=== PATIENT | male | born 1965 | race Caucasian/White ===

== ENCOUNTER 2021-01-25 09:21 | Outpatient (REF) | payer BC, SELFPAY ==
[2021-01-25 10:12] LABS: MANUAL DIFF FLAG NO
[2021-01-25 10:17] LABS: Basophils Absolute Auto 0.1 X10*3/uL (0.0-0.2); Basophils Percent Auto 1.1 % (0-2); Eosinophils Absolute Auto 0.1 X10*3/uL (0.0-0.4); Eosinophils Percent Auto 1.8 % (0-4); Hemoglobin 16.6 g/dl (14.0-18.0); Imm Gran Abs Auto 0.02 X10*3/uL (0.00-0.03); Imm Gran Pct Auto 0.3 % (0.0-0.4); Lymphocytes Absolute Auto 1.7 X10*3/uL (1.2-4.9); Mean Corpuscular HGB Conc 33.2 g/dl (31.0-36.0); Mean Corpuscular Volume 93.3 fL (80-98); Mean Platelet Volume 10.7 fL (9.4-12.4); Monocytes Absolute Auto 0.6 X10*3/uL (0.1-1.2); Neutrophils Absolute Auto 4.8 X10*3/uL (2.0-8.3); Neutrophils Percent Auto 65.8 % (45-73); Platelet Count 195 X10*3/uL (160-400); Red Blood Count 5.36 X10*6/uL (4.60-5.80); Red Cell Distribution Width 12.4 % (11.0-16.0); White Blood Count 7.3 X10*3/uL (4.8-10.8)
[2021-01-25 11:01] LABS: Alanine Aminotransferase 23 U/L (0-40); Albumin Level 4.5 g/dL (3.5-5.0); Alkaline Phosphatase 63 U/L (39-117); Anion Gap 13 (12-20); Aspartate Amino Transferase 19 U/L (5-37); Bilirubin Total 0.3 mg/dL (0.0-1.0); Blood Urea Nitrogen 15 mg/dL (9-16); Calcium 9.4 mg/dL (8.4-10.2); Carbon Dioxide 28 mmol/L (22-29); Chloride 103 mmol/L (96-108); Cholesterol 216 mg/dL; Estimated Glomerular Filt Rate > 60; Glucose Fasting 92 mg/dL (60-99); HDL Cholesterol 70 mg/dL; LDL Cholesterol Calculated 139 mg/dl; Potassium 4.9 mmol/L (3.3-5.1); Sodium 139 mmol/L (135-145); Total Protein 7.3 g/dL (6.5-8.0); Triglycerides 39 mg/dL
[2021-01-25 11:21] LABS: Prostate Specific Antigen 2.74 ng/mL (<0.05-4.0)
== END 2021-01-25 09:22 | disposition home or self-care (01) ==
LOC: HO.LAB 09:21
PROVIDERS: PCP Internal Medicine Medical Oncology; Visit Provider Internal Medicine Medical Oncology
DX: E66.9 Obesity, unspecified (principal); E78.5 Hyperlipidemia, unspecified; Z12.5 Encounter for screening for malignant neoplasm of prostate
CPT/HCPCS: 36415; 80053; 80061; 84153; 85025

== ENCOUNTER 2021-08-16 12:43 | Outpatient (REF) | payer BC, SELFPAY ==
--- NOTE | ~2021-08-16 | US_ITS ---
EXAMINATION: US SCROTUM CLINICAL INFORMATION: Mass left testicle, question hydrocele. COMPARISON: None TECHNIQUE: A sonogram of the scrotum was performed assessing oscar-scale appearance and color Doppler flow. Spectral Doppler analysis of the arterial and venous flow were performed in the testes bilaterally. FINDINGS: RIGHT: Right testicle measures 4.2 x 2.0 x 3.0 cm, volume 13.2 mL. No focal testicular parenchymal lesions are visualized. Spectral Doppler analysis of the arterial and venous flow is normal in the right testis. Right epididymal head is normal in size. There are simple appearing epididymal head cysts measuring 1.5 and 0.4 cm. No hydrocele. No right hydrocele is seen. Small varicocele. Right epididymal Doppler flow is normal. LEFT: Left testicle measures 4.0 x 2.2 x 3.4 cm, volume 15.7 mL. No focal testicular parenchymal lesions are visualized. Spectral Doppler analysis of the arterial and venous flow is normal in the left testis. There is a left epididymal head cyst measuring 4.1 cm with simple sonographic appearance. There are additional 1.1 and 0.6 cm simple appearing epididymal head cysts. Small varicocele. Left epididymal Doppler flow is normal. US/US scrotum IMPRESSION: Left epididymal head cyst measuring 4.1 cm. Small bilateral varicoceles. No testicular mass.
== END 2021-08-16 12:44 | disposition home or self-care (01) ==
LOC: HO.HMGCX 12:43
PROVIDERS: PCP Internal Medicine Medical Oncology; Visit Provider Internal Medicine Medical Oncology
DX: D29.22 Benign neoplasm of left testis (principal); N43.3 Hydrocele, unspecified
CPT/HCPCS: 76870

== ENCOUNTER 2022-03-12 07:56 | Outpatient (REF) | payer BC, SELFPAY ==
[2022-03-12 08:04] LABS: MANUAL DIFF FLAG NO
[2022-03-12 09:21] LABS: Basophils Absolute Auto 0.1 X10*3/uL (0.0-0.2); Basophils Percent Auto 1.4 % (0-2); Eosinophils Absolute Auto 0.1 X10*3/uL (0.0-0.4); Eosinophils Percent Auto 2.2 % (0-4); Hematocrit 49.2 % (42.0-52.0); Hemoglobin 16.3 g/dl (14.0-18.0); Imm Gran Abs Auto 0.02 X10*3/uL (0.00-0.03); Imm Gran Pct Auto 0.3 % (0.0-0.4); Lymphocytes Absolute Auto 1.5 X10*3/uL (1.2-4.9); Lymphocytes Percent Auto 23.6 % (20-40); Mean Corpuscular HGB Conc 33.1 g/dl (31.0-36.0); Mean Corpuscular Hemoglobin 31.1 pg (27.0-33.0); Mean Corpuscular Volume 93.9 fL (80.0-98.0); Mean Platelet Volume 10.5 fL (9.4-12.4); Monocytes Absolute Auto 0.6 X10*3/uL (0.1-1.2); Neutrophils Absolute Auto 3.9 x10*3/uL (2.0-8.3); Neutrophils Percent Auto 62.5 % (45-73); Platelet Count 199 X10*3/uL (160-400); Red Blood Count 5.24 X10*6/uL (4.60-5.80); Red Cell Distribution Width 12.8 % (11.0-16.0); White Blood Count 6.2 X10*3/uL (4.8-10.8)
[2022-03-12 09:57] LABS: Alanine Aminotransferase 27 U/L (0-40); Albumin Level 4.3 g/dL (3.5-5.0); Alkaline Phosphatase 55 U/L (39-117); Anion Gap 14 (12-20); Aspartate Amino Transferase 22 U/L (5-37); Bilirubin Total 0.3 mg/dL (0.0-1.0); Blood Urea Nitrogen 13 mg/dL (9-16); Calcium 9.1 mg/dL (8.4-10.2); Carbon Dioxide 28 mmol/L (22-29); Chloride 103 mmol/L (96-108); Cholesterol 225 mg/dL; Estimated Glomerular Filt Rate > 60; Glucose Fasting 104 mg/dL (60-99); HDL Cholesterol 68 mg/dL; LDL Cholesterol Calculated 147 mg/dl; Sodium 140 mmol/L (135-145); Total Protein 6.8 g/dL (6.5-8.0); Triglycerides 50 mg/dL
[2022-03-12 10:22] LABS: Prostate Specific Antigen 2.94 ng/mL (<0.05-4.0)
[2022-03-12 10:48] LABS: Vitamin D 25-OH Total 25.8 ng/mL (>30)
== END 2022-03-12 07:57 | disposition home or self-care (01) ==
LOC: HO.LAB 07:56
PROVIDERS: PCP Internal Medicine Medical Oncology; Visit Provider Internal Medicine Medical Oncology
DX: E78.5 Hyperlipidemia, unspecified (principal); E66.9 Obesity, unspecified; N40.0 Benign prostatic hyperplasia without lower urinary tract symptoms; E56.9 Vitamin deficiency, unspecified; Z12.5 Encounter for screening for malignant neoplasm of prostate
CPT/HCPCS: 36415; 80053; 80061; 82306; 84153; 85025

== ENCOUNTER 2022-03-28 10:43 | Outpatient (REF) | payer BC, SELFPAY ==
--- NOTE | 2022-03-28 | PFT_ITS ---
FLOWS: FEV1 45% of predicted at 1.87 L. FVC 100% of predicted at 5.43 L. FEV1 to FVC ratio of 0.34. Positive bronchodilator response. LUNG VOLUMES: Total lung capacity 127% of predicted at 9.66 L. Residual volume 220% of predicted at 5.16 L. Slow vital capacity 85% of predicted at 4.50 L. Expiratory reserve volume 74% of predicted at 1.21 L. Diffusion capacity is mildly decreased. IMPRESSION: Severe to very severe obstructive ventilatory defect with positive bronchodilator response. Increased total lung capacity suggests hyperinflation. Increased residual volume suggests air trapping. Decreased diffusion capacity suggests emphysema. MD TROY Ruiz/MODL / [id number]
== END 2022-03-28 10:44 | disposition home or self-care (01) ==
LOC: HO.RESP 10:43
PROVIDERS: PCP Internal Medicine Medical Oncology; Visit Provider Internal Medicine Medical Oncology
DX: J44.9 Chronic obstructive pulmonary disease, unspecified (principal); R06.02 Shortness of breath; F17.200 Nicotine dependence, unspecified, uncomplicated
CPT/HCPCS: 94060; 94727; 94729

== ENCOUNTER → 2022-06-14 14:11 | Outpatient (BNVA) | payer BC, SELFPAY | PROVIDERS: PCP Internal Medicine Medical Oncology; Visit Provider Internal Medicine | DX: Z13.89 Encounter for screening for other disorder (principal) ==

== ENCOUNTER → 2022-07-19 14:21 | Outpatient (BNVA) | payer BC, SELFPAY | PROVIDERS: PCP Internal Medicine Medical Oncology; Visit Provider Internal Medicine | DX: Z13.89 Encounter for screening for other disorder (principal) ==

== ENCOUNTER 2022-07-22 13:59 | Outpatient (REF) | payer BC, SELFPAY ==
--- NOTE | ~2022-07-22 | CT_ITS ---
EXAMINATION: CT CHEST SCREENING CLINICAL INFORMATION: Current smoker. 45 pack year history. COMPARISON: Previous chest x-ray from 2014 TECHNIQUE: Multidetector volumetric CT imaging of the chest is performed without contrast using low dose technique. Additional 2D coronal and sagittal reformatted images and axial 3D maximum intensity projection (MIP) images are generated on the CT workstation. This CT examination was performed using dose optimization techniques as appropriate, variously including the following: *Automated exposure control *Adjustment of mA and/or kV according to patient size (this includes techniques or standardized protocols for targeted exams where dose is matched to indication/reason for exam; i.e. extremities or head) *Use of iterative reconstruction technique DLP: 71 mGy-cm FINDINGS: LUNGS: There is evidence of emphysema. 4 mm peripheral or subpleural left upper lobe nodule axial image 68 series 5. 3 mm left upper lobe nodule axial image 75 series 5. 2 mm left upper lobe nodule axial image 77 series 5. Streaky linear density in the anterior segment of the right upper lobe near the interhemispheric fissure. Probably represents an area of scarring or subsegmental atelectasis. The lungs are otherwise clear. No endobronchial or endotracheal lesion. MEDIASTINUM: Trace pericardial fluid or thickening. The mediastinum is otherwise normal. CORONARY ARTERY CALCIFICATION: Mild PLEURA: There is no pleural effusion. No pleural mass or thickening. AXILLA: No lymphadenopathy./Latissimus dorsi fatty lesion in the left lateral chest wall muscles suggestive of a lipoma. UPPER ABDOMEN: 1.5 x 2 cm low-attenuation left adrenal nodule. This is negative Hounsfield units suggestive of a benign lipid rich adenoma. There is question of a low-attenuation lesion in the posterior upper pole the left kidney measuring approximately 1 x 2 cm. This is only partially visualized. OSSEOUS STRUCTURES: Unremarkable. CT/CT lung screening IMPRESSION: Emphysema. Small pulmonary nodules. ASSESSMENT: Lung-RADS category 2: Benign RECOMMENDATION: Annual low-dose chest CT follow-up recommended.
== END 2022-07-22 14:00 | disposition home or self-care (01) ==
LOC: HO.CT 13:59
PROVIDERS: PCP Internal Medicine Medical Oncology; Visit Provider Physician Assistant Medical
DX: Z12.2 Encounter for screening for malignant neoplasm of respiratory organs (principal); Z87.891 Personal history of nicotine dependence
CPT/HCPCS: 71271; G0296

== ENCOUNTER 2022-08-04 13:10 | Outpatient (REF) | payer BC, SELFPAY ==
--- NOTE | ~2022-08-04 | US_ITS ---
EXAMINATION: US RETROPERITONEAL LIMITED (RENAL ONLY) CLINICAL INFORMATION: Disorder of kidney and ureter, kidney lesion. COMPARISON: None TECHNIQUE: Real-time imaging of the kidneys. Technically limited study secondary to bowel gas and body habitus. FINDINGS: RIGHT KIDNEY: 11.9 x 4.4 x 4.4 cm (SAG x AP x TRV). The kidney is normal in size, contour, and echogenicity. Renal cortical thickness is normal. No calculi or focal parenchymal lesions. No hydronephrosis. LEFT KIDNEY: 13.0 x 6.3 x 4.3 cm (SAG x AP x TRV). The kidney is normal in size, contour, and echogenicity. Renal cortical thickness is normal. No renal calculi or hydronephrosis. A benign simple 2.3 cm cyst is noted in the upper pole laterally which needs no additional imaging or followup. No solid renal masses. US/US renal BI IMPRESSION: No significant abnormality is seen.
== END 2022-08-04 13:11 | disposition home or self-care (01) ==
LOC: HO.US 13:10
PROVIDERS: Visit Provider Internal Medicine Medical Oncology
DX: N28.9 Disorder of kidney and ureter, unspecified (principal)
CPT/HCPCS: 76775

== ENCOUNTER → 2022-11-15 14:03 | Outpatient (BNVA) | payer BC, SELFPAY | PROVIDERS: PCP Internal Medicine Medical Oncology; Visit Provider Internal Medicine ==

== ENCOUNTER 2023-01-30 14:25 | Outpatient (AMB) | payer BC, SELFPAY ==
[2023-01-30 14:59] VITALS: BP 110/62; PULSE 79; O2SAT 93; BMI 31.2
--- NOTE | 2023-01-30 14:59 | MHC.OFFVIS ---
Intake Vital Signs 01/30/23 14:59 Height 6 ft 1.5 in Weight 240 lb BMI 31.2 BP 110/62 Blood Pressure Location Lt brachial Position Standing Pulse 79 Pulse Source Pulse Oximeter Pulse Oximetry (%) 93 Oxygen Delivery Method Room Air Intake Visit Reasons: COPD/KEVIN Intake Note: pt is here for follow up and states he just received the incruse and is now on generic advair. and finishing up with the sprivia. 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 Allergies bee pollen [BEE STINGS] Allergy (Unknown, Verified 01/30/23 15:36) SWELLING Medication List - Last Reconciled 01/30/23 by Shelley Serrano MD Advair Diskus 500-50 mcg/dose (fluticasone propion-salmeterol) 1 ea PO BID NS albuterol sulfate 90 mcg/actuation 2 puffs inhalation Q4H PRN tamsulosin 0.4 mg PO DAILY tiotropium bromide 2.5 mcg/actuation (Spiriva Respimat) 2 puffs inhalation QAM umeclidinium 62.5 mcg/actuation (Incruse Ellipta) 1 inh inhalation DAILY 30 days Do you need a note to return to daycare/school/sports/work: No HPI COPD/KEVIN HPI Details 57 years old gentleman with longstanding history of smoking, and 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 He has quit smoking cigarettes since the start of this year, but still smokes the if you cigars per day. He is being treated for her COPD with Advair 500-50 1 inhalation b.i.d. has been on Spiriva Respimat 2 inhalations daily, which will now be changed to Incruse Ellipta 1 inhalation daily. Claims that he is feeling fine as long as he is using the inhalers, he has very little cough. Gets short of breath only if he has to climb stairs or walk up [place], not on level ground. [facility] Medical History BPH (benign prostatic hyperplasia) COPD (chronic obstructive pulmonary disease) Hyperlipidemia Nicotine dependence, cigarettes, uncomplicated Tubular adenoma of colon (~2016) Surgical History History of colonoscopy History of hand surgery Family History Brother Myocardial infarction, Onset Age: 55 Father Stroke Alzheimer disease Mother Lung cancer Stomach cancer Maternal Aunt Breast cancer Social History Patient Tobacco Use Status: Current everyday Tobacco user Tobacco use type: Cigar Years Smoked: (onset 15yo, 1ppd x 42yrs, 40pyh - now 1-5 black&milds a day) Review of Systems Const All systems reviewed & are unremarkable except as noted in HPI and below Eyes Reports no additional complaints ENT Reports no additional complaints Card Denies chest pain, Denies irregular heart rhythm and Denies leg edema Resp Reports as per HPI GI Reports no additional complaints Reports nocturia and Reports other (BEING TREATED FOR BPH) Musc Reports no additional complaints Skin/Breast Reports system reviewed and no additional complaints, except as documented Neuro Reports no additional complaints Psych Reports no additional complaints Endo Reports no additional complaints Yon/Lymph Reports no additional complaints Physical Exam Vital Signs: Last Vital Signs Pulse 79 01/30/23 14:59 BP 110/62 01/30/23 14:59 Pulse Ox 93 01/30/23 14:59 Oxygen Delivery Method Room Air 01/30/23 14:59 BMI result Body Mass Index 31.2 Const General: comfortable, no acute distress, alert and awake Orientation/consciousness: patient oriented x3 HEENT Head: Yes normal to inspection General nose exam: No nasal polyps present and No nasal discharge present Face and sinus: Yes sinuses nontender Mouth: oropharynx normal Throat: Yes posterior oropharynx normal Eyes General: appearance normal, both eyes and all related structures Neck Neck: Yes normal visual inspection, Yes no lymphadenopathy, Yes trachea midline and Yes no JVD Thyroid: Thyroid normal Chest Chest palpation & inspection: normal inspection of the chest, normal palpation of entire chest wall and no tenderness Resp Other: PERCUSSION NOTE HYPER-RESONANT, BREATH SOUNDS ARE VERY DISTANT WITH PROLONGED EXPIRATORY PHASE. I DID NOT HEAR ANY WHEEZES OR RHONCHI OR CREPITATIONS. Cardio Palpation: normal PMI Rate: regular rate Rhythm: regular rhythm Heart sounds: no gallops and no murmurs GI Palpation (GI): Soft to palpation, nontender, No hepatosplenomegaly present and no masses Auscultation: normal bowel sounds Back/Spine/Pelvis Thoracic/Lumbar Spine: thoracic and lumbar spine normal to inspection Skin General skin exam: no rashes or lesions noted Neuro General: patient oriented x3 and no focal motor deficits Cranial nerves: Yes CN's II-XII intact bilaterally Extrem General: Yes normal to inspection, Yes no clubbing, cyanosis or edema and Yes no calf tenderness Psych Appearance: grossly normal Speech and movement: Normal speech and movement present Assessment & Plan Assessment & Plan (1) Nicotine dependence, cigarettes, uncomplicated: Comment: (onset 15yo, 1ppd x 42yrs, 40pyh) STILL SMOKES CIGARS 2-3 PER DAY. I HAVE SHOWN HIM THE RESULTS OF SPIROMETRY AND HIS PREVIOUS PULMONARY FUNCTION TEST. I HAVE STRESSED THAT FOR THE SAKE OF HIS HEALTH HE MUST QUIT COMPLETELY, HE PROMISES HE WILL DO HIS BEST. Code(s): F17.210 - Nicotine dependence, cigarettes, uncomplicated (2) COPD (chronic obstructive pulmonary disease): Comment: (VERY SEVERE COPD, WITH AIR TRAPPING. ONLY SLIGHTLY IMPROVED WITH THE USE OF ADVAIR. I THINK HE WILL BENEFIT FROM ADDITIONAL TREATMENT. TX : ADVAIR 500-50 1 INHALATION B.I.D. IS ORDERED. INCRUSE ELLIPTA 1 INHALATION DAILY ALBUTEROL HFA 2 PUFFS Q 4-6 HRS PRN HAD A LONG DISCUSSION, ABOUT MANAGEMENT OF COPD, AND HOW TO TAKE CARE THE ACUTE EXACERBATIONS. Code(s): J44.9 - Chronic obstructive pulmonary disease, unspecified Coding Level of Care Code Est Pt Level 3 (40332) Diagnoses Nicotine dependence, cigarettes, uncomplicated F17.210 COPD (chronic obstructive pulmonary disease) J44.9
== END 2023-01-30 15:34 | disposition home or self-care (01) ==
PROVIDERS: PCP Internal Medicine Medical Oncology; Visit Provider Internal Medicine
DX: F17.210 Nicotine dependence, cigarettes, uncomplicated (principal); J44.9 Chronic obstructive pulmonary disease, unspecified
CPT/HCPCS: 99213

== ENCOUNTER → 2023-01-30 14:25 | Outpatient (BNVA) | payer BC, SELFPAY | PROVIDERS: PCP Internal Medicine Medical Oncology; Visit Provider Internal Medicine ==

== ENCOUNTER 2023-06-17 10:17 | Outpatient (REF) | payer BC, SELFPAY | END 2023-06-17 10:18 | disposition home or self-care (01) | LOC: HO.LAB 10:17 | PROVIDERS: PCP Internal Medicine Medical Oncology; Visit Provider Internal Medicine Medical Oncology | DX: Z12.5 Encounter for screening for malignant neoplasm of prostate (principal); E78.5 Hyperlipidemia, unspecified; E66.9 Obesity, unspecified; N40.0 Benign prostatic hyperplasia without lower urinary tract symptoms | CPT/HCPCS: 36415; 80053; 80061; 84153; 85025 ==

== ENCOUNTER 2023-06-26 15:39 | Outpatient (REF) | payer BC, SELFPAY ==
--- NOTE | ~2023-06-26 | XR_ITS ---
EXAMINATION: XR FOOT, LEFT CLINICAL INFORMATION: Pain. COMPARISON: None available. TECHNIQUE: AP, lateral, and oblique views of the left foot. FINDINGS: Bony alignment and mineralization are normal. No fracture, dislocation or left ankle joint effusion is seen. Boehler's angle is normal. There is a very small posterior calcaneal spur. There are degenerative changes of the dorsal midfoot. There is mild bunion formation of the first metatarsal head. There is minimal osteoarthritic change of the first tarsometatarsal joint. No focal soft tissue swelling, gas or foreign body is seen. There are slight degenerative soft tissue calcifications in the plantar forefoot. XR/XR foot LT min 3V IMPRESSION: 1. No fracture, dislocation or left ankle joint effusion is seen. 2. There is a very small posterior calcaneal spur. 3. There are degenerative changes of the dorsal midfoot. 4. There is mild bunion formation of the first metatarsal head, and minimal osteoarthritic change is seen of the first tarsometatarsal joint.
== END 2023-06-26 15:40 | disposition home or self-care (01) ==
LOC: HO.XRAY 15:39
PROVIDERS: PCP Internal Medicine Medical Oncology; Visit Provider Internal Medicine Medical Oncology
DX: M79.672 Pain in left foot (principal)
CPT/HCPCS: 73630

== ENCOUNTER 2023-08-07 13:50 | Outpatient (AMB) | payer BC, SELFPAY ==
[2023-08-07 14:20] VITALS: BP 110/64; PULSE 90; O2SAT 93; BMI 31.0
--- NOTE | 2023-08-07 14:20 | MHC.OFFVIS ---
Intake Vital Signs 08/07/23 14:20 Height 6 ft 1.5 in Weight 238 lb 1.588 oz BMI 31.0 BP 110/64 Blood Pressure Location Lt brachial Position Sitting Pulse 90 Pulse Source Pulse Oximeter Pulse Oximetry (%) 93 Oxygen Delivery Method Room Air Intake Visit Reasons: COPD/KEVIN Intake Note: pt is here for follow up and states he is doing well, he did have chest infection and pcp took care of this. 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 He is still smoking a few cigars and few cigarettes every day. He has intermittent cough and also gets short of breath on walking up hill or climbing stairs. He is trying his best but very hard to quit smoking. [facility] Medical History BPH (benign prostatic hyperplasia) Hyperlipidemia Nicotine dependence, cigarettes, uncomplicated Tubular adenoma of colon (~2016) COPD (chronic obstructive pulmonary disease) Surgical History History of hand surgery History of colonoscopy Family History Brother Myocardial infarction, Onset Age: 55 Father Stroke Alzheimer disease Mother Lung cancer Stomach cancer Maternal Aunt Breast cancer Social History Patient Tobacco Use Status: Current everyday Tobacco user Tobacco use type: Cigar Years Smoked: (onset 15yo, 1ppd x 42yrs, 40pyh - now 1-5 black&milds a day) Review of Systems Const All systems reviewed & are unremarkable except as noted in HPI and below Eyes Reports no additional complaints ENT Reports no additional complaints Card Denies chest pain, Denies irregular heart rhythm and Denies leg edema Resp Reports as per HPI GI Reports no additional complaints Reports nocturia and Reports other (BEING TREATED FOR BPH) Musc Reports no additional complaints Skin/Breast Reports system reviewed and no additional complaints, except as documented Neuro Reports no additional complaints Psych Reports no additional complaints Endo Reports no additional complaints Yon/Lymph Reports no additional complaints Physical Exam Vital Signs: Last Vital Signs Pulse 90 08/07/23 14:20 BP 110/64 08/07/23 14:20 Pulse Ox 93 08/07/23 14:20 Oxygen Delivery Method Room Air 08/07/23 14:20 BMI result Body Mass Index 31.0 Const General: comfortable, no acute distress, alert and awake Orientation/consciousness: patient oriented x3 HEENT Head: Yes normal to inspection General nose exam: No nasal polyps present and No nasal discharge present Face and sinus: Yes sinuses nontender Mouth: oropharynx normal Throat: Yes posterior oropharynx normal Eyes General: appearance normal, both eyes and all related structures Neck Neck: Yes normal visual inspection, Yes no lymphadenopathy, Yes trachea midline and Yes no JVD Thyroid: Thyroid normal Chest Chest palpation & inspection: normal inspection of the chest, normal palpation of entire chest wall and no tenderness Resp Other: PERCUSSION NOTE HYPER-RESONANT, BREATH SOUNDS ARE VERY DISTANT WITH PROLONGED EXPIRATORY PHASE. I DID NOT HEAR ANY WHEEZES OR RHONCHI OR CREPITATIONS. Cardio Palpation: normal PMI Rate: regular rate Rhythm: regular rhythm Heart sounds: no gallops and no murmurs GI Palpation (GI): Soft to palpation, nontender, No hepatosplenomegaly present and no masses Auscultation: normal bowel sounds Back/Spine/Pelvis Thoracic/Lumbar Spine: thoracic and lumbar spine normal to inspection Skin General skin exam: no rashes or lesions noted Neuro General: patient oriented x3 and no focal motor deficits Cranial nerves: Yes CN's II-XII intact bilaterally Extrem General: Yes normal to inspection, Yes no clubbing, cyanosis or edema and Yes no calf tenderness Psych Appearance: grossly normal Speech and movement: Normal speech and movement present Assessment & Plan Assessment & Plan (1) Nicotine dependence, cigarettes, uncomplicated: Comment: (onset 15yo, 1ppd x 42yrs, 40pyh) STILL SMOKES CIGARS 2-3 PER DAY. I HAVE SHOWN HIM THE RESULTS OF SPIROMETRY AND HIS PREVIOUS PULMONARY FUNCTION TEST. I HAVE STRESSED THAT FOR THE SAKE OF HIS HEALTH HE MUST QUIT COMPLETELY, HE PROMISES HE WILL DO HIS BEST. Code(s): F17.210 - Nicotine dependence, cigarettes, uncomplicated Plan: As above, counseled to quit smoking completely. (2) COPD (chronic obstructive pulmonary disease): Comment: (VERY SEVERE COPD, WITH AIR TRAPPING. ONLY SLIGHTLY IMPROVED WITH THE USE OF ADVAIR. HE CLAIMS THAT HE IS RELATIVELY STABLE WITH THE CURRENT MEDICAL REGIMEN. HAD A LONG DISCUSSION, ABOUT MANAGEMENT OF COPD, AND HOW TO TAKE CARE THE ACUTE EXACERBATIONS. Code(s): J44.9 - Chronic obstructive pulmonary disease, unspecified Plan: ADVAIR 500-50 1 INHALATION B.I.D. IS ORDERED. INCRUSE ELLIPTA 1 INHALATION DAILY ALBUTEROL HFA 2 PUFFS Q 4-6 HRS PRN Coding Level of Care Code Est Pt Level 3 (00471) Diagnoses Nicotine dependence, cigarettes, uncomplicated F17.210 COPD (chronic obstructive pulmonary disease) J44.9
== END 2023-08-07 14:44 | disposition home or self-care (01) ==
PROVIDERS: PCP Internal Medicine Medical Oncology; Referring Provider Internal Medicine Medical Oncology; Visit Provider Internal Medicine
DX: F17.210 Nicotine dependence, cigarettes, uncomplicated (principal); J44.9 Chronic obstructive pulmonary disease, unspecified
CPT/HCPCS: 99213

== ENCOUNTER → 2023-08-07 13:50 | Outpatient (BNVA) | payer BC, SELFPAY | PROVIDERS: PCP Internal Medicine Medical Oncology; Visit Provider Internal Medicine ==

== ENCOUNTER 2023-09-06 15:11 | Outpatient (REF) | payer BC, SELFPAY ==
--- NOTE | ~2023-09-06 | CT_ITS ---
EXAMINATION: CT LUNG SCREENING CLINICAL INFORMATION: Current smoker. One pack per day. 45 pack-year history. COMPARISON: CT lung screening 07/22/[address] abdomen and pelvis 04/29/2009. TECHNIQUE: Multidetector volumetric CT imaging of the chest is performed without contrast using low dose technique. Additional 2D coronal and sagittal reformatted images and axial 3D maximum intensity projection (MIP) images are generated on the CT workstation. This CT examination was performed using dose optimization techniques as appropriate, variously including the following: *Automated exposure control *Adjustment of mA and/or kV according to patient size (this includes techniques or standardized protocols for targeted exams where dose is matched to indication/reason for exam; i.e. extremities or head) *Use of iterative reconstruction technique DLP: 76 mGy-cm. FINDINGS: LUNGS: Moderate emphysematous changes are seen once again. Mild bronchial wall thickening is present. There are new ground-glass areas of infiltrate seen in the right upper lobe (5:85), as well as in the left upper lobe (5:121). Stable appearing atelectatic change in the left upper lobe anteromedially and in the right upper lobe medially. Unchanged 3 mm nodule at the left apex (5:99 compare prior 5:75). Unchanged 4 mm pleural-based nodule left apex (5:94 compare prior 5:69). No new or concerning pulmonary nodules seen. MEDIASTINUM: The mediastinum is normal. CORONARY ARTERY CALCIFICATION: None visualized on this study. PLEURA: There is no pleural effusion. No pleural mass or thickening. AXILLA: No lymphadenopathy. UPPER ABDOMEN: 1.7 cm left adrenal nodule is again noted, which is indeterminate by my Hounsfield unit measurements on the current, as well as the prior, study measuring about 30 Hounsfield units. However, this is stable or even slightly decreased compared to 2009 and is undoubtedly benign, needing no additional follow-up. In 2009 this measured water density. OSSEOUS STRUCTURES: Unremarkable. CT/CT lung screening IMPRESSION: No worrisome pulmonary nodules are seen. New areas of ground-glass infiltrate are noted in both upper lobes, suggesting inflammatory disease. ASSESSMENT: Lung-RADS category 2: Benign. RECOMMENDATION: Routine annual low-dose CT screening in 12 months.
== END 2023-09-06 15:12 | disposition home or self-care (01) ==
LOC: HO.CT 15:11
PROVIDERS: PCP Internal Medicine Medical Oncology; Visit Provider Nurse Practitioner Family
DX: Z12.2 Encounter for screening for malignant neoplasm of respiratory organs (principal); F17.210 Nicotine dependence, cigarettes, uncomplicated
CPT/HCPCS: 71271

== ENCOUNTER 2024-02-13 13:49 | Outpatient (AMB) | payer BC, SELFPAY ==
[2024-02-13 14:26] VITALS: BP 102/60; PULSE 83; O2SAT 93
--- NOTE | 2024-02-13 14:26 | A.OFFVIS_ITS ---
Vital Signs 02/13/24 14:26 Height 6 ft 1.5 in Weight 230 lb 6.129 oz BMI 30.0 BP 102/60 Blood Pressure Location Lt brachial Position Sitting Pulse 83 Pulse Source Pulse Oximeter Pulse Oximetry (%) 93 Oxygen Delivery Method Room Air Intake Visit Reasons: COPD/KEVIN Intake Note: pt is here for follow up and has some days with chest tightness on and off, last week he had an issue, but better today. Breaker Hand Required: No Allergies bee pollen [BEE STINGS] Allergy (Unknown, Verified 02/13/24 14:35) SWELLING [facility] Medical History BPH (benign prostatic hyperplasia) Hyperlipidemia Nicotine dependence, cigarettes, uncomplicated Tubular adenoma of colon (~2015) COPD (chronic obstructive pulmonary disease) Surgical History History of hand surgery History of colonoscopy Family History Brother Myocardial infarction, Onset Age: 55 Father Stroke Alzheimer disease Mother Lung cancer Stomach cancer Maternal Aunt Breast cancer Social History Patient Tobacco Use Status: Current everyday Tobacco user Tobacco use type: Cigar Years Smoked: (onset 15yo, 1ppd x 42yrs, 40pyh - now 1-5 black&milds a day) Physical Exam Vital Signs: Last Vital Signs Pulse 83 02/13/24 14:26 BP 102/60 02/13/24 14:26 Pulse Ox 93 02/13/24 14:26 Oxygen Delivery Method Room Air 02/13/24 14:26 BMI result Body Mass Index 30.0 Assessment & Plan Assessment & Plan (1) COPD (chronic obstructive pulmonary disease): Comment: (VERY SEVERE COPD, WITH AIR TRAPPING. ONLY SLIGHTLY IMPROVED WITH THE USE OF ADVAIR. HE CLAIMS THAT HE IS RELATIVELY STABLE WITH THE CURRENT MEDICAL REGIMEN. HE CLAIMS THAT HE IS PRONE TO HAVE ACUTE EXACERBATION ABOUT ONCE OR TWICE A YEAR, WHEN HE NEEDS A SHORT COURSE OF PREDNISONE. HAD A LONG DISCUSSION, ABOUT MANAGEMENT OF COPD, AND HOW TO TAKE CARE THE ACUTE EXACERBATIONS. Code(s): J44.9 - Chronic obstructive pulmonary disease, unspecified Category: Medical Plan: WIXELA 500-51 INHALATION B.I.D. INCRUSE ELLIPTA 1 INHALATION DAILY ALBUTEROL HFA 2 PUFFS Q 4-6 HOURS P.R.N. PRESCRIBED PREDNISONE 10 MG TABLET 20 TABS TO KEEP ON HAND FOR USE IN CASE OF HAVING ACUTE EXACERBATION. (2) Nicotine dependence, cigarettes, uncomplicated: Comment: (onset 15yo, 1ppd x 42yrs, 40pyh) STILL SMOKES CIGARS 2-3 PER DAY. TODAY HE TELLS ME THAT HE SMOKES NO MORE THAN 1 OR 2 CIGARS 2 OR 3 TIMES A WEEK. Code(s): F17.210 - Nicotine dependence, cigarettes, uncomplicated Category: Medical Plan: COUNSELED THAT HE SHOULD QUIT SMOKING COMPLETELY. CONTINUE TO HAVE ANNUAL LUNG SCREENING WITH LOW-DOSE CT SCAN. Coding Level of Care Code Est Pt Level 3 (38944) Diagnoses COPD (chronic obstructive pulmonary disease) J44.9 Nicotine dependence, cigarettes, uncomplicated F17.210
== END 2024-02-13 15:01 | disposition home or self-care (01) ==
PROVIDERS: PCP Internal Medicine Medical Oncology; Visit Provider Internal Medicine
DX: J44.9 Chronic obstructive pulmonary disease, unspecified (principal); F17.210 Nicotine dependence, cigarettes, uncomplicated
CPT/HCPCS: 99213

== ENCOUNTER → 2024-02-13 13:49 | Outpatient (BNVA) | payer BC, SELFPAY | PROVIDERS: PCP Internal Medicine Medical Oncology; Visit Provider Internal Medicine ==

== ENCOUNTER 2024-08-13 13:44 | Outpatient (AMB) | payer BC, SELFPAY ==
--- NOTE | 2024-08-13 14:05 | MHC.OFFVIS ---
Vital Signs 08/13/24 14:06 Height 6 ft 1.5 in Weight 227 lb 1.218 oz BMI 29.5 BP 122/64 Blood Pressure Location Lt brachial Position Sitting Pulse 70 Pulse Source Pulse Oximeter Pulse Oximetry (%) 94 Oxygen Delivery Method Room Air Intake Visit Reasons: COPD/KEVIN Intake Note: pt is here for follow up and states his breathing is sometimes tight but his environment at work does set this up. Medical Management Trainer Required: No Allergies bee pollen [BEE STINGS] Allergy (Unknown, Verified 08/13/24 14:12) SWELLING [facility] Medical History BPH (benign prostatic hyperplasia) Hyperlipidemia Nicotine dependence, cigarettes, uncomplicated Tubular adenoma of colon (~2015) COPD (chronic obstructive pulmonary disease) Surgical History History of hand surgery History of colonoscopy Family History Brother Myocardial infarction, Onset Age: 55 Father Stroke Alzheimer disease Mother Lung cancer Stomach cancer Maternal Aunt Breast cancer Social History Patient Tobacco Use Status: Current everyday Tobacco user Tobacco use type: Cigar Years Smoked: (onset 15yo, 1ppd x 42yrs, 40pyh - now 1-5 black&milds a day) 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
[2024-08-13 14:06] VITALS: BP 122/64; PULSE 70; O2SAT 94; BMI 29.5
--- NOTE | 2024-08-13 14:37 | A.OFFVIS_ITS ---
Vital Signs 08/13/24 14:06 Height 6 ft 1.5 in Weight 227 lb 1.218 oz BMI 29.5 BP 122/64 Blood Pressure Location Lt brachial Position Sitting Pulse 70 Pulse Source Pulse Oximeter Pulse Oximetry (%) 94 Oxygen Delivery Method Room Air Intake Visit Reasons: COPD/KEVIN Allergies bee pollen [BEE STINGS] Allergy (Unknown, Verified 08/13/24 14:37) SWELLING Medication List - Last Reconciled 08/13/24 by Shelley Serrano MD albuterol sulfate 90 mcg/actuation 2 puffs inhalation Q4H PRN finasteride 5 mg PO DAILY fluticasone propion-salmeterol 500-50 mcg/dose (Wixela Inhub) 1 ea PO BID tamsulosin 0.4 mg PO DAILY umeclidinium 62.5 mcg/actuation (Incruse Ellipta) 1 inh PO DAILY Do you need a note to return to daycare/school/sports/work: No HPI HPI COPD/KEVIN: Details: RUEL IS 59 YEARS OLD GENTLEMAN, WITH HISTORY OF SMOKING, 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 DOES GET SHORT OF BREATH IF HE HAS TO DO ANY, HEAVY PHYSICAL WORK . BUT HIS JOB IS NOT THAT STRENUOUS. STILL SMOKES A FEW CIGARETTES EVERY DAY. USES HIS INHALERS INCLUDING WIXELA AND INCRUSE DAILY. AND HE USES ALBUTEROL ONLY ONCE IN A WHILE. OVERALL STAYING STABLE BUT HE DOES HAVE INCREASING DEGREE OF SHORTNESS OF BREATH ON HIS DAY-TO-DAY WORK. [facility] Medical History BPH (benign prostatic hyperplasia) Hyperlipidemia Nicotine dependence, cigarettes, uncomplicated Tubular adenoma of colon (~2016) COPD (chronic obstructive pulmonary disease) Surgical History History of hand surgery History of colonoscopy Family History Brother Myocardial infarction, Onset Age: 55 Father Stroke Alzheimer disease Mother Lung cancer Stomach cancer Maternal Aunt Breast cancer Social History Patient Tobacco Use Status: Current everyday Tobacco user Tobacco use type: Cigar Years Smoked: (onset 15yo, 1ppd x 42yrs, 40pyh - now 1-5 black&milds a day) Review of Systems Const All systems reviewed & are unremarkable except as noted in HPI and below Eyes Reports no additional complaints ENT Reports no additional complaints Card Denies chest pain, Denies irregular heart rhythm and Denies leg edema Resp Reports as per HPI GI Reports no additional complaints Reports nocturia and Reports other (BEING TREATED FOR BPH) Musc Reports no additional complaints Skin/Breast Reports system reviewed and no additional complaints, except as documented Neuro Reports no additional complaints Psych Reports no additional complaints Endo Reports no additional complaints Yon/Lymph Reports no additional complaints Physical Exam Vital Signs: Last Vital Signs Pulse 70 08/13/24 14:06 BP 122/64 08/13/24 14:06 Pulse Ox 94 08/13/24 14:06 Oxygen Delivery Method Room Air 08/13/24 14:06 BMI result Body Mass Index 29.5 Const General: comfortable, no acute distress, alert and awake Orientation/consciousness: patient oriented x3 HEENT Head: Yes normal to inspection General nose exam: No nasal polyps present and No nasal discharge present Face and sinus: Yes sinuses nontender Mouth: oropharynx normal Throat: Yes posterior oropharynx normal Eyes General: appearance normal, both eyes and all related structures Neck Neck: Yes normal visual inspection, Yes no lymphadenopathy, Yes trachea midline and Yes no JVD Thyroid: Thyroid normal Chest Chest palpation & inspection: normal inspection of the chest, normal palpation of entire chest wall and no tenderness Resp Other: PERCUSSION NOTE HYPER-RESONANT, BREATH SOUNDS ARE VERY DISTANT WITH PROLONGED EXPIRATORY PHASE. I DID NOT HEAR ANY WHEEZES OR RHONCHI OR CREPITATIONS. Cardio Palpation: normal PMI Rate: regular rate Rhythm: regular rhythm Heart sounds: no gallops and no murmurs GI Palpation (GI): Soft to palpation, nontender, No hepatosplenomegaly present and no masses Auscultation: normal bowel sounds Back/Spine/Pelvis Thoracic/Lumbar Spine: thoracic and lumbar spine normal to inspection Skin General skin exam: no rashes or lesions noted Neuro General: patient oriented x3 and no focal motor deficits Cranial nerves: Yes CN's II-XII intact bilaterally Extrem General: Yes normal to inspection, Yes no clubbing, cyanosis or edema and Yes no calf tenderness Psych Appearance: grossly normal Speech and movement: Normal speech and movement present Quality Reporting (2019) Adult ([facility] 138/08/03/68) Body Mass Index: 29.5 Assessment & Plan Assessment & Plan (1) COPD (chronic obstructive pulmonary disease): Comment: (VERY SEVERE COPD, WITH AIR TRAPPING. ONLY SLIGHTLY IMPROVED WITH THE USE OF ADVAIR. HE CLAIMS THAT HE IS RELATIVELY STABLE WITH THE CURRENT MEDICAL REGIMEN. HE CLAIMS THAT HE IS PRONE TO HAVE ACUTE EXACERBATION ABOUT ONCE OR TWICE A YEAR, WHEN HE NEEDS A SHORT COURSE OF PREDNISONE. Code(s): J44.9 - Chronic obstructive pulmonary disease, unspecified Category: Medical Plan: HAD A LONG DISCUSSION, ABOUT MANAGEMENT OF COPD, AND HOW TO TAKE CARE THE ACUTE EXACERBATIONS. ADVISED TO CONTINUE USING FLUTICASONE-SALMETEROL 500-51 INHALATION B.I.D. AND INCRUSE ELLIPTA ONCE A DAY, ALBUTEROL HFA 2 PUFFS Q 6 HOURS P.R.N.. AVOID ANY EXPOSURE TO SMOKE DUST AND FUMES. (2) Nicotine dependence, cigarettes, uncomplicated: Comment: (onset 15yo, 1ppd x 42yrs, 40pyh) STILL SMOKES CIGARS 2-3 PER DAY. TODAY HE TELLS ME THAT HE SMOKES NO MORE THAN 1 OR 2 CIGARS 2 OR 3 TIMES A WEEK. Code(s): F17.210 - Nicotine dependence, cigarettes, uncomplicated Category: Medical Plan: ADVISED TO STOP SMOKING CIGARS ALSO. HE HAS BEEN IN ENLISTED IN ANNUAL LUNG SCANNING PROGRAM Coding Level of Care Code Est Pt Level 3 (52212) Diagnoses COPD (chronic obstructive pulmonary disease) J44.9 Nicotine dependence, cigarettes, uncomplicated F17.210
[2024-08-13 14:44] VITALS: BMI 29.5
--- OUTSIDE RECORDS SUMMARY | 2024-08-13 17:21 | XMS_ITS | Patient Health Record ---
Author Organization Anoop Austin III, MD Address [address] [address] Care Team Providers Care Electric Meter Tester Shop Name Role Phone Anoop Austin Primary Care Provider Allergies Allergen (clinical drug ingredient) Drug/Non Drug Allergy documented on EMR Reaction Allergy Type Onset Date Status Bee Sting Unknown Allergy Active Results Component Value Reference Range Notes CT lung screening Reviewed date:03/11/2024 08:41:21 AM Interpretation: Performing Lab: Notes/Report: [address] [address] [address] Scan Report Signed Patient: Fabio Griffin MR#: [id number] : 1965 Acct:[id number] Age/Sex: 58 / M ADM Date: 09/06/23 Loc: HO.CT Attending Dr: Maritza Guerra OLIVE PICKER Ordering Physician: Maritza Guerra NP Date of Service: 09/06/23 Procedure(s): CT lung screening Accession Number(s): [id number] cc: Anoop Austin MD; Maritza Guerra NP [...] by Edinson Bass MD in OV> 09/10/23 4236 DD/ 6779 TD/TT: Rn Navigator: [address] [address] [address] Scan Report Signed Patient: Maya Griffin MR#: [id number] : 1965 Acct:[id number] Age/Sex: 58 / M ADM Date: 09/06/23 Loc: .CT Attending Dr: Sofia Guerra NP Ordering Physician: Maritza Guerra NP Date of Service: 09/06/23 Procedure(s): CT lung screening Accession Number(s): [id number] cc: Anoop Austin MD; Maritza Guerra NP [...] in OV> 09/10/23 1656 DD/ 1559 TD/TT: Rn Navigator: JORGE Reason For Referral No Information Medications [...] Problem Status W/U Status Risk Notes Problem 6807267 Former smoker (Z87.891) Active confirmed He continues to be abstinent. We discussed a plan to prevent relapse in times of stress and illness. Problem 895731425 Obesity (E66.9) Active confirmed His body mass index is 33.09. He weighs 244 pounds and has gained 2 pounds since his last visit. We discussed a weight loss strategy that would lose weight at a rate of one half of a pound per week to a diet restricted in fat calories and sodium. 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 He has been referred to urology. Problem Benign prostatic hyperplasia (258360590) BPH (benign prostatic hyperplasia) (N40.0) Active confirmed He was begun on tamsulosin today and will have a follow-up visit in 1 week. I will consider finasteride and urology referral if this is not successful. We discussed lifestyle modification as a way of reducing nocturia. Problem 99517763 COPD (chronic obstructive pulmonary disease) (J44.9) Active confirmed He continue s to be abstinent from cigarettes. He recently had acute on chronic bronchitis with green phlegm, but this is clearing now. He is becoming stronger. No change in his therapy was indicated. Problem 42701687 Other and unspecified hyperlipidemia (E78.5) Active confirmed His total cholesterol is 216. I recommended weight loss and a diet restricted in fact calories and sodium. The fasting lipid profile will be repeated periodically. Problem 94082794 Tobacco use disorder (Z72.0) Active confirmed He is duue for his annual screening CT scan next month. We described all of the health consequences of continued tobacco use. He is determined to cut down on his use andd stop smoking. Problem 50279321 Sleep apnea (G47.30) Active confirmed He is not using a CPAP machine and declines offer of providing it. He deferred a decision about whether or not to have this new sleep study Problem 694214401 Other osteoarthritis involving multiple joints (M15.8) Active confirmed The arthritis in his hands has become mild and he is working full-time without difficulty. His main complaint today is right shoulder pain. He is be treated with ibuprofen. Problem 975384051 Renal cyst (N28.1) Active confirmed On August 04, 2022. An ultrasound was done of his kidneys in followup of the detection of a mass in the right kidney on screening CT scan. The ultrasound done August 04 shows 32.3 cm simple benign cyst. It will be followed. 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) Active confirmed Since [...] Date Provider Diagnosis Anoop Austin III, MD [address] [place] [address] [place] [address] 12/12/2023 Anoop Austin III, MD [address] [place] [address] [place] [address] 12/12/2023 Anoop Austin III, MD [address] [place] [address] [place] [address] 05/24/2024 Anoop Austin III, MD [address] [place] [address] [place] [address] 07/12/2024 Anoop Austin III, MD [address] [place] [address] [place] [address] 07/12/2024 Anoop Austin III, MD [address] [place] [address] [place] [address] 07/15/2024 Anoop Austin Obesity E66.9 ; BPH [...] STICK 02/05/2021 PROFILE, FASTING (COMPREHENSIVE METABOLI C) 02/03/2020 PROFILE, FASTING (COMPREHENSIVE METABOLI C) 06/21/2019 PROFILE, FASTING (COMPREHENSIVE METABOLI C) 07/15/2024 PROFILE, FASTING (COMPREHENSIVE METABOLI C) 10/06/2017 PROFILE, FASTING (COMPREHENSIVE METABOLI C) 02/24/2022 PROFILE, FASTING (COMPREHENSIVE METABOLI C) 09/09/2016 LIPID PANEL 09/09/2016 LIPID PANEL 02/03/2020 LIPID PANEL 06/21/2019 LIPID PANEL 10/06/2017 PSA, TOTAL 09/09/2016 PSA, TOTAL 02/03/2020 PSA, TOTAL 06/21/2019 PSA, TOTAL 07/15/2024 PSA, TOTAL 02/24/2022 PSA, TOTAL 10/06/2017 CBC w DIFF 10/06/2017 CBC w DIFF 09/09/2016 CBC w DIFF 02/03/2020 CBC w DIFF 06/21/2019 CBC w DIFF 07/15/2024 CBC w DIFF 02/24/2022 LYME DISEASE IgG/IgM WB 08/30/2017 XR CHEST 2 VIEW PA & LAT 02/03/2020 PFT with DLCO 03/23/2022 Lipid Panel 07/15/2024 Lipid Panel 02/24/2022 Vitamin D 25-OH Total 02/24/2022 Next Appt Details Provider Name:Anoop Austin, 10/21/2024 03:00:00 PM, [address] [place] [address] [address], [place], [address], Insurance Providers Payer Name Payer Address Payer Phone Subscriber Number Group Number Insured Name Patient Relationship to Insured Coverage Start Date Coverage End Date [facility] [address] [place], [place] [id number] Fabio Aragon Self - patient is the insured Medical (General) History Medical History History ICD Code fracture of arm,leg,clavicle osteoarthritis hyperlipidemia sleep apnea COPD plantar wart right foot tobacco dependence obesity colonic polyps, Dr. Grove, tubular ad enoma COPD Surgical History Surgery Date(Month/Year) right hand surgery 10/2019 colonoscopy 2016
--- OUTSIDE RECORDS SUMMARY | 2024-08-13 17:21 | XMS_ITS ---
Author Organization [facility] Address [address] [place] [address] Care Team Providers Care Yield Analyst Name Role Phone Geovanna DEAN, Anoop Primary [...] Code Notes Problem Diverticulitis (K57.92) Active confirmed 834928364 VITAL SIGNS Blood pressure systolic 111 mm Hg 08/01/19 25 Blood pressure diastolic 11 mm Hg 025 Height 73.5 in 08/01/2024 Weight 234 lbs 08/01/2024 BMI 30.45 kg/m2 08/01/2024 Encounters Encounter Location Date Provider Diagnosis [facility] [address] [place] [address] 08/01/2024 Flako Grove Jr Colon cancer screening [...] Provider Name:Flako don Jr, 09/13/2024 07:30:00 AM, [address] [place] [address] , [place], [place], [phone], Progress Notes * Examination Category Sub-Category Detail [...]
--- OUTSIDE RECORDS SUMMARY | 2024-08-13 17:21 | XMS_ITS ---
Author Organization Anoop Austin III, MD Address [address] [address] Care Team Providers Care Embossing Unit Operator Name Role Phone Anoop Austin Primary Care Provider REASON FOR VISIT Message Social History Sex Assigned At : Social History Observation Description Sex Assigned At Male Encounters Encounter Location Date Provider Diagnosis Anoop Austin III, MD [address] [place] [address] [place] [address] 07/15/2024 Anoop Austin Obesity E66.9 ; BPH [...] Details Provider Name:Anoop Austin, 10/21/2024 03:00:00 PM, [address] [place] [address] [place], [address], Progress Notes * Fabio HOGANDOB: [birth year] (59 yo M)Acc No.[id number]:07/15/2024 Patient:?Fabio HOGAN :1965???Age:59 Y???Sex:Male Address:[address] [place] [address] Subjective: * Chief Complaints: * ???Message * [...] true * Date:? Generated for Anh walker/Angelica/eTransmitting on:?08/13/2024 05:21 PM EST
--- OUTSIDE RECORDS SUMMARY | 2024-08-13 17:22 | XMS_ITS ---
Author Organization Anoop Austin III, MD Address [address] [facility] [place] [address] Care Team Providers Care Manufacturing Leader Name Role Phone Anoop Austin Primary Care Provider [phone] Medications Medication SIG (Take, Route, Frequency, Duration) Notes Start Date End Date Status Ciprofloxacin HCl 500 MG 1 tablet Orally every 12 hrs for 7 days 07/12/2024 07/19/2024 Active Social History Sex Assigned At : Social History Observation Description Sex Assigned At Male Encounters Encounter Location Date Provider Diagnosis Anoop Austin III, MD [address] [place] [address] [place] [address] 07/12/2024 Anoop Austin Plan Of Treatment Medication Medication Name Sig Start Date Stop Date Notes Ciprofloxacin HCl 500 MG 1 tablet Orally every 12 hrs for 7 days 07/12/2024 07/19/2024 Next Appt Details Provider Name:Anoop Austin, 10/21/2024 03:00:00 PM, [address] [place] [address] [place], [address], Progress Notes * Fabio HOGANDOB: [birth year] (59 yo M)Acc No.[id number]:07/12/2024 Patient:?Fabio HOGAN :1965???Age:59 Y???Sex:Male Address:[address], [place] [address] * Refills? Start Ciprofloxacin HCl Tablet, 500 MG, Orally, 14 Tablet, 1 tablet, every 12 hrs, 7 days, Refills=0 * true * Date:? Generated for Anh walker/Angelica/Sulma on:?08/13/2024 05:21 PM EST
--- OUTSIDE RECORDS SUMMARY | 2024-08-13 17:22 | XMS_ITS | Patient Health Record ---
Author Organization [facility] Address [address] [place] [address] Care Team Providers Care Flat Finisher Name Role Phone Geovanna DEAN, Anoop Primary Care Provider Unavailab Flako Ruiz Jr Unavailable [phone] ALLERGIES Allergen (clinical drug ingredient) Drug/Non Drug Allergy documented on EMR Reaction Allergy Type Onset Date Status bees (uncoded) Unknown Allergy Activ e REASON FOR REFERRAL Referring Provider First Name Anoop Referring Provider Last Name Geovanna Referring Provider Speciality Oncology Referred Organization [facility] Referred Provider Flako Grove Jr Referred Address [address] [facility],[place], [place],[address], Referred Provider Specialty Gastroentero logy Referral Priority [...] Problem Colon cancer screening (Z12.11) Active confirmed 322648846 Problem Personal history of colonic polyps (Z86.010) Active confirmed 541135491 Problem Encounter for other preprocedural examination (Z01.818) Active confirmed 098127048 Problem Diverticulitis (K57.92) Active confirmed 367495202 VITAL SIGNS Blood pressure diastolic 11 mm Hg 08/01/2024 Height 73.5 in 08/01/2024 Blood pressure systolic 111 mm Hg 08/01/2024 Weight 234 lbs 08/01/2024 BMI 30.45 kg/m2 08/01/2024 Encounters Encounter Location Date Provider Diagnosis [facility] [address] [facility] [address] [place] [address] 08/01/2024 Flako Grove Jr Colon cancer screening [...] Name:Flako don Jr, 09/13/2024 07:30:00 AM, [address] [facility] , [place], [place], [phone], Insurance Providers Payer Name Payer Address Payer Phone Subscriber Number Group Number Insured Name Patient Relationship to Insured Coverage Start Date Coverage End Date [facility] PROF[employer] CLAIMS [address] [place] [address] [id number] RUEL OLIVARES Self - patient is the insured MEDICAL (GENERAL) HISTORY Medical History History ICD Code Colonoscopy 05/30, normal, five-year fol lowup for prior history of adenomas. COPD BPH Surgical History Surgery Date(Month/Year)
--- OUTSIDE RECORDS SUMMARY | 2024-08-13 17:22 | XMS_ITS ---
Author Organization Anoop Austin III, MD Address [address] [place] [address] Care Team Providers Care Dental Service Chief Name Role Phone Anoop Austin Primary Care Provider REASON FOR VISIT Annual Exam Social History Sex Assigned At : Social History Observation Description Sex Assigned At Male Encounters Encounter Location Date Provider Diagnosis Anoop Austin III, MD [address] [place] [address] [place] [address] 07/19/2024 Anoop Austin Plan Of Treatment Next Appt Details Provider Name:Anoop Austin, 10/21/2024 03:00:00 PM, [address] [place] [address] [place], [address], Progress Notes * Fabio HOGANDOB: [birth year] (59 yo M)Acc No.[id number]:07/19/2024 Progress Notes Patient:?Fabio HOGAN Provider:?Anoop Austin MD :1965???Age:59 Y???Sex:Male Manan e:07/19/2024 [address] [place] Subjective: * Chief Complaints: * ???1. Annual Exam. * Medical History:? Objective: * Vitals:? Assessment: Plan: * Treatment: * Images: * The named appointment provid er may or may not be the originator of this progress note, and it is not deemed complete until electronically signed by the appointment provider. Sign off status: Pending * Provider:?Anoop Austin MD Date:?12/2024 Generated for Anh walker/Angelica/Sulma on:?08/13/2024 05:22 PM EST
== END 2024-08-13 14:37 | disposition home or self-care (01) ==
PROVIDERS: PCP Internal Medicine Medical Oncology; Visit Provider Internal Medicine
DX: J44.9 Chronic obstructive pulmonary disease, unspecified (principal); F17.210 Nicotine dependence, cigarettes, uncomplicated
CPT/HCPCS: 99213

== ENCOUNTER → 2024-08-13 13:44 | Outpatient (BNVA) | payer BC, SELFPAY | PROVIDERS: PCP Internal Medicine Medical Oncology; Visit Provider Internal Medicine ==

== ENCOUNTER 2024-09-06 14:38 | Outpatient (REF) | payer BC, SELFPAY ==
--- NOTE | ~2024-09-06 | CT_ITS ---
EXAMINATION: CT LUNG SCREENING HISTORY: Smoking history TECHNIQUE: Low dose axial images were obtained from the sternal notch to upper abdomen without IV contrast per standard departmental protocol. Sagittal and coronal reformatted images were also obtained and reviewed. One or more of the following techniques was used for dose reduction: Automated exposure control, adjustment of the mA and/or kV according to patient size, use of iterative reconstruction technique. DLP: 68 mGy-cm COMPARISON: Comparison is made with the prior examination dated 09/06/2023. FINDINGS: Lung nodules: There is a new ovoid 15 x 7 mm (average diameter 11 mm) nodule at the right lung apex (series 4, image 22). There is a new 6 x 7 mm nodule at the left lung apex (series 4, image 22). A 4-5 mm nodule is seen in the left upper lobe adjacent to the major fissure (series 4, image 48). Emphysema: moderate Coronary Calcification: mild Aortic Arch Calcification: moderate Potentially Significant Incidentals : none Additional Chest Findings: There is no pleural or pericardial effusion. No mediastinal or axillary lymphadenopathy is identified. Visualized upper abdomen: The visualized portions of the liver, spleen, and right adrenal gland have an unremarkable unenhanced appearance. Again noted is a 1.9 cm left adrenal nodule. CT/CT lung screening IMPRESSION: Multiple new bilateral upper lobe pulmonary nodules as described above, the largest of which measures up to 11 mm in average diameter. LUNG-RADS ASSESSMENT: Lung-RADS 4A: Suspicious MANAGEMENT: 3 month LDCT Category S: N/A Electronically signed by: Anoop Mccormick MD 09/09/2024 07:41 AM EDT
== END 2024-09-06 14:39 | disposition home or self-care (01) ==
LOC: HO.CT 14:38
PROVIDERS: PCP Internal Medicine Medical Oncology; Visit Provider Nurse Practitioner Family
DX: Z12.2 Encounter for screening for malignant neoplasm of respiratory organs (principal); F17.210 Nicotine dependence, cigarettes, uncomplicated
CPT/HCPCS: 71271

== ENCOUNTER → 2024-09-06 14:45 | Outpatient (BNV) | payer BC, SELFPAY | PROVIDERS: PCP Internal Medicine Medical Oncology; Visit Provider Radiology Diagnostic Radiology | DX: F17.210 Nicotine dependence, cigarettes, uncomplicated (principal) | CPT/HCPCS: 71271 ==

== ENCOUNTER → 2024-09-13 06:14 | Day surgery (SDC) | payer BC, SELFPAY ==
--- OUTSIDE RECORDS SUMMARY | 2024-08-07 08:36 | XMS_ITS | Patient Health Record ---
Author Organization Anoop Austin III, MD Address [address] [place] [address] Care Team Providers Care Gas Combustion Engineer Name Role Phone Anoop Austin Primary Care Provider Allergies Allergen (clinical drug ingredient) Drug/Non Drug Allergy documented on EMR Reaction Allergy Type Onset Date Status Bee Sting Unknown Allergy Active Results Component Value Reference Range Notes CT lung screening Reviewed date:03/11/2024 08:41:21 AM Interpretation: Performing Lab: Notes/Report: [address] [address] [address] Scan Report Signed Patient: Fabio Griffin MR#: [id number] : 1965 Acct:[id number] Age/Sex: 58 / M ADM Date: 09/06/23 Loc: HO.CT Attending Dr: Maritza Guerra [employer] Ordering Physician: Maritza Guerra NP Date of Service: 09/06/23 Procedure(s): CT lung screening Accession Number(s): [id number] cc: Anoop Austin MD; Maritza Guerra NP EXAMINATION: CT LUNG SCREENING CLINICAL INFORMATION: Current smoker. One pack per day. 45 pack-year history. COMPARISON: CT lung screening 07/22/[address] abdomen and pelvis 04/29/2009. TECHNIQUE: Multidetector volumetric CT imaging of the chest is performed without contrast using low dose technique. Additional 2D coronal and sagittal reformatted images and axial 3D maximum intensity projection (MIP) images are generated on the CT workstation. This CT examination was performed using dose optimization techniques as appropriate, variously including the following: *Automated exposure control *Adjustment of mA and/or kV according to patient size (this includes techniques or standardized protocols for targeted exams where dose is matched to indication/reason for exam; i.e. extremities or head) *Use of iterative reconstruction technique DLP: 76 mGy-cm. FINDINGS: LUNGS: Moderate emphysematous changes are seen once again. Mild bronchial wall thickening is present. There are new ground-glass areas of infiltrate seen in the right upper lobe (5:85), as well as in the left upper lobe (5:121). Stable appearing atelectatic change in the left upper lobe anteromedially and in the right upper lobe medially. Unchanged 3 mm nodule at the left apex (5:99 compare prior 5:75). Unchanged 4 mm pleural-based nodule left apex (5:94 compare prior 5:69). No new or concerning pulmonary nodules seen. MEDIASTINUM: The mediastinum is normal. CORONARY ARTERY CALCIFICATION: None visualized on this study. PLEURA: There is no pleural effusion. No pleural mass or thickening. AXILLA: No lymphadenopathy. UPPER ABDOMEN: 1.7 cm left adrenal nodule is again noted, which is indeterminate by my Hounsfield unit measurements on the current, as well as the prior, study measuring about 30 Hounsfield units. However, this is stable or even slightly decreased compared to 2009 and is undoubtedly benign, needing no additional follow-up. In 2009 this measured water density. OSSEOUS STRUCTURES: Unremarkable. CT/CT lung screening IMPRESSION: No worrisome pulmonary nodules are seen. New areas of ground-glass infiltrate are noted in both upper lobes, suggesting inflammatory disease. ASSESSMENT: Lung-RADS category 2: Benign. RECOMMENDATION: Routine annual low-dose CT screening in 12 months. Dictated By: Edinson Bass MD Signed By: <Electronically signed by Edinson Bass MD in OV> 09/10/23 0396 DD/ 0259 TD/TT: Outside Cutter: [address] [address] [address] Scan Report Signed Patient: Maya Griffin MR#: [id number] : 1965 Acct:[id number] Age/Sex: 58 / M ADM Date: 09/06/23 Loc: .CT Attending Dr: Sofia Guerra NP Ordering Physician: Maritza Guerra NP Date of Service: 09/06/23 Procedure(s): CT lung screening Accession Number(s): [id number] cc: Anoop Austin MD; Maritza Guerra NP EXAMINATION: CT LUNG SCREENING CLINICAL INFORMATION: Current smoker. One pack per day. 45 pack-year history. COMPARISON: CT lung screening and CT abdomen and pelvis 04/29/2009. TECHNIQUE: Multidetector volume tric CT imaging of the chest is performed without contrast using low d ose technique. Additional 2D coronal and sagittal reformatted images a nd axial 3D maximum intensity projection (MIP) images are generated on the CT workstation. This CT examination was performed using dose optimization techniques as appropriate, various ly including the following: *Automated exposure control *Adjustment of mA an d/or kV according to patient size (this includes techniques or standa rdized protocols for targeted exams where dose is matched to indicatio n/reason for exam; i.e. extremities or head) *Use of iterative reconstruction technique DLP: 76 mGy-cm. FINDINGS: LUNGS: Moderate emph ysematous changes are seen once again. Mild bronchial wall thick ening is present. There are new ground -glass areas of infiltrate seen in the right upper lobe (5:85), as well as in the left upper lobe (5:121). Stable appearing atelectati c change in the left upper lobe anteromedially and in the right upper l obe medially. Unchanged 3 mm nodul e at the left apex (5:99 compare prior 5:75). Unchanged 4 mm pleural-based n odule left apex (5:94 compare prior 5:69). No new or concerning pulmonary nodules seen. MEDIASTINUM: The med iastinum is normal. CORONARY ARTERY CALC IFICATION: None visualized on this study. PLEURA: There is no pleural effusion. No pleural mass or thickening. AXILLA: No lymphadenopathy. UPPER ABDOMEN: 1.7 c m left adrenal nodule is again noted, which is indeterminate by my Hounsfield unit measurements on the current, as well as the prior, s tiny measuring about 30 Hounsfield units. However, this is stable or ev en slightly decreased compared to 2009 and is undoubtedly benign, needing no additional follow-up. In 2009 this measured water density. OSSEOUS STRUCTURES: Unremarkable. C T/CT lung screening IMPRESSION: No worrisome pulmona ry nodules are seen. New areas of ground-glass infiltrate are noted in both upper lobes, suggesting inflammatory disease. ASSESSMENT: Lung-RADS category 2: Benign. RECOMMENDATION: Routine annual low-d ose CT screening in 12 months. Dictated By: Edinson Bass MD Signed By: <Electron ically signed by Edinson Bass MD in OV> 09/10/23 1656 DD/ 1559 TD/TT: Outside Cutter: JORGE Reason For Referral No Information Medications Medication SIG (Take, Route, Frequency, Duration) Notes Start Date End Date Status EpiPen 2-Ruy 0.3 MG/0.3ML USE EPI PEN NEEDED FOR BEE STINGS Injection DIRECTED Active Advair Diskus 500-50 MCG/ACT Inhalation Active Tamsulosin HCl 0.4 MG TAKE 2 CAPSULES BY MOUTH EVERY DAY for 30 Active Albuterol Sulfate HFA 108 (90 Base) MCG/ACT INHALE 2 PUFFS INTO THE LUNGS EVERY 4 HOURS FOR WHEEZING Inhalation every 4 hrs for 28 days Active Immunizations Vaccine Route Administration Date Status Comme nts COVID PFIZER Unknown 09/11/2020 Administered COVID PFIZER Unknown 08/19/2020 Administered COVID PFIZER Unknown 05/03/2021 Administered Tdap Unknown 10/01/2019 Administered Decline: Influenza Unknown 06/26/2023 Administered Decline: Influenza Unknown 03/10/2014 Refused Decline: Influenza Unknown 06/26/2023 Others Social History Tobacco Use: Social History Observation Description Date Details (start date - stop date) Light tobacco s moker NA - NA Sex Assigned At : Social History Observation Description Sex Assigned At Male Tobacco Use/Smoking Question Answer Notes Patient is a light tobacco smoker Additional Findings: Tobacco User Pipe smoker Alcohol Screen Question Answer Notes Did you have a drink contain ing alcohol in the past year? Yes How often did you have a dri nk containing alcohol in the past year? 4 or more times a week (4 points) How many drinks did you have on a typical day when you were drinking in the past year? 5 or 6 drinks (2 points) How often did you have 6 or more drinks on one occasion in the past year? Weekly (3 points) Points 9 Interpretation Positive Problems Problem Type SNOMED Code ICD Code Onset Dates Problem Status W/U Status Risk Notes Problem 2223861 Former smoker (Z87.891) Active confirmed He continues to be abstinent. We discussed a plan to prevent relapse in times of stress and illness. Problem 993767544 Obesity (E66.9) Active confirmed His body mass index is 33.09. He weighs 244 pounds and has gained 2 pounds since his last visit. We discussed a weight loss strategy that would lose weight at a rate of one half of a pound per week to a diet restricted in fat calories and sodium. 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 He has been referred to urology. Problem Benign prostatic hyperplasia (463258458) BPH (benign prostatic hyperplasia) (N40.0) Active confirmed He was begun on tamsulosin today and will have a follow-up visit in 1 week. I will consider finasteride and urology referral if this is not successful. We discussed lifestyle modification as a way of reducing nocturia. Problem 22359498 COPD (chronic obstructive pulmonary disease) (J44.9) Active confirmed He continue s to be abstinent from cigarettes. He recently had acute on chronic bronchitis with green phlegm, but this is clearing now. He is becoming stronger. No change in his therapy was indicated. Problem 65582254 Other and unspecified hyperlipidemia (E78.5) Active confirmed His total cholesterol is 216. I recommended weight loss and a diet restricted in fact calories and sodium. The fasting lipid profile will be repeated periodically. Problem 81079934 Tobacco use disorder (Z72.0) Active confirmed He is duue for his annual screening CT scan next month. We described all of the health consequences of continued tobacco use. He is determined to cut down on his use andd stop smoking. Problem 13872463 Sleep apnea (G47.30) Active confirmed He is not using a CPAP machine and declines offer of providing it. He deferred a decision about whether or not to have this new sleep study Problem 390151959 Other osteoarthritis involving multiple joints (M15.8) Active confirmed The arthritis in his hands has become mild and he is working full-time without difficulty. His main complaint today is right shoulder pain. He is be treated with ibuprofen. Problem 472075967 Renal cyst (N28.1) Active confirmed On August 04, 2022. An ultrasound was done of his kidneys in followup of the detection of a mass in the right kidney on screening CT scan. The ultrasound done August 04 shows 32.3 cm simple benign cyst. It will be followed. 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 He has had an increased difficulty in obtaining and keeping an erection and is experienccing anorgasmia. He has not experienced retrograde ejaculattion. He will stop the tamsulosin as a trial to see if the symptoms improve. He was referred to urology foor definitive treatment and evaluation.His examination today was not consistent with prostatitis. Encounters Encounter Location Date Provider Diagnosis Anoop Austin III, MD [address] [place] [address] [place] [address] 12/12/2023 Anoop Austin III, MD [address] [place] [address] [place] [address] 12/12/2023 Anoop Austin III, MD [address] [place] [address] [place] [address] 05/24/2024 Anoop Austin III, MD [address] [place] [address] [place] [address] 07/12/2024 Anoop Austin III, MD [address] [place] [address] [place] [address] 07/12/2024 Anoop Austin III, MD [address] [place] [address] [place] [address] 07/15/2024 Anoop Austin Obesity E66.9 ; BPH (benign prostatic hyperplasia) N40.0 and COPD (chronic obstructive pulmonary disease) J44.9 Assessments Encounter Date Diagnosis (ICD Code) Assessment Notes Treat ment Notes Treatment Clinical Notes 07/15/2024 Obesity (ICD-10 - E66.9) 07/15/2024 BPH (benign prostatic hyperplasia) (ICD-10 - N40.0) 07/15/2024 COPD (chronic obstructive pulmonary disease) (ICD-10 - J44.9) Plan Of Treatment Pending Test Test Name Order Date LDL Cholesterol (Direct) 01/25/2021 URINE DIP STICK 02/05/2021 PROFILE, FASTING (COMPREHENSIVE METABOLI C) 07/15/2024 PROFILE, FASTING (COMPREHENSIVE METABOLI C) 02/24/2022 PROFILE, FASTING (COMPREHENSIVE METABOLI C) 10/06/2017 PROFILE, FASTING (COMPREHENSIVE METABOLI C) 09/09/2016 PROFILE, FASTING (COMPREHENSIVE METABOLI C) 02/03/2020 PROFILE, FASTING (COMPREHENSIVE METABOLI C) 06/21/2019 LIPID PANEL 06/21/2019 LIPID PANEL 10/06/2017 LIPID PANEL 09/09/2016 LIPID PANEL 02/03/2020 PSA, TOTAL 02/03/2020 PSA, TOTAL 07/15/2024 PSA, TOTAL 06/21/2019 PSA, TOTAL 02/24/2022 PSA, TOTAL 10/06/2017 PSA, TOTAL 09/09/2016 CBC w DIFF 02/03/2020 CBC w DIFF 07/15/2024 CBC w DIFF 06/21/2019 CBC w DIFF 02/24/2022 CBC w DIFF 10/06/2017 CBC w DIFF 09/09/2016 LYME DISEASE IgG/IgM WB 08/30/2017 XR CHEST 2 VIEW PA & LAT 02/03/2020 PFT with DLCO 03/23/2022 Lipid Panel 07/15/2024 Lipid Panel 02/24/2022 Vitamin D 25-OH Total 02/24/2022 Next Appt Details Provider Name:Anoop Austin, 10/21/2024 03:00:00 PM, [address] [place] [address] [address], [place], [address], Insurance Providers Payer Name Payer Address Payer Phone Subscriber Number Group Number Insured Name Patient Relationship to Insured Coverage Start Date Coverage End Date [facility] [address] [place], [place] [id number] Fabio Aragon Self - patient is the insured Medical (General) History Medical History History ICD Code fracture of arm,leg,clavicle osteoarthritis hyperlipidemia sleep apnea COPD plantar wart right foot tobacco dependence obesity colonic polyps, Dr. Grove, tubular ad enoma COPD Surgical History Surgery Date(Month/Year) right hand surgery 10/2019 colonoscopy 2016
--- OUTSIDE RECORDS SUMMARY | 2024-08-07 08:36 | XMS_ITS ---
Author Organization [facility] Address [address] [place] [address] Care Team Providers Care Sales Training Representative Name Role Phone Geovanna DEAN, Anoop Primary Care Provider Unavailab Flako Ruiz Jr Unavailable [phone] ALLERGIES Allergen (clinical drug ingredient) Drug/Non Drug Allergy documented on EMR Reaction Allergy Type Onset Date Status bees (uncoded) Unknown Allergy Activ e REASON FOR VISIT Patient presents today for a screening colonoscopy MEDICATIONS Medication SIG (Take, Route, Frequency, Duration) Notes Start Date End Date Status Finasteride 5 MG TAKE 1 TABLET BY MOUTH EVERY MORNING Oral for 90 N401,Unavailabl e Active Fluticasone-Salmeterol 500-50 MCG/ACT Inhalation for 30 Active Incruse Ellipta 62.5 MCG/ACT INHALE 1 PUFF BY MOUTH DAILY Inhalation for 30 J449,Unavailabl e Active Tamsulosin HCl 0.4 MG TAKE 2 CAPSULES BY MOUTH EVERY DAY Oral for 30 Active MiraLax (colon prep) 17 GM/SCOOP mixed with Gatorade or Crystal Light Orally begin at 5:00 p.m. the day before the procedure for 1 day 08/01/2024 Active SOCIAL HISTORY Tobacco Use: Social History Observation Description Date Details (start date - stop date) Former Smoker NA - NA Sex Assigned At : Social History Observation Description Sex Assigned At Unknown Tobacco Use/Smoking Question Answer Notes Patient is a former smoker How long has it been since you last smoked? 1-5 years Alcohol Screen Question Answer Notes Did you [...] on one occasion in the past year? Less than monthly (1 point) Points 7 Interpretation Positive PROBLEMS Problem Type ICD Code Onset Dates Problem Status W/U Status Risk SNOMED Code Notes Problem Diverticulitis (K57.92) Active confirmed 122167391 VITAL SIGNS Blood pressure systolic 111 mm Hg 08/01/19 25 Blood pressure diastolic 11 mm Hg 025 Height 73.5 in 08/01/2024 Weight 234 lbs 08/01/2024 BMI 30.45 kg/m2 08/01/2024 Encounters Encounter Location Date [facility] [address] [place] [address] 08/01/2024 Flako Grove Jr Colon cancer screening Z12.11 and Diverticulitis K57.92 ASSESSMENTS Encounter Date Diagnosis Assessment Notes Treatment Notes Treatment Clinical Notes 08/01/2024 Colon cancer screening (ICD-10 - Z12.11) Colonoscopy material was printed 08/01/2024 Diverticulitis (ICD-10 - K57.92) PLAN OF TREATMENT Medication Medication Name Sig Start Date Stop Date Notes MiraLax (colon prep) 17 GM/SCOOP mixed with Gatorade or Crystal Light Orally begin at 5:00 p.m. the day before the procedure for 1 day 08/01/2024 Treatment Notes Assessment Notes Colon cancer screening Colonoscopy mater ial was printed Future Test Test Name Order Date COLONOSCOPY 08/01/2024 Next Appt Details Follow Up: prn, 1 Year, Reas on: Provider Name:Flako don Jr, 09/13/2024 07:30:00 AM, [address] [place] [address] , [place], [place], [phone], Progress Notes * Examination Category Sub-Category Detail Notes General Examination GENERAL APPEARANCE: in no ac tiffanie distress HEAD: normocephalic EYES: sclera non-icteric NECK/THYROID: no lymphadenopathy HEART: S1, S2 normal, no mu rmurs CHEST: normal shape and exp ansion LUNGS: clear to auscultatio n bilaterally ABDOMEN: soft, nontender, non distended, bowel sounds present, no organomegaly SKIN: anicteric EXTREMITIES: no clubbing, cyanosi s, or edema PSYCH: cognitive function i ntact ORAL CAVITY: mucosa moist
--- OUTSIDE RECORDS SUMMARY | 2024-08-07 08:36 | XMS_ITS ---
Author Organization Anoop Austin III, MD Address [address] [place] [address] Care Team Providers Care Starch And Prosize Mixer Name Role Phone Anoop Austin Primary Care Provider REASON FOR VISIT Message Social History Sex Assigned At : Social History Observation Description Sex Assigned At Male Encounters Encounter Location Date Provider Diagnosis Anoop Austin III, MD [address] [place] [address] [place] [address] 07/15/2024 Anoop Austin Obesity E66.9 ; BPH (benign prostatic hyperplasia) N40.0 and COPD (chronic obstructive pulmonary disease) J44.9 Assessments Encounter Date Diagnosis (ICD Code) Assessment Notes Treat ment Notes Treatment Clinical Notes 07/15/2024 Obesity (ICD-10 - E66.9) 07/15/2024 BPH (benign prostatic hyperplasia) (ICD-10 - N40.0) 07/15/2024 COPD (chronic obstructive pulmonary disease) (ICD-10 - J44.9) Plan Of Treatment Pending Test Test Name Order Date PROFILE, FASTING (COMPREHENSIVE METABOLI C) 07/15/2024 PSA, TOTAL 07/15/2024 CBC w DIFF 07/15/2024 Lipid Panel 07/15/2024 Next Appt Details Provider Name:Anoop Austin, 10/21/2024 03:00:00 PM, [address] [place] [address] [place], [address], Progress Notes * Fabio HOGANDOB: [birth year] (59 yo M)Acc No.[id number]:07/15/2024 Patient:?Fabio HOGAN :1965???Age:59 Y???Sex:Male Address:[address] [place] [address] Subjective: * Chief Complaints: * ???Message * Medical History:? * Surgical History:? * Hospitalization/Major Diagno stic Procedure:? * Medications:? Objective: * Vitals:? * Physical Examination:? Assessment: * Assessment: 1.?Obesity - E66.9???2.?BPH (benign prostatic hyperplasia) - N40.0???3.?COPD (chronic obstructive pulmonary disease) - J44.9??? Plan: * Treatment: 2.?BPH (benign prostatic hyp erplasia)?LAB: PROFILE, FASTING (COMPREHENSIVE METABOLIC) ?LAB: PSA, TOTAL ?LAB: CBC w DIFF ?LAB: Lipid Panel 3.?COPD (chronic obstructive pulmonary disease)?LAB: PROFILE, FASTING (COMPREHENSIVE METABOLIC) ?LAB: PSA, TOTAL ?LAB: CBC w DIFF ?LAB: Lipid Panel * Procedure Codes:? * true * Date:? Generated for Anh walker/Angelica/eTransmitting on:?08/07/2024 08:36 AM EST
--- OUTSIDE RECORDS SUMMARY | 2024-08-07 08:37 | XMS_ITS ---
Author Organization Anoop Austin III, MD Address [address] [place] [address] Care Team Providers Care Business Systems Advisor Name Role Phone Anoop Austin Primary Care Provider [phone] REASON FOR VISIT Annual Exam Social History Sex Assigned At : Social History Observation Description Sex Assigned At Male Encounters Encounter Location Date Provider Diagnosis Anoop Austin III, MD [address] [place] [address] [place] [address] 07/19/2024 Anoop Austin Plan Of Treatment Next Appt Details Provider Name:Anoop Austin, 10/21/2024 03:00:00 PM, [address] [place] [address] [place], [address], Progress Notes * Fabio HOGANDOB: [birth year] (59 yo M)Acc No.[id number]:07/19/2024 Progress Notes Patient:?Fabio HOGAN Provider:?Anoop Austin MD :1965???Age:59 Y???Sex:Male Manan e:07/19/2024 [phone] Subjective: * Chief Complaints: * ???1. Annual Exam. * Medical History:? Objective: * Vitals:? Assessment: Plan: * Treatment: * Images: * The named appointment provid er may or may not be the originator of this progress note, and it is not deemed complete until electronically signed by the appointment provider. Sign off status: Pending * Provider:?Anoop Austin MD Date:?12/2024 Generated for Anh walker/Angelica/Rolandoitting on:?08/07/2024 08:37 AM EST
--- OUTSIDE RECORDS SUMMARY | 2024-08-07 08:37 | XMS_ITS ---
Author Organization Anoop Austin III, MD Address [address] [facility] [place] [address] Care Team Providers Care Director Human Services Name Role Phone Anoop Austin Primary Care Provider Medications Medication SIG (Take, Route, Frequency, Duration) Notes Start Date End Date Status Ciprofloxacin HCl 500 MG 1 tablet Orally every 12 hrs for 7 days 07/12/2024 07/19/2024 Active Social History Sex Assigned At : Social History Observation Description Sex Assigned At Male Encounters Encounter Location Date Provider Diagnosis Anoop Austin III, MD [address] [place] [address] [place] [address] 07/12/2024 Anoop Austin Plan Of Treatment Medication Medication Name Sig Start Date Stop Date Notes Ciprofloxacin HCl 500 MG 1 tablet Orally every 12 hrs for 7 days 07/12/2024 07/19/2024 Next Appt Details Provider Name:Anoop Austin, 10/21/2024 03:00:00 PM, [address] [place] [address] [place], [address], Progress Notes * Fabio HOGANDOB: [birth year] (59 yo M)Acc No.[id number]:07/12/2024 Patient:?Fabio HOGAN :1965???Age:59 Y???Sex:Male Address:[address], [place] [address] * Refills? Start Ciprofloxacin HCl Tablet, 500 MG, Orally, 14 Tablet, 1 tablet, every 12 hrs, 7 days, Refills=0 * true * Date:? Generated for Anh walker/Angelica/Rolandoitting on:?08/07/2024 08:36 AM EST
--- OUTSIDE RECORDS SUMMARY | 2024-08-07 08:37 | XMS_ITS | Patient Health Record ---
Author Organization [facility] Address [address] [place] [address] Care Team Providers Care Trolley Car Overhauler Name Role Phone Geovanna DEAN, Anoop Primary Care Provider Unavailab Flako Ruiz Jr Unavailable ALLERGIES Allergen (clinical drug ingredient) Drug/Non Drug Allergy documented on EMR Reaction Allergy Type Onset Date Status bees (uncoded) Unknown Allergy Activ e REASON FOR REFERRAL Referring Provider First Name Anoop Referring Provider Last Name Geovanna Referring Provider Speciality Oncology Referred Organization [facility] Referred Provider Flako Grove Jr Referred Address [address] [facility],[address],[place], [place],[address], Referred Provider Specialty Gastroentero logy Referral Priority Routine MEDICATIONS Medication SIG (Take, Route, Frequency, Duration) Notes Start Date End Date Status MiraLax (colon prep) 17 GM/SCOOP mixed with Gatorade or Crystal Light Orally begin at 5:00 p.m. the day before the procedure for 1 day 08/01/2024 Active Finasteride 5 MG TAKE 1 TABLET BY MOUTH EVERY MORNING Oral for 90 N401,Unavailabl e Active Fluticasone-Salmeterol 500-50 MCG/ACT Inhalation for 30 Active Incruse Ellipta 62.5 MCG/ACT INHALE 1 PUFF BY MOUTH DAILY Inhalation for 30 J449,Unavailabl e Active Tamsulosin HCl 0.4 MG TAKE 2 CAPSULES BY MOUTH EVERY DAY Oral for 30 Active IMMUNIZATIONS Vaccine Route Administration Date Status Comme nts Influenza Unknown 02/14/2019 Refused SOCIAL HISTORY Tobacco Use: Social History Observation [...] W/U Status Risk SNOMED Code Notes Problem Colon cancer screening (Z12.11) Active confirmed 998438583 Problem Personal history of colonic polyps (Z86.010) Active confirmed 853023365 Problem Encounter for other preprocedural examination (Z01.818) Active confirmed 159622748 Problem Diverticulitis (K57.92) Active confirmed 675994758 VITAL SIGNS Blood pressure diastolic 11 mm Hg 08/01/2024 Height 73.5 in 08/01/2024 Blood pressure systolic 111 mm Hg 08/01/2024 Weight 234 lbs 08/01/2024 BMI 30.45 kg/m2 08/01/2024 Encounters Encounter Location Date Provider Diagnosis [facility] [address] [facility] [address] [place] [address] 08/01/2024 Flako Grove Jr Colon cancer screening Z12.11 and Diverticulitis K57.92 ASSESSMENTS Encounter Date Diagnosis Assessment Notes Treatment Notes Treatment Clinical Notes 08/01/2024 Colon cancer screening (ICD-10 - Z12.11) Colonoscopy material was printed 08/01/2024 Diverticulitis (ICD-10 - K57.92) PLAN OF TREATMENT Future Test Test Name Order Date COLONOSCOPY 09/01/2015 COLONOSCOPY 02/14/2019 COLONOSCOPY 08/01/2024 Next Appt Details Provider Name:Flako don Jr, 09/13/2024 07:30:00 AM, [address] [facility] , [place], [place], [phone], Insurance Providers Payer Name Payer Address Payer Phone Subscriber Number Group Number Insured Name Patient Relationship to Insured Coverage Start Date Coverage End Date [facility] PROF[employer]AL CLAIMS [address] [place] [address] [phone] [id number] RUEL OLIVARES Self - patient is the insured MEDICAL (GENERAL) HISTORY Medical History History ICD Code Colonoscopy 05/30, normal, five-year fol lowup for prior history of adenomas. COPD BPH Surgical History Surgery Date(Month/Year)
[2024-09-11 11:53] VITALS: BMI 30.6
--- NOTE | 2024-09-12 09:34 | HO.ANESPROP2 ---
HPI - Anesthesia Eval Consult details Narrative: 59yo M for Colonoscopy PMFSH Active Problems Active Problems: All Active Problems Snoring (Acute) Nicotine dependence, cigarettes, uncomplicated (Acute) COPD (chronic obstructive pulmonary disease) (Acute) Past Medical History Medical History (Updated 09/11/24 @ 11:56 by Izabela Schroeder, RN) Pulmonary nodule Sleep apnea Diverticulitis BPH (benign prostatic hyperplasia) Hyperlipidemia Nicotine dependence, cigarettes, uncomplicated Tubular adenoma of colon (~2016) COPD (chronic obstructive pulmonary disease) Family History Family History Brother Myocardial infarction, Onset Age: 55 Father Stroke Alzheimer disease Mother Lung cancer Stomach cancer Maternal Aunt Breast cancer Surgical History Surgical History History of hand surgery History of colonoscopy Social History Social History (Updated 09/11/24 @ 11:51 by Izabela Schroeder RN) Household Members: Spouse Patient Tobacco Use Status: Former Tobacco user Tobacco use type: Cigarette and Cigar Years Smoked: (onset 15yo, 1ppd x 42yrs, 40pyh - now 1-5 black&milds a day) Meds Allergies Allergy/AdvReac Type Severity Reaction Status Date / Time bee pollen [BEE STINGS] Allergy Unknown SWELLING Verified 08/13/24 14:37 Home Medications ?Medication ?Instructions ?Recorded ?Confirmed ?Last Taken ?Type albuterol sulfate 90 mcg/actuation 2 puff inhalation Q4H PRN 06/14/22 09/11/24 Unknown History aerosol inhaler Shortness Of Breath tamsulosin 0.4 mg capsule 0.4 mg PO DAILY 06/14/22 09/11/24 Unknown History finasteride 5 mg tablet 5 mg PO DAILY 08/13/24 09/11/24 Unknown History Exam Height,Weight and Vital Signs: Height 6 ft 1.5 in Weight 106.594 kg Assessment and Plan Assessment Anesthesia Assessment: Chart Reviewed
[2024-09-13 06:19] VITALS: BP 129/76; PULSE 90; RESP 22; TEMP 36.4; O2SAT 93
[2024-09-13] MEDS: Lactated Ringers 1,000 ML 100 ML IVCONT (06:46)
--- NOTE | 2024-09-13 06:55 | PC.NURSE ---
after respt x ls less diminished and coarse resp easy and regular spo2 [id number]
--- NOTE | 2024-09-13 07:22 | PC.NURSE ---
pt cancelled by anesthesia sp02 [id number] ra ls coarse diminshed congested sick since monday not feeling better denies fever dr felder at beds side speaking to aptient f/u with pcp will be reschedule
== END ==
PROVIDERS: PCP Internal Medicine Medical Oncology; Visit Provider Internal Medicine Gastroenterology
PROC: 0DJD8ZZ Inspection of Lower Intestinal Tract, Via Natural or Artificial Opening Endoscopic (ICD-10-PCS; CPT 45378; principal; 2024-10-18 08:20)
DX: Z12.11 Encounter for screening for malignant neoplasm of colon (principal); Z53.8 Procedure and treatment not carried out for other reasons; R09.89 Other specified symptoms and signs involving the circulatory and respiratory systems; J44.9 Chronic obstructive pulmonary disease, unspecified

== ENCOUNTER 2024-10-12 07:17 | Outpatient (REF) | payer BC, SELFPAY ==
--- OUTSIDE RECORDS SUMMARY | 2024-10-12 07:20 | XMS_ITS ---
Author Organization Anoop Austin III, MD Address [address] [address] Care Team Providers Care Landfill Attendant Name Role Phone Anoop Austin Primary Care Provider [phone] Allergies Allergen (clinical drug ingredient) Drug/Non Drug Allergy documented on EMR Reaction Allergy Type Onset Date Status Bee Sting Unknown Allergy Active REASON FOR VISIT Acute bronchitis, COPD, Sleep apnea, Obesity, Emphysema, Tobacco dependence Medications Medication SIG (Take, Route, Frequency, Duration) Notes Start Date End Date Status Advair Diskus 500-50 MCG/ACT Inhalation Active Albuterol Sulfate HFA 108 (90 Base) MCG/ACT INHALE 2 PUFFS INTO THE LUNGS EVERY 4 HOURS FOR WHEEZING Inhalation every 4 hrs Active Sulfamethoxazole-Trimethop rim 800-160 MG 1 tablet Orally twice a day 09/13/2024 Active Tamsulosin HCl 0.4 MG 2 capsule Orally O nce a day Active predniSONE 20 MG 1 tablet with food o r milk Orally Once a day 09/13/2024 Active EpiPen 2-Ruy 0.3 MG/0.3ML USE EPI PEN NEEDED FOR BEE STINGS Injection DIRECTED Active Social History Tobacco Use: Social History Observation Description Date Details (start date - stop date) Light tobacco s moker NA - NA Sex Assigned At : Social History Observation Description Sex Assigned At Male Tobacco Use/Smoking Question Answer Notes Patient is a light tobacco smoker Additional Findings: Tobacco User Pipe smoker Vital Signs Height 72 in 09/16/2024 Weight 244 lbs 09/16/2024 BMI 33.09 kg/m2 09/16/2024 Encounters Encounter Location Date Provider Diagnosis Anoop Austin III, MD [address] [place] [address] [address] [place], [place] [address] 09/16/2024 Anoop Austin Acute bronchitis, unspecified organism J20.9 ; Other and unspecified hyperlipidemia E78.5 ; Other osteoarthritis involving multiple joints M15.8 ; Obesity E66.9 ; Sleep apnea G47.30 and Tobacco dependence F17.200 Assessments Encounter Date Diagnosis (ICD Code) Assessment Notes Treat ment Notes Treatment Clinical Notes 09/16/2024 Acute bronchitis, unspecified organism (ICD-10 - J20.9) By using the inhaler and prednisone and a azithromycin he has improved substantially. He has not smoked in 3 days. We discussed smoking cessation at length. 09/16/2024 Other and unspecifie d hyperlipidemia (ICD-10 - E78.5) His lipids are being checked periodically. No change in his regimen was necessary today. 09/16/2024 Other osteoarthritis involving multiple joints (ICD-10 - M15.8) The arthritis in his hands has become mild and he is working full-time without difficulty. His main complaint today is right shoulder pain. He is be treated with ibuprofen. 09/16/2024 Obesity (ICD-10 - E66.9) His body mass index is stable at 33. We discussed his diet and nutrition today. We made a plan to lose weight at a rate of one half of a pound per week. 09/16/2024 Sleep apnea (ICD-10 - G47.30) He is not using a CPAP machine and declines offer of providing it. He deferred a decision about whether or not to have this new sleep study 09/16/2024 Tobacco dependence (ICD-10 - F17.200) He says he continues to smoke about 2 cigarettes per day. We have discussed his previous and current tobacco cessation efforts.He is currently slightly hypoxic with oxygen saturation 91 which caused today's colonoscopy to be postponed. I have given him a prescription for an antibiotic and prednisone. Plan Of Treatment Medication Medication Name Sig Start Date Stop Date Notes Advair Diskus 500-50 MCG/ACT Inhalation Albuterol Sulfate HFA 108 (9 0 Base) MCG/ACT INHALE 2 PUFFS INTO THE LUNGS EVERY 4 HOURS FOR WHEEZING Inhalation every 4 hrs Sulfamethoxazole-Trimethopri m 800-160 MG 1 tablet Orally twice a day 09/13/2024 Tamsulosin HCl 0.4 MG 2 capsule Orally Once a day predniSONE 20 MG 1 tablet with food o r milk Orally Once a day 09/13/2024 EpiPen 2-Ruy 0.3 MG/0.3ML USE EPI PEN NEEDED FOR BEE STINGS Injection DIRECTED Next Appt Details Follow Up: As Scheduled, Steph son: OV Provider Name:Anoop Austin, 10/21/2024 03:00:00 PM, [address] [place] [address] DR, [address], [place], [address], Progress Notes * EDISONFabioDOB: [birth year] (59 yo M)Acc No.[id number]:09/16/2024 Patient:?JERMANBonnieEAGLE Fabio Provider:?Anoop Austin MD :1965???Age:59 Y???Sex:Male Manan e:09/16/2024 Address:[address] [place], [place] [phone] Subjective: * Chief Complaints: * ???Acute bronchitisCOPDSleep apneaObesityEmphysemaTobacco dependence * HPI: ???:? Three days ago we had a telehealth visit for an acute exacerbation of chronic bronchitis and COPD.? He was treated with prednisone and an antibiotic.? He reports today that he is much improved and has stopped using his inhaler.? He was encouraged to stop smoking.? He said he would try.? We are awaiting the PET CT scan to evaluate the 1.5 cm pulmonary nodule. ?Telehealth?Location of provider rendering services:?{...} [address] [place] [address] Drive [address] [facility] [address] ?Location of patient:?address listed in demographics for today's visit ?Patient identification confirmed using:?Name, ?Telehealth method:?Telephone only. Patient not visible to care provider. ?Consent:?Patient verbally consented to treatment, Patient verbally consented to billing insurance company, Patient informed of any privacy concerns related to method of visit ?Total time spent with patient (mins)?15 * ROS:?General/Constitutional:?pain?only normal aches and pains.?Chills?denies.?Fatigue?admits.?Fever?denies.?ENT:?Decreased hearing?denies.?Respiratory:?Cough?denies.?Cardiovascular:?Chest pain with exertion?denies.?Dyspnea on exertion?with prolonged activity.?Shortness of breath?with exertion.?Gastrointestinal:?Constipation?occasional.?Decreased appetite?denies.?Diarrhea?denies.?Heartburn?denies.?Nausea?denies.?Rectal bleeding?denies.?Vomiting?denies.?Hematology:?bruising?denies.?petechiae?denies.?Swollen glands?none have been noted.?Genitourinary:?Frequent urination?once a night.?Musculoskeletal:?Muscle aches?denies.?Painful joints?denies.?Sciatica?denies.?Weakness?denies.?Skin:?Itching?denies.?Rash?denies.?Skin lesion(s)?denies.?Neurologic:?Difficulty speaking?denies.?Dizziness?denies.?Headache?denies.?Low back pain?denies.?Psychiatric:?Depressed mood?denies.? * Medical History:? * Surgical History:?colonoscop y 2016right hand surgery 10/2019 * Hospitalization/Major Diagno stic Procedure:?Denies Past Hospitalization * Family History:?Father: dece ased 67 yrs, stroke, alzheimer.?Mother: 55 yrs, lung cancer, stomach cancer, diagnosed with Cancer.?Paternal Grand Mother: , diabetes.?Maternal aunt: , breast cancer, dementia.?Spouse: alive.?2 brother(s) . 2 son(s) , 1 daughter(s) - healthy. .? A brother at the age of 55 of a myocardial infarction. He is not aware of any family history of mental illness or substance use disorder or addiction. * Social History:?Tobacco Use:?Tobacco Use/Smoking?Patient is a?light tobacco smoker ?Additional Findings: Tobacco User?Pipe smoker ???He was born in [place], [place]. Smokes cigar occasionally. He has been to [facility] for many years. * Medications:?TakingEpiPen 2- Ruy 0.3 MG/0.3ML Device USE EPI PEN NEEDED FOR BEE STINGS Injection DIRECTED Advair Diskus 500-50 MCG/ACT Aerosol Powder Breath Activated Inhalation Albuterol Sulfate HFA 108 (90 Base) MCG/ACT Aerosol Solution INHALE 2 PUFFS INTO THE LUNGS EVERY 4 HOURS FOR WHEEZING Inhalation every 4 hrs Tamsulosin HCl 0.4 MG Capsule 2 capsule Orally Once a day predniSONE 20 MG Tablet 1 tablet with food or milk Orally Once a day , stop date 09/23/2024Sulfamethoxazole-Trimethoprim 800-160 MG Tablet 1 tablet Orally twice a day , stop date 09/23/2024Medication List reviewed and reconciled with the patientTaking EpiPen 2-Ruy 0.3 MG/0.3ML Device USE EPI PEN NEEDED FOR BEE STINGS Injection DIRECTED Taking Advair Diskus 500-50 MCG/ACT Aerosol Powder Breath Activated Inhalation Taking Albuterol Sulfate HFA 108 (90 Base) MCG/ACT Aerosol Solution INHALE 2 PUFFS INTO THE LUNGS EVERY 4 HOURS FOR WHEEZING Inhalation every 4 hrs Taking Tamsulosin HCl 0.4 MG Capsule 2 capsule Orally Once a day Taking predniSONE 20 MG Tablet 1 tablet with food or milk Orally Once a day , stop date 09/23/2024Taking Sulfamethoxazole-Trimethoprim 800-160 MG Tablet 1 tablet Orally twice a day , stop date 09/23/2024Medication List reviewed and reconciled with the patient * Allergies:?Bee Stingno[Aller gies Verified] Objective: * Vitals:?Ht: 72, Wt: 244, BMI :33.09, Wt-k.68. Assessment: * Assessment: 1.?Acute bronchitis, unspeci fied organism - J20.9 (Primary)???Notes :By using the inhaler and prednisone and a azithromycin he has improved substantially.? He has not smoked in 3 days.? We discussed smoking cessation at length.???2.?Other and unspecified hyperlipidemia - E78.5???Notes :His lipids are being checked periodically. No change in his regimen was necessary today.???3.?Other osteoarthritis involving multiple joints - M15.8???Notes :The arthritis in his hands has become mild and he is working full-time without difficulty. His main complaint today is right shoulder pain. He is be treated with ibuprofen.???4.?Obesity - E66.9???Notes :His body mass index is stable at 33. We discussed his diet and nutrition today. We made a plan to lose weight at a rate of one half of a pound per week.???5.?Sleep apnea - G47.30???Notes :He is not using a CPAP machine and declines offer of providing it. He deferred a decision about whether or not to have this new sleep study???6.?Tobacco dependence - F17.200???Notes :He says he continues to smoke about 2 cigarettes per day. We have discussed his previous and current tobacco cessation efforts.He is currently slightly hypoxic with oxygen saturation 91 which caused today's colonoscopy to be postponed. I have given him a prescription for an antibiotic and prednisone.??? Plan: * Treatment: * Procedure Codes:? * Preventive Medicine:? ??Counseling:?Care goal follow-up plan:?Counseling for abnormal BMI given?Yes ?Above Normal BMI Follow-up?Dietary management education, guidance, and counseling, Dietary needs education ?Smoking/Tobacco Use?Patient counseled on the dangers of tobacco use and urged to quit.?09/16/2024 ?Patient Lifestyle Goals?Patient wants to quit ?Treatment Goals?Cut down by 1 cigarette a week, Set a quit date ?Barriers?Stress, Social smoker ?Self-Management Plan?Make a plan to cut down number of cigarettes over time and set a date to work towards quitting ??COPD Care Plan:?Patient Lifestyle Goals?Be able to be more active with friends and family, Reduce number of ED and hospitalizations, Relieve symptoms and improve quality of life.?Treatment Goals?Quit Smoking.?Barriers?no barriers.?Self-Managment Goals?Get an air purifier for the rooms you are in the most, Eat a healthy diet, Make a plan for quitting smoking.? * Follow Up:?As Scheduled ([place]ana son: OV) * Images: * Sign off status: Completed true * Provider:?Anoop Austin MD Date:?12/2024 Generated for Anh walker/Angelica/Rolandoitting on:?10/12/2024 07:20 AM EDT History and Physical Notes * HPI (History of Present Illness) Category Sub-Category Detail Notes Telehealth Location of [facility] rendering services:: {...} [address] [place] [phone] Location of patient:: address listed in demographics for today's visit Patient identification confirmed using:: Name, Telehealth method:: Telephone only. Rufina ent not visible to care provider. Consent:: Patient verbally c onsented to treatment, Patient verbally consented to billing insurance company, Patient informed of any privacy concerns related to method of visit Total time spent with patient (mins): 15
--- OUTSIDE RECORDS SUMMARY | 2024-10-12 07:20 | XMS_ITS | Patient Health Record ---
Author Organization Anoop Austin III, MD Address [address] [address] Care Team Providers Care Maintenance Supervisor Electrical Name Role Phone Anoop Austin Primary Care Provider Allergies Allergen (clinical drug ingredient) Drug/Non Drug Allergy documented on EMR Reaction Allergy Type Onset Date Status Bee Sting Unknown Allergy Active Results Component Value Reference Range Notes CT lung screening Reviewed date:09/13/2024 03:32:04 PM Interpretation: Performing Lab: Notes/Report: [address] [address] [address] Scan Report Signed Patient: Fabio Griffin MR#: [id number] : 1965 Acct:[id number] Age/Sex: 59 / M ADM Date: 09/06/24 Loc: HO.CT Attending Dr: Maritza Guerra [employer] Ordering Physician: Estela Zhu PA-C Date of Service: 09/06/24 Procedure(s): CT lung screening Accession Number(s): [id number] cc: Anoop Austin MD; Estela Zhu PA-C Report Number: [id number]: Total DLP = 68.00 mGy-cm EXAMINATION: CT LUNG SCREENING HISTORY: Smoking history TECHNIQUE: Low dose axial images were obtained from the sternal notch to upper abdomen without IV contrast per standard departmental protocol. Sagittal and coronal reformatted images were also obtained and reviewed. One or more of the following techniques was used for dose reduction: Automated exposure control, adjustment of the mA and/or kV according to patient size, use of iterative reconstruction technique. DLP: 68 mGy-cm COMPARISON: Comparison is made with the prior examination dated 09/06/2023. FINDINGS: Lung nodules: There is a new ovoid 15 x 7 mm (average diameter 11 mm) nodule at the right lung apex (series 4, image 22). There is a new 6 x 7 mm nodule at the left lung apex (series 4, image 22). A 4-5 mm nodule is seen in the left upper lobe adjacent to the major fissure (series 4, image 48). Emphysema: moderate Coronary Calcification: mild Aortic Arch Calcification: moderate Potentially Significant Incidentals : none Additional Chest Findings: There is no pleural or pericardial effusion. No mediastinal or axillary lymphadenopathy is identified. Visualized upper abdomen: The visualized portions of the liver, spleen, and right adrenal gland have an unremarkable unenhanced appearance. Again noted is a 1.9 cm left adrenal nodule. CT/CT lung screening IMPRESSION: Multiple new bilateral upper lobe pulmonary nodules as described above, the largest of which measures up to 11 mm in average diameter. LUNG-RADS ASSESSMENT: Lung-RADS 4A: Suspicious MANAGEMENT: 3 month LDCT Category S: N/A Electronically signed by: Anoop Mccormick MD 09/09/2024 07:41 AM EDT Dictated By: Anoop Mccormick MD Signed By: <Electronically signed by Anoop Mccormick MD in OV> 09/09/24 0741 DD/ 1446 TD/TT: 09/06/24 1452 Neuropsychology Director: [address] [address] [address] Scan Report Signed Patient: Maya Griffin MR#: [id number] : 1965 Acct:[id number] Age/Sex: 59 / M ADM Date: 09/06/24 Loc: HO.CT Attending Dr: Sofia Guerra [employer] Ordering Physician: Estela Zhu PA-C Date of Service: 09/06/24 Procedure(s): CT lung screening Accession Number(s): [id number] cc: Anoop Austin MD; Estela Zhu PA-C Report Number: [id number]: Total DLP = 68.00 mGy-cm EXAMINATION: CT LUNG SCREENING HISTORY: Smoking history TECHNIQUE: Low dose axial images were obtained from the sternal notch to upper abdomen wit hout IV contrast per standard departmental protocol. Sagittal a nd coronal reformatted images were also obtained and reviewed. One or more of the following techniques was used for dose reduction: Auto mated exposure control, adjustment of the mA and/or kV according to kojo ent size, use of iterative reconstruction technique. DLP: 68 mGy-cm COMPARISON: Comparis on is made with the prior examination dated 09/06/2023. FINDINGS: Lung nodules: There is a new ovoid 15 x 7 mm (average diameter 11 mm) nodule at the right lung apex (series 4, image 22). There is a new 6 x 7 mm nodule at the l eft lung apex (series 4, image 22). A 4-5 mm nodule is seen in the left upper lobe adjacent to the major fissure (series 4, image 48). Emphysema: moderate Coronary Calcification: mild Aortic Arch Calcific ation: moderate Potentially Signific ant Incidentals : none Additional Chest Fin dings: There is no pleural or pericardial effusion. No mediastinal or ax illary lymphadenopathy is identified. Visualized upper abd omen: The visualized portions of the liver, spleen, and right adrenal gl and have an unremarkable unenhanced appearance. Again noted is a 1.9 cm left adrenal nodule. C T/CT lung screening IMPRESSION: Multiple new bilater al upper lobe pulmonary nodules as described above, the largest of which measures up to 11 mm in average diameter. LUNG-RADS ASSESSMENT: Lung-RADS 4A: Suspicious MANAGEMENT: 3 month LDCT Category S: N/A Electronically mariusz d by: Anoop Mccormick MD 09/09/2024 07:41 AM EDT RP Dictated By: Anoop Mccormick MD Signed By: <Electron ically signed by Anoop Mccormick MD in OV> 09/09/24 0741 DD/ 1446 TD/TT: 09/06/24 1452 Neuropsychology Director: PET CT fusion skull to thigh (Not yet reviewed by provider) Interpretation: Performing Lab: Notes/Report: [address] [address] PET Report Signed Patient: Fabio Griffin MR#: [id number] : 1965 Acct:[id number] Age/Sex: 59 / M ADM Date: 09/30/24 Loc: HO.PET Attending Dr: Shelley Serrano MD Ordering Physician: Shelley Serrano MD Date of Service: 10/01/24 Procedure(s): PET CT fusion skull to thigh Accession Number(s): [id number] cc: Shelley Serrano MD; Anoop Austin MD EXAMINATION: FLUORINE-18 FDG PET/CT SCAN CLINICAL INFORMATION: Right pulmonary nodule TECHNIQUE: 69 minutes following the intravenous administration of 22.1 mCi of fluorine 18 FDG, images from the skull base to proximal thigh were obtained using a combined PET/CT scanner with CT scan based attenuation correction. No oral or intravenous contrast was administered. Transverse, coronal, sagittal, and volume reconstruction projections were obtained. The patient's blood glucose as determined by a finger stick, was 96 mg/dL immediately prior to injection. The radiotracer was injected intravenously through left antecubital vein., without any complications. Total CT exam dose-length product 1130 mGy-cm. * These CT images were obtained using dose optimization techniques as appropriate, variously including the following: Automated exposure control * Adjustment of mA and/or kV according to patient size (this includes techniques or standardized protocols for targeted exams where dose is matched to indication/reason for exam; i.e. extremities or head) * Use of iterative reconstruction technique . COMPARISON: None available. FINDINGS: HEAD AND NECK: There is a solitary partially calcified 1 cm nodule in the right isthmus with moderate FDG activity no additional areas of abnormal FDG activity seen in neck skull base. Visualized intracranial brain parenchyma is unremarkable. The paranasal sinuses are well-aerated. CHEST: Ports and Devices: None Lungs: No abnormal FDG activity seen in both lung apices where nodules were noted on the previous CT chest exam. This could be secondary to hypometabolic nodules or small size. Pleura: No significant pleural effusion. Lymph Nodes: No tracer-avid mediastinal, hilar or internal mammary or axillary lymphadenopathy. Mediastinum: There is no significant pericardial effusion/thickening. Breasts/Chest Wall: No abnormal radiotracer uptake. ABDOMEN/PELVIS: Liver/Biliary System: No abnormal FDG activity seen in the liver or the gallbladder. No focal lesion or intrahepatic ductal dilatation on CT. Pancreas: Normal.No pancreatic ductal dilatation. Spleen: No abnormal radiotracer uptake. No evidence of splenomegaly. Adrenal Glands: There is a 1.3 cm left adrenal nodule not metabolically active. The right gland is unremarkable. Kidneys: No hydronephrosis, hydroureter or renal calculi bilaterally. There is a 2 cm nonenhancing cyst mid pole left kidney. Bowel: There is stool, diverticuli and gas is seen throughout the colon without distention. Small bowel loops are normal caliber. Appendix is normal caliber. No free air or free fluid seen. Lymph Nodes: No tracer avid retroperitoneal, mesenteric or pelvic and/or groin lymphadenopathy. Pelvic Organs: The urinary bladder is underdistended. Prostate gland is mildly enlarged. Small shotty lymph nodes are seen in bilateral inguinal region. There is small left hydrocele noted. MUSCULOSKELETAL: Mild degenerative changes lower cervical, dorsal and upper lumbar spine VASCULAR: Mild atherosclerosis. PET/PET CT fusion skull to thigh IMPRESSION: Moderate focal FDG activity seen in nodule of isthmus. Recommend further evaluation with ultrasound and if needed biopsy There is no FDG activity seen in bilateral apical lung nodule seen on previous study or the nodule in the left upper lobe. May be to small size or metabolically inactive at this time. Electronically signed by: Lester Saldana MD 10/01/2024 03:49 PM EDT Dictated By: Lester Saldana MD Signed By: <Electronically signed by Lester Saldana MD in OV> 10/01/24 1549 DD/ 1030 TD/TT: 10/01/24 1130 Neuropsychology Director: [address] [address] PET Report Signed Patient: Maya Griffin MR#: [id number] : 1965 Acct:[id number] Age/Sex: 59 / M ADM Date: 09/30/24 Loc: HO.PET Attending Dr: Eamon Serrano MD Ordering Physician: Shelley Serrano MD Date of Service: 10/01/24 Procedure(s): PET CT fusion skull to thigh Accession Number(s): [id number] cc: Shelley Serrano MD; Anoop Austin MD EXAMINATION: FLUORINE-18 FDG PET/CT SCAN CLINICAL INFORMATION: Right pulmonary nodule TECHNIQUE: 69 minutes following the intravenous administration of 22.1 mCi of fluorine 18 FDG, angela ges from the skull base to proximal thigh were obtained using a [employer] bined PET/CT scanner with CT scan based attenuation correction. No oral or intravenous contrast was administered. Transverse, coronal, sagittal, and volume reconstruction projections were obtained. The p atient's blood glucose as determined by a finger stick, was 96 mg/dL immediately prior to injection. The radiotracer was injected intravenously through left antecubital vein., without any complications. Total CT exam dose-l ength product 1130 mGy-cm. * These CT images we re obtained using dose optimization techniques as appropriate, various ly including the following: Automated exposure control * Adjustment of mA a nd/or kV according to patient size (this includes techniques or standa rdized protocols for targeted exams where dose is matched to indicatio n/reason for exam; i.e. extremities or head) * Use of iterative reconstruction technique . COMPARISON: None available. FINDINGS: HEAD AND NECK: There is a solitary partially calcified 1 cm nodule in the right isthmus wi th moderate FDG activity no additional areas of abnormal FDG activit y seen in neck skull base. Visualized intracranial brain parenchyma is unremarkable. The paranasal sinuses are well-aerated. CHEST: Ports and Devices: None Lungs: No abnormal F DG activity seen in both lung apices where nodules were noted on the pr evious CT chest exam. This could be secondary to hypometabolic nodule s or small size. Pleura: No significa nt pleural effusion. Lymph Nodes: No trac er-avid mediastinal, hilar or internal mammary or axillary lymphadenopathy. Mediastinum: There i s no significant pericardial effusion/thickening. Breasts/Chest Wall: No abnormal radiotracer uptake. ABDOMEN/PELVIS: Liver/Biliary System : No abnormal FDG activity seen in the liver or the gallbladder. No foca l lesion or intrahepatic ductal dilatation on CT. Pancreas: Normal.No pancreatic ductal dilatation. Spleen: No abnormal radiotracer uptake. No evidence of splenomegaly. Adrenal Glands: Ther e is a 1.3 cm left adrenal nodule not metabolically active. The right gl and is unremarkable. Kidneys: No hydronep hrosis, hydroureter or renal calculi bilaterally. There is a 2 cm none nhancing cyst mid pole left kidney. Bowel: There is stoo l, diverticuli and gas is seen throughout the colon without distention. Small bowel loops are normal caliber. Appendix is normal caliber. No f ree air or free fluid seen. Lymph Nodes: No trac er avid retroperitoneal, mesenteric or pelvic and/or groin lymphadenopathy. Pelvic Organs: The u rinary bladder is underdistended. Prostate gland is mildly enlarged. Sma ll shotty lymph nodes are seen in bilateral inguinal region. The re is small left hydrocele noted. MUSCULOSKELETAL: Mil d degenerative changes lower cervical, dorsal and upper lumbar spine VASCULAR: Mild atherosclerosis. P ET/PET CT fusion skull to thigh IMPRESSION: Moderate focal FDG a ctivity seen in nodule of isthmus. Recommend further evaluation w ith ultrasound and if needed biopsy There is no FDG acti vity seen in bilateral apical lung nodule seen on previous study or th e nodule in the left upper lobe. May be to small size or metabolicall y inactive at this time. Electronically mariusz d by: Lester Saldana MD 10/01/2024 03:49 PM EDT Dictated By: Lester Saldana MD Signed By: <Electron ically signed by Lester Saldana MD in OV> 10/01/24 1549 DD/ 1030 TD/TT: 10/01/24 1130 Neuropsychology Director: [facility] [place] Reason For Referral No Information Medications Medication SIG (Take, Route, Frequency, Duration) Notes Start Date End Date Status Advair Diskus 500-50 MCG/ACT Inhalation Active Albuterol Sulfate HFA 108 (90 Base) MCG/ACT INHALE 2 PUFFS INTO THE LUNGS EVERY 4 HOURS FOR WHEEZING Inhalation every 4 hrs Active EpiPen 2-Ruy 0.3 MG/0.3ML USE EPI PEN NEEDED FOR BEE STINGS Injection DIRECTED Active Sulfamethoxazole-Trimethop rim 800-160 MG 1 tablet Orally twice a day 09/13/2024 Active Tamsulosin HCl 0.4 MG 2 capsule Orally O nce a day Active predniSONE 20 MG 1 tablet with food o r milk Orally Once a day 09/13/2024 Active Immunizations Vaccine Route Administration Date Status [...] Problem Status W/U Status Risk Notes Problem 791215733 Obesity (E66.9) Active confirmed His body mass index is stable at 33. We discussed his diet and nutrition today. We made a plan to lose weight at a rate of one half of a pound per week. 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 He has been referred to urology. Problem Benign prostatic hyperplasia (360111785) BPH (benign prostatic hyperplasia) (N40.0) Active confirmed His prostatism is sttable and once a night. We have reviewed lifestyle modifications to reduce nocturia. Problem 35143550 Tobacco dependence (F17.200) Active confirmed He says he continues to smoke about 2 cigarettes per day. We have discussed his previous and current tobacco cessation efforts.He is currently slightly hypoxic with oxygen saturation 91 which caused today's colonoscopy to be postponed. I have given him a prescription for an antibiotic and prednisone. Problem 53302740 COPD (chronic obstructive pulmonary disease) (J44.9) Active confirmed He continue s to be abstinent from cigarettes. He recently had acute on chronic bronchitis with green phlegm, but this is clearing now. He is becoming stronger. No change in his therapy was indicated. Problem 47807667 Other and unspecified hyperlipidemia (E78.5) Active confirmed His lipids are being checked periodically. No change in his regimen was necessary today. Problem 96928666 Sleep apnea (G47.30) Active confirmed He is not using a CPAP machine and declines offer of providing it. He deferred a decision about whether or not to have this new sleep study Problem 796919833 Other osteoarthritis involving multiple joints (M15.8) Active confirmed The arthritis in his hands has become mild and he is working full-time without difficulty. His main complaint today is right shoulder pain. He is be treated with ibuprofen. Problem 07115698 Pulmonary emphysema, unspecified emphysema type (J43.9) Active confirmed Problem 979045652 Renal cyst (N28.1) Active confirmed On August 04, 2022. An ultrasound was done of his kidneys in followup of the detection of a mass in the right kidney on screening CT scan. The ultrasound done August 04 shows 32.3 cm simple benign cyst. It will be followed. 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 Vital Signs Height 72 in 09/16/2024 Weight 244 lbs 09/16/2024 BMI 33.09 kg/m2 09/16/2024 Encounters Encounter Location Date Provider Diagnosis Anoop Austin III, MD [address] [place] [address] [address] [place], [place] [address] 09/13/2024 Anoop Austin Other and unspecifie d hyperlipidemia E78.5 ; COPD (chronic obstructive pulmonary disease) J44.9 ; Obesity E66.9 ; Anorgasmia of male F52.32 ; BPH (benign prostatic hyperplasia) N40.0 ; Sleep apnea G47.30 ; Tobacco dependence F17.200 and Pulmonary emphysema, unspecified emphysema type J43.9 Anoop Austin III, MD [address] [place] [address] [place] [address] 09/16/2024 Anoop Austin Acute bronchitis, unspecified organism J20.9 ; Other and unspecified hyperlipidemia E78.5 ; Other osteoarthritis involving multiple joints M15.8 ; Obesity E66.9 ; Sleep apnea G47.30 and Tobacco dependence F17.200 Anoop Austin III, MD [address] [place] [address] [place] [address] 10/02/2024 Anoop Austin III, MD [address] [place] [address] [place] [address] 12/12/2023 Anoop Austin III, MD [address] [place] [address] [place] [address] 12/12/2023 Anoop Austin III, MD [address] [place] [address] [place] [address] 05/24/2024 Anoop Austin III, MD [address] [place] [address] [place] [address] 07/12/2024 Anoop Austin III, MD [address] [place] [address] [place] [address] 07/12/2024 Anoop Austin III, MD [address] [place] [address] [place] [address] 07/15/2024 Anoop Austin Obesity E66.9 ; BPH (benign prostatic hyperplasia) N40.0 and COPD (chronic obstructive pulmonary disease) J44.9 Assessments Encounter Date Diagnosis (ICD Code) Assessment Notes Treat ment Notes Treatment Clinical Notes 09/13/2024 COPD (chronic obstructive pulmonary disease) (ICD-10 - J44.9) He continues to be abstinent from cigarettes. He recently had acute on chronic bronchitis with green phlegm, but this is clearing now. He is becoming stronger. No change in his therapy was indicated. 09/13/2024 Other and unspecifie d hyperlipidemia (ICD-10 - E78.5) His lipids are being checked periodically. No change in his regimen was necessary today. 09/16/2024 Other and unspecifie d hyperlipidemia (ICD-10 - E78.5) His lipids are being checked periodically. No change in his regimen was necessary today. 09/16/2024 Acute bronchitis, unspecified organism (ICD-10 - J20.9) By using the inhaler and prednisone and a azithromycin he has improved substantially. He has not smoked in 3 days. We discussed smoking cessation at length. 07/15/2024 Obesity (ICD-10 - E66.9) 09/13/2024 Obesity (ICD-10 - E66.9) His body mass index is stable at 33. We discussed his diet and nutrition today. We made a plan to lose weight at a rate of one half of a pound per week. 09/16/2024 Other osteoarthritis involving multiple joints (ICD-10 - M15.8) The arthritis in his hands has become mild and he is working full-time without difficulty. His main complaint today is right shoulder pain. He is be treated with ibuprofen. 07/15/2024 BPH (benign prostati c hyperplasia) (ICD-10 - N40.0) 09/13/2024 Anorgasmia of male (ICD-10 - F52.32) Since he began the tamsulosin. He has had an increased difficulty in obtaining and keeping an erection and is experienccing anorgasmia. He has not experienced retrograde ejaculattion. He will stop the tamsulosin as a trial to see if the symptoms improve. He was referred to urology foor definitive treatment and evaluation.His examination today was not consistent with prostatitis. 09/16/2024 Obesity (ICD-10 - E66.9) His body mass index is stable at 33. We discussed his diet and nutrition today. We made a plan to lose weight at a rate of one half of a pound per week. 07/15/2024 COPD (chronic obstructive pulmonary disease) (ICD-10 - J44.9) 09/13/2024 BPH (benign prostati c hyperplasia) (ICD-10 - N40.0) His prostatism is sttable and once a night. We have reviewed lifestyle modifications to reduce nocturia. 09/16/2024 Sleep apnea (ICD-10 - G47.30) He is not using a CPAP machine and declines offer of providing it. He deferred a decision about whether or not to have this new sleep study 09/13/2024 Sleep apnea (ICD-10 - G47.30) He is [...] a prescription for an antibiotic and prednisone. 09/13/2024 Tobacco dependence (ICD-10 - F17.200) He says he continues to smoke about 2 cigarettes per day. We have discussed his previous and current tobacco cessation efforts.He is currently slightly hypoxic with oxygen saturation 91 which caused today's colonoscopy to be postponed. I have given him a prescription for an antibiotic and prednisone. 09/13/2024 Pulmonary emphysema, unspecified emphysema type (ICD-10 - J43.9) Plan Of Treatment Pending Test Test Name Order Date LDL Cholesterol (Direct) 01/25/2021 URINE DIP STICK 02/05/2021 PROFILE, FASTING (COMPREHENSIVE METABOLI C) 09/09/2016 PROFILE, FASTING (COMPREHENSIVE METABOLI C) 02/03/2020 PROFILE, FASTING (COMPREHENSIVE METABOLI C) 07/15/2024 PROFILE, FASTING (COMPREHENSIVE METABOLI C) 06/21/2019 PROFILE, FASTING (COMPREHENSIVE METABOLI C) 02/24/2022 PROFILE, FASTING (COMPREHENSIVE METABOLI C) 09/13/2024 PROFILE, FASTING (COMPREHENSIVE METABOLI C) 10/06/2017 LIPID PANEL 10/06/2017 LIPID PANEL 09/09/2016 LIPID PANEL 02/03/2020 LIPID PANEL 06/21/2019 PSA, TOTAL 06/21/2019 PSA, TOTAL 10/06/2017 PSA, TOTAL 09/09/2016 PSA, TOTAL 02/03/2020 PSA, TOTAL 07/15/2024 PSA, TOTAL 02/24/2022 PSA, TOTAL 09/13/2024 CBC w DIFF 07/15/2024 CBC w DIFF 02/03/2020 CBC w DIFF 02/24/2022 CBC w DIFF 09/13/2024 CBC w DIFF 06/21/2019 CBC w DIFF 10/06/2017 CBC w DIFF 09/09/2016 LYME DISEASE IgG/IgM WB 08/30/2017 XR CHEST 2 VIEW PA & LAT 02/03/2020 PFT with DLCO 03/23/2022 Lipid Panel 07/15/2024 Lipid Panel 02/24/2022 Lipid Panel 09/13/2024 Vitamin D 25-OH Total 02/24/[address] fusion skull to thigh 10/01/2024 Next Appt Details Provider Name:Anoop Austin, 10/21/2024 03:00:00 PM, [address] [place] [address] [address], [address], [place], [address], Insurance Providers Payer Name Payer Address Payer Phone Subscriber Number Group Number Insured Name Patient Relationship to Insured Coverage Start Date Coverage End Date [facility] [address] [place], [place] [id number] [phone] [id number] Fabio Aragon Self - patient is the insured Medical (General) History Medical History History ICD Code fracture of arm,leg,clavicle osteoarthritis hyperlipidemia sleep apnea COPD plantar wart right foot tobacco dependence obesity colonic polyps, Dr. Grove, tubular ad enoma COPD Emphysema Surgical History Surgery Date(Month/Year) right hand surgery 10/2019 colonoscopy 2016
--- OUTSIDE RECORDS SUMMARY | 2024-10-12 07:20 | XMS_ITS ---
Author Organization [facility] Address [address] [place] [address] Care Team Providers Care Water Gas Operator Name Role Phone Geovanna DEAN, Anoop Primary Care Provider Unavailab Flako Ruiz Jr [phone] REASON FOR VISIT screening Encounters Encounter Location Date Provider Diagnosis [facility] [address] [place] [phone] 09/13/2024 Flako Grove Jr Plan Of Treatment Next Appt Details Provider Name:Flako don Jr, 10/18/2024 09:20:00 AM, [address] [place] [address], [phone], Progress Notes * RUEL HOGANDOB:[birth year] (59 yo M)Acc No.[id number]:09/13/2024 COLON WITH MAC Patient:?RUEL HOGAN Provider:?Flako Grove MD :1965???Age:59 Y???Sex:Male Manan e:09/13/2024 Address:[address] [place], [place] [phone] Pcp:Anoop Austin MD Subjective: * Chief Complaints: * ???1. Screening. * Medical History:? Objective: * Vitals:? Assessment: Plan: * Treatment: * * The named appointment provid er may or may not be the originator of this progress note, and it is not deemed complete until electronically signed by the appointment provider. Sign off status: Pending * Provider:?Flako Grove MD Date:?0 09/13/2024 Generated for Anh walker/Angelica/Sulma on:?10/12/2024 07:20 AM EDT
--- OUTSIDE RECORDS SUMMARY | 2024-10-12 07:20 | XMS_ITS ---
Author Organization [facility] Address [address] [place] [address] Care Team Providers Care Business Continuity Strategy Director Name Role Phone Geovanna DEAN, Anoop Primary Care Provider Unavailab Flako Ruiz Jr Unavailable Allergies Allergen (clinical drug ingredient) Drug/Non Drug Allergy documented on EMR Reaction Allergy Type Onset Date Status bees (uncoded) Unknown Allergy Activ e REASON FOR VISIT Patient presents today for a screening colonoscopy Medications Medication SIG (Take, Route, Frequency, Duration) [...] the procedure for 1 day 08/01/2024 Active Social History Tobacco Use: Social History Observation Description Date Details (start date - stop date) Former Smoker NA - NA Tobacco Use/Smoking Question Answer Notes Patient is [...] monthly (1 point) Points 7 Interpretation Positive Section Notes: cigars Problems Problem Type SNOMED Code ICD Code Onset Dates Problem Status W/U Status Risk Notes Problem 092156865 Diverticulitis (K57.92) Active confirmed Vital Signs Blood pressure systolic 111 mm Hg 08/01/19 25 Blood pressure diastolic 11 mm Hg 025 Height 73.5 in 08/01/2024 Weight 234 lbs 08/01/2024 BMI 30.45 kg/m2 08/01/2024 Encounters Encounter Location Date Provider Diagnosis [facility] [address] [place] [address] 08/01/2024 Flako Grove Jr Colon cancer screening Z12.11 and Diverticulitis K57.92 Assessments Encounter Date Diagnosis (ICD Code) Assessment Notes Treatment Notes Treatment Clinical Notes Section Notes 08/01/2024 Colon cancer screening (ICD-10 - Z12.11) Colonoscopy material was printed We discussed diverticulitis today. We discussed the high-fiber diet. We discussed colonoscopy today. We discussed risks and benefits of the procedure today. He understands these and agrees to proceed. This will be scheduled at his convenience. 08/01/2024 Diverticulitis (ICD-10 - K57.92) We discussed diverticulitis today. We discussed the high-fiber diet. We discussed colonoscopy today. We discussed risks and benefits of the procedure today. He understands these and agrees to proceed. This will be scheduled at his convenience. Plan Of Treatment Medication Medication Name Sig [...] Year, Reas on: Provider Name:Flako don Jr, 10/18/2024 09:20:00 AM, [address] [facility] , [place], [place], [phone], Progress Notes * RUEL HOGAN JDOB:[birth year] (59 yo M)Acc No.[id number]:08/01/2024 Progress Notes Patient:?RUEL HOGAN Provider:?Flako Grove MD :1965???Age:59 Y???Sex:Male Manan e:08/01/2024 Address:[address] [place], [place] [id number] Pcp:Anoop Austin MD Subjective: * Chief Complaints: * ???1. Patient presents today for a screening colonoscopy. * HPI: ???New symptom(s):? The patient is a pleasant 59-year-old man seen today for his preoperative colonoscopy visit. He has no complaints of rectal bleeding or change in his bowel habits. He did have an episode of diverticulitis one month ago which was treated with antibiotics. He has not changed his diet or been prescribed medications which would be associated with this. ?Has a personal history of colon polyps and last underwent colonoscopy in 2019 which was negative for polyps. Five-year followup is due. * ROS:?General/Constitutional:?Change in appetite?denies.?Fatigue?denies.?ENT:?Patient denies?difficulty swallowing.?Respiratory:?Patient denies?shortness of breath.?Cardiovascular:?Patient denies?chest pain.?Gastrointestinal:?Comments?See HPI for details.?Genitourinary:?Difficulty urinating?denies.?Incontinence?denies.?Musculoskeletal:?Patient denies?muscle aches.?Skin:?Patient denies?pruritis.?Neurologic:?Patient denies?low back pain.?Psychiatric:?Patient denies?mental or physical abuse.? * Medical History:?Colonoscopy 05/30, normal, five-year followup for prior history of adenomas., COPD, BPH. * Family History:?Father: dece ased, diagnosed with Heart disease.?Mother: , Cancer.? no known hx of colon cancer or polyps. * Social History:?Tobacco Use:?Tobacco Use/Smoking?Patient is a?former smoker,?How long has it been since you last smoked??1-5 years.?Drugs/Alcohol:?Alcohol Screen?Did you have a drink containing alcohol in the past year??Yes,?How often did you have a drink containing alcohol in the past year??4 or more times a week (4 points),?How many drinks did you have on a typical day when you were drinking in the past year??5 or 6 drinks (2 points),?How often did you have 6 or more drinks on one occasion in the past year??Less than monthly (1 point),?Points?7,?Interpretation?Positive.?Miscellaneous:?Marital status: . 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 ???cigars. * Medications:?Taking Incruse Ellipta 62.5 MCG/ACT Aerosol Powder Breath Activated INHALE 1 PUFF BY MOUTH DAILY Inhalation , Notes: J449,Unavailable, Taking Tamsulosin HCl 0.4 MG Capsule TAKE 2 CAPSULES BY MOUTH EVERY DAY Oral , Taking Finasteride 5 MG Tablet TAKE 1 TABLET BY MOUTH EVERY MORNING Oral , Notes: N401,Unavailable, Taking Fluticasone-Salmeterol 500-50 MCG/ACT Aerosol Powder Breath Activated Inhalation , Discontinued Colyte with Flavor Packs 240 GM Solution Reconstituted As directed Orally Over the specified time., Medication List reviewed and reconciled with the patient * Allergies:?Bees. Objective: * Vitals:?Wt:234 lbs, Ht: 73.5 in, BMI:30.45 Index, BP:111/11 mm Hg, Wt-k.14. * Examination: ???General Examination: ?GENERAL APPEARANCE:?in no acute distress.?HEAD:?normocephalic.?EYES:?sclera non-icteric.?ORAL CAVITY:?mucosa moist.?NECK/THYROID:?no lymphadenopathy.?SKIN:?anicteric.?HEART:?S1, S2 normal, no murmurs.?LUNGS:?clear to auscultation bilaterally.?CHEST:?normal shape and expansion.?ABDOMEN:?soft, nontender, nondistended, bowel sounds present, no organomegaly .?EXTREMITIES:?no clubbing, cyanosis, or edema.?PSYCH:?cognitive function intact.? Assessment: * Assessment: 1.?Diverticulitis - K57.92 ( Primary)?2.?Colon cancer screening - Z12.11? We discussed diverticulitis today. We discussed the high-fiber diet. We discussed colonoscopy today. We discussed risks and benefits of the procedure today. He understands these and agrees to proceed. This will be scheduled at his convenience. Plan: * Treatment: * Procedure Codes:?3017F COLOR ECTAL CA SCREEN DOC REV, G9903 Pt scrn tbco id as non user, G9745 DOC RSN FOR NOT SCREEN/REC F/U HBP * Preventive Medicine:? ??Counseling:?Care goal follow-up plan:?Above Normal BMI Follow-up?Giving encouragement to exercise,?BMI management provided?Yes.? * Follow Up:?prn, 1 Year * * Sign off status: Completed true * Provider:?Flako Grove MD Date:?0 08/01/2024 Generated for Sydneyi aaron/Angelica/eTransmitting on:?10/12/2024 07:20 AM EDT History and Physical Notes * HPI (History of Present Illness) Category Sub-Category Detail Notes Category Not es New symptom(s) The patient is a pleasant 59-year-old man seen today for his preoperative colonoscopy visit. He has no complaints of rectal bleeding or change in his bowel habits. He did have an episode of diverticulitis one month ago which was treated with antibiotics. He has not changed his diet or been prescribed medications which would be associated with this. Has a personal history of colon polyps and last underwent colonoscopy in 2019 which was negative for polyps. Five-year followup is due. Examination Category Sub-Category Detail Notes Category Not es General Examination GENERAL APPEARANCE: in no acute di stress HEAD: normocephalic EYES: sclera non-icteric NECK/THYROID: no lymphadenopathy HEART: S1, S2 normal, no mu rmurs CHEST: normal shape and exp ansion LUNGS: clear to auscultatio n bilaterally ABDOMEN: soft, nontender, non distended, bowel sounds present, no organomegaly SKIN: anicteric EXTREMITIES: no clubbing, cyanosi s, or edema PSYCH: cognitive function i ntact ORAL CAVITY: mucosa moist
--- OUTSIDE RECORDS SUMMARY | 2024-10-12 07:21 | XMS_ITS | Patient Health Record ---
Author Organization [facility] Address [address] [place] [address] Care Team Providers Care Mental Health Program Manager Name Role Phone Geovanna DEAN, Anoop Primary Care Provider Unavailab Flako Ruiz Jr Unavailable Allergies Allergen (clinical drug ingredient) Drug/Non Drug Allergy documented on EMR Reaction Allergy Type Onset Date Status bees (uncoded) Unknown Allergy Activ e Reason For Referral Referring Provider First Name Anoop Referring Provider Last Name Geovanna Referring Provider Speciality Oncology Referred Organization [facility] Referred Provider Flako Grove Jr Referred Address [address] [facility],[place], [place],[address], Referred Provider Specialty Gastroentero logy Referral Priority Routine Medications Medication SIG (Take, Route, Frequency, Duration) [...] MOUTH EVERY DAY Oral for 30 Active Immunizations Vaccine Route Administration Date Status Comme nts Influenza Unknown 02/14/2019 Refused Social History Tobacco Use: Social History Observation [...] Points 7 Interpretation Positive Section Notes: cigars cigars cigars Problems Problem Type SNOMED Code ICD Code Onset Dates Problem Status W/U Status Risk Notes Problem 803191949 Colon cancer screening (Z12.11) Active confirmed Problem 727308558 Personal history of colonic polyps (Z86.010) Active confirmed Problem 523323858 Encounter for ot her preprocedural examination (Z01.818) Active confirmed Problem 645313615 Diverticulitis (K57.92) Active confirmed Vital Signs Blood pressure diastolic 11 mm Hg 08/01/2024 Height 73.5 in 08/01/2024 Blood pressure systolic 111 mm Hg 08/01/2024 Weight 234 lbs 08/01/2024 BMI 30.45 kg/m2 08/01/2024 Encounters Encounter Location Date Provider Diagnosis [facility] [address] [place] [phone] 08/01/2024 Flako Grove Jr Colon cancer screening Z12.11 and Diverticulitis K57.92 [facility] [address] [place] [phone] 09/19/2024 Flako Grove Jr Assessments Encounter Date Diagnosis (ICD Code) Assessment [...] scheduled at his convenience. Plan Of Treatment Future Test Test Name Order Date COLONOSCOPY 09/01/2015 COLONOSCOPY 02/14/2019 COLONOSCOPY 08/01/2024 Next Appt Details Provider Name:Flako Bonnie don Jr, 10/18/2024 09:20:00 AM, [address] [place] [address] , [place], [place], [phone], Insurance Providers Payer Name Payer Address Payer Phone Subscriber Number Group Number Insured Name Patient Relationship to Insured Coverage Start Date Coverage End Date [facility] [employer] [address] [place] [address] [id number] RUEL OLIVARES Self - patient is the insured Medical (General) History Medical History History ICD Code Colonoscopy 05/30, normal, five-year fol lowup for prior history of adenomas. COPD BPH Surgical History Surgery Date(Month/Year)
--- OUTSIDE RECORDS SUMMARY | 2024-10-12 07:21 | XMS_ITS ---
Author Organization Anoop Austin III, MD Address [address] [place] [address] Care Team Providers Care Environmental Science Program Director Name Role Phone Anoop Austin Primary Care Provider [phone] Allergies Allergen (clinical drug ingredient) Drug/Non Drug Allergy documented on EMR Reaction Allergy Type Onset Date Status Bee Sting Unknown Allergy Active REASON FOR VISIT COPD exacerbation, Acute bronchitis, 1.15cm pulmonary nodule right apex, Tobacco dependence, Obesity, Sleep apnea, Benign prostatic hypertrophy Medications Medication SIG (Take, Route, Frequency, Duration) Notes Start Date End Date Status Advair Diskus 500-50 MCG/ACT Inhalation Active EpiPen 2-Ruy 0.3 MG/0.3ML USE EPI PEN NEEDED FOR BEE STINGS Injection DIRECTED Active Sulfamethoxazole-Trimetho prim 800-160 MG 1 tablet Orally twice a day for 10 days 09/13/2024 09/23/2024 Active Tamsulosin HCl 0.4 MG 2 capsule Orally O nce a day Active predniSONE 20 MG 1 tablet with food o r milk Orally Once a day for 10 days 09/13/2024 09/23/2024 Active Albuterol Sulfate HFA 108 (90 Base) MCG/ACT INHALE 2 PUFFS INTO THE LUNGS EVERY 4 HOURS FOR WHEEZING Inhalation every 4 hrs Active Social History Tobacco Use: Social History Observation Description Date Details (start date - stop date) Light tobacco s moker NA - NA Sex Assigned At : Social History Observation Description Sex Assigned At Male Tobacco Use/Smoking Question Answer Notes Patient is a light tobacco smoker Additional Findings: Tobacco User Pipe smoker Problems Problem Type SNOMED Code ICD Code Onset Dates Problem Status W/U Status Risk Notes Problem 31698565 Tobacco dependence (F17.200) Active confirmed He says he continues to smoke about 2 cigarettes per day. We have discussed his previous and current tobacco cessation efforts.He is currently slightly hypoxic with oxygen saturation 91 which caused today's colonoscopy to be postponed. I have given him a prescription for an antibiotic and prednisone. 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 No change in his regimen was necessary today. 09/13/2024 COPD (chronic obstructive pulmonary disease) (ICD-10 - J44.9) He continues to be abstinent from cigarettes. He recently had acute on chronic bronchitis with green phlegm, but this is clearing now. He is becoming stronger. No change in his therapy was indicated. 09/13/2024 Obesity (ICD-10 - E66.9) His body mass index is stable at 33. We discussed his diet and nutrition today. We made a plan to lose weight at a rate of one half of a pound per week. 09/13/2024 Anorgasmia of male (ICD-10 - F52.32) [...] examination today was not consistent with prostatitis. 09/13/2024 BPH (benign prostati c hyperplasia) (ICD-10 - N40.0) His prostatism is sttable and once a night. We have reviewed lifestyle modifications to reduce nocturia. 09/13/2024 Sleep apnea (ICD-10 - G47.30) He is not using a CPAP machine and declines offer of providing it. He deferred a decision about whether or not to have this new sleep study 09/13/2024 Tobacco dependence (ICD-10 - F17.200) He [...] type (ICD-10 - J43.9) Plan Of Treatment Medication Medication Name Sig Start Date Stop Date Notes Advair Diskus 500-50 MCG/ACT Inhalation EpiPen 2-Ruy 0.3 MG/0.3ML USE EPI PEN NEEDED FOR BEE STINGS Injection DIRECTED Sulfamethoxazole-Trimethopri m 800-160 MG 1 tablet Orally twice a day for 10 days 09/13/2024 09/23/2024 Tamsulosin HCl 0.4 MG 2 capsule Orally Once a day predniSONE 20 MG 1 tablet with food o r milk Orally Once a day for 10 days 09/13/2024 09/23/2024 Albuterol Sulfate HFA 108 (9 0 Base) MCG/ACT INHALE 2 PUFFS INTO THE LUNGS EVERY 4 HOURS FOR WHEEZING Inhalation every 4 hrs Pending Test Test Name Order Date PROFILE, FASTING (COMPREHENSIVE METABOLI C) 09/13/2024 PSA, TOTAL 09/13/2024 CBC w DIFF 09/13/2024 Lipid Panel 09/13/2024 Next Appt Details Follow Up: 2 - 3 Days, Reaso n: Telehealth Provider Name:Anoop Austin, 10/21/2024 03:00:00 PM, [address] [place] [address] , [address], [place], [address], Progress Notes * Fabio HOGANDOB: [birth year] (59 yo M)Acc No.[id number]:09/13/2024 Patient:?Fabio HOGAN Provider:?Anoop Austin MD :1965???Age:59 Y???Sex:Male Manan e:09/13/2024 Address:[address] [place], [place] [id number] Subjective: * Chief Complaints: * ???COPD exacerbationAcute br onchitis1.15cm pulmonary nodule right apexTobacco dependenceObesitySleep apneaBenign prostatic hypertrophy * HPI: ???:?He is currently smoking a few cigarettes a day.? He recently had a screening chest CT scan September 06, 2024 at [facility].? Aside from some small nodules he had a 15 x 7 mm right apical nodule that was new.? A PET CT scan is being arranged.? He went for colonoscopy today with Dr. Grove at [facility].? His oxygen saturation was 91% and the procedure was canceled and he was referred back to my office.? In today's visit he seemed comfortable breathing room air.? He has been coughing up green phlegm lately.? He denies having fever or chills.? He was given a prescription for prednisone 20 mg daily and an antibiotic and will use his inhaler 4 times a day.? He will report to me every few days and come to the emergency room if he feels increasingly dyspneic. ?Telehealth?Location of provider rendering services:?{...} [address] [facility] [address] ?Location of patient:?address listed in demographics for [...] exertion.?Gastrointestinal:?Constipation?occasional.?Decreased appetite?denies.?Diarrhea?denies.?Heartburn?denies.?Nausea?denies.?Rectal bleeding?denies.?Vomiting?denies.?Hematology:?bruising?denies.?petechiae?denies.?Swollen glands?none have been noted.?Genitourinary:?Frequent urination?denies.?Musculoskeletal:?Muscle aches?denies.?Painful joints?denies.?Sciatica?denies.?Weakness?denies.?Skin:?Itching?denies.?Rash?denies.?Skin lesion(s)?denies.?Neurologic:?Difficulty speaking?denies.?Dizziness?denies.?Headache?denies.?Low back pain?denies.?Psychiatric:?Depressed mood?which is mild.? * Medical History:? * Surgical History:?colonoscop y [...] Tobacco User?Pipe smoker ???He was born in [place], [place]. Smokes cigar occasionally. He has been to [facility] for many years. * Medications:?TakingEpiPen 2- Ruy 0.3 MG/0.3ML Device USE EPI PEN NEEDED FOR BEE STINGS Injection DIRECTED Advair Diskus 500-50 MCG/ACT Aerosol Powder Breath Activated Inhalation Albuterol Sulfate HFA 108 (90 Base) MCG/ACT Aerosol Solution INHALE 2 PUFFS INTO THE LUNGS EVERY 4 HOURS FOR WHEEZING Inhalation every 4 hrs Tamsulosin HCl 0.4 MG Capsule 2 capsule Orally Once a day Medication List reviewed and reconciled with the patientTaking [...] Capsule 2 capsule Orally Once a day Medication List reviewed and reconciled with the patient * Allergies:?Bee Stingno[Aller gies Verified] Objective: * Vitals:?Ht: 72, Wt: 244, BMI :33.09, Wt-k.68. * ???Past Orders: Imaging:CT lung screening * Performed Date 09/06/2024 09/06/2023 02:46 PM 03:59 PM Order Date 09/06/2024 09/06/2023 Assessment: * Assessment: 1.?COPD (chronic obstructive pulmonary disease) - J44.9 (Primary)???Notes :He continues to be abstinent from cigarettes. He recently had acute on chronic bronchitis with green phlegm, but this is clearing now. He is becoming stronger. No change in his therapy was indicated.???2.?Other and unspecified hyperlipidemia - E78.5???Notes :His lipids are being checked periodically.? No change in his regimen was necessary today.???3.?Obesity - E66.9???Notes :His body mass index is stable at 33.? We discussed his diet and nutrition today.? 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 He has had an increased difficulty in obtaining and keeping an erection and is experienccing anorgasmia. He has not experienced retrograde ejaculattion. He will stop the tamsulosin as a trial to see if the symptoms improve. He was referred to urology foor definitive treatment and evaluation.His examination today was not consistent with prostatitis.???5.?BPH (benign prostatic hyperplasia) - N40.0???Notes :His prostatism is sttable and once a night.? We have reviewed lifestyle modifications to reduce nocturia.???6.?Sleep apnea - G47.30???Notes :He is not using a CPAP machine and declines offer of providing it. He deferred a decision about whether or not to have this new sleep study???7.?Tobacco dependence - F17.200???Notes :He says he continues to smoke about 2 cigarettes per day.? We have discussed his previous and current tobacco cessation efforts.He is currently slightly hypoxic with oxygen saturation 91 which caused today's colonoscopy to be postponed.? I have given him a prescription for an antibiotic and prednisone.???8.?Pulmonary emphysema, unspecified emphysema type - J43.9??? Plan: * Treatment: 2.?Obesity?LAB: PROFILE, FASTING (COMPREHENSIVE METABOLIC) ?LAB: PSA, TOTAL ?LAB: CBC w DIFF ?LAB: Lipid Panel 3.?Anorgasmia of male? Continue EpiPen 2-Ruy Device, 0.3 MG/0.3ML, USE EPI PEN NEEDED FOR BEE STINGS, Injection, DIRECTED;?Continue Advair Diskus Aerosol Powder Breath Activated, 500-50 MCG/ACT, Inhalation;?Start predniSONE Tablet, 20 MG, 1 tablet with food or milk, Orally, Once a day, 10 days, 10 Tablet, Refills 0;?Start Sulfamethoxazole-Trimethoprim Tablet, 800-160 MG, 1 tablet, Orally, twice a day, 10 days, 20 Tablet, Refills 0.?LAB: PROFILE, FASTING (COMPREHENSIVE METABOLIC) ?LAB: PSA, TOTAL ?LAB: CBC w DIFF ?LAB: Lipid Panel 4.?BPH (benign prostatic hyp erplasia)?LAB: PROFILE, FASTING (COMPREHENSIVE METABOLIC) ?LAB: PSA, TOTAL ?LAB: CBC w DIFF ?LAB: Lipid Panel 5.?Others? Continue Albuterol Sulfate HFA Aerosol Solution, 108 (90 Base) MCG/ACT, INHALE 2 PUFFS INTO THE LUNGS EVERY 4 HOURS FOR WHEEZING, Inhalation, every 4 hrs;?Continue Tamsulosin HCl Capsule, 0.4 MG, 2 capsule, Orally, Once a day.?? * Procedure Codes:?04776 SYNCH AUDIO-ONLY EST SF 10 * Preventive Medicine:? ??Counseling:?Care goal follow-up plan:?Counseling for abnormal BMI given?Yes ?Above Normal BMI Follow-up?Dietary management education, guidance, and counseling, Dietary needs education ?Smoking/Tobacco Use?Patient counseled on the dangers of tobacco use and urged to quit.?09/13/2024 ?Patient Lifestyle Goals?Patient wants to quit ?Treatment Goals?Set a quit date, Cut down by 1 cigarette a week ?Barriers?Social smoker, Stress ?Self-Management Plan?Make a plan to cut down number of cigarettes over time and set a date to work towards quitting ??COPD Care Plan:?Patient Lifestyle Goals?Relieve symptoms and improve quality of life, Reduce number of ED and hospitalizations, Be able to be more active with friends and family.?Treatment Goals?Quit Smoking.?Barriers?no barriers.?Self-Managment Goals?Make a plan for quitting smoking.? * Follow Up:?2 - 3 Days (Reaso n: Telehealth) * Images: * Sign off status: Completed true * Provider:?Anoop Ausitn MD Date:?09/2024 Generated for Anh walker/Angelica/eTtobinsmadam on:?10/12/2024 07:20 AM EDT History and Physical Notes * HPI (History of Present Illness) Category Sub-Category Detail Notes Telehealth Location of [facility] rendering services:: {...} [address] [place] [address] Location of patient:: address listed in demographics [...]
--- OUTSIDE RECORDS SUMMARY | 2024-10-12 07:21 | XMS_ITS ---
Author Organization Anoop Austin III, MD Address [address] [place] [address] Care Team Providers Care Technician Chemical Cleaning Name Role Phone Anoop Austin Primary Care Provider [phone] REASON FOR VISIT Thyroid Nodule Social History Sex Assigned At : Social History Observation Description Sex Assigned At Male Encounters Encounter Location Date Provider Diagnosis Anoop Austin III, MD [address] [place] [address] [address] [facility] [place] [address] 10/02/2024 Anoop Austin Plan Of Treatment Next Appt Details Provider Name:Anoop Austin, 10/21/2024 03:00:00 PM, [address] [place] [address] [place], [address], Progress Notes * Fabio HOGANDOB: [birth year] (59 yo M)Acc No.[id number]:10/02/2024 Patient:?Fabio HOGAN :1965???Age:59 Y???Sex:Male Address: [place] [address] * * Date:?
[2024-10-12 07:46] LABS: MANUAL DIFF FLAG NO
[2024-10-12 08:04] LABS: Basophils Absolute Auto 0.1 X10*3/uL (0.0-0.2); Basophils Percent Auto 0.7 % (0-2); Eosinophils Absolute Auto 0.3 X10*3/uL (0.0-0.4); Eosinophils Percent Auto 3.1 % (0-4); Hematocrit 50.4 % (42.0-52.0); Hemoglobin 16.6 g/dl (14.0-18.0); Imm Gran Abs Auto 0.11 X10*3/uL (0.00-0.03); Imm Gran Pct Auto 1.2 % (0.0-0.4); Lymphocytes Absolute Auto 1.4 X10*3/uL (1.2-4.9); Lymphocytes Percent Auto 15.4 % (20-40); Mean Corpuscular HGB Conc 32.9 g/dl (31.0-36.0); Mean Corpuscular Hemoglobin 30.7 pg (27.0-33.0); Mean Corpuscular Volume 93.3 fL (80.0-98.0); Mean Platelet Volume 10.1 fL (9.4-12.4); Monocytes Absolute Auto 0.9 X10*3/uL (0.1-1.2); Monocytes Percent Auto 9.9 % (2-11); Neutrophils Absolute Auto 6.3 x10*3/uL (2.0-8.3); Neutrophils Percent Auto 69.7 % (45-73); Platelet Count 198 X10*3/uL (160-400); Red Cell Distribution Width 12.8 % (11.0-16.0)
[2024-10-12 08:34] LABS: Alanine Aminotransferase 22 U/L (0-40); Albumin Level 3.9 g/dL (3.5-5.0); Alkaline Phosphatase 62 U/L (39-117); Anion Gap 11 (12-20); Aspartate Amino Transferase 19 U/L (5-37); Bilirubin Total 0.3 mg/dL (0.0-1.0); Blood Urea Nitrogen 11 mg/dL (9-16); Carbon Dioxide 29 mmol/L (22-29); Chloride 106 mmol/L (96-108); Cholesterol 202 mg/dL (<200); Estimated Glomerular Filt Rate > 60; Glucose Random 117 mg/dL (60-115); HDL Cholesterol 73 mg/dL (>40); LDL Cholesterol Calculated 120 mg/dL (<100); Potassium 4.4 mmol/L (3.3-5.1); Sodium 142 mmol/L (135-145); Total Protein 6.9 g/dL (6.5-8.0); Triglycerides 46 mg/dL (<150)
[2024-10-12 08:49] LABS: PSA,Total (Free>4and<10) 0.85 ng/mL (0.00-4.00)
== END 2024-10-12 07:18 | disposition home or self-care (01) ==
LOC: HO.LAB 07:17
PROVIDERS: PCP Internal Medicine Medical Oncology; Visit Provider Internal Medicine Medical Oncology
DX: E66.9 Obesity, unspecified (principal); N40.0 Benign prostatic hyperplasia without lower urinary tract symptoms; J44.9 Chronic obstructive pulmonary disease, unspecified; Z12.5 Encounter for screening for malignant neoplasm of prostate
CPT/HCPCS: 36415; 80053; 80061; 84153; 85025

== ENCOUNTER 2024-10-18 07:24 | Day surgery (SDC) | payer BC, SELFPAY ==
--- OUTSIDE RECORDS SUMMARY | 2024-10-17 07:28 | XMS_ITS ---
Author Organization [facility] Address [address] [place] [address] Care Team Providers Care Sequins Stringer Name Role Phone Geovanna DEAN, Anoop Primary Care Provider Unavailab Flako Ruiz Jr [phone] Encounters Encounter Location Date Provider Diagnosis [facility] [address] [place] [address] 09/19/2024 Flako Grove Jr Plan Of Treatment Next Appt Details Provider Name:Flako don Jr, 10/18/2024 09:20:00 AM, [address] [place] [address] , [place], [place], [phone], Progress Notes * RUEL HOGANDOB:[birth year] (59 yo M)Acc No.[id number]:09/19/2024 Patient:?RUEL HOGAN :1965???Age:59 Y???Sex:Male Address: [place], [address] * true * Date:? Generated for Printi ng/Faveronicag/eTransmitting on:?10/17/2024 07:27 AM EDT
--- OUTSIDE RECORDS SUMMARY | 2024-10-17 07:28 | XMS_ITS ---
Author Organization [facility] Address [address] [place] [address] Care Team Providers Care Green End Department Supervisor Name Role Phone Geovanna DEAN, Anoop Primary Care Provider Unavailab Flako Ruiz Jr [phone] REASON FOR VISIT screening Encounters Encounter Location Date Provider Diagnosis [facility] Out[facility] [address] [place] [phone] 09/13/2024 Flako Grove Jr Plan Of Treatment Next Appt Details Provider Name:Flako don Jr, 10/18/2024 09:20:00 AM, [address] [place] [address], [phone], Progress Notes * RUEL HOGANDOB:[birth year] (59 yo M)Acc No.[id number]:09/13/2024 COLON WITH MAC Patient:?RUEL HOGAN Provider:?Flako Grove MD :1965???Age:59 Y???Sex:Male Manan e:09/13/2024 Address:[address] [place], [place] [phone] Pcp:Anoop Austin MD Subjective: * Chief Complaints: [...] MD Date:?0 09/13/2024 Generated for Anh walker/Angelica/Sulma on:?10/17/2024 07:28 AM EDT
--- OUTSIDE RECORDS SUMMARY | 2024-10-17 07:28 | XMS_ITS ---
Author Organization Anoop Austin III, MD Address [address] [place] [address] Care Team Providers Care Refrigeration Supervisor Name Role Phone Anoop Austin Primary Care Provider [phone] Allergies Allergen (clinical drug ingredient) Drug/Non Drug [...] Date Provider Diagnosis Anoop Austin III, MD [address] [place] [address] [address], [place] [address] 09/16/2024 Anoop Austin Acute bronchitis, unspecified organism [...] OV Provider Name:Anoop Austin, 10/21/2024 03:00:00 PM, [address] [place] [address] [address], [address], [place], [address], Progress Notes * EDISONFabioDOB: [birth year] (59 yo M)Acc No.[id number]:09/16/2024 Patient:?JERMANBonnieEAGLE Fabio Provider:?Anoop Ausitn MD :1965???Age:59 Y???Sex:Male Manan e:09/16/2024 Address:[address] [place], [place] [phone] Subjective: * Chief Complaints: * ???Acute bronchitisCOPDSleep [...] pulmonary nodule. ?Telehealth?Location of provider rendering services:?{...} [address] [place] [address] [address] [facility] [address] ?Location of patient:?address listed in demographics for [...] Tobacco User?Pipe smoker ???He was born in [place], [place]. Smokes cigar occasionally. He has been [...] for quitting smoking.? * Follow Up:?As Scheduled ([place] son: OV) * Images: * Sign off status: Completed true * Provider:?Anoop Austin MD Date:?12/2024 Generated for Anh walker/Angelica/Rolandoitting on:?10/17/2024 07:28 AM EDT History and Physical Notes * HPI (History of Present Illness) Category Sub-Category Detail Notes Telehealth Location of [facility] rendering services:: {...} [address] [place] [address] Location of patient:: address listed in demographics [...]
--- OUTSIDE RECORDS SUMMARY | 2024-10-17 07:28 | XMS_ITS ---
Author Organization [facility] Address [address] [place] [address] Care Team Providers Care Library Serials Assistant Name Role Phone Geovanna DEAN, Anoop Primary [...] Problem Status W/U Status Risk Notes Problem [id number] Diverticulitis (K57.92) Active confirmed Vital Signs Blood pressure systolic 111 mm Hg 08/01/19 25 Blood pressure diastolic 11 mm Hg 025 Height 73.5 in 08/01/2024 Weight 234 lbs 08/01/2024 BMI 30.45 kg/m2 08/01/2024 Encounters Encounter Location Date Provider Diagnosis [facility] [address] [place] [address] 08/01/2024 Flako Grove Jr Colon cancer screening [...] don Jr, 10/18/2024 09:20:00 AM, [address] [facility] , [place], [place], [phone], Progress Notes * RUEL HOGAN JDOB:[birth year] (59 yo M)Acc No.[id number]:08/01/2024 Progress Notes Patient:?RUEL HOGAN Provider:?Flako Grove MD :1965???Age:59 Y???Sex:Male Manan e:08/01/2024 Address:[address] [place], [place] [phone] Pcp:Anoop Austin MD Subjective: * Chief Complaints: [...] (1 point),?Points?7,?Interpretation?Positive.?Miscellaneous:?Marital status: . 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 ???cigars. * Medications:?Taking Incruse Ellipta 62.5 MCG/ACT [...] MD Date:?0 08/01/2024 Generated for Sydneyi aaron/Angelica/eTransmitting on:?10/17/2024 07:28 AM EDT History and Physical [...]
--- OUTSIDE RECORDS SUMMARY | 2024-10-17 07:28 | XMS_ITS | Patient Health Record ---
Author Organization Anoop Austin III, MD Address [address] [place] [address] Care Team Providers Care Back Tender Fourdrinier Name Role Phone Anoop Austin Primary Care Provider [phone] Allergies Allergen (clinical drug ingredient) Drug/Non Drug Allergy documented on EMR Reaction Allergy Type Onset Date Status Bee Sting Unknown Allergy Active Results Component Value Reference Range Notes CT lung screening Reviewed date:09/13/2024 03:32:04 PM Interpretation: Performing Lab: Notes/Report: [address] [address] [address] Scan Report Signed Patient: Fabio Griffin MR#: [id number] : 1965 Acct:[id number] Age/Sex: 59 / M ADM Date: 09/06/24 Loc: HO.CT Attending Dr: Maritza Guerra MATERNAL FETAL PHYSICIAN Ordering Physician: Estela Zhu PA-C Date of Service: 09/06/24 Procedure(s): CT lung screening Accession Number(s): [id number] cc: Anoop Austin MD; Estela Zhu PA-C Report Number: [id number]: Total DLP = 68.00 mGy-cm EXAMINATION: CT [...] 09/09/24 0741 DD/ 1446 TD/TT: 09/06/24 1452 Electrical Automation Engineer: [address] [address] [address] Scan Report Signed Patient: Fabio Griffin MR#: [id number] : 1965 Acct:[id number] Age/Sex: 59 / M ADM Date: 09/06/24 Loc: HO.CT Attending Dr: Sofia Guerra MATERNAL FETAL PHYSICIAN Ordering Physician: Estela Zhu PA-C Date of Service: 09/06/24 Procedure(s): CT bautista g screening Accession Number(s): [id number] cc: Anoop Austin MD; Estela Zhu PA-C Report Number: [id number]: Total DLP = 68.00 mGy-cm EXAMINATION: CT [...] (series 4, image 48). Emphysema: moderate Coronary Calcificati on: mild Aortic Arch Calcification: moderate Potentially Signific ant Incidentals : none Additional Chest Findings: There is no pleural or pericardial effusion. No mediastinal or axillary lymphadenopathy is identified. Visualized upper abdomen: The visualized portions of the liver, spleen, and right adrenal gl and have an unremarkable unenhanced appearance. Again noted is a 1.9 cm left adrenal nodule. ___ _ CT/CT lung screening IMPRESSION: Multiple new bilater al [...] 09/09/24 0741 DD/ 1446 TD/TT: 09/06/24 1452 Electrical Automation Engineer: PET CT fusion skull to thigh Reviewed date:10/12/2024 08:44:26 PM Interpretation: Performing Lab: Notes/Report: [address] [address] PET Report Signed Patient: Fabio Griffin MR#: [id number] : 1965 Acct:[id number] Age/Sex: 59 / M ADM Date: 09/30/24 Loc: HO.PET Attending Dr: Shelley Serrano MD Ordering Physician: Shelley Serrano MD Date of Service: 10/01/24 Procedure(s): PET CT fusion skull to thigh Accession Number(s): [id number] cc: Shelley Serrano MD; Anoop Austin MD [...] 10/01/24 1549 DD/ 1030 TD/TT: 10/01/24 1130 Electrical Automation Engineer: [address] [address] PET Report Signed Patient: Fabio Griffin MR#: [id number] : 1965 Acct:[id number] Age/Sex: 59 / M ADM Date: 09/30/24 Loc: HO.PET Attending Dr: Eamon Serrano MD Ordering Physician: Shelley Serrano MD Date of Service: 10/01/24 Procedure(s): PET CT fusion skull to thigh Accession Number(s): [id number] cc: Shelley Serrano MD; Anoop Austin MD EXAMINATION: FLUORINE-18 FDG PET/ CT SCAN CLINICAL INFORMATION: Right pulmonary nodule TECHNIQUE: [...] significa nt pleural effusion. Lymph Nodes: No tracer-avid mediastinal, [...] right gl and is unremarkable. Kidneys: No hydronephrosis, hydroureter or [...] Saldana MD Signed By: <Electronically signed by Lestre Saldana MD in OV> 10/01/24 1549 DD/ 1030 TD/TT: 10/01/24 1130 Electrical Automation Engineer: BLANCHE Complete Blood Count Auto Di ff Reviewed date:10/12/2024 08:44:26 PM Interpretation: Performing Lab:[facility], [address] [place] [address] Notes/Report: White Blood Count 9.0 4.8-10.8 X10*3/uL Red Blood Count 5.40 4.60-5.80 X10*6/uL Hemoglobin 16.6 14.0-18.0 g/dl Hematocrit 50.4 42.0-52.0 % Mean Corpuscular Volume 93.3 80.0-98.0 fL Mean Corpuscular Hemoglobin 30.7 27.0-33.0 pg Mean Corpuscular HGB Conc 32.9 31.0-36.0 g/dl Red Cell Distribution Width 12.8 11.0-16.0 % Platelet Count 198 160-400 X10*3/uL Mean Platelet Volume 10.1 9.4-12.4 fL Neutrophils Percent Auto 69.7 45-73 % Imm Gran Pct Auto 1.2 0.0-0.4 % Lymphocytes Percent Auto 15.4 20-40 % Monocytes Percent Auto 9.9 2-11 % Eosinophils Percent Auto 3.1 0-4 % Basophils Percent Auto 0.7 0-2 % NRBC Pct Auto 0.0 0.0-0.2 /100WBC Neutrophils Absolute Auto 6.3 2.0-8.3 x10*3/u L Imm Gran Abs Auto 0.11 0.00-0.03 X10*3/uL Lymphocytes Absolute Auto 1.4 1.2-4.9 X10*3/u L Monocytes Absolute Auto 0.9 0.1-1.2 X10*3/uL Eosinophils Absolute Auto 0.3 0.0-0.4 X10*3/u L Basophils Absolute Auto 0.1 0.0-0.2 X10*3/uL NRBC Abs Auto 0.000 0.0-0.012 X10*3/uL Comprehensive Met. Panel Reviewed date:10/12/2024 08:44:26 PM Interpretation: Performing Lab:[facility], [address] [place] [address] Notes/Report: Sodium 142 135-145 mmol/L Potassium 4.4 3.3-5.1 mmol/L Chloride 106 96-108 mmol/L Carbon Dioxide 29 22-29 mmol/L Anion Gap 11 12-20 Blood Urea Nitrogen 11 9-16 mg/dL Creatinine 0.71 0.5-1.4 mg/dL Estimated Glomerular Filt Rate > 60 Chronic Kidney Disease: Estimated GFR < 60 mL/min/1.73m2 Severe Kidney Disease: Estimated GFR < 15 mL/min/1.73m2 Glucose Random 117 60-115 mg/dL Calcium 9.0 8.4-10.2 mg/dL Bilirubin Total 0.3 0.0-1.0 mg/dL Aspartate Amino Transferase 19 5-37 U/L Alanine Aminotransferase 22 0-40 U/L Total Protein 6.9 6.5-8.0 g/dL Albumin Level 3.9 3.5-5.0 g/dL Alkaline Phosphatase 62 39-117 U/L Lipid Panel Reviewed date:10/12/2024 08:44:26 PM Interpretation: Performing Lab:[facility], [address] [place] [address] Notes/Report: Triglycerides 46 <150 mg/dL Desirable Triglyceride: less than 150 mg/dL Borderline High Triglyceride 150-199 mg/dL High Triglyceride: 200-499 mg/dL Very High Triglyceride: greater than or equal to 5OO mg/dL Cholesterol 202 <200 mg/dL Desirable Cholesterol: less than 200 mg/dL Borderline High Cholesterol: 200-239 mg/dL High Cholesterol: greater than 239 mg/dL LDL Cholesterol Calculated 120 <100 mg/dL Desirable LDL: less than 100 mg/dL Near Optimal/Above Optimal LDL: 110-129 mg/dL Borderline High LDL: 130-159 mg/dL High LDL: 160-189 mg/dL Very High LDL: greater than or equal to 190 mg/dL HDL Cholesterol 73 >40 mg/dL Desirable HDL: greater than 40 mg/dL Note: This HDL assay may give artificially low results in patients with liver disease. PSA,Total (Free>4and<10) Reviewed date:10/12/2024 08:44:26 PM Interpretation: Performing Lab:[facility], [address] [place] [phone] Notes/Report: PSA,Total (Free>4and<10) 0.85 0.00-4.00 ng/mL A Free PSA was not performed: The percentage of Free PSA can be used to enhance the differentiation of prostate cancer from benign prostatic disease in subjects whose PSA levels are between 4.0 and 10.0 ng/mL. For subjects whose PSA levels are below 4.0 or above 10.0 ng/mL, the risk of prostate cancer is determined on the basis of the PSA alone. Therefore the % Free PSA is recommended only for those subjects whose PSA levels are between 4.0 and 10.0 ng/mL. PSA methodology: InflowControlnity i Chemiluminescent Microparticle Immunoassay (CMIA) Reason For Referral No Information Medications Medication [...] Problem Status W/U Status Risk Notes Problem 493844672 Obesity (E66.9) Active confirmed His body mass index is stable at 33. We discussed his diet and nutrition today. We made a plan to lose weight at a rate of one half of a pound per week. 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 He has been referred to urology. Problem Benign prostatic hyperplasia (095909220) BPH (benign prostatic hyperplasia) (N40.0) Active confirmed His prostatism is sttable and once a night. We have reviewed lifestyle modifications to reduce nocturia. Problem 04999846 Tobacco dependence (F17.200) Active confirmed He says he continues to smoke about 2 cigarettes per day. We have discussed his previous and current tobacco cessation efforts.He is currently slightly hypoxic with oxygen saturation 91 which caused today's colonoscopy to be postponed. I have given him a prescription for an antibiotic and prednisone. Problem 30327461 COPD (chronic obstructive pulmonary disease) (J44.9) Active confirmed He continue s to be abstinent from cigarettes. He recently had acute on chronic bronchitis with green phlegm, but this is clearing now. He is becoming stronger. No change in his therapy was indicated. Problem 65744822 Other and unspecified hyperlipidemia (E78.5) Active confirmed His lipids are being checked periodically. No change in his regimen was necessary today. Problem 23357837 Sleep apnea (G47.30) Active confirmed He is not using a CPAP machine and declines offer of providing it. He deferred a decision about whether or not to have this new sleep study Problem 103940659 Other osteoarthritis involving multiple joints (M15.8) Active confirmed The arthritis in his hands has become mild and he is working full-time without difficulty. His main complaint today is right shoulder pain. He is be treated with ibuprofen. Problem 77490783 Pulmonary emphysema, unspecified emphysema type (J43.9) Active confirmed Problem 228567519 Renal cyst (N28.1) Active confirmed On August 04, 2022. An ultrasound was done of his kidneys in followup of the detection of a mass in the right kidney on screening CT scan. The ultrasound done August 04 shows 32.3 cm simple benign cyst. It will be followed. 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 Since [...] Date Provider Diagnosis Anoop Austin III, MD [address] [place] [address] [place] [address] 09/13/2024 Anoop Austin Other and unspecifie d hyperlipidemia E78.5 ; COPD (chronic obstructive pulmonary disease) J44.9 ; Obesity E66.9 ; Anorgasmia of male F52.32 ; BPH (benign prostatic hyperplasia) N40.0 ; Sleep apnea G47.30 ; Tobacco dependence F17.200 and Pulmonary emphysema, unspecified emphysema type J43.9 Anoop Austin III, MD [address] [place] [address] [place] [address] 09/16/2024 Anoop Austin Acute bronchitis, unspecified organism J20.9 ; Other and unspecified hyperlipidemia E78.5 ; Other osteoarthritis involving multiple joints M15.8 ; Obesity E66.9 ; Sleep apnea G47.30 and Tobacco dependence F17.200 Anoop Austin III, MD [address] [place] [address] [place] [address] 10/02/2024 Anoop Austin III, MD [address] [place] [address] [place] [address] 12/12/2023 Anoop Austin III, MD [address] [place] [address] [place] [address] 12/12/2023 Anoop Austin III, MD [address] [place] [address] [place] [address] 05/24/2024 Anoop Austin III, MD [address] [place] [address] [place] [address] 07/12/2024 Anoop Austin III, MD [address] [place] [address] [place] [address] 07/12/2024 Anoop Austin III, MD [address] [place] [address] [place] [address] 07/15/2024 Anoop Austin Obesity E66.9 ; BPH [...] Panel 09/13/2024 Vitamin D 25-OH Total 02/24/2022 Next Appt Details Provider Name:Anoop Henryne, 10/21/2024 03:00:00 PM, [address] [place] [address] DR, [address], [place], [address], Insurance Providers Payer Name Payer Address Payer Phone Subscriber Number Group Number Insured Name Patient Relationship to Insured Coverage Start Date Coverage End Date [facility] [address] [place], [place] [id number] Fabio Aragon Self - patient is the insured Medical (General) History Medical History History ICD Code fracture of arm,leg,clavicle osteoarthritis hyperlipidemia sleep apnea COPD plantar wart right foot tobacco dependence obesity colonic polyps, Dr. Grove, tubular ad enoma COPD Emphysema Surgical History Surgery Date(Month/Year) right hand surgery 10/2019 colonoscopy 2016
--- OUTSIDE RECORDS SUMMARY | 2024-10-17 07:29 | XMS_ITS ---
Author Organization Anoop Austin III, MD Address [address] [place] [address] Care Team Providers Care Stage Hand Name Role Phone Anoop Austin Primary Care Provider REASON FOR VISIT Thyroid Nodule Social History Sex Assigned At : Social History Observation Description Sex Assigned At Male Encounters Encounter Location Date Provider Diagnosis Anoop Austin III, MD [address] [place] [address] [address] [facility] [place] [address] 10/02/2024 Anoop Austin Plan Of Treatment Next Appt Details Provider Name:Anoop Austin, 10/21/2024 03:00:00 PM, [address] [place] [address] [address] [place], [address], Progress Notes * Fabio HOGANDOB: [birth year] (59 yo M)Acc No.[id number]:10/02/2024 Patient:?Fabio HOGAN :1965???Age:59 Y???Sex:Male Address: [place] [address] * * Date:?
--- OUTSIDE RECORDS SUMMARY | 2024-10-17 07:29 | XMS_ITS | Patient Health Record ---
Author Organization [facility] Address [address] [place] [address] Care Team Providers Care Emr Implementation Specialist Name Role Phone Geovanna DEAN, Anoop Primary Care Provider Unavailab lFako Ruiz Jr Unavailable Allergies Allergen (clinical drug ingredient) Drug/Non Drug Allergy documented on EMR Reaction Allergy Type Onset Date Status bees (uncoded) Unknown Allergy Activ e Reason For Referral Referring Provider First Name Anoop Referring Provider Last Name Geovanna Referring Provider Speciality Oncology Referred Organization [facility] Referred Provider Flako Grove Jr Referred Address [address],[place], [place],[address], Referred Provider Specialty Gastroentero logy Referral Priority [...] Problem Status W/U Status Risk Notes Problem 368018871 Colon cancer screening (Z12.11) Active confirmed Problem 311059298 Personal history of colonic polyps (Z86.010) Active confirmed Problem 778960811 Encounter for ot her preprocedural examination (Z01.818) Active confirmed Problem 404586376 Diverticulitis (K57.92) Active confirmed Vital Signs Blood pressure diastolic 11 mm Hg 08/01/2024 Height 73.5 in 08/01/2024 Blood pressure systolic 111 mm Hg 08/01/2024 Weight 234 lbs 08/01/2024 BMI 30.45 kg/m2 08/01/2024 Encounters Encounter Location Date Provider Diagnosis [facility] [address] [place] [address] 08/01/2024 Flako Grove Jr Colon cancer screening Z12.11 and Diverticulitis K57.92 [facility] [address] [place] [address] 09/19/2024 Flako Grove Jr Assessments Encounter Date [...] Name:Flako Bonnie don Jr, 10/18/2024 09:20:00 AM, [address] [place] [address] , [place], [place], [phone], Insurance Providers Payer Name Payer Address Payer Phone Subscriber Number Group Number Insured Name Patient Relationship to Insured Coverage Start Date Coverage End Date [facility] [employer] [address] [place] [address] [id number] Self - patient is the insured Medical (General) History Medical History History ICD Code Colonoscopy 05/30, normal, five-year fol lowup for prior history of adenomas. COPD BPH Surgical History Surgery Date(Month/Year)
--- OUTSIDE RECORDS SUMMARY | 2024-10-17 07:29 | XMS_ITS ---
Author Organization Anoop Austin III, MD Address [address] [place] [address] Care Team Providers Care Digital Color Press Operator Name Role Phone Anoop Austin Primary Care Provider [phone] Allergies Allergen (clinical drug ingredient) Drug/Non Drug [...] Problem Status W/U Status Risk Notes Problem 66546719 Tobacco dependence (F17.200) Active confirmed He says he continues to smoke about 2 cigarettes per day. We have discussed his previous and current tobacco cessation efforts.He is currently slightly hypoxic with oxygen saturation 91 which caused today's colonoscopy to be postponed. I have given him a prescription for an antibiotic and prednisone. Problem 37087594 Pulmonary emphysema, unspecified emphysema type (J43.9) Active confirmed Vital Signs Height 72 in 09/13/2024 Weight 244 lbs 09/13/2024 BMI 33.09 kg/m2 09/13/2024 Encounters Encounter Location Date Provider Diagnosis Anoop Austin III, MD [address] [place] [address] [place] [address] 09/13/2024 Anoop Austin Other and unspecifie d [...] Telehealth Provider Name:Anoop Austin, 10/21/2024 03:00:00 PM, [address] [place] [address] , [address], [place], [address], Progress Notes * Fabio HOGANDOB: [birth year] (59 yo M)Acc No.[id number]:09/13/2024 Patient:?Fabio HOGAN Provider:?Anoop Austin MD :1965???Age:59 Y???Sex:Male Manan e:09/13/2024 Address:[address] [place], [place] [address] Subjective: * Chief Complaints: * ???COPD exacerbationAcute br onchitis1.15cm pulmonary nodule right apexTobacco dependenceObesitySleep apneaBenign prostatic hypertrophy * HPI: ???:?He is currently smoking a few cigarettes a day.? He recently had a screening chest CT scan September 06, 2024 at [facility].? Aside from some small nodules he had a 15 x 7 mm right apical nodule that was new.? A PET CT scan is being arranged.? He went for colonoscopy today with Dr. Grove at [facility].? His oxygen saturation was 91% and the [...] rendering services:?{...} [address] [facility] [address] ?Location of patient:?address listed in demographics for [...] Tobacco User?Pipe smoker ???He was born in [place], [place]. Smokes cigar occasionally. He has been [...] capsule, Orally, Once a day.?? * Procedure Codes:?06097 SYNCH AUDIO-ONLY EST SF 10 * Preventive [...] status: Completed true * Provider:?Anoop Austin MD Date:?09/2024 Generated for Anh walker/Angelica/eTaida on:?10/17/2024 07:28 AM EDT History and Physical Notes * HPI (History of Present Illness) Category Sub-Category Detail Notes Telehealth Location of [facility] rendering services:: {...} [address] [place] [address] Location of patient:: address listed in demographics [...]
--- NOTE | 2024-10-18 08:17 | P.CONAN_ITS ---
HPI - Anesthesia Eval Consult details Narrative: 59 yo male patient for Colonoscopy. Rescheduled from 09/13/24 secondary to respiratory issues. Was supposed to see PCP but appointment is not until next week. Had a respiratory tract infection about 1-2 weeks ago with greenish sputum. Usually needs steroids when he gets bad respiratory infections like that but did not get this time. Sats 92-94% in RA Breath sounds very diminished. Will reassess after respiratory treatment. Addendum Post respiratory treatment, better air entry bilaterally.Sats still about 91% PMFSH Active Problems Active Problems: All Active Problems Thyroid nodule (Acute) Pulmonary nodules (Acute) Snoring (Acute) Nicotine dependence, cigarettes, uncomplicated (Acute) COPD (chronic obstructive pulmonary disease) (Acute) Past Medical History Medical History Sleep apnea Diverticulitis BPH (benign prostatic hyperplasia) Hyperlipidemia Nicotine dependence, cigarettes, uncomplicated Tubular adenoma of colon (~2015) COPD (chronic obstructive pulmonary disease) Family History Family History Brother Myocardial infarction, Onset Age: 55 Father Stroke Alzheimer disease Mother Lung cancer Stomach cancer Maternal Aunt Breast cancer Family history of problems with anesthesia: No Surgical History Surgical History History of hand surgery History of colonoscopy History of Problems with Anesthesia: No Social History Social History Household Members: Spouse Are you a primary respiratory care faculty to a significant other at home: No Do you presently have visiting nurse or other home services: No Patient Tobacco Use Status: Former Tobacco user Tobacco use type: Cigar Cigarette Packs Per Day: 1 Cigarettes Per Day: 20.0 Years Smoked: 40 Meds Allergies Allergy/AdvReac Type Severity Reaction Status Date / Time bee pollen [BEE STINGS] Allergy Severe Anaphylaxis Verified 10/18/24 08:04 Active Medications: Current Medications Albuterol Sulfate (Albuterol Sulfate (0.083%) 2.5 Mg/3 Ml Vial.Neb) 2.5 mg INHALE ONCE PRN PRN Reason: Shortness of Breath/Wheezing Lactated Ringer's (Lr) 1,000 mls @ 100 mls/hr IVCONT .Q10H MINH Home Medications ?Medication ?Instructions ?Recorded ?Confirmed ?Last Taken ?Type albuterol sulfate 90 mcg/actuation 2 puff inhalation Q4H PRN 06/14/22 10/18/24 09/13/24 History aerosol inhaler Shortness Of Breath tamsulosin 0.4 mg capsule 0.4 mg PO DAILY 06/14/22 10/18/24 09/12/24 History finasteride 5 mg tablet 5 mg PO DAILY 08/13/24 10/18/24 09/13/24 History Exam Height,Weight and Vital Signs: Height 6 ft 1 in Weight 102.2 kg Vital Signs Temp Pulse Resp BP Pulse Ox O2 Del Method 98.4 F 90 16 141/79 H 92 Room Air 10/18/24 08:23 10/18/24 08:23 10/18/24 08:23 10/18/24 08:23 10/18/24 08:23 10/18/24 08:23 Airway Mallampati Class: III TM Dist: >3cm Neck ROM: Full Loose/Missing/Broken Teeth: Yes (Poor dentition. Broken, loose and missing teeth) Heart: RRR Lungs: CTAB. Greatly diminished. Barely any breath sounds heard. Post respiratory treatment- still diminished but better air entry. Assessment and Plan Assessment Anesthesia Assessment: Anesthesia Plan Discussed and Chart Reviewed Final Anesthetic Review Family History of Problems with Anesthesia: No History of Problems with Anesthesia: No NPO: Yes ASA Class: III Final Preanesthetic Review: No Changes in Pt Med Stat, Meds/Allgs Chart Re viewed, Consent Obtained/Reviewed and Anes Risks/Benef Reviewed Patient Risk: Intermediate Procedure Risk: Low Assessment/Block/Sedation in SS: Assess/Block/Sedation-SS Anesthetic Plan Anesthetic Plan: TIVA Disposition: Standard PACU
--- NOTE | 2024-10-18 08:20 | PC.NURSE ---
Addendum entered by Sara Aguilar RN 10/18/24 09:27: Neb treatment tolerated well. Lungs remain clear, improved air movement throughout purcell. Dr. Maria at bedside to assess. Original Note: Patient arrived to preop. Previously cancelled for this procedure a month ago due to poor respiratory status. Today, lung sounds clear however very diminished with little air movement, SaO2 90-94 RA. Patient took both inhalers this morning. States he quit smoking cigars 2 weeks ago, still smokes marijuana a few times weekly (last time 4 days ago). Also states I was coughing up green sputum last week but that has gone away . Today, congested cough however no sputum production. Dr. Maria at bedside and made aware. Order for preop albuterol neb.
[2024-10-18 08:23] VITALS: BP 141/79; PULSE 90; RESP 16; TEMP 36.9; O2SAT 92; BMI 29.7
[2024-10-18] MEDS: Albuterol Sulfate (0.083%) 2.5 MG/3 ML VIAL.NEB INHALE (08:28)
[2024-10-18 08:29] VITALS: PULSE 93; RESP 18; O2SAT 97
[2024-10-18] MEDS: Lactated Ringers 1,000 ML 100 ML IVCONT (08:43)
--- NOTE | 2024-10-18 09:14 | MHC.SHP ---
Pre-Procedural Eval Section A - 24 Hr Update-Section A only Date of Service: 10/18/24 Section B - Complete if H&P > 30 days Chief Complaint: screening Details of Present Illness: see H&P no changes Relevant Family History (Specify if Yes): No Relevant Social History: Tobacco Use Present Medications: None Medical History: No relevant PMH History of Previous Operations: No relevant previous surgery Allergies: Allergies Allergy/AdvReac Type Severity Reaction Status Date / Time bee pollen [BEE STINGS] Allergy Severe Anaphylaxis Verified 10/18/24 08:04 Review of Systems Sugical H&P ROS: Negative: Constitution, Cardiovascular, Respiratory, Neurological, Psychiatric, Hem-Onc, Allergic/Immunologic, Gastrointestinal, Genitourinary, Musculoskeletal, Integumentary, Endocrine and Eyes/Ears/Nose/Throat Exam Surgical H&P Exam: Normal: HEENT, Normal: Heart, Normal: Lungs, Normal: Extremities, Normal: Abdomen, Normal: Skin and Normal: Neurological Plan Diagnosis/Plan: Unchanged I have reviewed the history and physical and performed a pertinent physical examination on my patient. No changes have occurred unless specified. Time Spent With Patient Time: Total time managing care of this patient today ____ minutes.
[2024-10-18 10:00] VITALS: BP 99/58; PULSE 88; RESP 18; TEMP 37.4; O2SAT 100
[2024-10-18 10:11] VITALS: BP 106/69; PULSE 89; RESP 16; TEMP 37.2; O2SAT 93
--- NOTE | 2024-10-18 10:28 | OP_ITS ---
DATE OF SERVICE: 10/18/2024 SURGEON: Flako Grove MD INDICATIONS: Colon cancer screening and prior history of adenomatous colon polyps. PREOPERATIVE DIAGNOSIS: POSTOPERATIVE DIAGNOSIS: PROCEDURE PERFORMED: Colonoscopy to the terminal cecum with snare polypectomy. ESTIMATED BLOOD LOSS: COMPLICATIONS: ANESTHESIA: Monitored anesthesia care. ASSISTANTS: SPECIMENS: DESCRIPTION OF PROCEDURE: History and physical performed. The risks and benefits of the procedure were explained to the patient. Informed consent was obtained. The patient was placed in the left lateral decubitus position. A digital rectal exam was performed and was found to be normal. The Olympus pediatric videocolonoscope was introduced into the rectum and advanced to the cecum. The cecum was identified by transillumination, palpation, and identification of ileocecal valve. Examination was performed. The scope was removed. He tolerated the procedure well and was taken to recovery area in stable condition. FINDINGS: The terminal ileum was examined and appeared normal. The visualized colonic mucosa was normal. The quality of the prep was good. At 30 cm from the anal verge, there was a 5 mm polyp, which was removed with a cold snare and recovered via suction. No other polyps were identified. Retroflexed examination showed small internal hemorrhoids. The quality of the prep was fair with some liquid stool coating the mucosa mainly in the right colon and transverse colon. This was washed and suctioned as best possible. IMPRESSION: Colon polyp. RECOMMENDATION: Follow up the biopsy results. MD PARISA Leiva/MODL / [id number]
== END 2024-10-18 10:31 | disposition home or self-care (01) ==
PROVIDERS: PCP Internal Medicine Medical Oncology; Visit Provider Internal Medicine Gastroenterology
PROC: 0DJD8ZZ Inspection of Lower Intestinal Tract, Via Natural or Artificial Opening Endoscopic (ICD-10-PCS; CPT 45378; principal; 2024-10-18 09:20)
DX: Z12.11 Encounter for screening for malignant neoplasm of colon (principal); Z86.0101 Personal history of adenomatous and serrated colon polyps; K63.5 Polyp of colon; K64.8 Other hemorrhoids; Z87.19 Personal history of other diseases of the digestive system; N40.0 Benign prostatic hyperplasia without lower urinary tract symptoms; J44.9 Chronic obstructive pulmonary disease, unspecified; G47.33 Obstructive sleep apnea (adult) (pediatric); Z79.51 Long term (current) use of inhaled steroids; Z79.899 Other long term (current) drug therapy; Z87.891 Personal history of nicotine dependence
CPT/HCPCS: 45385; 88305; J1100; J1596; J2003; J2704; J3010

== ENCOUNTER 2025-01-06 12:38 | Outpatient (REF) | payer BC, SELFPAY ==
--- OUTSIDE RECORDS SUMMARY | 2024-10-21 11:00 | XMS_ITS ---
Author Organization Anoop Austin III, MD Address [address] [place] [address] Care Team Providers Care Computing Consultant Name Role Phone Anoop Austin Primary Care [...] Problem Status W/U Status Risk Notes Problem 2880037 Former smoker (Z87.891) Active confirmed We made a plan on how to prevent relapse and times of stress and illness. He seems highly motivated not to smoke. Problem 822017986 Pulmonary nodule (R91.1) Active confirmed This was [...] Date Provider Diagnosis Anoop Austin III, MD [address] [place] [address] [place] [address] 10/21/2024 Anoop Austin Other and unspecifie d [...] OV Provider Name:Anoop Austin, 02/03/2025 03:30:00 PM, [address] [place] [address] [address], [place], [address], Provider Name:Anoop Austin, 10/24/2025 03:00:00 PM, [address] [place] [address] [address], [place], [address], Progress Notes * Fabio HOGANDOB: [birth year] (59 yo M)Acc No.[id number]:10/21/2024 Progress Notes Patient: Fbaio ANDERSON Provider: Germán Austin MD :1965 A ge:59 Y S ex:Male Date:10/21/2024 Address:[address] [place], [place] [phone] Subjective: * Chief Complaints: * A nnual [...] N egative H e was born in [place], [place]. Smokes cigar occasionally. He has been [...] true * Provider: Germán Austin MD Date: 10/21/2024 Generated for Anh walker/Angelica/Rolandoitting on: 0 01/06/2025 01:26 PM EDT History and Physical Notes * [...]
--- NOTE | ~2025-01-06 | CT_ITS ---
EXAMINATION: CT LUNG SCREENING FOLLOW UP WITHOUT IV CONTRAST HISTORY: F17.210 - Nicotine dependence, cigarettes, uncomplicated TECHNIQUE: Low dose axial images were obtained from the sternal notch to upper abdomen without IV contrast per standard departmental protocol. Sagittal and coronal reformatted images were also obtained and reviewed. One or more of the following techniques was used for dose reduction: Automated exposure control, adjustment of the mA and/or kV according to patient size, use of iterative reconstruction technique. DLP: 85 mGy-cm COMPARISON: Comparison is made with the prior examination dated 09/06/2024. Correlation is also made with a PET/CT scan dated 10/01/2024. FINDINGS: Lung nodules: There is a new 3 mm nodule at the left lung apex (series 3, image 25). A 5 mm nodule at the right lung apex (series 3, image 31) is smaller. A 4 mm nodule at the left lung apex (series 3, image 30) is also smaller. There is a new 3 mm nodule in the left upper lobe (series 3, image 37) as well as a new 11 x 8 mm (average diameter 9 mm) nodule in the left upper lobe (series 3, image 38). Emphysema: mild Coronary Calcification: mild Aortic Arch Calcification: mild Potentially Significant Incidentals : none Additional Chest Findings: There is no pleural or pericardial effusion. No mediastinal or axillary lymphadenopathy is identified. Visualized upper abdomen: The visualized portions of the liver, spleen, and right adrenal gland have an unremarkable unenhanced appearance. Again seen is a 1.8 cm low-density (negative 6 HU) nodule of the left adrenal gland compatible with an adenoma. CT/CT lung screen follow up IMPRESSION: Several of the previously seen left apical lung nodules are smaller. However, there are multiple new nodules in the left upper lobe including a 9 mm average diameter nodule near the major fissure. Given previous waxing and waning nodules and the fact that this nodule was not present on the PET/CT scan dated 10/01/2024, this could be inflammatory in nature. LUNG-RADS ASSESSMENT: Lung-RADS 4B: Very Suspicious MANAGEMENT: PET/CT or Tissue Sampling or 1 month LDCT. Given the above findings, would favor short-term follow-up. Category S: N/A Electronically signed by: Anoop Mccormick MD 01/06/2025 01:27 PM EDT RP
--- OUTSIDE RECORDS SUMMARY | 2025-01-06 13:26 | XMS_ITS | Patient Health Record ---
Author Organization [facility] Address [address] [facility] [address] [place] [address] Care Team Providers Care Child Protection Specialist Name Role Phone Geovanna DEAN, Anoop Primary Care Provider Unavailab Flako Ruiz Jr Unavailable Allergies Allergen (clinical drug ingredient) Drug/Non Drug Allergy documented on EMR Reaction Allergy Type Onset Date Status bees (uncoded) Unknown Allergy Activ e Results Component Value Reference Range Notes Pathology Reviewed date:10/24/2024 10:46:41 AM Interpretation: Performing Lab:[facility], [address] [place] [phone] Notes/Report: Reason For Referral Referring Provider First Name Anoop Referring Provider Last Name Geovanna Referring Provider Speciality Oncology Referred Organization [facility] Referred Provider Flako Grove Jr Referred Address [address] [place] [address], ite [address] [place] [address], Referred Provider Specialty Gastroentero logy Referral Priority [...] Problem Status W/U Status Risk Notes Problem 140399128 Colon cancer screening (Z12.11) Active confirmed Problem 218815730 Personal history of colonic polyps (Z86.010) Active confirmed Problem 743630763 Encounter for ot her preprocedural examination (Z01.818) Active confirmed Problem 751264824 Diverticulitis (K57.92) Active confirmed Vital Signs Blood pressure diastolic 11 mm Hg 08/01/2024 Height 73.5 in 08/01/2024 Blood pressure systolic 111 mm Hg 08/01/2024 Weight 234 lbs 08/01/2024 BMI 30.45 kg/m2 08/01/2024 Encounters Encounter Location Date Provider Diagnosis [facility] Outpatient [address] [place], [place] [id number] 10/18/2024 Flako Grove Jr Colon cancer screening Z12.11 ; Personal history of adenomatous and serrated colon polyps Z86.0101 and Colon polyps K63.5 [facility] [address] [place] [address] 08/01/2024 Flako Grove Jr Colon cancer screening Z12.11 and Diverticulitis K57.92 [facility] [address] [place] [address] 09/19/2024 Flako Grove Jr [facility] [address] [place] [address] 10/24/2024 Flako Grove Jr Assessments Encounter Date Diagnosis (ICD Code) Assessment Notes Treatment Notes Treatment Clinical Notes Section Notes 10/18/2024 Colon cancer screening (ICD-10 - Z12.11) 10/18/2024 Personal history of adenomatous and serrated colon polyps (ICD-10 - Z86.0101) 08/01/2024 Colon cancer screening (ICD-10 - Z12.11) [...] This will be scheduled at his convenience. 10/18/2024 Colon polyps (ICD-10 - K63.5) Plan Of Treatment Future Test Test Name Order Date COLONOSCOPY 09/01/2015 COLONOSCOPY 02/14/2019 COLONOSCOPY 08/01/2024 Insurance Providers Payer Name Payer Address Payer Phone Subscriber Number Group Number Insured Name Patient Relationship to Insured Coverage Start Date Coverage End Date [facility] [address] [place] [address] [id number] 300 RUEL OLIVARES Self - patient is the insured Medical (General) History Medical History History ICD Code Colonoscopy 05/30, normal, five-year fol lowup for prior history of adenomas. COPD BPH Surgical History Surgery Date(Month/Year)
--- OUTSIDE RECORDS SUMMARY | 2025-01-06 13:26 | XMS_ITS | Patient Health Record ---
Author Organization [facility] Address [address] [place] [address] Care Team Providers Care Real Estate Acquisition Analyst Name Role Phone Anoop Austin MD Primary Care Provider UnavailZahra Blackburn Unavailable [phone] Allergies Allergen (clinical drug ingredient) Drug/Non Drug Allergy documented on EMR Reaction Allergy Type Onset Date Status bee sting Unknown Drug Allergy Active Reason For Referral No Information Problems No Known Problems Plan Of Treatment Pending Test Test Name Order Date [id number] Destruction, 1-14 06/23/2015 18084- Debride <25 sq cm 06/23/2015 Insurance Providers Payer Name Payer Address Payer Phone Subscriber Number Group Number Insured Name Patient Relationship to Insured Coverage Start Date Coverage End Date [facility] [address] [place] [address] [id number] Fabio Aragon Self - patient is the insured
--- OUTSIDE RECORDS SUMMARY | 2025-01-06 13:26 | XMS_ITS | Clinical Summary ---
Author Organization [facility] Address [address] [address] Phone Care Team Providers Care Logging Truck Driver Name Role Phone Anoop Austin MD Primary Care Provider [phone] Allergies Active Allergy Reactions Criticality Noted Date Comments Bee Pollen 10/12/2019 Medications albuterol 90 mcg/actuation inhaler USE 2 INHALATIONS BY MOUTH EVERY 4 HOURS IF NEEDED 0 Active Active Problems No known active problems Immunizations Immunization Administration Dates Next Due Tdap 10/01/2019 Social History Tobacco Use Types Packs/Day Years Used Date Smoking Tobacco: Every Day Cigars Smokeless Tobacco: Never Education Answer Date Recorded Are you interested in more education? Not on kenny e 10/07/2022 Are you concerned about learning? Not on file 10/07/2022 No 10/07/2022 No 10/07/2022 Digital Access Answer Date Recorded No 11/05/2022 No 11/05/2022 No 11/05/2022 Reliable internet access at home? Not on file 11/05/2022 Device with a working camera? Not on file Sex and Gender Information Value Date Recorded Sex Assigned at Not on file Legal Sex Male 3:27 PM EDT Gender Identity Not on file Sexual Orientation Not on file Last Filed Vital Signs Vital Sign Reading Time Taken Comments Blood Pressure 147/84 01/17/2020 8:10 AM EDT Pulse 74 01/17/2020 8:10 AM EDT Temperature 37 C (98.6 F) 01/17/2020 8:10 AM EDT Respiratory Rate 18 01/17/2020 8:10 AM EDT Oxygen Saturation 98% 01/17/2020 8:10 AM EDT Inhaled Oxygen Concentration - - Weight 104.8 kg (231 lb) 10/12/2019 10:18 AM EDT Height 186.7 cm (6' 1.5 ) 01/17/2020 8:10 AM EDT Body Mass Index 30.06 10/12/2019 10:18 AM EDT Plan of Treatment Health Maintenance Due Date Last Done Comments LIPID PANEL 1965 DEPRESSION SCREENING 1977 SMOKING Hx and SMOKELESS TOBACCO SCREENING 1978 HEPATITIS C SCREENING 1983 HIV ONE-TIME SCREENING (18-6 5 YEARS) 1983 PNEUMOCOCCAL VACCINES (50+ years) (1 of 2 - PCV) 1984 COLOGUARD 2010 COLONOSCOPY 2010 COLORECTAL CANCER SCREENING 2010 FIT TEST 2010 FOBT 2010 SIGMOIDOSCOPY 2010 VIRTUAL COLONOSCOPY 2010 ZOSTER VACCINES (1 of 2) 2015 COVID-19 VACCINE (3 2023-2 5 season) 2024 09/11/2020, 08/19/2020 Adult Td,Tdap Booster 09/30/2029 10/01/2019 HEPATITIS A VACCINES Aged Out No long er eligible based on patient's age to complete this topic HIB VACCINES Aged Out No longer eligi ble based on patient's age to complete this topic MENINGOCOCCAL VACCINES (ACWY) Aged Out No longer eligible based on patient's age to complete this topic MENINGOCOCCAL VACCINES (B) Aged Out N o longer eligible based on patient's age to complete this topic Medical Devices Not on file Insurance [facility] HMO POS [facility] HMO POS [facility] HMO POS [facility] POS [facility] POS [facility] HMO POS [facility] Care Teams Logging Truck Driver Relationship Specialty Start Date End Date Anoop Austin MD [address] [place] [address] PCP - General Medical Oncology 10/12/19 Additional Source Comments The information contained in this document represents components of the legal health record. It is not the complete legal health record.[facility]ly [facility]
== END 2025-01-06 12:39 | disposition home or self-care (01) ==
LOC: HO.CT 12:38
PROVIDERS: PCP Internal Medicine Medical Oncology; Visit Provider Nurse Practitioner Family
DX: R91.8 Other nonspecific abnormal finding of lung field (principal); F17.210 Nicotine dependence, cigarettes, uncomplicated
CPT/HCPCS: 71250

== ENCOUNTER → 2025-01-06 12:40 | Outpatient (BNV) | payer BC, SELFPAY | PROVIDERS: PCP Internal Medicine Medical Oncology; Visit Provider Radiology Diagnostic Radiology | DX: F17.210 Nicotine dependence, cigarettes, uncomplicated (principal) | CPT/HCPCS: 71250 ==

== ENCOUNTER 2025-01-15 13:20 | Outpatient (REF) | payer BC, SELFPAY ==
--- OUTSIDE RECORDS SUMMARY | 2024-10-21 11:00 | XMS_ITS ---
Author Organization Anoop Austin III, MD Address [address] [place] [address] Care Team Providers Care Charter Coordinator Name Role Phone Anoop Austin Primary Care Provider [phone] Allergies Allergen (clinical drug ingredient) Drug/Non Drug Allergy documented on EMR Reaction Allergy Type Onset Date Status No Known Drug Allergy Unknown Drug Allergy Active No Known Food Allergy Unknown Drug Allergy Active Bee Sting Unknown Allergy Active REASON FOR VISIT Annual Exam Medications Medication SIG (Take, Route, Frequency, Duration) Notes Start Date End Date Status Albuterol Sulfate HFA 108 (90 Base) MCG/ACT INHALE 2 PUFFS INTO THE LUNGS EVERY 4 HOURS FOR WHEEZING Inhalation every 4 hrs Active Tamsulosin HCl 0.4 MG 2 capsule Orally O nce a day Active Finasteride 5 MG TAKE 1 TABLET BY TENISHA TH EVERY MORNING Oral Active Incruse Ellipta 62.5 MCG/ACT 1 puff Inhalation Once a day 10/21/2024 Active Fluticasone-Salmeterol 500-50 MCG/ACT INHALE 1 PUFF BY MOUTH TWICE DAILY Inhalation Active EpiPen 2-Ruy 0.3 MG/0.3ML USE EPI PEN NEEDED FOR BEE STINGS Injection DIRECTED Active Social History Tobacco Use: Social History Observation Description Date Details (start date - stop date) Former Smoker NA - NA Sex Assigned At : Social History Observation Description Sex Assigned At Male Tobacco Control (Standard) Question Answer Notes Tobacco use: Former smoker How long has it been since you last smoked? 1-3 months Additional Findings: Tobacco non-user Ex-cigar s radha AUDIT-C (Standard) Question Answer Notes Did you have a drink containing alcohol in the p ast year? No Points 0 Interpretation Negative Problems Problem Type SNOMED Code ICD Code Onset Dates Problem Status W/U Status Risk Notes Problem 7982075 Former smoker (Z87.891) Active confirmed We made a plan on how to prevent relapse and times of stress and illness. He seems highly motivated not to smoke. Problem 175587631 Pulmonary nodule (R91.1) Active confirmed This was PET negative and will be observed carefully. Vital Signs Temperature 99.5 degrees Fahrenheit 10/22/19 25 Blood pressure systolic 129 mm Hg 10/22/19 25 Blood pressure diastolic 80 mm Hg 025 Heart Rate 79 /min 10/21/2024 Height 72 in 10/21/2024 Weight 234 lbs 10/21/2024 BMI 31.73 kg/m2 10/21/2024 Encounters Encounter Location Date Provider Diagnosis Anoop Austin III, MD [address] [place] [address] [place] [address] 10/21/2024 Anoop Austin Other and unspecifie d hyperlipidemia E78.5 ; COPD (chronic obstructive pulmonary disease) J44.9 ; Other osteoarthritis involving multiple joints M15.8 ; Obesity E66.9 ; Sleep apnea G47.30 ; BPH (benign prostatic hyperplasia) N40.0 ; Pulmonary emphysema, unspecified emphysema type J43.9 ; Right thyroid nodule E04.1 ; Former smoker Z87.891 and Pulmonary nodule R91.1 Assessments Encounter Date Diagnosis (ICD Code) Assessment Notes Treat ment Notes Treatment Clinical Notes 10/21/2024 Other and unspecifie d hyperlipidemia (ICD-10 - E78.5) His lipids are being checked periodically. No change in his regimen was necessary today. 10/21/2024 COPD (chronic obstructive pulmonary disease) (ICD-10 - J44.9) He continues to be abstinent from cigarettes. He recently had acute on chronic bronchitis with green phlegm, but this is clearing now. He is becoming stronger. No change in his therapy was indicated. 10/21/2024 Other osteoarthritis involving multiple joints (ICD-10 - M15.8) The arthritis in his hands has become mild and he is working full-time without difficulty. His main complaint today is right shoulder pain. He is be treated with ibuprofen. 10/21/2024 Obesity (ICD-10 - E66.9) His body mass index is stable at 33. We discussed his diet and nutrition today. We made a plan to lose weight at a rate of one half of a pound per week. 10/21/2024 Sleep apnea (ICD-10 - G47.30) He is not using a CPAP machine and declines offer of providing it. He deferred a decision about whether or not to have this new sleep study 10/21/2024 BPH (benign prostati c hyperplasia) (ICD-10 - N40.0) His prostatism is sttable and once a night. We have reviewed lifestyle modifications to reduce nocturia. 10/21/2024 Pulmonary emphysema, unspecified emphysema type (ICD-10 - J43.9) He is comfortable breathing at rest but has some dyspnea with exertion. This is improving. He is no longer smoking cigarettes. 10/21/2024 Right thyroid nodule (ICD-10 - E04.1) This was noted on a CT scan and PET scan. He is being referred to endocrinology for evaluation and therapy. 10/21/2024 Former smoker (ICD-1 0 - Z87.891) We made a plan on how to prevent relapse and times of stress and illness. He seems highly motivated not to smoke. 10/21/2024 Pulmonary nodule (ICD-10 - R91.1) This was PET negative and will be observed carefully. Plan Of Treatment Medication Medication Name Sig Start Date Stop Date Notes Albuterol Sulfate HFA 108 (9 0 Base) MCG/ACT INHALE 2 PUFFS INTO THE LUNGS EVERY 4 HOURS FOR WHEEZING Inhalation every 4 hrs Tamsulosin HCl 0.4 MG 2 capsule Orally Once a day Finasteride 5 MG TAKE 1 TABLET BY TENISHA TH EVERY MORNING Oral Incruse Ellipta 62.5 MCG/ACT 1 puff Inhalation Once a day 10/21/2024 Fluticasone-Salmeterol 500-5 0 MCG/ACT INHALE 1 PUFF BY MOUTH TWICE DAILY Inhalation EpiPen 2-Ruy 0.3 MG/0.3ML USE EPI PEN NEEDED FOR BEE STINGS Injection DIRECTED Pending Test Test Name Order Date TSH (THYROID STIMULATING HORMONE) 2024 PSA Free and Total 10/21/2024 Free T4 (Free Thyroxine) 10/21/2024 US thyroid 10/21/2024 Next Appt Details Follow Up: 3 Months, Reason: OV Provider Name:Anoop Austin, 02/03/2025 03:30:00 PM, [address] [place] [address] [address], [place], [address], Provider Name:Anoop Austin, 10/24/2025 03:00:00 PM, [address] [place] [address] [address], [place], [phone], Progress Notes * Fabio HOGANDOB: [birth year] (59 yo M)Acc No.[id number]:10/21/2024 Progress Notes Patient: Fabio ANDERSON Provider: Germán Austin MD :[id number] A ge:59 Y S ex:Male Date:10/21/2024 Address:[address] [place], [place] [id number] Subjective: * Chief Complaints: * A nnual Exam * HPI: D epression Screening: Shelia tom comes to the office today for his annual physical examination. He has not been bothered by the colon this season but does notice his breathing becomes tight sometimes at work when he is exposed to dust. He has no respiratory complaints at all when he is at home on the weekend.? He has been taking 0.8 mg of tamsulosin every day and has episodes at night when he finds it very difficult to start his urinary stream. This is a progression of symptoms. His urologist has discussed TURP, but the patient so far is not interested in a surgical procedure. He is going to try 3 tablets for a few days and seee if this helps. He is also taking finasteride, but we discussed that this is a long-term solution. He still has to work on his right foot, but that has been treated and is not bothering him. He is going to see podiatry January 07, 2025.Due to his long smoking history he had a screening CT scan that showed a 1 cm right upper lobe nodule. His PET CT scan was negative in the lungs. It did show a thyroid nodule. He is being referred to endocrinology. PHQ-9 L ittle interest or pleasure in doing things?Several days F eeling down, depressed, or hopeless N ot at all T rouble falling or staying asleep, or sleeping too much N ot at all F eeling tired or having little energy N early every day P oor appetite or overeating N ot at all F eeling bad about yourself or that you are a failure, or have let yourself or your family down N ot at all T rouble concentrating on things, such as reading the newspaper or watching television N ot at all M oving or speaking so slowly that other people could have noticed; or the opposite, being so fidgety or restless that you have been moving around a lot more than usual N ot at all T houghts that you would be better off or of hurting yourself in some way N ot at all T otal Score 4 I nterpretation M inimal Depression C OVID-19 Screening: Questions H ave you had any new onset fever, chills, cough, congestion, sore throat, shortness of breath, muscle aches? N o S MIKALA Questions: SDOH Questions I n the past year have you been worried about losing your housing? N o I n the past year have you or any family members you live with been unable to get any of the following when it was really needed? Check all that apply: N one * ROS: G eneral/Constitutional: pain o nly normal aches and pains. C hills d enies.?Fatigue a dmits. F ever d enies. E NT: Decreased hearing d enies. R espiratory: Cough n on-productive. C ardiovascular: Chest pain with exertion d enies. D yspnea on exertion?with prolonged activity. S hortness of breath w ith exertion. G astrointestinal: Constipation o ccasional. D ecreased appetite d enies. D iarrhea d enies. H eartburn d enies. N ausea d enies. R ectal bleeding d enies. V omiting d enies. H ematology: bruising d enies. p etechiae d enies. S wollen glands n one have been noted. G enitourinary: Frequent urination t wice a night. M usculoskeletal: Muscle aches d enies. P ainful joints d enies. S ciatica d enies. W eakness d enies. S kin: Itching d enies. R pipe d enies. S kin lesion(s)?denies. N eurologic: Difficulty speaking d enies. D izziness d enies.?Headache d enies. L ow back pain d enies. P sychiatric: Depressed mood d enies. * Medical History: * Surgical History: c olonoscopy 2015right hand surgery 10/2019Colonoscopy 10/18/2024 * Hospitalization/Major Diagno stic Procedure: D enies Past Hospitalization * Family History: F ather: 67 yrs, stroke, alzheimer. M other: 55 yrs, lung cancer, stomach cancer, diagnosed with Cancer. P aternal Grand Mother: , diabetes. M aternal aunt: , breast cancer, dementia. S pouse: alive. 2 brother(s) . 2 son(s) , 1 daughter(s) - healthy. . A brother at the age of 55 of a myocardial infarction. He is not aware of any family history of mental illness or substance use disorder or addiction. * Social History: T obacco Use: T obacco Control (Standard) T obacco use: F ormer smoker H ow long has it been since you last smoked??1-3 months A dditional Findings: Tobacco non-user E x-cigar smoker D rugs/Alcohol: D rugs H ave you used drugs other than those for medical reasons in the past 12 months? N o D rug/Alcohol: A JENNY-C (Standard) D id you have a drink containing alcohol in the past year? N o P oints 0 I nterpretation N egative H e was born in [place], [place]. Smokes cigar occasionally. He has been to [facility] for many years. * Medications: T akingEpiPen 2-Ruy 0.3 MG/0.3ML Device USE EPI PEN NEEDED FOR BEE STINGS Injection DIRECTED Albuterol Sulfate HFA 108 (90 Base) MCG/ACT Aerosol Solution INHALE 2 PUFFS INTO THE LUNGS EVERY 4 HOURS FOR WHEEZING Inhalation every 4 hrs Tamsulosin HCl 0.4 MG Capsule 2 capsule Orally Once a day Finasteride 5 MG Tablet TAKE 1 TABLET BY MOUTH EVERY MORNING Oral Incruse Ellipta 62.5 MCG/ACT Aerosol Powder Breath Activated 1 puff Inhalation Once a day Fluticasone-Salmeterol 500-50 MCG/ACT Aerosol Powder Breath Activated INHALE 1 PUFF BY MOUTH TWICE DAILY Inhalation Taking EpiPen 2- Ruy 0.3 MG/0.3ML Device USE EPI PEN NEEDED FOR BEE STINGS Injection DIRECTED Taking Albuterol Sulfate HFA 108 (90 Base) MCG/ACT Aerosol Solution INHALE 2 PUFFS INTO THE LUNGS EVERY 4 HOURS FOR WHEEZING Inhalation every 4 hrs Taking Tamsulosin HCl 0.4 MG Capsule 2 capsule Orally Once a day Taking Finasteride 5 MG Tablet TAKE 1 TABLET BY MOUTH EVERY MORNING Oral Taking Incruse Ellipta 62.5 MCG/ACT Aerosol Powder Breath Activated 1 puff Inhalation Once a day Taking Fluticasone-Salmeterol 500-50 MCG/ACT Aerosol Powder Breath Activated INHALE 1 PUFF BY MOUTH TWICE DAILY Inhalation DiscontinuedAdvair Diskus 500-50 MCG/ACT Aerosol Powder Breath Activated Inhalation predniSONE 20 MG Tablet 1 tablet with food or milk Orally Once a day Sulfamethoxazole-Trimethoprim 800-160 MG Tablet 1 tablet Orally twice a day Medication List reviewed and reconciled with the patientDiscontinued Advair Diskus 500-50 MCG/ACT Aerosol Powder Breath Activated Inhalation Discontinued predniSONE 20 MG Tablet 1 tablet with food or milk Orally Once a day Discontinued Sulfamethoxazole-Trimethoprim 800-160 MG Tablet 1 tablet Orally twice a day Medication List reviewed and reconciled with the patient * Allergies: B ee StingNo Known Drug AllergyNo Known Food Allergyno[Allergies Verified] Objective: * Vitals: H t: 72, Wt: 234, BMI:31.73, BP: 129/80, HR: 79, Temp: 99.5, Wt-k.14. * P ast Orders: Imaging:CT lung screening * Performed Date 09/06/2024 09/06/2023 02:46 PM 03:59 PM Order Date 09/06/2024 09/06/2023 ???Imaging:PET CT fusion skull to thigh (Order Date - 10/01/2024) (Performed Date - 10/01/2024) ???Lab:PSA,Total (Free>4and<10) (Order Date - 10/12/2024) (Collection Date & Time - 10/12/2024 07:44 AM)?ValueReference Range?PSA,Total (Free>4and<10)0.850.00-4.00 - ng/mL * Lab:Lipid Panel * Collection Date 10/12/2024 06/17/2023 03/12/2022 Collection Time 07:44 AM 10:33 AM 08:03 AM Order Date 10/12/2024 06/17/2023 03/12/2022 Triglycerides 46 (Ref Range: <150 mg/dL) 56 (Ref Range: <150 mg/dL) 50 (Ref Range: mg/dL) Cholesterol 202 H (Ref Range: <200 mg/dL) 187 (Ref Range: <200 mg/dL) 225 (Ref Range: mg/dL) LDL Cholesterol Calculated 120 H (Ref Range: <100 mg/dL) 112 H (Ref Range: <100 mg/dL) 147 (Ref Range: mg/dl) HDL Cholesterol 73 (Ref Range: >40 mg/dL) 64 (Ref Range: >40 mg/dL) 68 (Ref Range: mg/dL) * Lab:Comprehensive Met. Panel * Collection Date 10/12/2024 06/17/2023 Collection Time 07:44 AM 10:33 AM Order Date 10/12/2024 06/17/2023 Sodium 142 (Ref Range: 135-145 mmol/L) 137 (Ref Range: 135-145 mmol/L) Bilirubin Total 0.3 (Ref Range: 0.0-1.0 mg/dL) 0.4 (Ref Range: 0.0-1.0 mg/dL) Aspartate Amino Transferase 19 (Ref Range: 5-37 U/L) 22 (Ref Range: 5-37 U/L) Alanine Aminotransferase 22 (Ref Range: 0-40 U/L) 27 (Ref Range: 0-40 U/L) Total Protein 6.9 (Ref Range: 6.5-8.0 g/dL) 7.2 (Ref Range: 6.5-8.0 g/dL) Albumin Level 3.9 (Ref Range: 3.5-5.0 g/dL) 4.2 (Ref Range: 3.5-5.0 g/dL) Alkaline Phosphatase 62 (Ref Range: 39-117 U/L) 56 (Ref Range: 39-117 U/L) Potassium 4.4 (Ref Range: 3.3-5.1 mmol/L) 4.4 (Ref Range: 3.3-5.1 mmol/L) Chloride 106 (Ref Range: 96-108 mmol/L) 102 (Ref Range: 96-108 mmol/L) Carbon Dioxide 29 (Ref Range: 22-29 mmol/L) 30 H (Ref Range: 22-29 mmol/L) Anion Gap 11 L (Ref Range: 12-20) 9 L (Ref Range: 12-20) Blood Urea Nitrogen 11 (Ref Range: 9-16 mg/dL) 11 (Ref Range: 9-16 mg/dL) Creatinine 0.71 (Ref Range: 0.5-1.4 mg/dL) 0.76 (Ref Range: 0.5-1.4 mg/dL) Estimated Glomerular Filt Rate > 60 > 60 Glucose Random 117 H (Ref Range: 60-115 mg/dL) 105 (Ref Range: 60-115 mg/dL) Calcium 9.0 (Ref Range: 8.4-10.2 mg/dL) 9.5 (Ref Range: 8.4-10.2 mg/dL) * Lab:Complete Blood Count Aut o Diff * Collection Date 10/12/2024 06/17/2023 03/12/2022 Collection Time 07:44 AM 10:33 AM 08:03 AM Order Date 10/12/2024 06/17/2023 03/12/2022 White Blood Count 9.0 (Ref Range: 4.8-10.8 X10*3/uL) 5.8 (Ref Range: 4.8-10.8 X10*3/uL) 6.2 (Ref Range: 4.8-10.8 X10*3/uL) Red Blood Count 5.40 (Ref Range: 4.60-5.80 X10*6/uL) 5.58 (Ref Range: 4.60-5.80 X10*6/uL) 5.24 (Ref Range: 4.60-5.80 X10*6/uL) Hemoglobin 16.6 (Ref Range: 14.0-18.0 g/dl) 16.9 (Ref Range: 14.0-18.0 g/dl) 16.3 (Ref Range: 14.0-18.0 g/dl) Hematocrit 50.4 (Ref Range: 42.0-52.0 %) 50.8 (Ref Range: 42.0-52.0 %) 49.2 (Ref Range: 42.0-52.0 %) Mean Corpuscular Volume 93.3 (Ref Range: 80.0-98.0 fL) 91.0 (Ref Range: 80.0-98.0 fL) 93.9 (Ref Range: 80.0-98.0 fL) Mean Corpuscular Hemoglobin 30.7 (Ref Range: 27.0-33.0 pg) 30.3 (Ref Range: 27.0-33.0 pg) 31.1 (Ref Range: 27.0-33.0 pg) Mean Corpuscular HGB Conc 32.9 (Ref Range: 31.0-36.0 g/dl) 33.3 (Ref Range: 31.0-36.0 g/dl) 33.1 (Ref Range: 31.0-36.0 g/dl) Red Cell Distribution Width 12.8 (Ref Range: 11.0-16.0 %) 12.0 (Ref Range: 11.0-16.0 %) 12.8 (Ref Range: 11.0-16.0 %) Platelet Count 198 (Ref Range: 160-400 X10*3/uL) 213 (Ref Range: 160-400 X10*3/uL) 199 (Ref Range: 160-400 X10*3/uL) Mean Platelet Volume 10.1 (Ref Range: 9.4-12.4 fL) 10.6 (Ref Range: 9.4-12.4 fL) 10.5 (Ref Range: 9.4-12.4 fL) Neutrophils Percent Auto 69.7 (Ref Range: 45-73 %) 58.4 (Ref Range: 45-73 %) 62.5 (Ref Range: 45-73 %) Imm Gran Pct Auto 1.2 H (Ref Range: 0.0-0.4 %) 0.3 (Ref Range: 0.0-0.4 %) 0.3 (Ref Range: 0.0-0.4 %) Lymphocytes Percent Auto 15.4 L (Ref Range: 20-40 %) 26.6 (Ref Range: 20-40 %) 23.6 (Ref Range: 20-40 %) Monocytes Percent Auto 9.9 (Ref Range: 2-11 %) 11.9 H (Ref Range: 2-11 %) 10.0 (Ref Range: 2-11 %) Eosinophils Percent Auto 3.1 (Ref Range: 0-4 %) 1.9 (Ref Range: 0-4 %) 2.2 (Ref Range: 0-4 %) Basophils Percent Auto 0.7 (Ref Range: 0-2 %) 0.9 (Ref Range: 0-2 %) 1.4 (Ref Range: 0-2 %) NRBC Pct Auto 0.0 (Ref Range: 0.0-0.2 /100WBC) 0.0 (Ref Range: 0.0-0.2 /100WBC) 0.0 (Ref Range: 0.0-0.2 /100WBC) Neutrophils Absolute Auto 6.3 (Ref Range: 2.0-8.3 x10*3/uL) 3.4 (Ref Range: 2.0-8.3 x10*3/uL) 3.9 (Ref Range: 2.0-8.3 x10*3/uL) Imm Gran Abs Auto 0.11 H (Ref Range: 0.00-0.03 X10*3/uL) 0.02 (Ref Range: 0.00-0.03 X10*3/uL) 0.02 (Ref Range: 0.00-0.03 X10*3/uL) Lymphocytes Absolute Auto 1.4 (Ref Range: 1.2-4.9 X10*3/uL) 1.5 (Ref Range: 1.2-4.9 X10*3/uL) 1.5 (Ref Range: 1.2-4.9 X10*3/uL) Monocytes Absolute Auto 0.9 (Ref Range: 0.1-1.2 X10*3/uL) 0.7 (Ref Range: 0.1-1.2 X10*3/uL) 0.6 (Ref Range: 0.1-1.2 X10*3/uL) Eosinophils Absolute Auto 0.3 (Ref Range: 0.0-0.4 X10*3/uL) 0.1 (Ref Range: 0.0-0.4 X10*3/uL) 0.1 (Ref Range: 0.0-0.4 X10*3/uL) Basophils Absolute Auto 0.1 (Ref Range: 0.0-0.2 X10*3/uL) 0.1 (Ref Range: 0.0-0.2 X10*3/uL) 0.1 (Ref Range: 0.0-0.2 X10*3/uL) NRBC Abs Auto 0.000 (Ref Range: 0.0-0.012 X10*3/uL) 0.000 (Ref Range: 0.0-0.012 X10*3/uL) 0.000 (Ref Range: 0.0-0.012 X10*3/uL) * Examination: G eneral Examination: GENERAL APPEARANCE: p leasant, well nourished, well developed, in no acute distress, calm and relaxed, obese, man. HEAD: a traumatic, normocephalic. EYES: e philippe, perrla, anicteric, conjugate. EARS: n ormal. NOSE: s eptum intact. ORAL CAVITY: n ormal, unremarkable. NECK/THYROID: n o jugular venous distention, no carotid bruit, Thyroid nodule is not palpable. LYMPH NODES: n o enlarged lymph nodes,spleen normal. SKIN: n o suspicious lesions, anicteric. HEART: n o clicks, gallops, murmurs, or rubs, regular rhythm, S1, S2 normal, no s3, or vascular bruits. LUNGS: , diminished breath sounds throughout, no wheezes, rales, rhonchi. BREASTS: no masses palpable bilaterally. ABDOMEN: b owel sounds normal, no ascites, no organomegaly, no mass, centripital obesity. RECTAL EXAM: n ot examined. MUSCULOSKELETAL: e xtremities unremarkable, no clubbing, cyanosis or edema. PERIPHERAL PULSES: n ormal. NEUROLOGIC: a lert and oriented, cranial nerves 2-12 grossly intact, deep tendon reflexes 2+ symmetrical, motor strength normal upper and lower extremities, sensory exam intact. PSYCH: a lert, oriented, cognitive function intact, cooperative with exam, speech clear, thought process logical, goal directed. Assessment: * Assessment: 1. C OPD (chronic obstructive pulmonary disease) - J44.9 (Primary) N otes :He continues to be abstinent from cigarettes. He recently had acute on chronic bronchitis with green phlegm, but this is clearing now. He is becoming stronger. No change in his therapy was indicated. 2 . O ther and unspecified hyperlipidemia - E78.5 N otes :His lipids are being checked periodically. No change in his regimen was necessary today. 3 . O ther osteoarthritis involving multiple joints - M15.8 N otes :The arthritis in his hands has become mild and he is working full-time without difficulty. His main complaint today is right shoulder pain. He is be treated with ibuprofen. 4 . O besity - E66.9 N otes :His body mass index is stable at 33. We discussed his diet and nutrition today. We made a plan to lose weight at a rate of one half of a pound per week. 5 . S leep apnea - G47.30 N otes :He is not using a CPAP machine and declines offer of providing it. He deferred a decision about whether or not to have this new sleep study 6 . B PH (benign prostatic hyperplasia) - N40.0 N otes :His prostatism is sttable and once a night. We have reviewed lifestyle modifications to reduce nocturia. 7 . P ulmonary emphysema, unspecified emphysema type - J43.9 N otes :He is comfortable breathing at rest but has some dyspnea with exertion. This is improving.? He is no longer smoking cigarettes. 8 . R ight thyroid nodule - E04.1 N otes :This was noted on a CT scan and PET scan. He is being referred to endocrinology for evaluation and therapy. 9 . F ormer smoker - Z87.891 N otes :We made a plan on how to prevent relapse and times of stress and illness. He seems highly motivated not to smoke. 1 0. P ulmonary nodule - R91.1 N otes :This was PET negative and will be observed carefully. Plan: * Treatment: 2. B PH (benign prostatic hyperplasia) L AB: TSH (THYROID STIMULATING HORMONE) L AB: PSA Free and Total L AB: Free T4 (Free Thyroxine) 3. R ight thyroid nodule I maging: US thyroid 4. O thers Continue EpiPen 2-Ruy Device, 0.3 MG/0.3ML, USE EPI PEN NEEDED FOR BEE STINGS, Injection, DIRECTED; C ontinue Albuterol Sulfate HFA Aerosol Solution, 108 (90 Base) MCG/ACT, INHALE 2 PUFFS INTO THE LUNGS EVERY 4 HOURS FOR WHEEZING, Inhalation, every 4 hrs; C ontinue Tamsulosin HCl Capsule, 0.4 MG, 2 capsule, Orally, Once a day; C ontinue Finasteride Tablet, 5 MG, TAKE 1 TABLET BY MOUTH EVERY MORNING, Oral; C ontinue Incruse Ellipta Aerosol Powder Breath Activated, 62.5 MCG/ACT, 1 puff, Inhalation, Once a day; C ontinue Fluticasone-Salmeterol Aerosol Powder Breath Activated, 500-50 MCG/ACT, INHALE 1 PUFF BY MOUTH TWICE DAILY, Inhalation. * Procedure Codes: * Preventive Medicine: Counseling: C are goal follow-up plan: Counseling for abnormal BMI given Y es Above Normal BMI Follow-up D ietary management education, guidance, and counseling, Dietary needs education, Exercise promotion: strength training, Exercise promotion: stretching, Feeding regime, Giving encouragement to exercise, Lifestyle education regarding diet, Nutrition / feeding management, Nutrition therapy, Prescribed activity/exercise education, Prescribed diet education, Prescribed dietary intake, Special diet education, Weight monitoring , Intervention, Order not done: Medical or Other reason not done S moking/Tobacco Use Patient counseled on the dangers of tobacco use and urged to quit. 0 10/21/2024 * Follow Up: 3 Months (Reason: OV) * Images: * Sign off status: Completed true * Provider: Germán Austin MD Date: 0 10/21/2024 Generated for Anh walker/Angelica/Rolandoitting on: 0 01/15/2025 01:51 PM EDT History and Physical Notes * HPI (History of Present Illness) Category Sub-Category Detail Notes Depression Screening PHQ-9 Little inte rest or pleasure in doing things: Several days Feeling down, depressed, or hopeless: No t at all Trouble falling or staying asleep, or sl eeping too much: Not at all Feeling tired or having little energy: N early every day Poor appetite or overeating: Not at all Feeling bad about yourself o r that you are a failure, or have let yourself or your family down: Not at all Trouble concentrating on thi ngs, such as reading the newspaper or watching television: Not at all Moving or speaking so slowly that other people could have noticed; or the opposite, being so fidgety or restless that you have been moving around a lot more than usual: Not at all Thoughts that you would be b pio off or of hurting yourself in some way: Not at all Total Score: 4 Interpretation: Minimal Depression COVID-19 Screening Questions Have you had any new onset fever, chills, cough, congestion, sore throat, shortness of breath, muscle aches?: No SDOH Questions SDOH Questions In the past year have you been worried about losing your housing?: No In the past year have you or any family members you live with been unable to get any of the following when it was really needed? Check all that apply:: None Examination Category Sub-Category Detail Notes General Examination GENERAL APPEARANCE: pleasant , well nourished, well developed, in no acute distress, calm and relaxed, obese, man HEAD: atraumatic, normocep halic EYES: eomi, perrla, anicte galo, conjugate EARS: normal NOSE: septum intact NECK/THYROID: no jugular venous di stention, no carotid bruit, Thyroid nodule is not palpable HEART: no clicks, gallops, murmurs, or rubs, regular rhythm, S1, S2 normal, no s3, or vascular bruits LUNGS: , diminished breath sounds throughout, no wheezes, rales, rhonchi ABDOMEN: bowel sounds normal, no ascites, no organomegaly, no mass, centripital obesity NEUROLOGIC: alert and oriented, cranial nerves 2-12 grossly intact, deep tendon reflexes 2+ symmetrical, motor strength normal upper and lower extremities, sensory exam intact SKIN: no suspicious lesion s, anicteric PERIPHERAL PULSES: normal BREASTS: no masses palpable b ilaterally MUSCULOSKELETAL: extremities unremark able, no clubbing, cyanosis or edema LYMPH NODES: no enlarged lymph no cecilia,spleen normal RECTAL EXAM: not examined PSYCH: alert, oriented, cog nitive function intact, cooperative with exam, speech clear, thought process logical, goal directed ORAL CAVITY: normal, unremarkable
--- NOTE | ~2025-01-15 | US_ITS ---
EXAMINATION: US THYROID HISTORY: RIGHT THYROID NODULE TECHNIQUE: Real-time grayscale ultrasound imaging was performed and images were reviewed. COMPARISON: Correlation is made with a chest CT dated 01/06/2025. FINDINGS: SIZE: The right thyroid lobe measures 6.3 x 2.5 x 1.6 cm. The left thyroid lobe measures 5.2 x 2.4 x 2.0 cm. The isthmus measures 14 mm. FLOW: Flow to the gland is normal. ECHOGENICITY: The echotexture of the gland is homogeneous. NODULES: There is a nodule of the isthmus on the right with imaging characteristics as follows: Nodule #: 1 Location: Right isthmus measuring 1.7 x 1.1 x 1.9 cm. Shape: Wider than tall (0 points) Margins: Smooth (0 points) Echotexture: Hypoechoic (2 points) Composition: Solid (2 points) Calcifications: Macrocalcifications (1 point) Total points: 5 TIRADS: TR4: Moderately suspicious. US/US thyroid IMPRESSION: Moderately suspicious nodule of the right isthmus as described above. According to ACR TI-RADS guidelines, ultrasound-guided fine-needle aspiration is recommended. ACR TI-RADS Guidelines TR1 (0 points): Benign. No follow-up or biopsy required TR2 (2 points): Not Suspicious. No biopsy or follow up indicated TR3 (3 points): Mildly Suspicious. FNA if >= 2.5 cm, Follow if >= 1.5 cm TR4 (4-6 points): Moderately Suspicious. FNA if >= 1.5 cm, Follow if >= 1.0 cm TR5 (>=7 points): Highly Suspicious. FNA if >= 1.0 cm, Follow if >= 0.5 cm Electronically signed by: Anoop Mccormick MD 01/15/2025 02:31 PM EDT
--- OUTSIDE RECORDS SUMMARY | 2025-01-15 13:51 | XMS_ITS | Patient Health Record ---
Author Organization [facility] Address [address] [facility] [address] [place] [address] Care Team Providers Care Hotel Guest Service Agent Name Role Phone Geovanna DEAN, Anoop Primary Care Provider Unavailab Flako Ruzi Jr Unavailable Allergies Allergen (clinical drug ingredient) Drug/Non Drug Allergy documented on EMR Reaction Allergy Type Onset Date Status bees (uncoded) Unknown Allergy Activ e Results Component Value Reference Range Notes Pathology Reviewed date:10/24/2024 10:46:41 AM Interpretation: Performing Lab:[facility], [address] [place] [phone] Notes/Report: Reason For Referral Referring Provider First Name Anoop Referring Provider Last Name Geovanna Referring Provider Speciality Oncology Referred Organization [facility] Referred Provider Flako Grove Jr Referred Address [address] [place] [address], ite [address] [place] [address], Referred Provider Specialty Gastroentero logy Referral Priority [...] Problem Status W/U Status Risk Notes Problem 895504194 Colon cancer screening (Z12.11) Active confirmed Problem 181178382 Personal history of colonic polyps (Z86.010) Active confirmed Problem 674926176 Encounter for ot her preprocedural examination (Z01.818) Active confirmed Problem 326243037 Diverticulitis (K57.92) Active confirmed Vital Signs Blood pressure diastolic 11 mm Hg 08/01/2024 Height 73.5 in 08/01/2024 Blood pressure systolic 111 mm Hg 08/01/2024 Weight 234 lbs 08/01/2024 BMI 30.45 kg/m2 08/01/2024 Encounters Encounter Location Date Provider Diagnosis [facility] Outpatient [address] [place], [place] [phone] 10/18/2024 Flako Grove Jr Colon cancer screening Z12.11 ; Personal history of adenomatous and serrated colon polyps Z86.0101 and Colon polyps K63.5 [facility] [address] [place] [address] 08/01/2024 Flako Grove Jr Colon cancer screening Z12.11 and Diverticulitis K57.92 [facility] [address] [place] [address] 09/19/2024 Flako Grove Jr [facility] [address] [place] [address] 10/24/2024 Flako Grove Jr Assessments Encounter Date [...] Insured Coverage Start Date Coverage End Date [facility] [employer] [address] [place] [address] [id number] 300 RUEL OLIVARES Self - patient is the insured Medical (General) History Medical History History ICD Code Colonoscopy 05/30, normal, five-year fol lowup for prior history of adenomas. COPD BPH Surgical History Surgery Date(Month/Year)
--- OUTSIDE RECORDS SUMMARY | 2025-01-15 13:51 | XMS_ITS | Patient Health Record ---
Author Organization [facility] Address [address] [place] [address] Care Team Providers Care Account Management Assistant Name Role Phone Anoop Austin MD Primary Care Provider UnavailZahra Blackburn Unavailable [phone] Allergies Allergen (clinical drug ingredient) Drug/Non Drug Allergy documented on EMR Reaction Allergy Type Onset Date Status bee sting Unknown Drug Allergy Active Reason For Referral No Information Problems No Known Problems Plan Of Treatment Pending Test Test Name Order Date [id number] Destruction, 1-14 06/23/2015 72937- Debride <25 sq cm 06/23/2015 Insurance Providers Payer Name Payer Address Payer Phone Subscriber Number Group Number Insured Name Patient Relationship to Insured Coverage Start Date Coverage End Date [facility] [address] [place] [address] [id number] Fabio Aragon Self - patient is the insured
--- OUTSIDE RECORDS SUMMARY | 2025-01-15 13:51 | XMS_ITS | Clinical Summary ---
Author Organization [facility] Address [address] [address] Phone Care Team Providers Care Ergonomics Engineer Name Role Phone Anoop Austin MD Primary Care Provider [phone] Allergies Active Allergy Reactions Criticality Noted Date [...] topic Medical Devices Not on file Insurance [facility] HMO POS [facility] HMO POS [facility] HMO POS [facility] HMO POS [facility] HMO POS [facility] Care Teams Ergonomics Engineer Relationship Specialty Start Date End Date Anoop Austin MD [address] [place] [id number] PCP - General Medical Oncology 10/12/19 Additional Source Comments The information contained in this document represents components of the legal health record. It is not the complete legal health record.[facility]
== END 2025-01-15 13:21 | disposition home or self-care (01) ==
LOC: HO.US 13:20
PROVIDERS: PCP Internal Medicine Medical Oncology; Visit Provider Internal Medicine Medical Oncology
DX: E04.1 Nontoxic single thyroid nodule (principal)
CPT/HCPCS: 76536

== ENCOUNTER → 2025-01-15 13:37 | Outpatient (BNV) | payer BC, SELFPAY | PROVIDERS: PCP Internal Medicine Medical Oncology; Visit Provider Radiology Diagnostic Radiology | DX: E04.1 Nontoxic single thyroid nodule (principal) | CPT/HCPCS: 76536 ==

== ENCOUNTER 2025-02-12 13:32 | Outpatient (REF) | payer BC, SELFPAY ==
--- OUTSIDE RECORDS SUMMARY | 2024-09-13 03:30 | XMS_ITS ---
Author Organization [facility] Address [address] [place] [id number] Care Team Providers Care Radiologic Technologist Mammogram Name Role Phone Geovanna DEAN, Anoop Primary Care Provider Flako Johnson Jr [phone] REASON FOR VISIT screening Encounters Encounter Location Date Provider Diagnosis [facility] Outpatient [address] [place] [phone] 09/13/2024 Flako Grove Jr Plan Of Treatment No Information Progress Notes * RUEL HOGANDOB:[birth year] (59 yo M)Acc No.[id number]:09/13/2024 COLON WITH MAC Patient: Andrew OCHOARUEL GARRETT Provider: Kei Grove MD :1965 A ge:59 Y S ex:Male Date:09/13/2024 Address:[address] [place], [place] [phone] Pcp:Anoop Austin MD Subjective: * Chief Complaints: [...] 0 09/13/2024 Generated for Printi ng/Faxing/eTransmitting on: 0 02/12/2025 03:44 PM EDT
--- OUTSIDE RECORDS SUMMARY | 2024-10-18 05:20 | XMS_ITS ---
Author Organization [facility] Address [address] [place] [address] Care Team Providers Care Quality Control Projectionist Name Role Phone Geovanna DEAN, Anoop Primary Care Provider Unavailab Flako Ruiz Jr [phone] REASON FOR VISIT screening colon Encounters Encounter Location Date Provider Diagnosis [facility] [address] [place] [phone] 10/18/2024 Flako Grove Jr Colon cancer screening Z12.11 ; Personal history of adenomatous and serrated colon polyps Z86.0101 and Colon polyps K63.5 Assessments Encounter Date Diagnosis (ICD Code) Assessment Notes Treatment Notes Treatment Clinical Notes Section Notes 10/18/2024 Colon cancer screening (ICD-10 - Z12.11) 10/18/2024 Personal history of adenomatous and serrated colon polyps (ICD-10 - Z86.0101) 10/18/2024 Colon polyps (ICD-10 - K63.5) Plan Of Treatment No Information Progress Notes * RUEL HOGANDOB:[birth year] (59 yo M)Acc No.[id number]:10/18/2024 COLON WITH MAC Patient: Andrew RUEL [place] Provider: Kei Grove MD :1965 A ge:59 Y S ex:Male Date:10/18/2024 Address:[address] [place], [place] [phone] Pcp:Anoop Austin MD Subjective: * Chief Complaints: * 1 . Screening colon. * Medical History: Objective: * Vitals: Assessment: * Assessment: 1. C olon cancer screening - Z12.11 (Primary) 2 . P ersonal history of adenomatous and serrated colon polyps - Z86.0101 3 . C olon polyps - K63.5 ? Plan: * Treatment: * Procedure Codes: 4 5385 LESION REMOVAL COLONOSCOPY, 0529F INTRVL 3+YRS PTS CLNSCP DOCD * * The named appointment provid er may or may not be the originator of this progress note, and it is not deemed complete until electronically signed by the appointment provider. Sign off status: Pending * Provider: Kei Grove MD Date: 0 10/18/2024 Generated for Anh walker/Angelica/Rolandoitting on: 0 02/12/2025 03:44 PM EDT
--- OUTSIDE RECORDS SUMMARY | 2025-01-14 06:26 | XMS_ITS ---
Author Organization Anoop Austin III, MD Address [address] [place] [facility] [place] [address] Care Team Providers Care Supply Chain Tech Name Role Phone Anoop Austin Primary Care Provider [phone] REASON FOR VISIT update on this patient Social History Sex Assigned At : Social History Observation Description Sex Assigned At Male Encounters Encounter Location Date Provider Diagnosis Anoop Austin III, MD [address] [place] [address] [place] [address] 01/14/2025 Anoop Austin Plan Of Treatment Next Appt Details Provider Name:Anoop Austin, 02/28/2025 10:45:00 AM, [address] [place] [address] [place], [address], Provider Name:Anoop Austin, 10/24/2025 03:00:00 PM, [address] [place] [address] [place], [address], Progress Notes * Fabio HOGANDOB: [birth year] (59 yo M)Acc No.[id number]:01/14/2025 Patient: Andrew Fabio PAYTON :1965 A ge:59 Y S ex:Male Address: [place] [address] * true * Date: Generated for Anh walker/Angleica/Sulma on: 0 02/12/2025 03:44 PM EDT
--- OUTSIDE RECORDS SUMMARY | 2025-01-15 13:15 | XMS_ITS ---
Author Organization Anoop Austin III, MD Address [address] [place] [address] Care Team Providers Care Aircraft Manager Name Role Phone Anoop Austin Primary Care Provider [phone] REASON FOR VISIT Follow up Social History Sex Assigned At : Social History Observation Description Sex Assigned At Male Encounters Encounter Location Date Provider Diagnosis Anoop Austin III, MD [address] [place] [address] [address] [facility] [place] [address] 01/15/2025 Anoop Austin Plan Of Treatment Next Appt Details Provider Name:Anoop Austin, 02/28/2025 10:45:00 AM, [address] [place] [address] [place], [address], Provider Name:Anoop Austin, 10/24/2025 03:00:00 PM, [address] [place] [address] [place], [address], Progress Notes * Fabio HOGANDOB: [birth year] (59 yo M)Acc No.[id number]:01/15/2025 Progress Notes Patient: Andrew MARQUEZEAGLELoboFabio Provider: Germán Austin MD :1965 A ge:59 Y S ex:Male Date:01/15/2025 Address: [place], [place] Subjective: * Chief Complaints: * 1 [...] MD Date: 0 01/15/2025 Generated for Anh walker/Angelica/Rolandoitting on: 0 02/12/2025 03:43 PM EDT
--- OUTSIDE RECORDS SUMMARY | 2025-01-17 09:45 | XMS_ITS ---
Author Organization Anoop Austin III, MD Address [address] [place] [address] Care Team Providers Care Steam Table Attendant Name Role Phone Anoop Austin Primary Care Provider [phone] REASON FOR VISIT appt for biopsy not made as of yet Social History Sex Assigned At : Social History Observation Description Sex Assigned At Male Encounters Encounter Location Date Provider Diagnosis Anoop Austin III, MD [address] [place] [address] [place] [address] 01/17/2025 Anoop Austin Plan Of Treatment Next Appt Details Provider Name:Anoop Austin, 02/28/2025 10:45:00 AM, [address] [place] [address] [place], [address], Provider Name:Anoop Austin, 10/24/2025 03:00:00 PM, [address] [place] [address] [place], [address], Progress Notes * Fabio HOGANDOB: [birth year] (59 yo M)Acc No.[id number]:01/17/2025 Patient: Andrew OCHOAFabio GARRETT :1965 A ge:59 Y S ex:Male Address: [place] [address] * true * Date: Generated for Anh walker/Angelica/Sulma on: 0 02/12/2025 03:44 PM EDT
--- OUTSIDE RECORDS SUMMARY | 2025-02-03 11:30 | XMS_ITS ---
Author Organization Anoop Austin III, MD Address [address] [place] [address] Care Team Providers Care Balling Machine Operator Name Role Phone Anoop Austin Primary [...] Thyroid nodule (E04. 1) Referral Organization Anoop Austin III, MD Referring Provider First Name Anoop Referring Provider Last Name Geovanna Referring Provider Speciality Internal M edicine Referred Provider [facility], [facility] Referred Provider Specialty Endocrinolog y General Notes D, 02/05/2025 03:57:06 PM > Referral, progress note, US and CT faxed, D, 02/11/2025 02:56:08 PM >Office received referral. Patient needs to have TSH and Free T4 lab done prior to scheduling patient. Patient was made aware and had the labs faxed to Outpatient booking to have the lab work completed tomorrow. Referral Priority Urgent REASON FOR VISIT Nodule, thyroid isthmus, Pulmonary nodule, Hyperlipidemia, Obesity, COPD and, Sleep apnea, Benign prostatic hypertrophy, Emphysema Medications Medication SIG (Take, Route, Frequency, Duration) Notes Start Date End Date Status Finasteride 5 MG TAKE 1 TABLET BY TENIHSA TH EVERY MORNING Oral Active Incruse Ellipta [...] Problem Status W/U Status Risk Notes Problem [id number] Thyroid nodule (E04.1) Active confirmed He has cereals screening CT scan of the chest because of a smoking history. He is being evaluated now for a pulmonary nodule that is suspicious but PET negative. He had a PET CT scan October 01, 2024 at [facility] that showed the pulmonary nodule to be [...] Date Provider Diagnosis Anoop Austin III, MD [address] [place] [address] [place] [address] 02/03/2025 Anoop Austin Pulmonary nodule R91 .1 [...] PET CT scan October 01, 2024 at [facility] that showed the pulmonary nodule to be [...] Request Evaluate and Treat Thyroid Nodule Recommending Bios, [facility] Next Appt Details Follow Up: 4 Weeks, Reason: OV Provider Name:Anoop Austin, 02/28/2025 10:45:00 AM, [address] [place] [address] [address], [place], [address], Provider Name:Anoop Austin, 10/24/2025 03:00:00 PM, [address] [place] [address] [address], [place], [address], Progress Notes * Fabio HOGANDOB: [birth year] (59 yo M)Acc No.[id number]:02/03/2025 Progress Notes Patient: Fabio ANDERSON Provider: Germán Austin MD :1965 A ge:59 Y S ex:Male Date:02/03/2025 Address:[address] [place] [id number] Subjective: * Chief Complaints: * N odule, thyroid isthmusPulmonary noduleHyperlipidemiaObesityCOPD andSleep apneaBenign prostatic hypertrophyEmphysema * HPI: C OVID-19 Screening: Shelia tom has an enlarging PET negative mass in [...] x-cigar smoker H e was born in [place], [place]. Smokes cigar occasionally. He has been [...] PET CT scan October 01, 2024 at [facility] that showed the pulmonary nodule to be [...] true * Provider: Germán Austin MD Date: 02/03/2025 Generated for Anh walker/Angelica/Rolandoitting on: 02/12/2025 03:43 PM EDT History and Physical Notes * [...] Referred Provider Not es 02/03/2025 Anoop Austin [facility], [facility] Urgent Appointment Request Evaluate and Treat Thyroid Nodule Recommending Biospy
--- OUTSIDE RECORDS SUMMARY | 2025-02-07 07:30 | XMS_ITS ---
Author Organization Anoop Austin III, MD Address [address] [place] [facility] [place] [address] Care Team Providers Care [employer] Superintendent Name Role Phone Anoop Austin Primary Care Provider [phone] REASON FOR VISIT FYI Social History Sex Assigned At : Social History Observation Description Sex Assigned At Male Encounters Encounter Location Date Provider Diagnosis Anoop Austin III, MD [address] [place] [address] [place] [address] 02/07/2025 Anoop Austin Plan Of Treatment Next Appt Details Provider Name:Anoop Austin, 02/28/2025 10:45:00 AM, [address] [place] [address] [place], [address], Provider Name:Anoop Austin, 10/24/2025 03:00:00 PM, [address] [place] [address] [place], [address], Progress Notes * Fabio HOGANDOB: [birth year] (59 yo M)Acc No.[id number]:02/07/2025 Patient: Andrew OCHOAFabio GARRETT :1965 A ge:59 Y S ex:Male Address: [place] [address] * true * Date: Generated for Anh walker/Angelica/Brigidosmitting on: 0 02/12/2025 03:43 PM EDT
[2025-02-12 15:43] LABS: Free T4 (Free Thyroxine) 1.09 ng/dL (0.71-1.85); Thyroid Stimulating Hormone 1.18 uIU/mL (0.32-4.0)
--- OUTSIDE RECORDS SUMMARY | 2025-02-12 15:43 | XMS_ITS | Patient Health Record ---
Author Organization Anoop Austin III, MD Address [address] [place] [address] Care Team Providers Care Logistics Program Manager Name Role Phone Anoop Austin Primary Care Provider Allergies Allergen (clinical drug ingredient) Drug/Non Drug Allergy documented on EMR Reaction Allergy Type Onset Date Status No Known Drug Allergy Unknown Drug Allergy Active No Known Food Allergy Unknown Drug Allergy Active Bee Sting Unknown Allergy Active Results Component Value Reference Range Notes CT lung screening Reviewed date:09/13/2024 03:32:04 PM Interpretation: Performing Lab: Notes/Report: [address] [address] [address] Scan Report Signed Patient: Fabio Griffin MR#: [id number] : 1965 Acct:[id number] Age/Sex: 59 / M ADM Date: 09/06/24 Loc: HO.CT Attending Dr: Maritza Guerra BALLET PROFESSOR Ordering Physician: Estela Zhu PA-C Date of Service: 09/06/24 Procedure(s): CT lung screening Accession Number(s): [id number] cc: Anoop Austin MD; Estela Zhu PA-C Report Number: [id number]: Total DLP = 68.00 mGy-cm EXAMINATION: CT [...] 09/09/24 0741 DD/ 1446 TD/TT: 09/06/24 1452 Tree Marker: [address] [address] [address] Scan Report Signed Patient: Maya Griffin MR#: [id number] : 1965 Acct:[id number] Age/Sex: 59 / M ADM Date: 09/06/24 Loc: HO.CT Attending Dr: Sofia Guerra BALLET PROFESSOR Ordering Physician: Estela Zhu PA-C Date of Service: 09/06/24 Procedure(s): CT bautista g screening Accession Number(s): [id number] cc: Anoop Austin MD; Estela Zhu PA-C [...] moderate Coronary Calcificati on: mild Aortic Arch Calcific ation: moderate Potentially [...] Dictated By: Anoop Mccormick MD Signed By: <Amber callahan signed by Anoop Mccormick MD in OV> 09/09/24 0741 DD/ 1446 TD/TT: 09/06/24 1452 Tree Marker: PET CT fusion skull to thigh Reviewed date:10/12/2024 08:44:26 PM Interpretation: Performing Lab: Notes/Report: [address] [address] PET Report Signed Patient: Fabio Griffin MR#: [id number] : 1965 Acct:[id number] Age/Sex: 59 / M ADM Date: 09/30/24 Loc: HO.PET Attending Dr: Shelley Serrano MD Ordering Physician: Shelley Serrano MD Date of Service: 10/01/24 Procedure(s): PET CT fusion skull to thigh Accession Number(s): [id number] cc: Shelley Serrano MD; Anoop Austin MD [...] 10/01/24 1549 DD/ 1030 TD/TT: 10/01/24 1130 Tree Marker: [address] [address] PET Report Signed Patient: Maya Griffin MR#: [id number] : 1965 Acct:[id number] Age/Sex: 59 / M ADM Date: 09/30/24 Loc: HO.PET Attending Dr: Eamon Serrano MD Ordering Physician: Shelley Serrano MD Date of Service: 10/01/24 Procedure(s): PET CT fusion skull to thigh Accession Number(s): [id number] cc: Shelley Serrano MD; Anoop Austin MD EXAMINATION: FLUORINE-18 FDG PET/ CT SCAN CLINICAL INFORMATION: Right pulmonary nodule TECHNIQUE: 69 minutes following the intravenous administration of 22.1 mCi of fluorine 18 FDG, angela ges from the skull base to proximal thigh were obtained using a com bined PET/CT scanner with CT scan based [...] MD 10/01/2024 03:49 PM EDT Dictated By: Mr shavon Saldana MD Signed By: <Electron ically signed by Lester Saldana MD in OV> 10/01/24 1549 DD/ 1030 TD/TT: 10/01/24 1130 Tree Marker: BLANCHE Complete Blood Count Auto Di ff Reviewed date:10/12/2024 08:44:26 PM Interpretation: Performing Lab:[facility], [address] [place] [phone] Notes/Report: White Blood Count 9.0 4.8-10.8 X10*3/uL [...] 0.0 0.0-0.2 /100WBC Neutrophils Absolute Auto 6.3 2.0-8. 3 x10*3/uL Imm Gran Abs Auto 0.11 0.00-0.03 X10*3/uL Lymphocytes Absolute Auto 1.4 1.2-4. 9 X10*3/uL Monocytes Absolute Auto 0.9 0.1-1.2 X10*3/uL Eosinophils Absolute Auto 0.3 0.0-0. 4 X10*3/uL Basophils Absolute Auto 0.1 0.0-0.2 X10*3/uL NRBC Abs Auto 0.000 0.0-0.012 X10*3/uL Comprehensive Met. Panel Reviewed date:10/12/2024 08:44:26 PM Interpretation: Performing Lab:[facility], [address] [place] [phone] Notes/Report: Sodium 142 135-145 mmol/L Potassium 4.4 [...] Panel Reviewed date:10/12/2024 08:44:26 PM Interpretation: Performing Lab:[facility], [address] [place] [phone] Notes/Report: Triglycerides 46 <150 mg/dL Desirable Triglyceride: [...] (Free>4and<10) Reviewed date:10/12/2024 08:44:26 PM Interpretation: Performing Lab:[facility], [address] [place] [phone] Notes/Report: PSA,Total (Free>4and<10) 0.85 0.00-4.00 ng/mL A [...] between 4.0 and 10.0 ng/mL. PSA methodology: Atkins Alinity i Chemiluminescent Microparticle Immunoassay (CMIA) Pathology Reviewed date:12/13/2024 07:22:51 PM Interpretation: Performing Lab:[facility], [address] [place] [phone] Notes/Report: ------ Name: Emil[address] rd Age/Sex: 59/M : 1965 Unit#: [id number] Attend Dr: Flako Grove MD Re10/18/24 [place] [facility] [place] [facility] Disch: ------ SPEC : [id number] RECD : 10/18/24 STATUS: FELICIA GARVIN NUM: [id number] PHUONG: 10/18/[address] [facility] DR: Flako Grove MD ENTERED: 10/18/24- 58 SP TYPE: Surgical OTHR DR: Anoop Austin MD ORDERED: HE Stain/3, Gross Micro L4 Diagnosis Colon, at 30 cm, steve yp: No tissue present for evaluation; fecal material only. Clinical History Pre-Op Dx: Screening Post-Op Dx: Colon polyp Microscopic Description Multiple microscopic sections reviewed. Material Received Polyp at 30 Gross Description Received in formalin labeled ?polyp at 30? are minute fragments of red-gomez soft material forming an aggregate measuring 0.3 x 0.2 x 0.1 cm which is wrapped in lens paper and entirely submitted f or microscopic examination, multiple pieces in cassette A. ([facility]) Copies To: Anoop Austin MD [address] [facility] [address] Flako Grove MD [facility] [address] [place] [address] ------ Signed (signature on file) Monisha [place] 10/23/24 0928 ------ END OF REPORT CT lung screen follow up Reviewed date:02/11/2025 05:04:48 AM Interpretation: Performing Lab: Notes/Report: [address] [address] [address] Scan Report Signed Patient: Fabio Griffin MR#: [id number] : 1965 Acct:[id number] Age/Sex: 59 / M ADM Date: 01/06/25 Loc: HO.CT Attending Dr: Maritza Guerra BALLET PROFESSOR Ordering Physician: Estela Zhu PA-C Date of Service: 01/06/25 Procedure(s): CT lung screen follow up Accession Number(s): [id number] cc: Anoop Austin MD; Estela Zhu PA-C Report Number: [id number]: Total DLP = 85.00 mGy-cm EXAMINATION: CT LUNG SCREENING FOLLOW UP WITHOUT IV CONTRAST HISTORY: F17.210 - Nicotine dependence, cigarettes, uncomplicated TECHNIQUE: Low dose axial images were obtained from the sternal notch to upper abdomen without IV contrast per standard departmental protocol. Sagittal and coronal reformatted images were also obtained and reviewed. One or more of the following techniques was used for dose reduction: Automated exposure control, adjustment of the mA and/or kV according to patient size, use of iterative reconstruction technique. DLP: 85 mGy-cm COMPARISON: Comparison is made with the prior examination dated 09/06/2024. Correlation is also made with a PET/CT scan dated 10/01/2024. FINDINGS: Lung nodules: There is a new 3 mm nodule at the left lung apex (series 3, image 25). A 5 mm nodule at the right lung apex (series 3, image 31) is smaller. A 4 mm nodule at the left lung apex (series 3, image 30) is also smaller. There is a new 3 mm nodule in the left upper lobe (series 3, image 37) as well as a new 11 x 8 mm (average diameter 9 mm) nodule in the left upper lobe (series 3, image 38). Emphysema: mild Coronary Calcification: mild Aortic Arch Calcification: mild Potentially Significant Incidentals : none Additional Chest Findings: There is no pleural or pericardial effusion. No mediastinal or axillary lymphadenopathy is identified. Visualized upper abdomen: The visualized portions of the liver, spleen, and right adrenal gland have an unremarkable unenhanced appearance. Again seen is a 1.8 cm low-density (negative 6 HU) nodule of the left adrenal gland compatible with an adenoma. CT/CT lung screen follow up IMPRESSION: Several of the previously seen left apical lung nodules are smaller. However, there are multiple new nodules in the left upper lobe including a 9 mm average diameter nodule near the major fissure. Given previous waxing and waning nodules and the fact that this nodule was not present on the PET/CT scan dated 10/01/2024, this could be inflammatory in nature. LUNG-RADS ASSESSMENT: Lung-RADS 4B: Very Suspicious MANAGEMENT: PET/CT or Tissue Sampling or 1 month LDCT. Given the above findings, would favor short-term follow-up. Category S: N/A Electronically signed by: Anoop Mccormick MD 01/06/2025 01:27 PM EDT Dictated By: Anoop Mccormick MD Signed By: <Electronically signed by Anoop Mccormick MD in OV> 01/06/25 1327 DD/ 1250 TD/TT: 01/06/25 1310 Tree Marker: [place] [address] CT Scan Report Signed Patient: Maya Griffin MR#: [id number] : 1965 Acct:[id number] Age/Sex: 59 / M ADM Date: 01/06/25 Loc: .CT Attending Dr: Sofia Guerra BALLET PROFESSOR Ordering Physician: Estela Zhu PA-C Date of Service: 01/06/25 Procedure(s): CT bautista g screen follow up Accession Number(s): [id number] cc: Anoop Austin MD; Estela Zhu PA-C Report Number: [id number]: Total DLP = 85.00 mGy-cm EXAMINATION: CT LUNG SCREENING FOLLOW UP WITHOUT IV CONTRAST HISTORY: F17.210 - Nicotine dependence, cigarettes, uncomplicated TECHNIQUE: Low dose axial images were obtained [...] size, use of iterative reconstruction technique. DLP: 85 mGy-cm COMPARISON: Comparis on is made with the prior examination dated 09/06/2024. Correlati on is also made with a PET/CT scan dated 10/01/2024. FINDINGS: Lung nodules: There is a new 3 mm nodule at the left lung apex (series 3, image 25). A 5 mm nodule at the right lung apex (series 3, image 31) is smaller. A 4 mm n odule at the left lung apex (series 3, image 30) is also smaller. There is a new 3 mm nodule in the left upper lobe (series 3, image 37) as well as a new 11 x 8 mm (average diameter 9 mm) nodule in the left upper lo be (series 3, image 38). Emphysema: mild Coronary Calcificati on: mild Aortic Arch Calcific ation: mild Potentially Signific ant Incidentals : none Additional Chest Fin dings: There is no pleural or pericardial effusion. No mediastinal or ax illary lymphadenopathy is identified. Visualized upper abd omen: The visualized portions of the liver, spleen, and right adrenal gl and have an unremarkable unenhanced appearance. Again seen is a 1.8 cm low-density (negative 6 HU) nodule of the left adrenal gland compat ible with an adenoma. C T/CT lung screen follow up IMPRESSION: Several of the previ ously seen left apical lung nodules are smaller. However, there are multiple new nodules in the left upper lobe including a [address] rage diameter nodule near the major fissure. Given previous waxing and waning nodules and the fact that this nodule was not present on the P ET/CT scan dated 10/01/2024, this could be inflammatory in nature. LUNG-RADS ASSESSMENT: Lung-RADS 4B: Very Suspicious MANAGEMENT: PET/CT or Tissue Julius pling or 1 month LDCT. Given the above findings, would favor short-te rm follow-up. Category S: N/A Electronically mariusz d by: Anoop Mccormick MD 01/06/2025 01:27 PM EDT Dictated By: Anoop Mccormick MD Signed By: <Amber callahan signed by Anoop Mccormick MD in OV> 01/06/25 1327 DD/ 1250 TD/TT: 01/06/25 1310 Tree Marker: thyroid Reviewed date:02/11/2025 05:04:48 AM Interpretation: Performing Lab: Notes/Report: [address] [address] Ultrasound Report Signed Patient: Fabio Griffin MR#: [id number] : 1965 Acct:[id number] Age/Sex: 59 / M ADM Date: 01/15/25 Loc: HO.US Attending Dr: Anoop Austin MD Ordering Physician: Anoop Austin MD Date of Service: 01/15/25 Procedure(s): US thyroid Accession Number(s): [id number] cc: Anoop Austin MD EXAMINATION: US THYROID HISTORY: RIGHT THYROID NODULE TECHNIQUE: Real-time grayscale ultrasound imaging was performed and images were reviewed. COMPARISON: Correlation is made with a chest CT dated 01/06/2025. FINDINGS: SIZE: The right thyroid lobe measures 6.3 x 2.5 x 1.6 cm. The left thyroid lobe measures 5.2 x 2.4 x 2.0 cm. The isthmus measures 14 mm. FLOW: Flow to the gland is normal. ECHOGENICITY: The echotexture of the gland is homogeneous. NODULES: There is a nodule of the isthmus on the right with imaging characteristics as follows: Nodule #: 1 Location: Right isthmus measuring 1.7 x 1.1 x 1.9 cm. Shape: Wider than tall (0 points) Margins: Smooth (0 points) Echotexture: Hypoechoic (2 points) Composition: Solid (2 points) Calcifications: Macrocalcifications (1 point) Total points: 5 TIRADS: TR4: Moderately suspicious. US/US thyroid IMPRESSION: Moderately suspicious nodule of the right isthmus as described above. According to ACR TI-RADS guidelines, ultrasound-guided fine-needle aspiration is recommended. ACR TI-RADS Guidelines TR1 (0 points): Benign. No follow-up or biopsy required TR2 (2 points): Not Suspicious. No biopsy or follow up indicated TR3 (3 points): Mildly Suspicious. FNA if >= 2.5 cm, Follow if >= 1.5 cm TR4 (4-6 points): Moderately Suspicious. FNA if >= 1.5 cm, Follow if >= 1.0 cm TR5 (>=7 points): Highly Suspicious. FNA if >= 1.0 cm, Follow if >= 0.5 cm Electronically signed by: Anoop Mccormick MD 01/15/2025 02:31 PM EDT Dictated By: Anoop Mccormick MD Signed By: <Electronically signed by Anoop Mccormick MD in OV> 01/15/25 1431 DD/ 1338 TD/TT: 01/15/25 1346 Tree Marker: [place] [address] Ultrasound Report Signed Patient: Maya Griffin MR#: [id number] : 1965 Acct:[id number] Age/Sex: 59 / M ADM Date: 01/15/25 Loc: HO.US Attending Dr: Anoop Austin MD Ordering Physician: Anoop Austin MD Date of Service: 01/15/25 Procedure(s): US thyroid Accession Number(s): [id number] cc: Anoop Austin MD EXAMINATION: US THYROID HISTORY: RIGHT THYRO ID NODULE TECHNIQUE: Real-time grayscale ultrasound imaging was performed and images were reviewed. COMPARISON: Correlat ion is made with a chest CT dated 01/06/2025. FINDINGS: SIZE: The right thyr oid lobe measures 6.3 x 2.5 x 1.6 cm. The left thyroid lobe measure s 5.2 x 2.4 x 2.0 cm. The isthmus measures 14 mm. FLOW: Flow to the gl and is normal. ECHOGENICITY: The echotexture of the gland is homogeneous. NODULES: There is a nodule of the isthmus on the right with imaging characteristics as follows: Nodule #: 1 Location: Right isth mus measuring 1.7 x 1.1 x 1.9 cm. Shape: Wider than ta ll (0 points) Margins: Smooth (0 points) Echotexture: Hypoech oic (2 points) Composition: Solid ( 2 points) Calcifications: Macrocalcifications (1 point) Total points: 5 TIRADS: TR4: Moderat fernandez suspicious. U S/US thyroid IMPRESSION: Moderately suspiciou s nodule of the right isthmus as described above. According to ACR TI- RADS guidelines, ultrasound-guided fine-needle aspiration is recommended. ACR TI-RADS Guidelines TR1 (0 points): Irvin gn. No follow-up or biopsy required TR2 (2 points): Not Suspicious. No biopsy or follow up indicated TR3 (3 points): Mild ly Suspicious. FNA if >= 2.5 cm, Follow if >= 1.5 cm TR4 (4-6 points): Moderately Suspicious. FNA if >= 1.5 cm, Follow if >= 1.0 cm TR5 (>=7 points): Hi ghly Suspicious. FNA if >= 1.0 cm, Follow if >= 0.5 cm Electronically mariusz d by: Anoop Mccormick MD 01/15/2025 02:31 PM EDT Dictated By: Anoop Mccormick MD Signed By: <Electron ically signed by Anoop Mccormick MD in OV> 01/15/25 1431 DD/ 1338 TD/TT: 01/15/25 1346 Tree Marker: Reason For Referral Reason Urgent Appointment R equest Evaluate and Treat Thyroid Nodule Recommending Biospy Diagnosis 1 Thyroid nodule (E04. 1) Referral Organization Anoop Austin III, MD Referring Provider First Name Anoop Referring Provider Last Name Geovanna Referring Provider Speciality Internal M edicine Referred Provider [facility] Referred Provider Specialty Endocrinolog y General Notes DAisha 02/05/2025 03:57:06 PM > Referral, progress note, US and CT faxed, Aisha Nicole 02/11/2025 02:56:08 PM >Office received referral. Patient needs to have TSH and Free T4 lab done prior to scheduling patient. Patient was made aware and had the labs faxed to Outpatient booking to have the lab work completed tomorrow. Referral Priority Urgent Medications Medication SIG (Take, Route, Frequency, Duration) Notes Start Date End Date Status Finasteride 5 MG TAKE 1 TABLET BY TENISHA TH EVERY MORNING Oral Active Incruse Ellipta 62.5 MCG/ACT 1 puff Inhalation Once a day 10/21/2024 Active Albuterol Sulfate HFA 108 (90 Base) MCG/ACT INHALE 2 PUFFS INTO THE LUNGS EVERY 4 HOURS FOR WHEEZING Inhalation every 4 hrs Active Tamsulosin HCl 0.4 MG 2 capsule Orally O nce a day Active EpiPen 2-Ruy 0.3 MG/0.3ML USE EPI PEN NEEDED FOR BEE STINGS Injection DIRECTED Active Fluticasone-Salmeterol 500-50 MCG/ACT INHALE 1 PUFF BY MOUTH TWICE DAILY Inhalation Active Immunizations Vaccine Route Administration Date Status [...] Additional Findings: Tobacco non-user Ex-cigar s moker AUDIT-C (Standard) Question Answer Notes Did you have a drink containing alcohol in the p ast year? No Points 0 Interpretation Negative Problems Problem Type SNOMED Code ICD Code Onset Dates Problem Status W/U Status Risk Notes Problem 3559756 Former smoker (Z87.891) Active confirmed We made a plan on how to prevent relapse and times of stress and illness. He seems highly motivated not to smoke. Problem 878410244 Obesity (E66.9) Active confirmed His body mass index is stable at 33. We discussed his diet and nutrition today. We made a plan to lose weight at a rate of one half of a pound per week. 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 He has been referred to urology. Problem Benign prostatic hyperplasia (392294241) BPH (benign prostatic hyperplasia) (N40.0) Active confirmed His prostatism is sttable and once a night. We have reviewed lifestyle modifications to reduce nocturia. Problem 03220605 Tobacco dependence (F17.200) Active confirmed He says he continues to smoke about 2 cigarettes per day. We have discussed his previous and current tobacco cessation efforts.He is currently slightly hypoxic with oxygen saturation 91 which caused today's colonoscopy to be postponed. I have given him a prescription for an antibiotic and prednisone. Problem 28458009 COPD (chronic obstructive pulmonary disease) (J44.9) Active confirmed He continue s to be abstinent from cigarettes. He recently had acute on chronic bronchitis with green phlegm, but this is clearing now. He is becoming stronger. No change in his therapy was indicated. Problem 702037766 Pulmonary nodule (R91.1) Active confirmed He has a PET negative right lung mass that has increased in size. He is seeing a thoracic surgeon in exploring his options. These so far have been excision, FNA or observaation for 3 mmonths with a repeat CT scan. He is in the process of deciding. Problem 482360515 Thyroid nodule (E04.1) Active confirmed He has cereals screening CT scan of the chest because of a smoking history. He is being evaluated now for a pulmonary nodule that is suspicious but PET negative. He had a PET CT scan October 01, 2024 at [facility] that showed the pulmonary nodule to be PET negative but he had a solitary partially calcified 1 cm right isthmus thyroid nodule. He is being referred to endocrinology for evaluation of thiis nodule, which was moderately PET positive. Problem 71691077 Other and unspecified hyperlipidemia (E78.5) Active confirmed His lipids are being checked periodically. No change in his regimen was necessary today. Problem 90670429 Sleep apnea (G47.30) Active confirmed He is not using a CPAP machine and declines offer of providing it. He deferred a decision about whether or not to have this new sleep study Problem 488918845 Other osteoarthritis involving multiple joints (M15.8) Active confirmed The arthritis in his hands has become mild and he is working full-time without difficulty. His main complaint today is right shoulder pain. He is be treated with ibuprofen. Problem 44860734 Pulmonary emphysema, unspecified emphysema type (J43.9) Active confirmed He is comfortable breathing at rest but has some dyspnea with exertion. This is improving. He is no longer smoking cigarettes. Problem 743283521 Renal cyst (N28.1) Active confirmed On August 04, 2022. An ultrasound was done of his kidneys in followup of the detection of a mass in the right kidney on screening CT scan. The ultrasound done August 04 shows 32.3 cm simple benign cyst. It will be followed. 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 Vital Signs Heart Rate 79 /min 02/03/2025 Temperature 98.6 degrees Fahrenheit 02/03/2025 Blood pressure diastolic 97 mm Hg 02/03/2025 Height 72 in 02/03/2025 Blood pressure systolic 134 mm Hg 02/03/2025 Weight 236 lbs 02/03/2025 BMI 32 kg/m2 02/03/2025 Encounters Encounter Location Date Provider Diagnosis Anoop Austin III, MD [address] [place] [address] [place] [phone] 09/13/2024 Anoop Austin Other and unspecifie d hyperlipidemia E78.5 ; COPD (chronic obstructive pulmonary disease) J44.9 ; Obesity E66.9 ; Anorgasmia of male F52.32 ; BPH (benign prostatic hyperplasia) N40.0 ; Sleep apnea G47.30 ; Tobacco dependence F17.200 and Pulmonary emphysema, unspecified emphysema type J43.9 Anoop Austin III, MD [address] [place] [address] [place] [phone] 09/16/2024 Anoop Austin Acute bronchitis, unspecified organism J20.9 ; Other and unspecified hyperlipidemia E78.5 ; Other osteoarthritis involving multiple joints M15.8 ; Obesity E66.9 ; Sleep apnea G47.30 and Tobacco dependence F17.200 Anoop Austin III, MD [address] [place] [address] [place] [address] 10/21/2024 Anoop Austin Other and unspecifie d hyperlipidemia E78.5 ; COPD (chronic obstructive pulmonary disease) J44.9 ; Other osteoarthritis involving multiple joints M15.8 ; Obesity E66.9 ; Sleep apnea G47.30 ; BPH (benign prostatic hyperplasia) N40.0 ; Pulmonary emphysema, unspecified emphysema type J43.9 ; Right thyroid nodule E04.1 ; Former smoker Z87.891 and Pulmonary nodule R91.1 Anoop Austin III, MD [address] [place] [address] [place] [id number] 02/03/2025 Anoop Austin Pulmonary nodule R91 .1 ; Obesity E66.9 ; Former smoker Z87.891 ; Other and unspecified hyperlipidemia E78.5 ; Other osteoarthritis involving multiple joints M15.8 ; COPD (chronic obstructive pulmonary disease) J44.9 ; Pulmonary emphysema, unspecified emphysema type J43.9 and Thyroid nodule E04.1 Anoop Austin III, MD [address] [place] [address] [place] [id number] 05/24/2024 Anoop Austin III, MD [address] [place] [address] [place] [id number] 07/12/2024 Anoop Austin III, MD [address] [place] [address] [place] [id number] 07/12/2024 Anoop Austin III, MD [address] [place] [address] [place] [phone] 07/15/2024 Anoop Austin Obesity E66.9 ; BPH (benign prostatic hyperplasia) N40.0 and COPD (chronic obstructive pulmonary disease) J44.9 Anoop Austin III, MD [address] [place] [address] [place] [phone] 10/02/2024 Anoop Austin III, MD [address] [place] [address] [place] [phone] 01/14/2025 Anoop Austin III, MD [address] [place] [address] [place] [phone] 01/17/2025 Anoop Austin III, MD [address] [place] [address] [place] [phone] 02/07/2025 Anoop Austin Assessments Encounter Date Diagnosis (ICD Code) Assessment [...] days. We discussed smoking cessation at length. 10/21/2024 COPD (chronic obstructive pulmonary disease) (ICD-10 - J44.9) He continues to be abstinent from cigarettes. He recently had acute on chronic bronchitis with green phlegm, but this is clearing now. He is becoming stronger. No change in his therapy was indicated. 10/21/2024 Other and unspecifie d hyperlipidemia (ICD-10 - E78.5) His lipids are being checked periodically. No change in his regimen was necessary today. 02/03/2025 Obesity (ICD-10 - E66.9) His body mass index is stable at 33. We discussed his diet and nutrition today. We made a plan to lose weight at a rate of one half of a pound per week. 02/03/2025 Pulmonary nodule (ICD-10 - R91.1) He has a PET negative right lung mass that has increased in size. He is seeing a thoracic surgeon in exploring his options. These so far have been excision, FNA or observaation for 3 mmonths with a repeat CT scan. He is in the process of deciding. 07/15/2024 Obesity (ICD-10 - E66.9) 09/13/2024 Obesity [...] He is be treated with ibuprofen. 10/21/2024 Other osteoarthritis involving multiple joints (ICD-10 - M15.8) The arthritis in his hands has become mild and he is working full-time without difficulty. His main complaint today is right shoulder pain. He is be treated with ibuprofen. 02/03/2025 Former smoker (ICD-1 0 - Z87.891) We made a plan on how to prevent relapse and times of stress and illness. He seems highly motivated not to smoke. 07/15/2024 BPH (benign prostati c hyperplasia) (ICD-10 [...] half of a pound per week. 10/21/2024 Obesity (ICD-10 - E66.9) His body mass index is stable at 33. We discussed his diet and nutrition today. We made a plan to lose weight at a rate of one half of a pound per week. 02/03/2025 Other and unspecifie d hyperlipidemia (ICD-10 - E78.5) His lipids are being checked periodically. No change in his regimen was necessary today. 07/15/2024 COPD (chronic obstructive pulmonary disease) (ICD-10 [...] to have this new sleep study 10/21/2024 Sleep apnea (ICD-10 - G47.30) He is not using a CPAP machine and declines offer of providing it. He deferred a decision about whether or not to have this new sleep study 02/03/2025 Other osteoarthritis involving multiple joints (ICD-10 - M15.8) The arthritis in his hands has become mild and he is working full-time without difficulty. His main complaint today is right shoulder pain. He is be treated with ibuprofen. 09/13/2024 Sleep apnea (ICD-10 - G47.30) He [...] a prescription for an antibiotic and prednisone. 10/21/2024 BPH (benign prostati c hyperplasia) (ICD-10 - N40.0) His prostatism is sttable and once a night. We have reviewed lifestyle modifications to reduce nocturia. 02/03/2025 COPD (chronic obstructive pulmonary disease) (ICD-10 - J44.9) He continues to be abstinent from cigarettes. He recently had acute on chronic bronchitis with green phlegm, but this is clearing now. He is becoming stronger. No change in his therapy was indicated. 09/13/2024 Tobacco dependence (ICD-10 - F17.200) He says he continues to smoke about 2 cigarettes per day. We have discussed his previous and current tobacco cessation efforts.He is currently slightly hypoxic with oxygen saturation 91 which caused today's colonoscopy to be postponed. I have given him a prescription for an antibiotic and prednisone. 10/21/2024 Pulmonary emphysema, unspecified emphysema type (ICD-10 - J43.9) He is comfortable breathing at rest but has some dyspnea with exertion. This is improving. He is no longer smoking cigarettes. 02/03/2025 Pulmonary emphysema, unspecified emphysema type (ICD-10 - J43.9) He is comfortable breathing at rest but has some dyspnea with exertion. This is improving. He is no longer smoking cigarettes. 09/13/2024 Pulmonary emphysema, unspecified emphysema type (ICD-10 - J43.9) 10/21/2024 Right thyroid nodule (ICD-10 - E04.1) This was noted on a CT scan and PET scan. He is being referred to endocrinology for evaluation and therapy. 02/03/2025 Thyroid nodule (ICD-10 - E04.1) He has cereals screening CT scan of the chest because of a smoking history. He is being evaluated now for a pulmonary nodule that is suspicious but PET negative. He had a PET CT scan October 01, 2024 at [facility] that showed the pulmonary nodule to be PET negative but he had a solitary partially calcified 1 cm right isthmus thyroid nodule. He is being referred to endocrinology for evaluation of thiis nodule, which was moderately PET positive. 10/21/2024 Former smoker (ICD-1 0 - Z87.891) We made a plan on how to prevent relapse and times of stress and illness. He seems highly motivated not to smoke. 10/21/2024 Pulmonary nodule (ICD-10 - R91.1) This was PET negative and will be observed carefully. Plan Of Treatment Pending Test Test Name Order Date LDL Cholesterol (Direct) 01/25/2021 URINE DIP STICK 02/05/2021 PROFILE, FASTING (COMPREHENSIVE METABOLI C) 10/06/2017 PROFILE, FASTING (COMPREHENSIVE METABOLI C) 09/09/2016 PROFILE, FASTING (COMPREHENSIVE METABOLI C) 07/15/2024 PROFILE, FASTING (COMPREHENSIVE METABOLI C) 02/03/2020 PROFILE, FASTING (COMPREHENSIVE METABOLI C) 02/24/2022 PROFILE, FASTING (COMPREHENSIVE METABOLI C) 06/21/2019 PROFILE, FASTING (COMPREHENSIVE METABOLI C) 09/13/2024 LIPID PANEL 06/21/2019 LIPID PANEL 10/06/2017 LIPID PANEL 09/09/2016 LIPID PANEL 02/03/2020 TSH (THYROID STIMULATING HORMONE) 2024 PSA, TOTAL 09/13/2024 PSA, TOTAL 06/21/2019 PSA, TOTAL 10/06/2017 PSA, TOTAL 07/15/2024 PSA, TOTAL 09/09/2016 PSA, TOTAL 02/24/2022 PSA, TOTAL 02/03/2020 CBC w DIFF 02/03/2020 CBC w DIFF 09/13/2024 CBC w DIFF 06/21/2019 CBC w DIFF 10/06/2017 CBC w DIFF 07/15/2024 CBC w DIFF 09/09/2016 CBC w DIFF 02/24/2022 LYME DISEASE IgG/IgM WB 08/30/2017 SCREENING COLONOSCOPY 10/18/2024 XR CHEST 2 VIEW PA & LAT 02/03/2020 PFT with DLCO 03/23/2022 Lipid Panel 07/15/2024 Lipid Panel 02/24/2022 Lipid Panel 09/13/2024 PSA Free and Total 10/21/2024 Vitamin D 25-OH Total 02/24/2022 Free T4 (Free Thyroxine) 10/21/2024 US thyroid 10/21/2024 Next Appt Details Provider Name:Anoop Austin, 02/28/2025 10:45:00 AM, [address] [place] [address] [address], [place], [phone], Provider Name:Anoop Austin, 10/24/2025 03:00:00 PM, [address] [place] [address] [address], [place], [phone], Insurance Providers Payer Name Payer Address Payer Phone Subscriber Number Group Number Insured Name Patient Relationship to Insured Coverage Start Date Coverage End Date [employer] [address] [place], [place] [id number] Fabio Aragon Self - patient is the insured Medical (General) History Medical History History ICD Code fracture of arm,leg,clavicle osteoarthritis hyperlipidemia sleep apnea COPD plantar wart right foot tobacco dependence obesity colonic polyps, Dr. Grove, tubular ad enoma COPD Emphysema Surgical History Surgery Date(Month/Year) Colonoscopy 10/18/2024 right hand surgery 10/2019 colonoscopy 2016
--- OUTSIDE RECORDS SUMMARY | 2025-02-12 15:44 | XMS_ITS | Clinical Summary ---
Author Organization [facility] [address] [facility] [address] Address [address] [place] [address] Phone Care Team Providers Care Assistant Professor Of Psychology Name Role Phone Anoop Austin MD Primary Care Provider [phone] Allergies Active Allergy Reactions Criticality Noted Date Comments Bee Pollen 02/03/2025 Medications albuterol sulfate 90 mcg/actuation aerosol powdr breath activated Inhale 90 mcg by mouth every 4 (four) hours. Active finasteride (PROSCAR) 5 mg tablet Take 1 tablet (5 mg total) by mouth 1 (one) time each day. Do not crush, chew, or split. Active fluticasone propion-salmete roL (ADVAIR HFA) 230-21 mcg/actuation inhaler Inhale 2 puffs by mouth 2 (two) times a day. Rinse mouth with water after use to reduce aftertaste and incidence of candidiasis. Do not swallow. Active tamsulosin (FLOMAX) 0.4 mg 24 hr capsule Take 1 capsule (0.4 mg total) by mouth 1 (one) time each day. Capsules should be taken 30 minutes following the same meal each day. Active umeclidinium-vi lanteroL (ANORO ELLIPTA) 62.5-25 mcg/actuation inhaler Inhale 1 puff by mouth 1 (one) time each day. Active Active Problems Problem Noted Date Diagnosed Date Pulmonary nodules 02/03/2025 Encounters Date Type Department Care Team Description 02/03/2025 1:30 PM EDT Consult Thoracic Surgery - [address] [place] [id number] Sundar Haas MD Pulmonary nodules (Primary Dx) from Last 3 Months Surgical History Surgery Date Site/Laterality Comments OTHER SURGICAL HISTORY hand surgery Medical History Medical History Date Comments Hyperlipidemia COPD (chronic obstructive pulmonary disease) (CM S/HCC V24, CMS/HCC V28) BPH (benign prostatic hyperplasia) Tubular adenoma of colon 2016 Obstructive sleep apnea Family History Medical History Relation Name Comments Heart attack Brother Alzheimer's disease Father Stroke Father Lung cancer Mother Stomach cancer Mother Relation Name Status Comments Brother Father Mother Social History Tobacco Use Types Packs/Day Years Used Date Smoking Tobacco: Every Day Cigarettes Started: 1980 Cigars Smokeless Tobacco: Never Tobacco Cessation:Ready to Q uit: Not Asked; Counseling Given: Not Answered Comments:Pt states smokes 3-4 Black and Mild Cigars daily Sex and Gender Information Value Date Recorded Sex Assigned at Not on file Legal Sex Male 2:57 PM EDT Gender Identity Not on file Sexual Orientation Not on file Obstetrics History Last Filed Vital Signs Vital Sign Reading Time Taken Comments Blood Pressure 110/65 02/03/2025 1:34 PM EDT Pulse 83 02/03/2025 1:34 PM EDT Temperature 36.2 C (97.2 F) 02/03/2025 1:34 PM EDT Respiratory Rate 18 02/03/2025 1:34 PM EDT Oxygen Saturation 95% 02/03/2025 1:34 PM EDT Inhaled Oxygen Concentration - - Weight 107 kg (236 lb) 02/03/2025 1:34 PM EDT Height 185.4 cm (6' 1 ) 02/03/2025 1:34 PM EDT Body Mass Index 31.14 02/03/2025 1:34 PM EDT Plan of Treatment Health Maintenance Due Date Last Done Comments Hepatitis B Vaccines (1 of 3 - 19+ 3-dose series) 1984 Pneumococcal Vaccine: 50+ Years (1 of 2 - PCV) 1984 Zoster Vaccines (1 of 2) 2015 Depression Screening 06/12/2024 Cholesterol Screening (Lipid Panel) 01/24/2025 Colorectal Cancer Screening: Colonoscopy 01/24/2025 HIV Screening 01/24/2025 Hepatitis C Screening 01/24/2025 Social Influencers of Health Screening 01/24/2025 COVID-19 Vaccine ( season) 2025 02/18/2022, 05/03/2021, 09/11/2020, Additional history exists Influenza Vaccine (#1) 2025 06/26/2023 DTaP,Tdap,and Td Vaccines (2 - Td or Tdap) 09/30/2029 10/01/2019 RSV Immunization Adult Patients (1 - 1-dose 75+ series) 2040 HIB Vaccines Aged Out No longer eligi ble based on patient's age to complete this topic HPV Vaccines Aged Out No longer eligi ble based on patient's age to complete this topic Hepatitis A Vaccines Aged Out No long er eligible based on patient's age to complete this topic IPV Vaccines Aged Out No longer eligi ble based on patient's age to complete this topic MMR Vaccines Aged Out No longer eligi ble based on patient's age to complete this topic Meningococcal ACWY Vaccine Aged Out N o longer eligible based on patient's age to complete this topic Meningococcal B Vaccine Aged Out No l onger eligible based on patient's age to complete this topic RSV Immunization Patients Under 20 months Aged Out No longer eligible based on patient's age to complete this topic Varicella Vaccines Aged Out No longer eligible based on patient's age to complete this topic Insurance [facility] Care Teams Assistant Professor Of Psychology Relationship Specialty Start Date End Date Anoop Austin MD [address] [address] PCP - General Primary Care 01/24/25
--- OUTSIDE RECORDS SUMMARY | 2025-02-12 15:44 | XMS_ITS | Clinical Summary ---
Author Organization [facility] Address [address] [address] Phone Care Team Providers Care Cheese Pancake Roller Name Role Phone Anoop Austin MD Primary Care Provider [phone] Allergies Active Allergy Reactions Criticality Noted Date [...] (3 2023-2 5 season) 2024 09/11/2020, 08/19/2020 INFLUENZA VACCINE (#1) 2025 Adult Td,Tdap Booster 09/30/2029 10/01/2019 HEPATITIS A [...] topic Medical Devices Not on file Insurance [facility] HMO POS [facility] HMO POS [facility] [place] [address] [place] [address] HMO POS [facility] HMO POS [facility] HMO POS Care Teams Cheese Pancake Roller Relationship Specialty Start Date End Date Anoop Austin MD [address] [place] [id number] PCP - General Medical Oncology 10/12/19 Additional Source Comments The information contained in this document represents components of the legal health record. It is not the complete legal health record.[facility]
--- OUTSIDE RECORDS SUMMARY | 2025-02-12 15:44 | XMS_ITS | Patient Health Record ---
Author Organization [facility] Address [address] [facility] [address] [place] [address] Care Team Providers Care Director Of Placement Name Role Phone Geovanna DEAN, Anoop Primary Care Provider Unavailab Flako Ruiz Jr Unavailable Allergies Allergen (clinical drug ingredient) Drug/Non Drug Allergy documented on EMR Reaction Allergy Type Onset Date Status bees (uncoded) Unknown Allergy Activ e Results Component Value Reference Range Notes Pathology Reviewed date:10/24/2024 10:46:41 AM Interpretation: Performing Lab:[facility], [address] [place] [phone] Notes/Report: Reason For Referral Referring Provider First Name Anoop Referring Provider Last Name Geovanna Referring Provider Speciality Oncology Referred Organization [facility] Referred Provider Flako Grove Jr Referred Address [address] [place] [address], ite [address] [place] [phone], Referred Provider Specialty Gastroentero logy Referral Priority [...] Problem Status W/U Status Risk Notes Problem 140437552 Colon cancer screening (Z12.11) Active confirmed Problem [id number] Personal history of colonic polyps (Z86.010) Active confirmed Problem [id number] Encounter for ot her preprocedural examination (Z01.818) Active confirmed Problem 961992545 Diverticulitis (K57.92) Active confirmed Vital Signs Blood pressure diastolic 11 mm Hg 08/01/2024 Height 73.5 in 08/01/2024 Blood pressure systolic 111 mm Hg 08/01/2024 Weight 234 lbs 08/01/2024 BMI 30.45 kg/m2 08/01/2024 Encounters Encounter Location Date Provider Diagnosis [facility] Outpatient [address] [place], [place] [id number] 10/18/2024 Flako Grove Jr Colon cancer screening Z12.11 ; Personal history of adenomatous and serrated colon polyps Z86.0101 and Colon polyps K63.5 [facility] [address] [place] [phone] 08/01/2024 Flako Grove Jr Colon cancer screening Z12.11 and Diverticulitis K57.92 [facility] [address] [place] [phone] 09/19/2024 Flako Grove Jr [facility] [address] [place] [phone] 10/24/2024 Flako Grove Jr Assessments Encounter Date [...] Start Date Coverage End Date [facility] [address] [place] [address] [id number] RUEL OLIVARES Self - patient is the insured Medical (General) History Medical History History ICD Code Colonoscopy 05/30, normal, five-year fol lowup for prior history of adenomas. COPD BPH Surgical History Surgery Date(Month/Year)
--- OUTSIDE RECORDS SUMMARY | 2025-02-12 15:44 | XMS_ITS | Patient Health Record ---
[facility] Address [address] [place] [address] Care Team Providers Care Calculation Clerk Name Role Phone Anoop Austin MD Primary Care Provider UnavailZahra Blackburn Unavailable [phone] Allergies Allergen (clinical drug ingredient) Drug/Non Drug Allergy documented on EMR Reaction Allergy Type Onset Date Status bee sting Unknown Drug Allergy Active Reason For Referral No Information Problems No Known Problems Plan Of Treatment Pending Test Test Name Order Date [id number] Destruction, 1-14 06/23/2015 53274- Debride <25 sq cm 06/23/2015 Insurance Providers Payer Name Payer Address Payer Phone Subscriber Number Group Number Insured Name Patient Relationship to Insured Coverage Start Date Coverage End Date [facility] [address] [place] [address] [id number] Fabio Aragon Self - patient is the insured
[2025-02-13 12:39] LABS: Free Prostate Spec Ag 0.3 ng/mL; Percent Free Prostate Spec Ag 43 % (calc) (>25)
== END 2025-02-12 13:33 | disposition home or self-care (01) ==
LOC: HO.LAB 13:32
PROVIDERS: PCP Internal Medicine Medical Oncology; Visit Provider Internal Medicine Medical Oncology
DX: N40.0 Benign prostatic hyperplasia without lower urinary tract symptoms (principal); E78.5 Hyperlipidemia, unspecified
CPT/HCPCS: 36415; 84154; 84439; 84443

== ENCOUNTER 2025-02-21 12:18 | Outpatient (AMB) | payer BC, SELFPAY ==
--- NOTE | 2025-02-21 12:33 | A.OFFVIS_ITS ---
Vital Signs 02/21/25 12:34 Height 6 ft 1 in Weight 235 lb 14.314 oz BMI 31.1 BP 116/60 Blood Pressure Location Rt brachial Position Sitting Pulse 75 Pulse Source Pulse Oximeter Pulse Oximetry (%) 96 Oxygen Delivery Method Room Air Intake Visit Reasons: Thyroid Nodule Intake Note: NEW Patient presents here today to establish treatment for Thyroid Nodule: Teaching Specialists Required: No Accompanied by: Significant Other Allergies bee pollen (BEE STINGS) Allergy (Severe, Verified 02/21/25 12:35) Anaphylaxis HPI Comments Details: 59 years old male with past medical history of COPD, pulmonary nodules and thyroid nodule, referred to our office for evaluation and management of thyroid nodule incidentally found during pulmonary cancer screening. Per referral report, patient was found to have a solitary partially calcified 1 cm right isthmus thyroid nodule that was moderately PET positive on a PET scan on 10/01/2024. Patient reports feeling overall well, he is concerned about the coming lung biopsy procedure. He denies fatigue, recent weight changes (lost 60 lb 4 years ago), no cold or heat intolerance, no changes in nails or hair. He does not have any previous history of thyroid disease, does not have family history of thyroid cancer or thyroid disease that he knows, although her mother had ?cancer all over her body?. No sinusitis who reports taking tamsulosin and finasteride for benign prostatic hyperplasia. Physical exam General: Alert, well-nourished, no acute distress. Neck: Supple, no obvious thyromegaly on inspection Neuro: Alert, oriented. Skin: Warm, intact. No rashes or ulcers. Labs 02/12/2025 TSH 1.18 Free T4 1.09 Imaging FLUORINE-18 FDG PET/CT SCAN 10/01/2024 CLINICAL INFORMATION: Right pulmonary nodule TECHNIQUE: 69 minutes following the intravenous administration of 22.1 mCi of fluorine 18 FDG, images from the skull base to proximal thigh were obtained using a combined PET/CT scanner with CT scan based attenuation correction. No oral or intravenous contrast was administered. Transverse, coronal, sagittal, and volume reconstruction projections were obtained. The patient's blood glucose as determined by a finger stick, was 96 mg/dL immediately prior to injection. The radiotracer was injected intravenously through left antecubital vein., without any complications. Total CT exam dose-length product 1130 mGy-cm. * These CT images were obtained using dose optimization techniques as appropriate, variously including the following: Automated exposure control * Adjustment of mA and/or kV according to patient size (this includes techniques or standardized protocols for targeted exams where dose is matched to indication/reason for exam; i.e. extremities or head) * Use of iterative reconstruction technique . COMPARISON: None available. FINDINGS: HEAD AND NECK: There is a solitary partially calcified 1 cm nodule in the right isthmus with moderate FDG activity no additional areas of abnormal FDG activity seen in neck skull base. Visualized intracranial brain parenchyma is unremarkable. The paranasal sinuses are well-aerated. CHEST: Ports and Devices: None Lungs: No abnormal FDG activity seen in both lung apices where nodules were noted on the previous CT chest exam. This could be secondary to hypometabolic nodules or small size. Pleura: No significant pleural effusion. Lymph Nodes: No tracer-avid mediastinal, hilar or internal mammary or axillary lymphadenopathy. Mediastinum: There is no significant pericardial effusion/thickening. Breasts/Chest Wall: No abnormal radiotracer uptake. ABDOMEN/PELVIS: Liver/Biliary System: No abnormal FDG activity seen in the liver or the gallbladder. No focal lesion or intrahepatic ductal dilatation on CT. Pancreas: Normal.No pancreatic ductal dilatation. Spleen: No abnormal radiotracer uptake. No evidence of splenomegaly. Adrenal Glands: There is a 1.3 cm left adrenal nodule not metabolically active. The right gland is unremarkable. Kidneys: No hydronephrosis, hydroureter or renal calculi bilaterally. There is a 2 cm nonenhancing cyst mid pole left kidney. Bowel: There is stool, diverticuli and gas is seen throughout the colon without distention. Small bowel loops are normal caliber. Appendix is normal caliber. No free air or free fluid seen. Lymph Nodes: No tracer avid retroperitoneal, mesenteric or pelvic and/or groin lymphadenopathy. Pelvic Organs: The urinary bladder is underdistended. Prostate gland is mildly enlarged. Small shotty lymph nodes are seen in bilateral inguinal region. There is small left hydrocele noted. MUSCULOSKELETAL: Mild degenerative changes lower cervical, dorsal and upper lumbar spine VASCULAR: Mild atherosclerosis. PET/PET CT fusion skull to thigh IMPRESSION: Moderate focal FDG activity seen in nodule of isthmus. Recommend further evaluation with ultrasound and if needed biopsy There is no FDG activity seen in bilateral apical lung nodule seen on previous study or the nodule in the left upper lobe. May be to small size or metabolically inactive at this time. US THYROID HISTORY: RIGHT THYROID NODULE TECHNIQUE: Real-time grayscale ultrasound imaging was performed and images were reviewed. COMPARISON: Correlation is made with a chest CT dated 01/06/2025. FINDINGS: SIZE: The right thyroid lobe measures 6.3 x 2.5 x 1.6 cm. The left thyroid lobe measures 5.2 x 2.4 x 2.0 cm. The isthmus measures 14 mm. FLOW: Flow to the gland is normal. ECHOGENICITY: The echotexture of the gland is homogeneous. NODULES: There is a nodule of the isthmus on the right with imaging characteristics as follows: Nodule #: 1 Location: Right isthmus measuring 1.7 x 1.1 x 1.9 cm. Shape: Wider than tall (0 points) Margins: Smooth (0 points) Echotexture: Hypoechoic (2 points) Composition: Solid (2 points) Calcifications: Macrocalcifications (1 point) Total points: 5 TIRADS: TR4: Moderately suspicious. IMPRESSION: Moderately suspicious nodule of the right isthmus as described above. According to ACR TI-RADS guidelines, ultrasound-guided fine-needle aspiration is recommended. [facility] Medical History Sleep apnea Diverticulitis BPH (benign prostatic hyperplasia) Hyperlipidemia Nicotine dependence, cigarettes, uncomplicated Tubular adenoma of colon (~2016) COPD (chronic obstructive pulmonary disease) Surgical History History of hand surgery History of colonoscopy Family History Brother Myocardial infarction, Onset Age: 55 Father Stroke Alzheimer disease Mother Lung cancer Stomach cancer Maternal Aunt Breast cancer Social History Household Members: Spouse Are you a primary progressive care nurse to a significant other at home: No Do you presently have visiting nurse or other home services: No Patient Tobacco Use Status: Former Tobacco user Tobacco use type: Cigar Cigarette Packs Per Day: 1 Cigarettes Per Day: 20.0 Years Smoked: 40 Physical Exam Vital Signs: Last Vital Signs Pulse 75 02/21/25 12:34 BP 116/60 02/21/25 12:34 Pulse Ox 96 02/21/25 12:34 Oxygen Delivery Method Room Air 02/21/25 12:34 BMI result Body Mass Index 31.1 Assessment & Plan Assessment & Plan (1) Thyroid nodule: Comment: (solitary partially calcified 1 cm nodule in right isthmus with moderate FDG activity -09/2023 PET) Code(s): E04.1 - Nontoxic single thyroid nodule Category: Medical Plan Assessment/plan Moderately PET avid thyroid nodules more than 1 cm carries a significant risk for malignancy and she should be biopsied irrespective of sonographic features. We discussed the need for FNA, emphasizing that although is not an emergent procedure to be done would like to schedule it soon-approximately 1 month. We discussed in general the types of thyroid cancer, emphasizing that Papillary thyroid cancer the most common, and briefly reviewing the metastatic potential of papillary thyroid cancer. We discussed with the patient that based on the results of the FNA, if no malignancy, we will monitor the thyroid nodule yearly. We also review patient thyroid function tests which were normal Coding Level of Care Code New Pt Level 3 (01396) Diagnoses Thyroid nodule E04.1
[2025-02-21 12:34] VITALS: BP 116/60; PULSE 75; O2SAT 96; BMI 31.1
== END 2025-02-21 13:06 | disposition home or self-care (01) ==
LOC: HO.ENCR 12:18
PROVIDERS: PCP Internal Medicine Medical Oncology; Visit Provider Student in an Organized Health Care Education/Training Program
DX: E04.1 Nontoxic single thyroid nodule (principal)
CPT/HCPCS: 99203

== ENCOUNTER 2025-03-28 08:54 | Outpatient (REF) | payer BC, SELFPAY ==
--- NOTE | 2025-03-28 15:21 | PM.PROC ---
Brief Operative Note Date of procedure: 03/28/25 Pre-op diagnosis: Isthmus thyroid nodule Post-op diagnosis: same Procedure: INDICATION: 1.7 x 1.1 x 1.9 cm Right isthmus thyroid nodule; FNA performed to assess for malignancy DESCRIPTION OF PROCEDURE: The indications for FNA (to assess for malignancy) were reviewed with the patient in detail. Potential complications (e.g., bleeding, infection, damage to local structures, absence of clear diagnosis after FNA) were reviewed. Alternatives to FNA including conservative observation or surgery were described. The patient understood and agreed to proceed. This was documented by the signing of the written informed consent form. A time-out was performed to confirm the patient's identity and the site of planned FNA. The nodule of interest was identified using ultrasound (14 MHz linear array probe). The site of FNA was then draped in the usual fashion and carefully cleaned and prepared using alcohol swabs. The skin and subcutaneous tissue at the previously-identified site of needle insertion were anesthetized using 0.9 cc of 1% lidocaine solution.] [Local anesthesia was offered but declined by the patient. or The skin at the previously-identified site of needle insertion was iced and sprayed with numbing spray. Under ultrasound guidance, an attempt to obtain samples from the thyroid nodule was made and due to difficult location, the attempt was unsuccessful. A 2nd attempt was made and again unsuccessful. It was discussed with the patient that given unsuccessful 2 attempts, we would prefer not to continue to attempt FNA at this point. We discussed with the patient alternatives including send the patient to IR or surgery, or alternatively we could monitor the thyroid nodule in 6 month and if it was growing then referral to IR or surgery will be made to FNA the nodule. Patient agreed to monitoring. The patient tolerated the procedure well. There were no immediate complications. A small adhesive bandage was applied, and the patient was advised to take acetaminophen (rather than NSAIDs) for any discomfort and to report any signs of inflammation/infection or marked swelling. IMPRESSION: Technically UNsuccessful ultrasound-guided fine needle aspiration of thyroid nodule. PLAN: The patient was advised that performed new ultrasound in 6 months and based on where the thyroid nodules change in size/volume or not, we will decide if a new FNA is needed. Trinity Moreno MD Endocrinology Attending Anesthesia: local (Numbness spray) Surgeon: Trinity Moreno Estimated blood loss (mL): 0 Pathology: other Condition: stable Disposition: same day
== END 2025-03-28 08:55 | disposition home or self-care (01) ==
LOC: HO.US 08:54
PROVIDERS: PCP Internal Medicine Medical Oncology; Visit Provider Student in an Organized Health Care Education/Training Program
DX: E04.1 Nontoxic single thyroid nodule (principal)
CPT/HCPCS: 10005

== ENCOUNTER → 2025-03-28 08:54 | Outpatient (BNV) | payer BC, SELFPAY | PROVIDERS: PCP Internal Medicine Medical Oncology; Visit Provider Student in an Organized Health Care Education/Training Program | DX: E04.1 Nontoxic single thyroid nodule (principal) | CPT/HCPCS: 10005 ==

== ENCOUNTER 2025-04-01 13:59 | Outpatient (AMB) | payer BC, SELFPAY ==
--- OUTSIDE RECORDS SUMMARY | 2024-09-13 03:30 | XMS_ITS ---
Author Organization [facility] Address [address] [place] [address] Care Team Providers Care Copy Operator Name Role Phone Geovanna DEAN, Anoop Primary Care Provider Flako Johnson Jr REASON FOR VISIT screening Encounters Encounter Location Date Provider Diagnosis [facility] Outpatient [address] [place] [phone] 09/13/2024 Flako Grove Jr Plan Of Treatment No Information Progress Notes * RUEL HOGANDOB:[birth year] (59 yo M)Acc No.[id number]:09/13/2024 COLON WITH MAC Patient: Andrew OCHOARUEL GARRETT Provider: Kei Grove MD :1965 A ge:59 Y S ex:Male Date:09/13/2024 Address:[address] [place], [place] [id number] Pcp:Anoop Austin MD Subjective: * Chief Complaints: * 1 . Screening. * Medical History: Objective: * Vitals: Assessment: Plan: * Treatment: * * The named appointment provid er may or may not be the originator of this progress note, and it is not deemed complete until electronically signed by the appointment provider. Sign off status: Pending * Provider: Kei Grove MD Date: 0 09/13/2024 Generated for Printi ng/Faxing/eTransmitting on: 1 06:48 PM EDT
--- OUTSIDE RECORDS SUMMARY | 2024-10-02 09:32 | XMS_ITS ---
Author Organization Anoop Austin III, MD Address [address] [place] [address] [place] [address] Care Team Providers Care Trumpet Player Name Role Phone Dr. Anoop Austin III Primary Care Provider REASON FOR VISIT Thyroid Nodule Social History Sex Assigned At : Social History Observation Description Sex Assigned At Male Encounters Encounter Location Date Provider Diagnosis Anoop Austin III, MD [address] [place] [address] [place] [address] 10/02/2024 Anoop Austin Plan Of Treatment Next Appt Details Provider Name:Anoop Austin , 10/24/2025 03:00:00 PM, [address] [place] [address] [place], [address], Progress Notes * Fabio HOGANDOB: [birth year] (59 yo M)Acc No.[id number]:10/02/2024 Patient: Andrew Fabio PAYTON :1965 A ge:59 Y S ex:Male Address: [place] [address] * true * Date: Generated for Printi ng/Faxing/eTransmitting on: 06:50 PM EDT
--- OUTSIDE RECORDS SUMMARY | 2024-10-18 05:20 | XMS_ITS ---
Author Organization [facility] Address [address] [place] [address] Care Team Providers Care Manager Multimedia Name Role Phone Geovanna DEAN, Anoop Primary Care Provider Unavailab Flako Ruiz Jr REASON FOR VISIT screening colon Encounters Encounter Location Date Provider Diagnosis [facility] Out[facility] [address] [place] [phone] 10/18/2024 Flako Grove Jr Colon cancer screening [...] Notes * RUEL HOGANDOB:[birth year] (59 yo M)Acc No.[id number]:10/18/2024 COLON WITH MAC Patient: Andrew RUEL [place] Provider: Kei Grove MD :1965 A ge:59 Y S ex:Male Date:10/18/2024 Address:[address] [place], [place] [phone] Pcp:Anoop Austin MD Subjective: * Chief Complaints: [...] MD Date: 0 10/18/2024 Generated for Anh walker/Angelica/Sulma on: 1 06:49 PM EDT
--- OUTSIDE RECORDS SUMMARY | 2024-10-21 11:00 | XMS_ITS ---
Author Organization Anoop Austin III, MD Address [address] [place] [address] Care Team Providers Care Car Dumper Operator Helper Name Role Phone Dr. Anoop Austin III Primary Care Provider [phone] Allergies Allergen (clinical drug ingredient) Drug/Non Drug [...] months Additional Findings: Tobacco non-user Ex-cigar s krissker AUDIT-C (Standard) Question Answer Notes Did you have a drink containing alcohol in the p ast year? No Points 0 Interpretation Negative Problems Problem Type SNOMED Code ICD Code Onset Dates Problem Status W/U Status Risk Notes Problem 3042954 Former smoker (Z87.891) Active confirmed We made a plan on how to prevent relapse and times of stress and illness. He seems highly motivated not to smoke. Problem 409998194 Pulmonary nodule (R91.1) Active confirmed He has a PET negative right lung mass that has increased in size. He is seeing a thoracic surgeon in exploring his options. These so far have been excision, FNA or observaation for 3 mmonths with a repeat CT scan. He is in the process of deciding. Vital Signs Temperature 99.5 degrees Fahrenheit 10/22/19 25 Blood pressure systolic 129 mm Hg 10/22/19 25 Blood pressure diastolic 80 mm Hg 025 Heart Rate 79 /min 10/21/2024 Height 72 in 10/21/2024 Weight 234 lbs 10/21/2024 BMI 31.73 kg/m2 10/21/2024 Encounters Encounter Location Date Provider Diagnosis Anoop Austin III, MD [address] [place] [address] [address] [place], [place] [address] 10/21/2024 Anoop Austin Other and unspecifie d [...] Total 10/21/2024 Free T4 (Free Thyroxine) 10/21/2024 Next Appt Details Follow Up: 3 Months, Reason: OV Provider Name:Anoop Austin , 10/24/2025 03:00:00 PM, [address] [place] [address], [place] [address], [place], [address], Progress Notes * Fabio HOGANDOB: [birth year] (59 yo M)Acc No.[id number]:10/21/2024 Progress Notes Patient: Fabio ANDERSON Provider: Germán Austin MD :1965 A ge:59 Y S ex:Male Date:10/21/2024 Address:[address] [place], [place] [address] Subjective: * Chief Complaints: * A nnual [...] N egative H e was born in [place], [place]. Smokes cigar occasionally. He has been [...] MD Date: 0 10/21/2024 Generated for Anh walker/Angelica/Sulma on: 1 06:49 PM EDT History and Physical Notes * [...]
--- OUTSIDE RECORDS SUMMARY | 2025-01-14 06:26 | XMS_ITS ---
Author Organization Anoop Austin III, MD Address [address] [place] [place] [address] Care Team Providers Care Touch Up Carver Name Role Phone Dr. Anoop Austin III Primary Care Provider [phone] REASON FOR VISIT update on this patient Social History Sex Assigned At : Social History Observation Description Sex Assigned At Male Encounters Encounter Location Date Provider Diagnosis Anoop Austin III, MD [address] [place] [address] [place] [address] 01/14/2025 Anoop Austin Plan Of Treatment Next Appt Details Provider Name:Anoop Austin , 10/24/2025 03:00:00 PM, [address] [place] [address] [place], [address], Progress Notes * Fabio HOGANDOB: [birth year] (59 yo M)Acc No.[id number]:01/14/2025 Patient: Andrew Fabio PAYTON :1965 A ge:59 Y S ex:Male Address: [place] [address] * true * Date: Generated for Printi ng/Faxing/eTransmitting on: 06:48 PM EDT
--- OUTSIDE RECORDS SUMMARY | 2025-01-15 13:15 | XMS_ITS ---
Author Organization Anoop Austin III, MD Address [address] [place] [address] [place] [address] Care Team Providers Care Trade Embalmer Name Role Phone Dr. Anoop Austin III Primary Care Provider [phone] REASON FOR VISIT Follow up Social History Sex Assigned At : Social History Observation Description Sex Assigned At Male Encounters Encounter Location Date Provider Diagnosis Anoop Austin III, MD [address] [place] [address] [place] [address] 01/15/2025 Anoop Austin Plan Of Treatment Next Appt Details Provider Name:Anoop Austin , 10/24/2025 03:00:00 PM, [address] [place] [address] [place], [address], Progress Notes * Fabio HOGANDOB: [birth year] (59 yo M)Acc No.[id number]:01/15/2025 Progress Notes Patient: Andrew OCHOAGERRY Fabio Provider: Germán Austin MD :1965 A ge:59 Y S ex:Male Date:01/15/2025 Address: [place], [place] Subjective: * Chief Complaints: * 1 . Follow up. * Medical History: Objective: * Vitals: Assessment: Plan: * Treatment: * Images: * The named appointment provid er may or may not be the originator of this progress note, and it is not deemed complete until electronically signed by the appointment provider. Sign off status: Pending * Provider: Germán Austin MD Date: 0 01/15/2025 Generated for Anh walker/Angelica/Sulma on: 1 06:50 PM EDT
--- OUTSIDE RECORDS SUMMARY | 2025-01-17 09:45 | XMS_ITS ---
Author Organization Anoop Austin III, MD Address [address] [place] [address] [place] [address] Care Team Providers Care Artists' Booking Representative Name Role Phone Dr. Anoop Austin III Primary Care Provider REASON FOR VISIT appt for biopsy not made as of yet Social History Sex Assigned At : Social History Observation Description Sex Assigned At Male Encounters Encounter Location Date Provider Diagnosis Anoop Austin III, MD [address] [place] [address] [place] [address] 01/17/2025 Anoop Austin Plan Of Treatment Next Appt Details Provider Name:Anoop Austin , 10/24/2025 03:00:00 PM, [address] [place] [address] [place], [address], Progress Notes * Fabio HOGANDOB: [birth year] (59 yo M)Acc No.[id number]:01/17/2025 Patient: Andrew Fabio [place]YTON :1965 A ge:59 Y S ex:Male Address: [place] [address] * true * Date: Generated for Printi ng/Faxing/eTransmitting on: 06:50 PM EDT
--- OUTSIDE RECORDS SUMMARY | 2025-02-03 11:30 | XMS_ITS ---
Author Organization Anoop Austin III, MD Address [address] [place] [address] Care Team Providers Care Printer Small Print Shop Name Role Phone Dr. Anoop Austin III Primary Care Provider [phone] Allergies Allergen (clinical drug ingredient) Drug/Non Drug Allergy documented on EMR Reaction Allergy Type Onset Date Status No Known Drug Allergy Unknown Drug Allergy Active No Known Food Allergy Unknown Drug Allergy Active Bee Sting Unknown Allergy Active Reason For Referral Reason Urgent Appointment R equest Evaluate and Treat Thyroid Nodule Recommending Biospy Diagnosis 1 Thyroid nodule (E04. 1) Referral Organization Anoop uAstin III, MD Referring Provider First Name Anoop Referring Provider Last Name Geovanna Referring Provider Speciality Internal M edicine Referred Provider [facility] Referred Provider Specialty Endocrinolog y General Notes D 02/05/2025 03:57:06 PM > Referral, progress note, US and CT faxed, Bonnie 02/11/2025 02:56:08 PM >Office received referral. Patient needs to have TSH and Free T4 lab done prior to scheduling patient. Patient was made aware and had the labs faxed to Outpatient booking to have the lab work completed tomorrow., Bonnie 02/13/2025 11:19:49 AM > Endocrine has received TSH and Free T4 labs. They will be reaching out to patient today to schedule. Referral Priority Urgent Referral Appointment Date 02/21/2025 REASON FOR VISIT Nodule, thyroid isthmus, Pulmonary nodule, Hyperlipidemia, Obesity, COPD and, Sleep apnea, Benign prostatic hypertrophy, Emphysema Medications Medication SIG (Take, Route, Frequency, Duration) Notes Start Date End Date Status Finasteride 5 MG TAKE 1 TABLET BY TENISHA TH EVERY MORNING Oral Active Incruse Ellipta 62.5 MCG/ACT 1 puff Inhalation Once a day 10/21/2024 Active Tamsulosin HCl 0.4 MG 2 capsule Orally O nce a day Active EpiPen 2-Ruy 0.3 MG/0.3ML USE EPI PEN NEEDED FOR BEE STINGS Injection DIRECTED Active Fluticasone-Salmeterol 500-50 MCG/ACT INHALE 1 PUFF BY MOUTH TWICE DAILY Inhalation Active Albuterol Sulfate HFA 108 (90 [...] months Additional Findings: Tobacco non-user Ex-cigar s moker Problems Problem Type SNOMED Code ICD Code Onset Dates Problem Status W/U Status Risk Notes Problem 512032256 Thyroid nodule (E04.1) Active confirmed He has cereals screening CT scan of the chest because of a smoking history. He is being evaluated now for a pulmonary nodule that is suspicious but PET negative. He had a PET CT scan October 01, 2024 at [facility] that showed the pulmonary nodule to be PET negative but he had a solitary partially calcified 1 cm right isthmus thyroid nodule. He is being referred to endocrinology for evaluation of thiis nodule, which was moderately PET positive. Vital Signs Temperature 98.6 degrees Fahrenheit 02/04/20 25 Blood pressure systolic 134 mm Hg 02/04/20 Blood pressure diastolic 97 mm Hg 025 Heart Rate 79 /min 02/03/2025 Height 72 in 02/03/2025 Weight 236 lbs 02/03/2025 BMI 32 kg/m2 02/03/2025 Encounters Encounter Location Date Provider Diagnosis Anoop Austin III, MD [address] [place] [address] [place] [address] 02/03/2025 Anoop Austin Pulmonary nodule R91 .1 ; Obesity E66.9 ; Former smoker Z87.891 ; Other and unspecified hyperlipidemia E78.5 ; Other osteoarthritis involving multiple joints M15.8 ; COPD (chronic obstructive pulmonary disease) J44.9 ; Pulmonary emphysema, unspecified emphysema type J43.9 and Thyroid nodule E04.1 Assessments Encounter Date Diagnosis (ICD Code) Assessment Notes Treat ment Notes Treatment Clinical Notes 02/03/2025 Pulmonary nodule (ICD-10 - R91.1) He has a PET negative right lung mass that has increased in size. He is seeing a thoracic surgeon in exploring his options. These so far have been excision, FNA or observaation for 3 mmonths with a repeat CT scan. He is in the process of deciding. 02/03/2025 Obesity (ICD-10 - E66.9) His body mass index is stable at 33. We discussed his diet and nutrition today. We made a plan to lose weight at a rate of one half of a pound per week. 02/03/2025 Former smoker (ICD-1 0 - Z87.891) We made a plan on how to prevent relapse and times of stress and illness. He seems highly motivated not to smoke. 02/03/2025 Other and unspecifie d hyperlipidemia (ICD-10 - E78.5) His lipids are being checked periodically. No change in his regimen was necessary today. 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 His main complaint today is right shoulder pain. He is be treated with ibuprofen. 02/03/2025 COPD (chronic obstructive pulmonary disease) (ICD-10 - J44.9) He continues to be abstinent from cigarettes. He recently had acute on chronic bronchitis with green phlegm, but this is clearing now. He is becoming stronger. No change in his therapy was indicated. 02/03/2025 Pulmonary emphysema, unspecified emphysema type (ICD-10 - J43.9) He is comfortable breathing at rest but has some dyspnea with exertion. This is improving. He is no longer smoking cigarettes. 02/03/2025 Thyroid nodule (ICD-10 - E04.1) He has cereals screening CT scan of the chest because of a smoking history. He is being evaluated now for a pulmonary nodule that is suspicious but PET negative. He had a PET CT scan October 01, 2024 at [facility] that showed the pulmonary nodule to be PET negative but he had a solitary partially calcified 1 cm right isthmus thyroid nodule. He is being referred to endocrinology for evaluation of thiis nodule, which was moderately PET positive. Plan Of Treatment Medication Medication Name Sig Start Date Stop Date Notes Finasteride 5 MG TAKE 1 TABLET BY TENISHA TH EVERY MORNING Oral Incruse Ellipta 62.5 MCG/ACT 1 puff Inhalation Once a day 10/21/2024 Tamsulosin HCl 0.4 MG 2 capsule Orally Once a day EpiPen 2-Ruy 0.3 MG/0.3ML USE EPI PEN NEEDED FOR BEE STINGS Injection DIRECTED Fluticasone-Salmeterol 500-5 0 MCG/ACT INHALE 1 PUFF BY MOUTH TWICE DAILY Inhalation Albuterol Sulfate HFA 108 (9 0 Base) MCG/ACT INHALE 2 PUFFS INTO THE LUNGS EVERY 4 HOURS FOR WHEEZING Inhalation every 4 hrs Referrals Referral Date Details 02/03/2025 02/03/2025, Urgent A ppointment Request Evaluate and Treat Thyroid Nodule Recommending Biospy, [facility] Next Appt Details Follow Up: 4 Weeks, Reason: OV Provider Name:Anoop Austin , 10/24/2025 03:00:00 PM, [address] [place] [address] [address], [place], [address], Progress Notes * Fabio HOGANDOB: [birth year] (59 yo M)Acc No.[id number]:02/03/2025 Progress Notes Patient: Fabio ANDERSON Provider: Germán Austin MD :1965 A ge:59 Y S ex:Male Date:02/03/2025 Address:[address] [place], [place] [phone] Subjective: * Chief Complaints: * N odule, thyroid isthmusPulmonary noduleHyperlipidemiaObesityCOPD andSleep apneaBenign prostatic hypertrophyEmphysema * HPI: C OVID-19 Screening: H negro has an enlarging PET negative mass in his left lower lobe. He is going to see the thoracic surgeon, Dr. Haro Earlier this morning who gave him 3 options. These are excision, observation for 3 months or needle biopsy now. The patient is trying to come to a decision about how he wants to be treated. His breathing is at baseline, which is short of breath with prolonged exertion. He had a nodule seen on the CT scan in the isthmus of his thyroid which meets criteria for fine needle aspiration biopsy. He is being referred to endocrinology for this purpose. Questions H ave you had any new onset fever, chills, cough, congestion, sore throat, shortness of breath, muscle aches? N o * ROS: G eneral/Constitutional: pain o nly [...] have been noted. G enitourinary: Frequent urination o nce a night. M usculoskeletal: Muscle aches d [...] Medical History: * Surgical History: c olonoscopy 2016right hand surgery 10/2019Colonoscopy 10/18/2024 * Hospitalization/Major Diagno [...] dditional Findings: Tobacco non-user E x-cigar smoker H e was born in [place], [place]. Smokes cigar occasionally. He has been [...] 1 PUFF BY MOUTH TWICE DAILY Inhalation Medication List reviewed and reconciled with the [...] 1 PUFF BY MOUTH TWICE DAILY Inhalation Medication List reviewed and reconciled with the patient * Allergies: B ee StingNo Known Drug AllergyNo Known Food Allergyno[Allergies Verified] Objective: * Vitals: H t: 72, Wt: 236, BMI:32, BP: 134/97, HR: 79, Temp: 98.6, Wt-k.05. * Examination: G eneral Examination: GENERAL APPEARANCE: p alysia, well nourished, well developed, in no acute distress, calm and relaxed: obese: man. HEAD: a traumatic, normocephalic. EYES: e philippe, perrla, anicteric, conjugate. EARS: n ormal. NOSE: s eptum intact. ORAL CAVITY: n ormal, unremarkable. NECK/THYROID: n o jugular venous distention, no carotid bruit, thyroid normal. LYMPH NODES: n o enlarged lymph nodes,spleen normal. SKIN: n o suspicious lesions, anicteric. HEART: n o clicks, gallops, murmurs, or rubs, regular rhythm, S1, S2 normal, no s3, or vascular bruits. LUNGS: : diminished breath sounds throughout: no wheezes, rales, rhonchi: good air movement. BREASTS: no masses palpable bilaterally. ABDOMEN: b owel sounds normal, no ascites, no organomegaly, no mass: centripital obesity. RECTAL EXAM: n ot examined. MUSCULOSKELETAL: e xtremities unremarkable, no clubbing, cyanosis or edema. PERIPHERAL PULSES: n ormal. NEUROLOGIC: a lert and oriented, cranial nerves 2-12 grossly intact, deep tendon reflexes 2+ symmetrical, motor strength normal upper and lower extremities, sensory exam intact. PSYCH: a lert, oriented. Assessment: * Assessment: 1. P ulmonary nodule - R91.1 (Primary) N otes :He has a PET negative right lung mass that has increased in size. He is seeing a thoracic surgeon in exploring his options. These so far have been excision, FNA or observaation for 3 mmonths with a repeat CT scan. He is in the process of deciding. 2 . O besity - E66.9 N otes :His body mass index is stable at 33. We discussed his diet and nutrition today. We made a plan to lose weight at a rate of one half of a pound per week. 3 . F ormer smoker - Z87.891 N otes :We made a plan on how to prevent relapse and times of stress and illness. He seems highly motivated not to smoke. 4 . O ther and unspecified hyperlipidemia - E78.5 N otes :His lipids are being checked periodically. No change in his regimen was necessary today. 5 . O ther osteoarthritis involving multiple joints - M15.8 N otes :The arthritis in his hands has become mild and he is working full-time without difficulty. His main complaint today is right shoulder pain. He is be treated with ibuprofen. 6 . C OPD (chronic obstructive pulmonary disease) - J44.9 N otes :He continues to be abstinent from cigarettes. He recently had acute on chronic bronchitis with green phlegm, but this is clearing now. He is becoming stronger. No change in his therapy was indicated. 7 . P ulmonary emphysema, unspecified emphysema type - J43.9 N otes :He is comfortable breathing at rest but has some dyspnea with exertion. This is improving. He is no longer smoking cigarettes. 8 . T hyroid nodule - E04.1 N otes :He has cereals screening CT scan of the chest because of a smoking history. He is being evaluated now for a pulmonary nodule that is suspicious but PET negative. He had a PET CT scan October 01, 2024 at [facility] that showed the pulmonary nodule to be PET negative but he had a solitary partially calcified 1 cm right isthmus thyroid nodule. He is being referred to endocrinology for evaluation of thiis nodule, which was moderately PET positive. Plan: * Treatment: * Procedure Codes: * Preventive Medicine: Counseling: [...] tobacco use and urged to quit. 0 02/03/2025 COPD Care Plan: P atient Lifestyle Goals R elieve symptoms and improve quality of life, Reduce number of ED and hospitalizations, Be able to be more active with friends and family. T reatment Goals E xercise to help whole body, including lungs, Eat a nutritious diet and increase water consumption to 6-8 glasses a day, Eat 4-5 small meals throughout the day. B arriers n o barriers. S elf-Managment Goals G et an air purifier for the rooms you are in the most, Eat a healthy diet, Exercise at least 3xs per week for at least 30 mins.? * Follow Up: 4 Weeks (Reason: OV) * Images: * Sign off status: Completed true * Provider: Germán Austin MD Date: 0 02/03/2025 Generated for Anh walker/Angelica/Akiraransmitting on: 06:49 PM EDT History and Physical Notes * HPI (History of Present Illness) Category Sub-Category Detail Notes COVID-19 Screening Questions Have you had any new onset fever, chills, cough, congestion, sore throat, shortness of breath, muscle aches?: No Examination Category Sub-Category Detail Notes General Examination GENERAL APPEARANCE: pleasant , well nourished, well developed, in no acute distress, calm and relaxed: obese: man HEAD: atraumatic, normocep halic EYES: eomi, perrla, anicte galo, conjugate EARS: normal NOSE: septum intact NECK/THYROID: no jugular venous di stention, no carotid bruit, thyroid normal HEART: no clicks, gallops, murmurs, or rubs, regular rhythm, S1, S2 normal, no s3, or vascular bruits LUNGS: : diminished breath sounds throughout: no wheezes, rales, rhonchi: good air movement ABDOMEN: bowel sounds normal, no ascites, no organomegaly, no mass: centripital obesity NEUROLOGIC: alert and oriented, cranial [...] normal RECTAL EXAM: not examined PSYCH: alert, oriented ORAL CAVITY: normal, unremarkable Consultation Request Notes Referral Date Referring Provider Referred Provider Not es 02/03/2025 Anoop Austin [facility], [facility] Urgent Appointment Request Evaluate and Treat Thyroid Nodule Recommending Biospy
--- OUTSIDE RECORDS SUMMARY | 2025-02-07 07:30 | XMS_ITS ---
Author Organization Anoop Austin III, MD Address [address] [place] [address] [place] [address] Care Team Providers Care Production Truck Driver Name Role Phone Dr. Anoop Austin III Primary Care Provider REASON FOR VISIT FYI Social History Sex Assigned At : Social History Observation Description Sex Assigned At Male Encounters Encounter Location Date Provider Diagnosis Anoop Austin III, MD [address] [place] [address] [place] [address] 02/07/2025 Anoop Austin Plan Of Treatment Next Appt Details Provider Name:Anoop Austin , 10/24/2025 03:00:00 PM, [address] [place] [address] [place], [address], Progress Notes * Fabio HOGANDOB: [birth year] (59 yo M)Acc No.[id number]:02/07/2025 Patient: Andrew Fabio PAY[place] :1965 A ge:59 Y S ex:Male Address: [place] [address] * true * Date: Generated for Printi ng/Faxing/eTransmitting on: 06:47 PM EDT
--- OUTSIDE RECORDS SUMMARY | 2025-02-28 13:00 | XMS_ITS ---
Author Organization Anoop Austin III, MD Address [address] [address] Care Team Providers Care Novelty Chain Maker Name Role Phone Dr. Anoop Austin III Primary Care Provider Allergies Allergen (clinical drug ingredient) Drug/Non Drug Allergy documented on EMR Reaction Allergy Type Onset Date Status No Known Drug Allergy Unknown Drug Allergy Active No Known Food Allergy Unknown Drug Allergy Active Bee Sting Unknown Allergy Active REASON FOR VISIT Follow up Medications Medication SIG (Take, Route, Frequency, Duration) Notes Start Date End Date Status Finasteride 5 MG TAKE 1 TABLET BY TENISHA TH EVERY MORNING Oral Active Tamsulosin HCl 0.4 MG 2 capsule Orally O nce a day Active Albuterol Sulfate HFA 108 (90 Base) MCG/ACT INHALE 2 PUFFS INTO THE LUNGS EVERY 4 HOURS FOR WHEEZING Inhalation every 4 hrs Active Incruse Ellipta 62.5 MCG/ACT 1 puff [...] Additional Findings: Tobacco non-user Ex-cigar s moker Encounters Encounter Location Date Provider Diagnosis Anoop Austin III, MD [address] [place] [address] [address] [place] [address] 02/28/2025 Anoop Austin Plan Of Treatment Medication Medication Name Sig Start Date Stop Date Notes Finasteride 5 MG TAKE 1 TABLET BY TENISHA TH EVERY MORNING Oral Tamsulosin HCl 0.4 MG 2 capsule Orally Once a day Albuterol Sulfate HFA 108 (9 0 Base) MCG/ACT INHALE 2 PUFFS INTO THE LUNGS EVERY 4 HOURS FOR WHEEZING Inhalation every 4 hrs Incruse Ellipta 62.5 MCG/ACT 1 puff Inhalation Once a day 10/21/2024 Fluticasone-Salmeterol 500-5 0 MCG/ACT INHALE 1 PUFF BY MOUTH TWICE DAILY Inhalation EpiPen 2-Ruy 0.3 MG/0.3ML USE EPI PEN NEEDED FOR BEE STINGS Injection DIRECTED Next Appt Details Provider Name:Anoop Austin , 10/24/2025 03:00:00 PM, [address] [place] [address] [address], [place], [address], Progress Notes * Fabio HOGANDOB: [birth year] (59 yo M)Acc No.[id number]:02/28/2025 Progress Notes Patient: Fabio ANDERSON Provider: Germán Austin MD :1965 A ge:59 Y S ex:Male Date:02/28/2025 Address:[address] [place], [place] [id number] Subjective: * Chief Complaints: * 1 . Follow up. * HPI: C OVID-19 Screening: Questions H ave you had any new onset fever, chills, cough, congestion, sore throat, shortness of breath, muscle aches? N o * ROS: G eneral/Constitutional: pain o nly normal aches and pains. C hills d enies.?Fatigue a dmits. F ever d enies. E NT: Decreased hearing d enies. R espiratory: Cough d enies. C ardiovascular: Chest pain with exertion d enies. D yspnea on exertion?denies. S hortness of breath d enies. G astrointestinal: Constipation d enies. D ecreased appetite d enies.?Diarrhea d enies. H eartburn d enies. N ausea d enies. R ectal bleeding?denies. V omiting d enies. H ematology: bruising d enies. p etechiae d enies. S wollen glands n one have been noted. G enitourinary: Frequent urination d enies. M usculoskeletal: Muscle aches d enies. P ainful joints d enies. S ciatica d enies. W eakness d enies. S kin: Itching d enies. R pipe d enies. S kin lesion(s)?denies. N eurologic: Difficulty speaking d enies. D izziness d enies.?Headache d enies. L ow back pain d enies. P sychiatric: Depressed mood d enies. * Medical History: F racture of arm,leg,clavicle, Osteoarthritis, Hyperlipidemia, sleep apnea, COPD, Plantar wart right foot, Tobacco dependence, Obesity, colonic polyps, Dr. Grove, tubular adenoma, COPD, Emphysema. * Surgical History: c olonoscopy 2015, right hand surgery 10/2019, Colonoscopy 10/18/2024. * Hospitalization/Major Diagno stic Procedure: D enies Past Hospitalization. * Family History: F ather: 67 yrs, [...] x-cigar smoker H e was born in [place], [place]. Smokes cigar occasionally. He has been to [facility] for many years. * Medications: T julisag EpiPen 2-Ruy 0.3 MG/0.3ML Device USE EPI PEN NEEDED FOR BEE STINGS Injection DIRECTED , Taking Albuterol Sulfate HFA 108 (90 Base) MCG/ACT Aerosol Solution INHALE 2 PUFFS INTO THE LUNGS EVERY 4 HOURS FOR WHEEZING Inhalation every 4 hrs , Taking Tamsulosin HCl 0.4 MG Capsule 2 capsule Orally Once a day , Taking Finasteride 5 MG Tablet TAKE 1 TABLET BY MOUTH EVERY MORNING Oral , Taking Incruse Ellipta 62.5 MCG/ACT Aerosol Powder Breath Activated 1 puff Inhalation Once a day , Taking Fluticasone-Salmeterol 500-50 MCG/ACT Aerosol Powder Breath Activated INHALE 1 PUFF BY MOUTH TWICE DAILY Inhalation , Medication List reviewed and reconciled with the patient * Allergies: B ee Sting, No Known Drug Allergy, No Known Food Allergy. Objective: * Vitals: * Examination: G eneral Examination: GENERAL APPEARANCE: p leasant, well nourished, well developed, in no acute distress, calm and relaxed. HEAD: a traumatic, normocephalic. EYES: e philippe, [...] normal, no s3, or vascular bruits. LUNGS: c lear to auscultation . BREASTS: no masses palpable bilaterally. ABDOMEN: b owel sounds normal, no ascites, no organomegaly, no mass. RECTAL EXAM: n ot examined. MUSCULOSKELETAL: e xtremities unremarkable, no clubbing, cyanosis or edema. PERIPHERAL PULSES: n ormal. NEUROLOGIC: a lert and oriented, cranial nerves 2-12 grossly intact, deep tendon reflexes 2+ symmetrical, motor strength normal upper and lower extremities, sensory exam intact. PSYCH: a lert, oriented. Assessment: Plan: * Treatment: * Images: * The named appointment provid er may or may not be the originator of this progress note, and it is not deemed complete until electronically signed by the appointment provider. Sign off status: Pending * Provider: Germán Austin MD Date: 0 02/28/2025 Generated for Anh walker/Angelica/Sulma on: 06:47 PM EDT History and Physical Notes * HPI (History of Present Illness) Category Sub-Category Detail Notes COVID-19 Screening Questions Have you had any new onset fever, chills, cough, congestion, sore throat, shortness of breath, muscle aches?: No Examination Category Sub-Category Detail Notes General Examination GENERAL APPEARANCE: pleasant , well nourished, well developed, in no acute distress, calm and relaxed HEAD: atraumatic, normocep halic EYES: eomi, perrla, anicte galo, conjugate EARS: normal NOSE: septum intact NECK/THYROID: no jugular venous di stention, no carotid bruit, thyroid normal HEART: no clicks, gallops, murmurs, or rubs, regular rhythm, S1, S2 normal, no s3, or vascular bruits LUNGS: clear to auscultatio n ABDOMEN: bowel sounds normal, no ascites, no organomegaly, no mass NEUROLOGIC: alert and oriented, cranial nerves 2-12 [...]
--- OUTSIDE RECORDS SUMMARY | 2025-03-07 07:26 | XMS_ITS ---
Author Organization Anoop Austin III, MD Address [address] [place] [address] [place] [address] Care Team Providers Care Corporate Risk Analyst Name Role Phone Dr. Anoop Austin III Primary Care Provider [phone] REASON FOR VISIT Message Social History Sex Assigned At : Social History Observation Description Sex Assigned At Male Encounters Encounter Location Date Provider Diagnosis Anoop Austin III, MD [address] [place] [address] [place] [address] 03/07/2025 Anoop Austin Plan Of Treatment Next Appt Details Provider Name:Anoop Austin , 10/24/2025 03:00:00 PM, [address] [place] [address] [place], [address], Progress Notes * Fabio HOGANDOB: [birth year] (59 yo M)Acc No.[id number]:03/07/2025 Patient: Andrew Fabio PAYTON :1965 A ge:59 Y S ex:Male Address: [place] [address] * true * Date: Generated for Printi ng/Faxing/eTransmitting on: 06:48 PM EDT
--- OUTSIDE RECORDS SUMMARY | 2025-03-31 07:45 | XMS_ITS ---
Author Organization Anoop Austin III, MD Address [address] [place] [address] Care Team Providers Care Loan Services Professional Name Role Phone Dr. Anoop Austin III Primary Care Provider Reason For Referral Reason evaluate and treatme nt for thyroid nodule Thyroid nodule biopsy needed Diagnosis 1 Right thyroid nodule (E04.1) Referral Organization Anoop Austin III, MD Referring Provider First Name Anoop Referring Provider Last Name Geovanna Referring Provider Speciality Internal M edicine Referred Provider Tristen Hare Referred Provider Specialty Endocrinolog y Referral Priority Routine REASON FOR VISIT Message Social History Sex Assigned At : Social History Observation Description Sex Assigned At Male Encounters Encounter Location Date Provider Diagnosis Anoop Austin III, MD [address] [place] [address] [place] [address] 03/31/2025 Anoop Austin Plan Of Treatment Referrals Referral Date Details 03/31/2025 03/31/2025, evaluate and treatment for thyroid nodule Thyroid nodule biopsy needed, Susie Casarez Next Appt Details Provider Name:Anoop Austin , 10/24/2025 03:00:00 PM, [address] [place] [address] [place], [address], Progress Notes * Fabio HOGANDOB: [birth year] (59 yo M)Acc No.[id number]:03/31/2025 Patient: Fabio ANDERSON :1965 A ge:59 Y S ex:Male Address:[address] [place] [phone] Subjective: * Chief Complaints: * M essage * Medical History: * Surgical History: * Hospitalization/Major Diagno stic Procedure: * Medications: Objective: * Vitals: * Physical Examination: Assessment: Plan: * Treatment: * Procedure Codes: * * Date: Consultation Request Notes Referral Date Referring Provider Referred Provider Not maida 03/31/2025 Anoop Austin Kimberly ev aluate and treatment for thyroid nodule Thyroid nodule biopsy needed
--- NOTE | 2025-04-01 14:03 | MHC.OFFVIS ---
Vital Signs 04/01/25 14:04 Height 6 ft 1 in Weight 243 lb 9.773 oz BMI 32.1 BP 120/70 Blood Pressure Location Lt brachial Position Sitting Pulse 80 Pulse Source Pulse Oximeter Pulse Oximetry (%) 94 Oxygen Delivery Method Room Air Intake Visit Reasons: copd/natalia Intake Note: pt is here for follow up and states he is feeling ribs are still hurting, and breathing is better than prior to surgery, shortness of breath is still there not bad though, some cough. post surgery 3 weeks. 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 HE HAS BEEN TREATED WITH WIXELA 500-51 INHALATION B.I.D. AND INCRUSE ELLIPTA ONCE A DAY. USES ALBUTEROL ONLY P.R.N. HE HAS BEEN IN ANNUAL CANCER SCREENING PROGRAM, CT SCAN OF THE CHEST IN OCTOBER 2024, SHOWED THE NODULE IN THE RIGHT APEX HAD RECEDED IN SIZE BUT THERE WAS ANOTHER NODULE IN THE LEFT UPPER LOBE WHICH INCREASED IN SIZE HE HAD REPEAT CT SCAN IN 3 MONTHS INTERVAL WHICH SHOWED THAT THE NODULE IN LEFT UPPER LOBE WAS PERSISTENT. THUS HE UNDERWENT WEDGE RESECTION ON 03/06/25 AT [facility], BY DR.LAKI KING . POSTOPERATIVELY HE HAS DONE WELL EXCEPT FOR SOME NEUROPATHIC PAIN IN THE LEFT UPPER ABDOMEN, WHICH IS GRADUALLY IMPROVING. HE CLAIMS THAT HIS BREATHING IS ACTUALLY BETTER THAN BEFORE SURGERY, AND I THINK THIS IS BECAUSE SINCE HIS SURGERY HE HAS STOP SMOKING COMPLETELY. THE PATHOLOGY REPORT INDICATED THAT THE NOT DO REMOVED FROM THE LEFT UPPER LOBE, WAS SUGGESTIVE OF MYCETOMA. SO HE IS HERE TODAY TO DISCUSS THE TREATMENT PLAN. I REVIEWED THESE FINAL PATHOLOGY REPORT, AND IT IS NEGATIVE FOR ANY FUNGAL ORGANISMS IT IS ALSO NEGATIVE FOR ACID-FAST BACILLI. POSTOPERATIVE CHEST X-RAY SHOW HYPERINFLATED LUNGS CONSISTENT WITH PULMONARY EMPHYSEMA. THERE IS NO RESIDUAL MASS OR CONSOLIDATION. [facility] Medical History Sleep apnea Diverticulitis BPH (benign prostatic hyperplasia) Hyperlipidemia Nicotine dependence, cigarettes, uncomplicated Tubular adenoma of colon (~2016) COPD (chronic obstructive pulmonary disease) Surgical History History of hand surgery History of colonoscopy Family History Brother Myocardial infarction, Onset Age: 55 Father Stroke Alzheimer disease Mother Lung cancer Stomach cancer Maternal Aunt Breast cancer Social History Household Members: Spouse Are you a primary customer care representative to a significant other at home: No Do you presently have visiting nurse or other home services: No Patient Tobacco Use Status: Former Tobacco user Tobacco use type: Cigar Cigarette Packs Per Day: 1 Cigarettes Per Day: 20.0 Years Smoked: 40 Review of Systems Const All systems reviewed & are unremarkable except as noted in HPI and below Eyes Reports no additional complaints ENT Reports no additional complaints Card Denies chest pain, Denies irregular heart rhythm and Denies leg edema Resp Reports as per HPI GI Reports no additional complaints Reports nocturia and Reports other (BEING TREATED FOR BPH) Musc Reports no additional complaints Skin/Breast Reports system reviewed and no additional complaints, except as documented Neuro Reports no additional complaints Psych Reports no additional complaints Endo Reports no additional complaints Yon/Lymph Reports no additional complaints Physical Exam Vital Signs: Last Vital Signs Pulse 80 04/01/25 14:04 BP 120/70 04/01/25 14:04 Pulse Ox 94 04/01/25 14:04 Oxygen Delivery Method Room Air 04/01/25 14:04 BMI result Body Mass Index 32.1 Const General: comfortable, no acute distress, alert and awake Orientation/consciousness: patient oriented x3 HEENT Head: Yes normal to inspection General nose exam: No nasal polyps present and No nasal discharge present Face and sinus: Yes sinuses nontender Mouth: oropharynx normal Throat: Yes posterior oropharynx normal Eyes General: appearance normal, both eyes and all related structures Neck Neck: Yes normal visual inspection, Yes no lymphadenopathy, Yes trachea midline and Yes no JVD Thyroid: Thyroid normal Chest Chest palpation & inspection: abnormal inspection of the chest (THERE ARE FOR ENTRY SPOTS OVER THE LEFT CHEST WALL, . NOW HEALED), normal palpation of entire chest wall and no tenderness Resp Other: PERCUSSION NOTE HYPER-RESONANT, BREATH SOUNDS ARE VERY DISTANT WITH PROLONGED EXPIRATORY PHASE. I DID NOT HEAR ANY WHEEZES OR RHONCHI OR CREPITATIONS. Cardio Palpation: normal PMI Rate: regular rate Rhythm: regular rhythm Heart sounds: no gallops and no murmurs GI Palpation (GI): Soft to palpation, nontender, No hepatosplenomegaly present and no masses Auscultation: normal bowel sounds Back/Spine/Pelvis Thoracic/Lumbar Spine: thoracic and lumbar spine normal to inspection Skin General skin exam: no rashes or lesions noted Neuro General: patient oriented x3 and no focal motor deficits Cranial nerves: Yes CN's II-XII intact bilaterally Extrem General: Yes normal to inspection, Yes no clubbing, cyanosis or edema and Yes no calf tenderness Psych Appearance: grossly normal Speech and movement: Normal speech and movement present Results Reviewed Results Reviewed: I REVIEWED THE REPORTS FROM [facility]. THE FINAL PATHOLOGY REPORT, POST OF CHEST X-RAY AND NOTES FROM THORACIC SURGERY TEAM Assessment & Plan Assessment & Plan (1) COPD (chronic obstructive pulmonary disease): Comment: VERY SEVERE COPD, WITH AIR TRAPPING. ONLY SLIGHTLY IMPROVED WITH THE USE OF ADVAIR. HE CLAIMS THAT HE IS RELATIVELY STABLE WITH THE CURRENT MEDICAL REGIMEN. HE CLAIMS THAT HE IS PRONE TO HAVE ACUTE EXACERBATION ABOUT ONCE OR TWICE A YEAR, WHEN HE NEEDS A SHORT COURSE OF PREDNISONE. Code(s): J44.9 - Chronic obstructive pulmonary disease, unspecified Category: Medical Plan: Continue Advair 500-51 inhalation b.i.d.. Advised to rains the throat thoroughly after using this in his Incruse Ellipta 1 inhalation daily Albuterol HFA 2 puffs q.6 hours p.r.n. (2) Nicotine dependence, cigarettes, uncomplicated: Comment: PER PATIENT, QUIT LATE SEPTEMBER 2024 (onset 15yo, 1ppd x 42yrs, 40pyh) Code(s): F17.210 - Nicotine dependence, cigarettes, uncomplicated Category: Medical Plan: Had a good discussion with him and he should absolutely refrain from smoking. (3) Pulmonary nodules: Comment: This gentleman with previous history of smoking had vexing and waning nodules in both lungs. The last CT scan on 12/2024 showed a 9 mm left upper lobe nodule, new and somewhat increasing in size. While the other nodules especially in the right upper lobe had decreased in size. He was being followed by Dr.Laki Gomez , who has done wedge resection , on 03/05. The pathology of the nodule is negative carcinoma, It is suggestive of a mycetoma/ Aspergillus type , however the culture of the excised nodule was negative for any fungi, and also negative for acid-fast bacilli. Code(s): R91.8 - Other nonspecific abnormal finding of lung field Category: Medical Plan: I have discussed with the patient. He has no active symptoms. He does not have any cutaneous lesions suggestive of mycetoma. The diagnosis of mycetoma is not certain. I do not think he needs any active antimicrobial treatment. He is going to have CT scan in the next few months and will monitor closely. Coding Level of Care Code Est Pt Level 3 (92747) Diagnoses COPD (chronic obstructive pulmonary disease) J44.9 Nicotine dependence, cigarettes, uncomplicated F17.210 Pulmonary nodules R91.8
[2025-04-01 14:04] VITALS: BP 120/70; PULSE 80; O2SAT 94; BMI 32.1
--- OUTSIDE RECORDS SUMMARY | 2025-04-01 18:48 | XMS_ITS | Clinical Summary ---
Author Organization [facility] [address] [facility] Address [address] [place] [address] Phone Care Team Providers Care Livestock Haulier Name Role Phone Anoop Austin MD Primary Care Provider [phone] Allergies Active Allergy Reactions Criticality Noted Date Comments Other Anaphylaxis High 03/05/2025 HORNETS Medications albuterol sulfate 90 mcg/actuation aerosol powdr breath activated Inhale 90 mcg by mouth if needed. Active finasteride (PROSCAR) 5 mg tablet Take [...] mouth 1 (one) time each day. Active oxyCODONE (ROXICODONE) 5 mg immediate release tablet Take 1 tablet (5 mg total) by mouth every 4 (four) hours if needed for moderate pain. You may take 2 tablets every 4 hrs as needed for sevrere pain. Max Daily Amount: 30 mg 30 tablet Active Active Problems Problem Noted Date Diagnosed Date Pulmonary nodule 02/13/2025 Assessment & Plan (03/18/2025 11:47 AM EDT): Mr. Hogan is a 59 y.o. male who was found to have multiple pulmonary nodules that have been waxing and waning but 1 in particular that had increased in size and persisted over time. He was taken to the operating room on 03/05/25 at which point he had a robotic left upper lobe wedge resection for pulmonary nodule. 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 The patient appears to be healing well following surgery. Chest xray obtained prior to this appointment showing no PTX or pleural effusion. His chest CT from February 2025 was again reviewed and does show some other nodules but no adenopathy. We will continue to monitor these. I will send the patient for a repeat chest CT in 3 months, May 2025 and will have an appointment with an SARAH following that scan. If continued stability is seen at that time, patient will be referred to our lung screening program as he is a current smoker. Postoperative pathology discussed at length at the time of this visit. Patient will be referred to pulmonology for the finding of Mycetoma, for which he states he already see Dr. Serrano in [facility]. Patient is advised to call the office with any questions or concerns prior to this time. Pulmonary nodules 02/03/2025 Encounters Date Type Department Care Team Description 03/18/2025 11:00 AM EDT Office Visit Thoracic Surgery - [place] [address] [phone] Saray Garrido NP Pulmonary nodule (Primary Dx) 03/18/2025 10:40 AM EDT - 03/18/2025 11:59 PM EDT Hospital Encounter [facility] Xray [address] [place] [phone] Pulmonary nodules Discharge Disposition: Home or Self Care 03/18/2025 Telephone Thoracic Surgery - [address] [phone] Mone Huynh i, [place] 03/10/2025 Telephone Thoracic Surgery - [place] [address] [phone] Sundar Haas MD 03/05/2025 11:00 AM EDT - 03/05/2025 3:00 PM EDT Surgery [facility] Main OR [address] [place] [address] Sundar Haas MD Navigation bronchoscopy w/dye marking, Jada left upper lobe wedge with mediastinal lymphadenectomy [98022 (CPT ) +4 more] 03/05/2025 10:32 AM EDT Anesthesia Event [facility] Main OR [address] [place] [address] Dileep Darling DO Sandjo, Hyancinthe, SRNA 03/05/2025 9:30 AM EDT - 03/06/2025 5:51 PM EDT Hospital Encounter [facility] Intermediate Care Unit B [address] [place] [address] Sundar Haas MD Pulmonary nodule Discharge Disposition: Home or Self Care 02/19/2025 1:14 PM EDT - 02/19/2025 11:59 PM EDT Hospital Encounter [facility] CT Scan [address] [place] [address] Pulmonary nodule Discharge Disposition: Home or Self Care 02/14/2025 Telephone Thoracic Surgery - [address] [phone] Mckayla Chen [place] 02/03/2025 1:30 PM EDT Consult Thoracic Surgery [facility] [address] [phone] Sundar Haas MD Pulmonary nodules (Primary Dx) from Last 3 Months Surgical History Surgery Date Site/Laterality Comments OTHER SURGICAL HISTORY hand surgery COLONOSCOPY OTHER SURGICAL HISTORY 03/05/2025 Left BRYON wedge Medical History Medical History Date Comments Hyperlipidemia COPD (chronic obstructive pu lmonary disease) (CMS/HCC V24, CMS/HCC V28) BPH (benign prostatic hyperplasia) Tubular adenoma of colon 2016 Obstructive sleep apnea GERD (gastroesophageal reflux disease) Mycetoma 03/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 Family History Medical History Relation Name Comments Heart attack Brother Alzheimer's disease Father Stroke Father Lung cancer Mother Stomach cancer Mother Relation Name Status Comments Brother Father Mother Social History Tobacco Use Types Packs/Day Years Used Date Smoking Tobacco: Former Cigarettes 0 02/26/2025 - 1980 Cigars Smokeless Tobacco: Never Tobacco Cessation:Counseling Given: Not Answered Comments:Pt states smokes 3-4 Black and Mild Cigars daily Alcohol Use Standard Drinks/Week Comments Yes 6 (1 standard drink = 0.6 oz pur e alcohol) DAILY Interpersonal Safety Answer Date Record ed Physical Abuse Unrecognized value 03/05/2025 Verbal Abuse Unrecognized value 03/05/2025 Sex and Gender Information Value Date Recorded Sex Assigned at Not on file Legal Sex Male 2:57 PM EDT Gender Identity Not on file Sexual Orientation Not on file Obstetrics History Last Filed Vital Signs Vital Sign Reading Time Taken Comments Blood Pressure 122/77 03/18/2025 10:55 AM EDT Pulse 74 03/18/2025 10:55 AM EDT Temperature 36.7 C (98.1 F) 03/18/2025 10:55 AM EDT Respiratory Rate 16 03/18/2025 10:55 AM EDT Oxygen Saturation 97% 03/18/2025 10:55 AM EDT Inhaled Oxygen Concentration - - Weight 109 kg (240 lb 4.8 oz) 03/18/2025 10:55 A M EDT Height 182.9 cm (6') 03/18/2025 10:55 AM EDT Body Mass Index 32.59 03/18/2025 10:55 AM EDT Plan of Treatment Health Maintenance Due Date Last Done Comments Colorectal Cancer Screening: Colonoscopy 1965 Hepatitis B Vaccines (1 of 3 - 19+ 3-dose series) 1984 Pneumococcal Vaccine: 50+ Years (1 of 2 - PCV) 1984 RSV Immunization Adult Patients (1 - Risk 50-74 years 1-dose series) 2015 Zoster Vaccines (1 of 2) 2015 Depression Screening 06/12/2024 Cholesterol Screening (Lipid Panel) 01/24/2025 HIV Screening 01/24/2025 Hepatitis C Screening 01/24/2025 Social Influencers of Health Screening 01/24/2025 COVID-19 Vaccine ( season) 2025 02/18/2022, 05/03/2021, 09/11/2020, Additional history exists Influenza Vaccine (#1) 2025 06/26/2023 DTaP,Tdap,and Td Vaccines (2 - Td or Tdap) 09/30/2029 10/01/2019 HIB Vaccines Aged Out No longer eligi [...] age to complete this topic Medical Devices Implanted Type Area Underwriting Account Representative Device Identifier Shelf Expiration Date Model / Serial / Lot Hemostat Absorb Surgicel Nu-Knit 3x4in - Sna - [id number] Implanted:Qty: 1 on 03/05/2025 by Sundar Haas MD at [facility] Hemostasis Left: Chest [facility] [employer] [id number] 09/09/2029 1943S / NA / [id number] Procedures Procedure Name Priority Date/Time Associated Diagnosis Comments ..REFERENCE BACTERIAL CULTURE ID RESULT Routine 03/27/2025 11:40 AM EDT ..AEROBIC ID BY MALDI Routine 03/27/2025 11:40 AM EDT ..ORGANISM ID BY MALDI Routine 11:40 AM EDT BACTERIAL CULTURE ID Routine 03/27/2025 11:40 AM EDT XR CHEST 2 VIEWS Routine 03/18/2025 10:5 0 AM EDT Pulmonary nodules PEP THERAPY Routine 03/06/2025 2:13 PM EDT XR CHEST 1 VIEW STAT 03/06/2025 5:50 AM EDT MAGNESIUM Routine 03/06/2025 5:44 AM EDT PHOSPHORUS Routine 03/06/2025 5:44 AM EDT COMPLETE BLOOD COUNT Timed 03/06/2025 5:44 AM EDT BASIC METABOLIC PANEL Routine 03/06/2025 5:44 AM EDT PEP THERAPY Routine 03/05/2025 3:43 PM EDT PEP THERAPY Routine 03/05/2025 3:43 PM EDT XR CHEST 1 VIEW STAT 03/05/2025 2:50 PM EDT OXYGEN THERAPY, ADULT Routine 03/05/2025 2:06 PM EDT ..TISSUE GRIND, DIGESTION AND DECONVOLUTION Routine 03/05/2025 12:42 PM EDT Pulmonary nodule TISSUE EXAM Routine 03/05/2025 12:42 PM EDT Pulmonary nodule ACID FAST BACILLI STAIN Routine 03/05/2025 12:42 PM EDT Pulmonary nodule CULTURE TISSUE WITH GRAM STAIN Routine 03/05/2025 12:42 PM EDT Pulmonary nodule CULTURE, AFB AND SMEAR WITH REFLEX TO IDENTIFICATION AND SUSCEPTIBILITY Routine 03/05/2025 12:42 PM EDT Pulmonary nodule CULTURE FUNGAL, OTHER Routine 03/05/2025 12:42 PM EDT Pulmonary nodule TH AN ARTERIAL LINE (CHARGE) Routine 03/05/2025 11:12 AM EDT ANESTHESIA PERIPHERAL IV PLACEMENT Routine 03/05/2025 11:09 AM EDT TH AN ENDOTRACHEAL(NO CHARGE) Routine 03/05/2025 11:05 AM EDT PA BRONCHOSCOPY RIGID/FLEXIBLE COMPUTER ASSISTED IMAGE GUIDED NAVIGATION 03/05/2025 10:32 AM EDT Pulmonary nodule Case Notes [employer]ure PA BRONCHOSCOPY INCL FLUORO GUIDANCE W BRONCHIAL/ENDOBRONCHIA L BX SGL/MULT 03/05/2025 10:32 AM EDT Pulmonary nodule Case Notes [employer] PA THORACOSCOPY W DX WEDGE RESECTION F/B ANATOMIC LUNG RESECTION 03/05/2025 10:32 AM EDT Pulmonary nodule Case Notes [employer] PA THORACOSCOPY SURGICAL W MEDIASTINAL & REGIONAL LYMPHADENECTOMY 03/05/2025 10:32 AM EDT Pulmonary nodule Case Notes [employer] PA THORACOSCOPY SURGICAL WITH LOBECTOMY 03/05/2025 10:32 AM EDT Pulmonary nodule Case Notes [employer] PROCEDURAL ECG Routine 02/26/2025 9:35 AM EDT Pulmonary nodule CBC WITH AUTO DIFFERENTIAL Routine 02/26/2025 9:28 AM EDT Pulmonary nodule BASIC METABOLIC PANEL Routine 02/26/2025 9:28 AM EDT Pulmonary nodule CBC AND DIFFERENTIAL Routine 02/26/2025 9:28 AM EDT Pulmonary nodule PROTHROMBIN TIME WITH INR Routine 02/26/2025 9:28 AM EDT Pulmonary nodule ACTIVATED PARTIAL THROMBOPLASTIN TIME Routine 02/26/2025 9:28 AM EDT Pulmonary nodule TYPE AND SCREEN Routine 02/26/2025 9:28 AM EDT Pulmonary nodule CT CHEST WO CONTRAST Routine 02/19/2025 1:41 PM EDT Pulmonary nodule from Last 3 Months Results * Aerobic ID by MALDI (03/27/2025 11:40 AM EDT) Aerobic ID by MALDI Unable to identify by MALDI. See Organism ID by Sequencing. 03/30/2025 4:05 PM EDT [facility] Other Structure of upper lobe of left lung / Unknown Non-blood Collection / Unknown 03/27/2025 11:40 AM EDT 03/27/2025 11:40 AM EDT Narrative [facility] - 03/30/2025 4:05 PM EDT Performed at: 01 - [facility] [address] [id number] [address] Attendant: Heather Hinds MD, Phone: [phone] Sundar Haas MD LAB MICROBIOLOGY - GENERAL ORDER KEV Final Result [facility] * (ABNORMAL) Bacterial culture ID (03/27/2025 11:40 AM EDT) Reference Bacterial Culture ID Final report(A) 03/30/2025 4:05 PM EDT [facility] Other Structure of upper lobe of left lung / Unknown Non-blood Collection / Unknown 03/27/2025 11:40 AM EDT 03/27/2025 11:40 AM EDT Narrative [facility] - 03/30/2025 4:05 PM EDT Performed at: 02 - [facility] [address], [address], [place], [place] [id number] [address] Attendant: Luis Felipe Grewal MD, Phone: [phone] Sundar Haas MD LAB MICROBIOLOGY - GENERAL ORDER KEV Final Result Performing Organization Address City/[facility]/ZIP Co de Phone Number [facility] * (ABNORMAL) Reference bacterial culture id result (03/27/2025 11:40 AM EDT) Result 1 Gram positive rods(A) 03/30/2025 4:05 PM EDT [facility] Comment:UNABLE TO IDENTIFY B Y CONVENTIONAL METHODS, ISOLATE SENT FOR SEQUENCING Other Structure of upper lobe of left lung / Unknown Non-blood Collection / Unknown 03/27/2025 11:40 AM EDT 03/27/2025 11:40 AM EDT Narrative [facility] - 03/30/2025 4:05 PM EDT Performed at: 02 - [facility] [place] [address], [address], [place], [place] [id number] [address] Attendant: Luis Felipe Grewal MD, Phone: [phone] us Sundar Haas MD LAB MICROBIOLOGY - GENERAL ORDER KEV Final Result [facility] * XR Chest 2 Views (03/18/2025 10:50 AM EDT) Anatomical Region Laterality Modality Body Radiographic Snehal ging 03/18/2025 10:5 4 AM EDT Impressions 03/18/2025 10:56 AM EDT No acute pulmonary disease. Postoperative changes are again seen in the left lung. There is no pneumothorax. Findings as above consistent with COPD. Code 56847 -------- FINAL REPORT -------- Dictated By: Joey Jeffrey Dictated Date: 03/18/2025 10:54 ET Assigned Physician: Joey Jeffrey Reviewed and Electronically Signed By: Joey Jeffrey Signed Date: 03/18/2025 10:56 ET Workstation ID: [id number] Transcribed By: Self Edit Transcribed Date: 03/18/2025 10:54 ET Narrative 03/18/2025 10:56 AM EDT HISTORY: The patient is a 59-year-old male who underwent left upper lobe wedge resection on 03/05/2025, presenting for follow-up. FINDINGS: PA and lateral radiographs of the chest demonstrate that the large bore left side surgical chest tube has been removed since the prior study performed 03/06/2025. Surgical sutures are again seen in the left upper lung. Again seen are degenerative changes of the thoracic spine. The cardiac silhouette is within normal limits. The aortic knob is calcified. The lungs are again seen to be hyperinflated with flattening of the diaphragm consistent with chronic obstructive pulmonary disease. There is no consolidation, mass, pulmonary vascular congestion, or pleural effusion. There is no pneumothorax. Procedure Note Joey Jeffrey MD - 03/18/2025 HISTORY: The patient is a 59-year-old male who underwent left upper lobewedge resection on 03/05/2025, presenting for follow-up. FINDINGS: PA and lateral radiographs of the chest demonstrate that thelarge bore left side surgical chest tube has been removed since the priorstudy performed 03/06/2025. Surgical sutures are again seen in the leftupper lung. Again seen are degenerative changes of the thoracic spine. Thecardiac silhouette is within normal limits. The aortic knob is calcified.The lungs are again seen to be hyperinflated with flattening of thediaphragm consistent with chronic obstructive pulmonary disease. There isno consolidation, mass, pulmonary vascular congestion, or pleuraleffusion. There is no pneumothorax. IMPRESSION: No acute pulmonary disease. Postoperative changes are again seen in theleft lung. There is no pneumothorax. Findings as above consistent withCOPD. Code 38406 -------- FINAL REPORT -------- Dictated By: Joey Jeffrey Dictated Date: 03/18/2025 10:54 ET Assigned Physician: Joey Jeffrey Reviewed and Electronically Signed By: Joey Jeffrey Signed Date: 03/18/2025 10:56 ET Workstation ID: [id number] Transcribed By: Self Edit Transcribed Date: 03/18/2025 10:54 ET Saray Garrido NP IMG XR PROCEDURES Final Res ult * XR Chest 1 View (03/06/2025 5:50 AM EDT) Only the most recent of2 resultswithin the time period is included. Anatomical Region Laterality Modality Body Radiographic Snehal ging 03/06/2025 8:47 AM EDT Impressions 03/06/2025 8:48 AM EDT Postoperative changes within the left lung apex without significant pneumothorax. -------- FINAL REPORT -------- Dictated By: Kennedy Schultz Dictated Date: 03/06/2025 08:47 ET Assigned Physician: Kennedy Schultz Reviewed and Electronically Signed By: Kennedy Schultz Signed Date: 03/06/2025 08:48 ET Workstation ID: [id number] Transcribed By: Self Edit Transcribed Date: 03/06/2025 08:47 ET Narrative 03/06/2025 8:48 AM EDT INDICATION: Left upper lobe wedge resection FINDINGS: Single portable AP view of the chest obtained. Compared to study from March 05, 2025. Left-sided chest tube with tip overlying the lung apex. No definite pneumothorax. No infiltrates or effusions. Heart normal in size and shape. Bony structures are grossly intact and normal for the patient's age. Procedure Note Kennedy Schultz MD - 03/06/2025 INDICATION: Left upper lobe wedge resection FINDINGS: Single portable AP view of the chest obtained. Compared to studyfrom March 05, 2025. Left-sided chest tube with tip overlying the lung apex. No definitepneumothorax. No infiltrates or effusions. Heart normal in size and shape. Bony structures are grossly intact and normal for the patient's age. IMPRESSION: Postoperative changes within the left lung apex without significantpneumothorax. -------- FINAL REPORT -------- Dictated By: Kennedy Schultz Dictated Date: 03/06/2025 08:47 ET Assigned Physician: Kennedy Schultz Reviewed and Electronically Signed By: Kennedy Schultz Signed Date: 03/06/2025 08:48 ET Workstation ID: [id number] Transcribed By: Self Edit Transcribed Date: 03/06/2025 08:47 ET Kiera KHALIL IMG XR PROCEDURES Final Resul t * (ABNORMAL) CBC - Every 3 Days (03/06/2025 5:44 AM EDT) WBC 13.6(H) 4.8 - 10.8 K/mcL LAB HEMETOLOGY METHOD 03/06/2025 6:35 AM EDT [facility] RBC 5.10 4.50 - 5.50 M/mcL LAB HEMETOLOGY METHOD 03/06/2025 6:35 AM EDT [facility] Hemoglobin 15.7 13.5 - 17.5 g/dL LAB HEMETOLOGY METHOD 03/06/2025 6:35 AM EDT [facility] Hematocrit 47.3 42.0 - 54.0 % LAB HEMETOLOGY METHOD 03/06/2025 6:35 AM EDT [facility] MCV 92.7 79.0 - 98.0 FL LAB HEMETOLOGY METHOD 03/06/2025 6:35 AM EDT [facility] MCH 30.8 27.0 - 32.0 pcg LAB HEMETOLOGY METHOD 03/06/2025 6:35 AM EDT [facility] MCHC 33.2 32.0 - 37.0 g/dL LAB HEMETOLOGY METHOD 03/06/2025 6:35 AM EDT [facility] RDW 12.3 11.0 - 15.0 % LAB HEMETOLOGY METHOD 03/06/2025 6:35 AM EDT [facility] Platelets 184 130 - 400 K/mcL LAB HEMETOLOGY METHOD 03/06/2025 6:35 AM EDT [facility] MPV 10.6 7.0 - 11.0 FL LAB HEMETOLOGY METHOD 03/06/2025 6:35 AM EDT [facility] NRBC 0.0 <1.0 % LAB HEMETOLOGY METHOD 03/06/2025 6:35 AM EDT [facility] NRBC Absolute 0.00 <0.10 K/mcL LAB HEMETOLOGY METHOD 03/06/2025 6:35 AM EDT [facility] Blood Venous blood specimen / Unknown Venipuncture / Unknown 03/06/2025 5:44 AM EDT 03/06/2025 6:16 AM EDT us Kiera KHALIL LAB BLOOD ORDERABLES Final Re sult [facility] [address] [place] [address], * Phosphorus (03/06/2025 5:44 AM EDT) [facility] Signature Phosphorus 3.7 2.5 - 4.5 mg/dL LAB CHEMISTRY METHOD 03/06/2025 7:01 AM EDT [facility] Blood Venous blood specimen / Unknown Venipuncture / Unknown 03/06/2025 5:44 AM EDT 03/06/2025 6:15 AM EDT Kiera KHALIL LAB BLOOD ORDERABLES Final Re sult Performing Organization Address City/[facility]/ZIP Co de Phone Number [facility] [address] [place] [address], [place] [phone] * Magnesium (03/06/2025 5:44 AM EDT) Pathologist [facility] Magnesium 2.2 1.9 - 2.6 mg/dL LAB CHEMISTRY METHOD 03/06/2025 7:01 AM EDT [facility] Blood Venous blood specimen / Unknown Venipuncture / Unknown 03/06/2025 5:44 AM EDT 03/06/2025 6:15 AM EDT Kiera KHALIL LAB BLOOD ORDERABLES Final Re sult Performing Organization Address City/[facility]/ZIP Co de Phone Number [facility] [address] [place] [address], [place] [phone] * (ABNORMAL) Basic metabolic panel (03/06/2025 5:44 AM EDT) Only the most recent of2 resultswithin the time period is included. Pathologist [facility] Sodium 136 133 - 145 mmol/L LAB CHEMISTRY METHOD 03/06/2025 8:10 AM EDT [facility] Potassium 4.9 3.5 - 5.5 mmol/L LAB CHEMISTRY METHOD 03/06/2025 8:10 AM EDT [facility] Chloride 102 96 - 110 mmol/L LAB CHEMISTRY METHOD 03/06/2025 8:10 AM EDT [facility] CO2 30 21 - 32 mmol/L LAB CHEMISTRY METHOD 03/06/2025 8:10 AM EDT [facility] Anion Gap 4 3 - 11 LAB CHEMISTRY METHOD 03/06/2025 8:10 AM EDT [facility] Glucose 112(H) 70 - 100 mg/dL LAB CHEMISTRY METHOD 03/06/2025 8:10 AM [facility] BUN 18 5 - 25 mg/dL LAB CHEMISTRY METHOD 03/06/2025 8:10 AM T [facility] Creatinine 0.76 0.70 - 1.30 mg/dL LAB CHEMISTRY METHOD 03/06/2025 8:10 AM EDT [facility] eGFR 104 >=60 mL/min/1. 73m2 LAB CHEMISTRY METHOD 03/06/2025 8:10 AM T [facility] Comment:Calculation based on the Chronic Kidney Disease Epidemiology Collaboration (CKD-EPI) equation refit without adjustment for race. BUN/Creatinine Ratio 23.7 LAB CHEMISTRY METHOD 03/06/2025 8:10 AM [facility] Calcium 8.6 8.5 - 10.5 mg/dL LAB CHEMISTRY METHOD 03/06/2025 8:10 AM [facility] Blood Venous blood specimen / Unknown Venipuncture / Unknown 03/06/2025 5:44 AM EDT 03/06/2025 6:15 AM EDT Kiera KHALIL LAB BLOOD ORDERABLES Final Re sult [facility] [address] [place] [address], [place] [phone] * Culture tissue with gram stain (03/05/2025 12:42 PM EDT) Culture, Tissue No growth aerobically and anaerobically at 5 days. 03/10/2025 7:59 AM EDT [facility] Gram Stain Result No polymorphonuclear leukocytes, No epithelial cells, and No organisms noted 03/10/2025 7:59 AM EDT [facility] Tissue Structure of upper lobe of left lung / Unknown 03/05/2025 12:42 PM EDT 03/05/2025 1:22 PM EDT us Sundar Haas MD LAB MICROBIOLOGY - GENERAL ORDER KEV Final Result Performing Organization Address City/[facility]/ZIP Co de Phone Number [facility] [address] [place] [address], [place] [phone] * Tissue grind, digestion and deconvolution (03/05/2025 12:42 PM EDT) Tissue Grind/Digestio n/Decon Performed 03/06/2025 3:05 PM EDT [facility] Tissue Structure of upper lobe of left lung / Unknown 03/05/2025 12:42 PM EDT 03/05/2025 1:22 PM EDT Narrative [facility] - 03/06/2025 3:05 PM EDT Performed at: 01 - [facility] [address] [id number] [address] Attendant: Heather iHnds MD, Phone: [phone] us Sundar Haas MD LAB PATHOLOGY ORDERABLES Final R esult [facility] * Tissue exam (03/05/2025 12:42 PM EDT) Final Diagnosis A. Lung, Left Upper Lobe, Wedge Resection: -MYCETOMA -Patchy acute and organizing pneumonia -Emphysema -Respiratory bronchiolitis interstitial lung disease -Bronchiectasis with mucus impaction -Patchy fibrosis B. Lymph Node, Level 9, Left-biopsy: -BENIGN LYMPH NODE C. Lymph Node, Level 8, Left-biopsy: -BENIGN LYMPH NODE D. 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 03/07/2025 5:40 PM EDT [facility] Gross Description A. Lung, Left Upper Lobe, Wedge: Labeled wedge, lung BRYON . Received in formalin is a previously incised, 50 g, 11.4 x 5.9 x 2.4 cm wedge of lung resection with a removed linear stapled line that is inked green. The pleural surface is gomez-oscar. The incision area is contiguous with a 1.1 x 0.8 x 0.7 cm ill-defined, rubbery, white-gomez to blue stained lesion. The lesion measures 0.6 cm to the pleura and 0.8 cm to the staple line. Additionally, there is a 1.1 x 1.0 x 0.9 cm well-circumscribed , firm, white nodule that measures approximately 2.4 cm from the lesion. The nodule measures 0.9 cm to the pleura, and 2.2 cm to the staple line. There are multiple areas of firm fibrosis throughout the parenchyma, approximately 0.3 cm. The remaining parenchyma is gomez-brown and spongiform. One possible intraparenchymal lymph node is identified, measuring 1.3 x 0.9 x 0.4 cm . [employer] sections are submitted in sixteen cassettes, including entirety of lesion and nodule. 1: Frozen section residue, section of mass, three pieces 2-3: Lesion to include staple line and pleura, one piece each 4-5: Remainder sections of lesion, one piece each 6-11: Marine Tower [employer] sections of nodule, one piece each 12-15: Marine Tower [employer] sections of fibrosis, two pieces each 16: One possible lymph node, bisected, two pieces B. Lymph Node, Level 9, Left: Labeled level 9, lymph node . Received in formalin, on Telfa, is a 0.6 x 0.6 x 0.3 cm focally anthracotic, gomez-oscar portion of ojseph tissue with minimally attached adipose tissue. The specimen is wrapped in paper and submitted in toto in one cassette, one piece. C. Lymph Node, Level 8, Left: Labeled level 8, lymph node . Received in formalin, on Telfa, is a 0.8 x 0.7 x 0.3 cm focally anthracotic, gomez-oscar portion of joseph tissue with minimally attached adipose tissue. The specimen is bisected, wrapped in paper, and submitted entirely in one cassette, two pieces. D. Lymph Node, Level 5: Labeled level 5, lymph node . Received in formalin, on Telfa, is a 1.1 x 0.9 x 0.5 cm focally anthracotic, gomez-oscar portion of joseph tissue with minimally attached adipose tissue. The specimen is trisected, wrapped in paper, and submitted entirely in one cassette, three pieces. KR 03/07/2025 5:40 PM EDT [facility] Disclaimer Unless otherwise specified, all tissue is 10% NB formalin fixed and paraffin embedded. 03/07/2025 5:40 PM EDT [facility] Tissue Structure of upper lobe of left lung / Unknown 03/05/2025 12:42 PM EDT 03/05/2025 12:56 PM EDT Tissue specimen (specimen) Lymph node specimen / Unknown 03/05/2025 12:55 PM EDT 03/05/2025 2:48 PM EDT Tissue specimen (specimen) Lymph node specimen / Unknown 03/05/2025 12:58 PM EDT 03/05/2025 2:48 PM EDT Tissue specimen (specimen) Lymph node specimen / Unknown 03/05/2025 1:03 PM EDT 03/05/2025 2:48 PM EDT us Sundar Haas MD LAB PATHOLOGY ORDERABLES Final R esult [facility] [address] [place] [address], * Acid fast bacilli stain (03/05/2025 12:42 PM EDT) AFB Stain Result No Acid fast bacilli seen on direct smear (Fuchsin method, 1000x) No Acid Fast Bacilli seen on direct smear 03/05/2025 6:26 PM EDT [facility] Tissue Structure of upper lobe of left lung / Unknown 03/05/2025 12:42 PM EDT 03/05/2025 1:22 PM EDT Sundar Haas MD LAB MICROBIOLOGY - GENERAL ORDER KEV Final Result Performing Organization Address [facility] Co de Phone Number [facility] [address] [place] [address], [place] [phone] * (ABNORMAL) Culture fungal, other (03/05/2025 12:42 PM EDT) Culture, Fungus Gram positive bacilli(A) 03/31/2025 11:52 AM EDT [facility] Comment: Branching bacilli Sent to reference lab for identification. Refer to [facility]-[id number] for results. The organism value for this result has been updated. These results have been appended to the previously preliminary verified report. Tissue Structure of upper lobe of left lung / Unknown 03/05/2025 12:42 PM EDT 03/05/2025 1:22 PM EDT Sundar Haas MD LAB MICROBIOLOGY - GENERAL ORDER KEV Final Result Performing Organization Address [facility] de Phone Number [facility] [address] [place] [address], [place] [phone] * TH AN ARTERIAL LINE (CHARGE) (03/05/2025 11:12 AM EDT) Ousmane Delacruz SRNA - 03/05/2025 11:12 AM EDT LILIANA Horta 03/05/2025 12:01 PM Arterial Line Performed by: LILIANA Horta Authorized by: Dileep Darling DO Consent: Verbal consent obtained. Written consent obtained. Risks and benefits: risks, benefits and alternatives were discussed Consent given by: patient Patient understanding: patient states understanding of the procedure being performed Patient consent: the patient's understanding of the procedure matches consent given Procedure consent: procedure consent matches procedure scheduled Relevant documents: relevant documents present and verified Test results: test results available and properly labeled Site marked: the operative site was marked Imaging studies: imaging studies available Required items: required blood products, implants, devices, and special equipment available Patient identity confirmed: verbally with patient, arm band, provided demographic data and hospital-assigned identification number Time out: Immediately prior to procedure a time out was called to verify the correct patient, procedure, equipment, health support specialist and site/side marked as required. Preparation: Patient was prepped and draped in the usual sterile fashion. Indications: hemodynamic monitoring Location: right radial Anesthesia: see MAR for details Sedation: Patient sedated: yes Sedatives: see MAR for details Analgesia: see MAR for details Vitals: Vital signs were monitored during sedation. Sushil's test normal: yes Needle gauge: 20 Seldinger technique: Seldinger technique used Number of attempts: 1 Post-procedure: dressing applied Post-procedure CMS: normal Patient tolerance: patient tolerated the procedure well with no immediate complications Start Time: 03/05/2025 11:00 AMStop Time: 03/05/2025 11:05 AM Staffing Anesthesiologist: Dileep Darling DO Resident/NUTRITION SERVICES ASSISTANT: LILIANA Horta Dileep Darling DO ANESTHESIA ORDERABLES Edited Re sult - Final * Peripheral IV (03/05/2025 11:09 AM EDT) Ousmane Delacruz SRNA - 03/05/2025 11:09 AM EDT LILIANA Horta 03/05/2025 11:09 AM Peripheral IV Placement Needle size: 18 G Laterality: right Location: antecubital Local anesthetic: none Site prep: chlorhexidine Technique: anatomical landmarks Attempts: 1 Dileep Darling DO ANESTHESIA ORDERABLES Final Res ult * TH AN ENDOTRACHEAL(NO CHARGE) (03/05/2025 11:05 AM EDT) Ousmane Delacruz SRNA - 03/05/2025 11:05 AM EDT LILIANA Horta 03/05/2025 11:08 AM General Information and Staff Patient location during procedure: OR Anesthesiologist: Dileep Darling DO Resident/NUTRITION SERVICES ASSISTANT: Diego Martinez CRNA Other anesthesia staff: LILIANA Horta Performed by: LILIANA Horta Authorized by: Dileep Darling DO Intubation Airway not difficult Urgency: elective Final Airway Details Successful airway: ETT Cuffed: yes Successful intubation technique: video laryngoscopy Facilitating devices/methods: intubating stylet Endotracheal tube insertion site: oral Blade: Manasa Blade size: #4 ETT size (mm): 8.5 Cormack-Lehane Classification: grade I - full view of glottis Placement verified by: chest auscultation and capnometry Cuff volume (mL): 10 Measured from: lips ETT to lips (cm): 22 Number of attempts at approach: 1 Ventilation between attempts: none Number of other approaches attempted: 0Final airway type: endotracheal airway Indications and Patient Condition Indications for airway management: anesthesia Spontaneous Ventilation: absent Sedation level: Yes Preoxygenated: yes Soft Tissue Damage: No Dentition Unchanged: Yes Patient position: neutral MILS maintained throughout Mask difficulty assessment: 3 - difficult mask (inadequate, unstable or two providers) +/- NMBA Start Time: 03/05/2025 10:40 AMStop Time: 03/05/2025 10:42 AM us Dileep Darling DO ANESTHESIA ORDERABLES Final Res ult * ECG 12 lead - Procedural (No Charge) (02/26/2025 9:35 AM EDT) Ventricular Rate ECG 71 BPM GEMUSE Atrial Rate 71 BPM GEMUSE P-R Interval 128 ms GEMUSE QRS Duration 88 ms GEMUSE Q-T Interval 386 ms GEMUSE QTc 419 ms GEMUSE P Wave [place] -12 degrees GEMUSE R [place] 74 degrees GEMUSE T [place] 80 degrees GEMUSE ECG Interpretation Normal sinus rhythm Normal ECG No previous ECGs available Confirmed by MD LOMELI JOHN ([id number]) on 02/26/2025 5:25:56 PM GEMUSE 02/26/2025 9:35 AM EDT 02/26/2025 5:25 PM EDT us Sundar Haas MD ECG ORDERABLES Final Result GEMUSE * CBC auto differential (02/26/2025 9:28 AM EDT) WBC 6.2 4.8 - 10.8 K/[facility] HEMETOLOGY METHOD 02/26/2025 10:43 AM EDT [facility] RBC 5.10 4.50 - 5.50 M/mcL LAB HEMETOLOGY METHOD 02/26/2025 10:43 AM [facility] Hemoglobin 15.8 13.5 - 17.5 g/dL LAB HEMETOLOGY METHOD 02/26/2025 10:43 AM [facility] Hematocrit 48.7 42.0 - 54.0 % LAB HEMETOLOGY METHOD 02/26/2025 10:43 AM [facility] MCV 94.7 79.0 - 98.0 FL LAB HEMETOLOGY METHOD 02/26/2025 10:43 AM [facility] MCH 30.7 27.0 - 32.0 pcg LAB HEMETOLOGY METHOD 02/26/2025 10:43 AM [facility] MCHC 32.4 32.0 - 37.0 g/dL LAB HEMETOLOGY METHOD 02/26/2025 10:43 AM [facility] RDW 12.5 11.0 - 15.0 % LAB HEMETOLOGY METHOD 02/26/2025 10:43 AM [facility] Platelets 189 130 - 400 K/mcL LAB HEMETOLOGY METHOD 02/26/2025 10:43 AM [facility] MPV 10.6 7.0 - 11.0 FL LAB HEMETOLOGY METHOD 02/26/2025 10:43 AM [facility] NRBC 0.0 <1.0 % LAB HEMETOLOGY METHOD 02/26/2025 10:43 AM [facility] NRBC Absolute 0.00 <0.10 K/mcL LAB HEMETOLOGY METHOD 02/26/2025 10:43 AM [facility] Neutrophils Relative 65.1 % LAB HEMETOLOGY METHOD 02/26/2025 10:43 AM [facility] Lymphocytes Relative 22.8 % LAB HEMETOLOGY METHOD 02/26/2025 10:43 AM [facility] Monocytes Relative 9.5 % LAB HEMETOLOGY METHOD 02/26/2025 10:43 AM [facility] Eosinophils Relative 1.3 % LAB HEMETOLOGY METHOD 02/26/2025 10:43 AM [facility] Basophils Relative 1.0 % LAB HEMETOLOGY METHOD 02/26/2025 10:43 AM [facility] Immature Granulocytes Relative 0.3 % LAB HEMETOLOGY METHOD 02/26/2025 10:43 AM [facility] Neutrophils Absolute 4.07 1.50 - 7.00 K/mcL LAB HEMETOLOGY METHOD 02/26/2025 10:43 AM [facility] Lymphocytes Absolute 1.42 1.00 - 5.00 K/mcL LAB HEMETOLOGY METHOD 02/26/2025 10:43 AM [facility] Monocytes Absolute 0.59 0.20 - 1.00 K/mcL LAB HEMETOLOGY METHOD 02/26/2025 10:43 AM [facility] Eosinophils Absolute 0.08 0.00 - 0.50 K/mcL LAB HEMETOLOGY METHOD 02/26/2025 10:43 AM [facility] Basophils Absolute 0.06 0.00 - 0.20 K/mcL LAB HEMETOLOGY METHOD 02/26/2025 10:43 AM [facility] Immature Granulocytes Absolute 0.02 0.00 - 0.03 K/mcL LAB HEMETOLOGY METHOD 02/26/2025 10:43 AM [facility] Blood Venous blood specimen / Unknown Venipuncture / Unknown 02/26/2025 9:28 AM EDT 02/26/2025 10:25 AM EDT us Sundar Haas MD LAB BLOOD ORDERABLES Final Resul t Performing Organization Address City/[facility]/ZIP Co de Phone Number [facility] [address] [place] [address], [place] [phone] * Activated partial thromboplastin time (02/26/2025 9:28 AM EDT) aPTT 34.3 24.1 - 39.3 sec LAB COAGULATION METHOD 02/26/2025 10:38 AM EDT [facility] Blood Venous blood specimen / Unknown Venipuncture / Unknown 02/26/2025 9:28 AM EDT 02/26/2025 10:25 AM EDT us Sundar Haas MD LAB BLOOD ORDERABLES Final Resul t Performing Organization Address [facility] Co de Phone Number [facility] [address] [place] [address], [place] [phone] * Prothrombin time with INR (02/26/2025 9:28 AM EDT) [facility] Protime 11.5 10.6 - 13.9 sec LAB COAGULATION METHOD 02/26/2025 10:38 AM EDT [facility] INR 0.9 LAB COAGULATION METHOD 02/26/2025 10:38 AM EDT [facility] Blood Venous blood specimen / Unknown Venipuncture / Unknown 02/26/2025 9:28 AM EDT 02/26/2025 10:25 AM EDT us Sundar Haas MD LAB BLOOD ORDERABLES Final Resul t Performing Organization Address City/[facility]/ZIP Co de Phone Number [facility] [address] [place] [address], [place] [phone] * Type and screen (02/26/2025 9:28 AM EDT) Pathologist [facility]BO Group O 02/26/2025 11:37 AM EDT [facility] Rh Type Negative 02/26/2025 11:37 AM EDT [facility] Antibody Screen Negative 02/26/2025 11:37 AM EDT [facility] Blood Venous blood specimen / Unknown Venipuncture / Unknown 02/26/2025 9:28 AM EDT 02/26/2025 10:25 AM EDT us Sundar Haas MD LAB BLOOD BANK TEST ORDERABLES F inal Result [facility] [address] [place] [address], * CT Chest wo Contrast (02/19/2025 1:41 PM EDT) Anatomical Region Laterality Modality Body Computed Tomogra phy 02/27/2025 8:10 AM EDT Impressions 02/27/2025 8:29 AM EDT Multiple pulmonary nodules. Severe underlying chronic lung disease. Some of the nodules are unchanged. There are some new or increasing nodules. Although malignancy cannot be excluded, infection or inflammation could cause some of these findings. If no intervention is not undertaken, continued short oval follow-up imaging recommended -------- FINAL REPORT -------- Dictated By: Rip Duffy Dictated Date: 02/27/2025 08:10 ET Assigned Physician: Rip Duffy Reviewed and Electronically Signed By: Rip Dfufy Signed Date: 02/27/2025 08:29 ET Workstation ID: [id number] Transcribed By: Self Edit Transcribed Date: 02/27/2025 08:10 ET Narrative 02/27/2025 8:29 AM EDT EXAMINATION: CT CHEST WITHOUT CONTRAST CLINICAL INFORMATION: Lung nodules. 9 mm nodule in the left upper lobe of the lung has increased from a previous size of 3 mm. The nodule's irregular shape and growth over time raise moderate suspicion for cancer. However, the decrease in size of a previous right upper lobe nodule and the patient's history of frequent chest infections suggest a possible inflammatory cause. COMPARISON: Portions of a previous CT 01/06/25. Although there is reference to more remote prior studies they are not available at this time. TECHNIQUE: Multidetector CT. Examination of the chest. Examination of the chest without IV contrast. Reformatting in the coronal and sagittal planes. DLP: 759 mGy-cm Dose optimization was performed including the use of low-dose iterative reconstruction technique with automatic exposure control based on patient size. Type of contrast: None Volume of IV contrast: None Volume of contrast discarded: 0 mL FINDINGS: Previous CT was performed with low dose technique. There is some motion artifact. Most of the measurements reported are long axis for purposes of comparison. LUNG: There are secretions at the emir and in the mainstem bronchi as well as the bronchus intermedius. There are multiple nodules. There is a slightly irregular nodule in the medial right apex 02/19/25-0.6 cm (47) 01/06/25-0.6 cm (11/09) There is a slightly irregular nodule in the anterior left apex 02/19/25-0.5 cm () 01/06/25-0.5 cm (11/03) There is an irregular nodule in the central left apex 02/19/25-0.7 cm (50) 01/06/25-0.7 cm (11/08) There is an irregular area of distortion and semisolid nodule in the posterior left apex close to the upper margin of the major fissure. This is difficult to quantify. The largest solid component; 02/19/25-0.8 cm () 01/06/25-1.3 cm () There is an area of distortion with bronchiolectasis in the periphery of the lateral left upper lobe which has increased 02/19/25-1.1 x 1.0 cm () 01/06/25-there was a perceptible opacity measuring approximately 0.3 cm () There is severe underlying centrilobular emphysema. There are a few scattered micronodules which appear unchanged. There is no honeycomb formation. MEDIASTINUM: There are no enlarged mediastinal or hilar lymph nodes. No suspicious abnormality of the esophagus CARDIAC: The heart is not enlarged. No pericardial fluid or thickening CORONARY CALCIFICATION: There are mild coronary calcifications. VASCULAR: There is no thoracic aortic aneurysm. The main pulmonary artery is normal caliber PLEURA: There is no pleural fluid or pneumothorax AXILLA/CHEST WALL: There are no enlarged axillary lymph nodes. No chest wall mass demonstrated. Probable lipoma in the lateral left chest wall VISUALIZED UPPER ABDOMEN: No suspicious abnormality on limited assessment of the visualized upper abdomen. Probably no change in a circumscribed oval low-density 2.2 cm left adrenal nodule. Compare with more remote studies recommended. Probable cysts in the visualized left kidney. MUSCULOSKELETAL: No suspicious focal bony lesion. Procedure Note Rip Duffy MD - 02/27/2025 EXAMINATION: CT CHEST WITHOUT CONTRAST CLINICAL INFORMATION: Lung nodules. 9 mm nodule in the left upper lobe of the lung hasincreased from a previous size of 3 mm. The nodule's irregular shape andgrowth over time raise moderate suspicion for cancer. However, thedecrease in size of a previous right upper lobe nodule and the patient'shistory of frequent chest infections suggest a possible inflammatorycause. COMPARISON: Portions of a previous CT 01/06/25. Although there is reference to moreremote prior studies they are not available at this time. TECHNIQUE: Multidetector CT. Examination of the chest. Examination of the chest without IV contrast. Reformatting in the coronal and sagittal planes. DLP: 759 mGy-cm Dose optimization was performed including the use of low-dose iterativereconstruction technique with automatic exposure control based on patientsize. Type of contrast: None Volume of IV contrast: None Volume of contrast discarded: 0 mL FINDINGS: Previous CT was performed with low dose technique. There is some motionartifact. Most of the measurements reported are long axis for purposes ofcomparison. LUNG: There are secretions at the emir and in the mainstem bronchi aswell as the bronchus intermedius. There are multiple nodules. There is a slightly irregular nodule in the medial right apex 02/19/25-0.6 cm (347) 01/06/25-0.6 cm (11/09) There is a slightly irregular nodule in the anterior left apex 02/19/25-0.5 cm (341) 01/06/25-0.5 cm (11/03) There is an irregular nodule in the central left apex 02/19/25-0.7 cm (3/50) 01/06/25-0.7 cm (/30) There is an irregular area of distortion and semisolid nodule in theposterior left apex close to the upper margin of the major fissure. Thisis difficult to quantify. The largest solid component; 02/19/25-0.8 cm (3/71) 01/06/25-1.3 cm (5/38) There is an area of distortion with bronchiolectasis in the periphery ofthe lateral left upper lobe which has increased 02/19/25-1.1 x 1.0 cm (98) 01/06/25-there was a perceptible opacity measuring approximately 0.3 cm(59) There is severe underlying centrilobular emphysema. There are a fewscattered micronodules which appear unchanged. There is no honeycomb formation. MEDIASTINUM: There are no enlarged mediastinal or hilar lymph nodes. Nosuspicious abnormality of the esophagus CARDIAC: The heart is not enlarged. No pericardial fluid or thickening CORONARY CALCIFICATION: There are mild coronary calcifications. VASCULAR: There is no thoracic aortic aneurysm. The main pulmonary arteryis normal caliber PLEURA: There is no pleural fluid or pneumothorax AXILLA/CHEST WALL: There are no enlarged axillary lymph nodes. No chestwall mass demonstrated. Probable lipoma in the lateral left chest wall VISUALIZED UPPER ABDOMEN: No suspicious abnormality on limited assessmentof the visualized upper abdomen. Probably no change in a circumscribedoval low-density 2.2 cm left adrenal nodule. Compare with more remotestudies recommended. Probable cysts in the visualized left kidney. MUSCULOSKELETAL: No suspicious focal bony lesion. IMPRESSION: Multiple pulmonary nodules. Severe underlying chronic lung disease. Some of the nodules are unchanged. There are some new or increasingnodules. Although malignancy cannot be excluded, infection or inflammation couldcause some of these findings. If no intervention is not undertaken,continued short oval follow-up imaging recommended -------- FINAL REPORT -------- Dictated By: Rip Duffy Dictated Date: 02/27/2025 08:10 ET Assigned Physician: Rip Duffy Reviewed and Electronically Signed By: Rip Duffy Signed Date: 02/27/2025 08:29 ET Workstation ID: [id number] Transcribed By: Self Edit Transcribed Date: 02/27/2025 08:10 ET Sundar Haas MD IMG CT PROCEDURES Final Result from Last 3 Months Insurance [facility] Advance Directives * Full Code - Default (Latest Code Status on File) Date Activated Date Inactivated Comments 03/05/2025 3:43 PM 03/06/2025 7:51 PM This is orde r is used when code status has not been discussed with the patient, or code status is otherwise unknown/unconfirmed To update the patient's code status, place a code status order. Do not modify or discontinue any currently active code status orders. * Full Code - Default Date Activated Date Inactivated Comments 03/05/2025 9:43 AM 03/05/2025 3:43 PM This is orde r is used when code status has not been discussed with the patient, or code status is otherwise unknown/unconfirmed To update the patient's code status, place a code status order. Do not modify or discontinue any currently active code status orders. Care Teams [employer] Relationship Specialty Start Date End Date Anoop Austin MD [address] [address] PCP - General Primary Care 01/24/25
--- OUTSIDE RECORDS SUMMARY | 2025-04-01 18:48 | XMS_ITS | Patient Health Record ---
Author Organization Anoop Austin III, MD Address [address] [place] [address] Care Team Providers Care Mill Crane Operator Name Role Phone Dr. Anoop Austin III [...] date:09/13/2024 03:32:04 PM Interpretation: Performing Lab: Notes/Report: [address] [address] [address] Scan Report Signed Patient: Fabio Griffin MR#: [id number] : 1965 Acct:[id number] Age/Sex: 59 / M ADM Date: 09/06/24 Loc: HO.CT Attending Dr: Maritza Guerra SHEARER HELPER Ordering Physician: Estela Zhu PA-C Date of Service: 09/06/24 Procedure(s): CT lung screening Accession Number(s): [id number] cc: Anoop Austin MD; Estela Zhu PA-C Report Number: [id number]: Total DLP = 68.00 mGy-cm EXAMINATION: CT [...] 09/09/24 0741 DD/ 1446 TD/TT: 09/06/24 1452 Theater Education Teacher: [address] [address] [address] Scan Report Signed Patient: Maya Griffin MR#: [id number] : 1965 Acct:[id number] Age/Sex: 59 / M ADM Date: 09/06/24 Loc: HO.CT Attending Dr: Sofia Guerra SHEARER HELPER Ordering Physician: Estela Zhu PA-C Date of Service: 09/06/24 Procedure(s): CT bautista g screening Accession Number(s): [id number] cc: Anoop Austin MD; Estela Zhu PA-C [...] or axillary lymphadenopathy is identified. Visualized upper abd omen: [...] 09/09/24 0741 DD/ 1446 TD/TT: 09/06/24 1452 Theater Education Teacher: PET CT fusion skull to thigh Reviewed date:10/12/2024 08:44:26 PM Interpretation: Performing Lab: Notes/Report: [address] [address] PET Report Signed Patient: Fabio Griffin MR#: [id number] : 1965 Acct:[id number] Age/Sex: 59 / M ADM Date: 09/30/24 Loc: HO.PET Attending Dr: Shelley Serrano MD Ordering Physician: Shelley Serrano MD Date of Service: 10/01/24 Procedure(s): PET CT fusion skull to thigh Accession Number(s): [id number] cc: Shelley Serrano MD; Anoop Austin MD [...] 10/01/24 1549 DD/ 1030 TD/TT: 10/01/24 1130 Theater Education Teacher: [address] [address] PET Report Signed Patient: Maya Griffin MR#: [id number] : 1965 Acct:[id number] Age/Sex: 59 / M ADM Date: 09/30/24 Loc: HO.PET Attending Dr: Eamon Serrano MD Ordering Physician: Shelley Serrano MD Date of Service: 10/01/24 Procedure(s): PET CT fusion skull to thigh Accession Number(s): [id number] cc: Shelley Serrano MD; Anoop Austin MD [...] By: Mr shavon Saldana MD Signed By: <Electronically signed by Lester Saldana MD in OV> 10/01/24 1549 DD/ 1030 TD/TT: 10/01/24 1130 Theater Education Teacher: BLANCHE Complete Blood Count Auto Di ff Reviewed date:10/12/2024 08:44:26 PM Interpretation: Performing Lab:[facility], [address] [place] [address] Notes/Report: White Blood Count 9.0 4.8-10.8 X10*3/uL [...] Panel Reviewed date:10/12/2024 08:44:26 PM Interpretation: Performing Lab:[facility], [address] [place] [address] Notes/Report: Sodium 142 135-145 mmol/L Potassium 4.4 [...] Panel Reviewed date:10/12/2024 08:44:26 PM Interpretation: Performing Lab:[address] [address] Notes/Report: Triglycerides 46 <150 mg/dL Desirable Triglyceride: [...] (Free>4and<10) Reviewed date:10/12/2024 08:44:26 PM Interpretation: Performing Lab:[address] [address] Notes/Report: PSA,Total (Free>4and<10) 0.85 0.00-4.00 ng/mL A [...] Pathology Reviewed date:12/13/2024 07:22:51 PM Interpretation: Performing Lab:[facility], [address] [place] [address] Notes/Report: ----- Name: TrinykarinaEmiliano sanchez rd Age/Sex: 59/M : 1965 Unit#: [id number] Attend Dr: Flako Grove MD Re10/18/24 Status : [facility] Location: [facility] Disch: ----- SPEC : [id number] RECD : 10/18/24-5 STATUS: FELICIA GARVIN NUM: [id number] PHUONG: 10/18/2452 [facility] DR: Flako Grove MD ENTERED: 10/18/24- 58 [...] microscopic examination, multiple pieces in cassette A. ([facility]) Copies To: Anoop Austin MD [address] [place] [address], [address] [place] [address] Flako Grove MD [facility] [address] [place] [address] ----- Signed (signature on file) Monisha Worcester 10/23/24 0928 ----- END OF REPORT CT lung screen follow up Reviewed date:02/11/2025 05:04:48 AM Interpretation: Performing Lab: Notes/Report: [address] [address] [address] Scan Report Signed Patient: Fabio Griffin MR#: [id number] : 1965 Acct:[id number] Age/Sex: 59 / M ADM Date: 01/06/25 Loc: HO.CT Attending Dr: Maritza Guerra SHEARER HELPER Ordering Physician: Estela Zhu PA-C Date of Service: 01/06/25 Procedure(s): CT lung screen follow up Accession Number(s): [id number] cc: Anoop Austin MD; Estela Zhu PA-C Report Number: [id number]: Total DLP = 85.00 mGy-cm EXAMINATION: CT [...] Anoop Mccormick MD 01/06/2025 01:27 PM EDT RP Dictated By: Anoop Mccormick MD Signed By: <Electronically signed by Anoop Mccormick MD in OV> 01/06/25 1327 DD/ 1250 TD/TT: 01/06/25 1310 Theater Education Teacher: [place] [address] CT Scan Report Signed Patient: Maya Griffin MR#: [id number] : 1965 Acct:[id number] Age/Sex: 59 / M ADM Date: 01/06/25 Loc: HO.CT Attending Dr: Sofia Guerra SHEARER HELPER Ordering Physician: Estela Zhu PA-C Date of Service: 01/06/25 Procedure(s): CT bautista g screen follow up Accession Number(s): [id number] cc: Anoop Austin MD; Estela Zhu PA-C [...] mild Coronary Calcificati on: mild Aortic Arch Calcification: mild Potentially Signific ant Incidentals : none Additional Chest Findings: There is no pleural or pericardial effusion. No mediastinal or axillary lymphadenopathy is identified. Visualized upper abd omen: [...] 01/06/25 1327 DD/ 1250 TD/TT: 01/06/25 1310 Theater Education Teacher: US thyroid Reviewed date:02/11/2025 05:04:48 AM Interpretation: Performing Lab: Notes/Report: [address] [address] Ultrasound Report Signed Patient: Fabio Griffin MR#: [id number] : 1965 Acct:[id number] Age/Sex: 59 / M ADM Date: 01/15/25 Loc: HO.US Attending Dr: Anoop Austin MD Ordering Physician: Anoop Austin MD Date of Service: 01/15/25 Procedure(s): US thyroid Accession Number(s): [id number] cc: Anoop Austin MD EXAMINATION: US THYROID [...] 01/15/25 1431 DD/ 1338 TD/TT: 01/15/25 1346 Theater Education Teacher: [address] [address] Ultrasound Report Signed Patient: Maya Griffin MR#: [id number] : 1965 Acct:[id number] Age/Sex: 59 / M ADM Date: 01/15/25 Loc: HO.US Attending Dr: Anoop Austin MD Ordering Physician: Anoop Austin MD Date of Service: 01/15/25 Procedure(s): US thyroid Accession Number(s): [id number] cc: Anoop Austin MD EXAMINATION: US THYROID [...] Anoop Mccormick MD 01/15/2025 02:31 PM EDT RP Dictated By: Anoop Mccormick MD Signed By: <Electronically signed by Anoop Mccormick MD in OV> 01/15/25 1431 DD/ 1338 TD/TT: 01/15/25 1346 Theater Education Teacher: PSA Free and Total Reviewed date:03/03/2025 05:48:17 AM Interpretation: Performing Lab:[facility], [address] [place] [address] Notes/Report: Prostate Specific Ag Total 0.7 < OR = 4.0 ng/mL Percent Free Prostate Spec Ag 43 >25 % (calc) PSA(ng/mL) Free PSA(%) Estimated(x) Probability of Cancer(as%) 0-2.5 (*) Approx. 1 2.6-4.0(1) 0-27(2) 24(3) 4.1-10(4) 0-10 56 11-15 28 16-20 20 21-25 16 >or =26 8 >10(+) N/A >50 References:(1)Nelson uribe et al.:Urology 60: 469-474 (2002) (2)Elio et al.:J.Urol 168: 922-925 (2001) Free PSA(%) Sensitivity(%) Specificity(%) < or = 25 85 19 < or = 30 93 9 (3)Elio et al.:MYKE 277: 3944-4015 (1996) (4)Catalona et al.:MKYE 279: 5806-9893 (1998) (x)These estimates vary with age, ethnicity, family history and DOROTA results. (*)The diagnostic usefulness of % Free PSA has not been established in patients with total PSA below 2.6 ng/mL (+)In men with PSA above 10 ng/mL, prostate cancer risk is determined by total PSA alone. The Total PSA value from this assay system is standardized against the equimolar PSA standard. The test result will be approximately 20% higher when compared to the WHO-standardized Total PSA (Siemens assay). Comparison of serial PSA results should be interpreted with this fact in mind. PSA was performed using the Shani Kristine Immunoassay method. Values obtained from different assay methods cannot be used interchangeably. PSA levels, regardless of value, should not be interpreted as absolute evidence of the presence or absence of disease. THIS TEST WAS PERFORMED AT: [facility] [address] [place] [address] CRISTIAN DRAPER MD Free Prostate Spec Ag 0.3 Free T4 (Free Thyroxine) Reviewed date:02/13/2025 12:00:01 PM Interpretation: Performing Lab:[facility], [address] [place] [address] Notes/Report: Free T4 (Free Thyroxine) 1.09 0.71-1.85 ng/dL Thyroid Stimulating Hormone Reviewed date:02/13/2025 12:00:01 PM Interpretation: Performing Lab:[facility], [address] [place] [address] Notes/Report: Thyroid Stimulating Hormone 1.18 0.32-4.0 uIU/mL TSH 3rd Generation ([facility]) Reason For Referral Reason Urgent Appointment R equest Evaluate and Treat Thyroid Nodule Recommending Biospy Diagnosis 1 Thyroid nodule (E04. 1) Referral Organization Anoop Austin III, MD Referring Provider First Name Anoop Referring Provider Last Name Geovanna Referring Provider Speciality Internal M edicine Referred Provider [facility] Referred Provider Specialty Endocrinolog y General Notes Aisha Nicole 02/05/2025 03:57:06 PM > Referral, progress note, US and CT faxed, Aisha Nicole 02/11/2025 02:56:08 PM >Office received referral. Patient needs to have TSH and Free T4 lab done prior to scheduling patient. Patient was made aware and had the labs faxed to Outpatient booking to have the lab work completed tomorrow.Bonnie Amber 02/13/2025 11:19:49 AM > Endocrine has received TSH and Free T4 labs. They will be reaching out to patient today to schedule. Referral Priority Urgent Referral Appointment Date 02/21/2025 Reason evaluate and treatme nt for thyroid nodule Thyroid nodule biopsy needed Diagnosis 1 Right thyroid nodule (E04.1) Referral Organization Anoop Austin III, MD Referring Provider First Name Anoop Referring Provider Last Name Geovanna Referring Provider Speciality Internal M edicine Referred Provider Tristen Hare Referred Provider Specialty Endocrinolog y Referral Priority Routine Medications Medication SIG (Take, [...] NEEDED FOR BEE STINGS Injection DIRECTED Active Incruse Ellipta 62.5 MCG/ACT 1 puff [...] Problem Status W/U Status Risk Notes Problem 8089341 Former smoker (Z87.891) Active confirmed We made a plan on how to prevent relapse and times of stress and illness. He seems highly motivated not to smoke. Problem 203501977 Obesity (E66.9) Active confirmed His body mass index is stable at 33. We discussed his diet and nutrition today. We made a plan to lose weight at a rate of one half of a pound per week. 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 He has been referred to urology. Problem Benign prostatic hyperplasia (742380688) BPH (benign prostatic hyperplasia) (N40.0) Active confirmed His prostatism is sttable and once a night. We have reviewed lifestyle modifications to reduce nocturia. Problem 80975587 Tobacco dependence (F17.200) Active confirmed He says he continues to smoke about 2 cigarettes per day. We have discussed his previous and current tobacco cessation efforts.He is currently slightly hypoxic with oxygen saturation 91 which caused today's colonoscopy to be postponed. I have given him a prescription for an antibiotic and prednisone. Problem 66364716 COPD (chronic obstructive pulmonary disease) (J44.9) Active confirmed He continue s to be abstinent from cigarettes. He recently had acute on chronic bronchitis with green phlegm, but this is clearing now. He is becoming stronger. No change in his therapy was indicated. Problem 351060049 Pulmonary nodule (R91.1) Active confirmed He has a PET negative right lung mass that has increased in size. He is seeing a thoracic surgeon in exploring his options. These so far have been excision, FNA or observaation for 3 mmonths with a repeat CT scan. He is in the process of deciding. Problem 492419211 Thyroid nodule (E04.1) Active confirmed He has cereals screening CT scan of the chest because of a smoking history. He is being evaluated now for a pulmonary nodule that is suspicious but PET negative. He had a PET CT scan October 01, 2024 at [facility] that showed the pulmonary nodule to be PET negative but he had a solitary partially calcified 1 cm right isthmus thyroid nodule. He is being referred to endocrinology for evaluation of thiis nodule, which was moderately PET positive. Problem 89963039 Other and unspecified hyperlipidemia (E78.5) Active confirmed His lipids are being checked periodically. No change in his regimen was necessary today. Problem 70732356 Sleep apnea (G47.30) Active confirmed He is not using a CPAP machine and declines offer of providing it. He deferred a decision about whether or not to have this new sleep study Problem 714416235 Other osteoarthritis involving multiple joints (M15.8) Active confirmed The arthritis in his hands has become mild and he is working full-time without difficulty. His main complaint today is right shoulder pain. He is be treated with ibuprofen. Problem 72593543 Pulmonary emphysema, unspecified emphysema type (J43.9) Active confirmed He is comfortable breathing at rest but has some dyspnea with exertion. This is improving. He is no longer smoking cigarettes. Problem 496723302 Renal cyst (N28.1) Active confirmed On August 04, 2022. An ultrasound was done of his kidneys in followup of the detection of a mass in the right kidney on screening CT scan. The ultrasound done August 04 shows 32.3 cm simple benign cyst. It will be followed. 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 Since [...] Provider Diagnosis Anoop Austin III, MD [address] [place] [address] [address] [place], [place] [address] 09/13/2024 Anoop Austin Other and unspecifie d hyperlipidemia E78.5 ; COPD (chronic obstructive pulmonary disease) J44.9 ; Obesity E66.9 ; Anorgasmia of male F52.32 ; BPH (benign prostatic hyperplasia) N40.0 ; Sleep apnea G47.30 ; Tobacco dependence F17.200 and Pulmonary emphysema, unspecified emphysema type J43.9 Anoop Austin III, MD [address] [place] [address] [place] [address] 09/16/2024 Anoop Austin Acute bronchitis, unspecified organism J20.9 ; Other and unspecified hyperlipidemia E78.5 ; Other osteoarthritis involving multiple joints M15.8 ; Obesity E66.9 ; Sleep apnea G47.30 and Tobacco dependence F17.200 Anoop Austin III, MD [address] [place] [address] [place] [address] 10/21/2024 Anoop Austin Other and unspecifie d hyperlipidemia E78.5 ; COPD (chronic obstructive pulmonary disease) J44.9 ; Other osteoarthritis involving multiple joints M15.8 ; Obesity E66.9 ; Sleep apnea G47.30 ; BPH (benign prostatic hyperplasia) N40.0 ; Pulmonary emphysema, unspecified emphysema type J43.9 ; Right thyroid nodule E04.1 ; Former smoker Z87.891 and Pulmonary nodule R91.1 Anoop Austin III, MD [address] [place] [address] [place] [address] 02/03/2025 Anoop Austin Pulmonary nodule R91 .1 ; Obesity E66.9 ; Former smoker Z87.891 ; Other and unspecified hyperlipidemia E78.5 ; Other osteoarthritis involving multiple joints M15.8 ; COPD (chronic obstructive pulmonary disease) J44.9 ; Pulmonary emphysema, unspecified emphysema type J43.9 and Thyroid nodule E04.1 Anoop Austin III, MD [address] [place] [address] [place] [address] 03/31/2025 Anoop Austin III, MD [address] [place] [address] [place] [address] 05/24/2024 Anoop Austin III, MD [address] [place] [address] [place] [address] 07/12/2024 Anoop Austin III, MD [address] [place] [address] [place] [address] 07/12/2024 Anoop Austin III, MD [address] [place] [address] [place] [address] 07/15/2024 Anoop Austin Obesity E66.9 ; BPH (benign prostatic hyperplasia) N40.0 and COPD (chronic obstructive pulmonary disease) J44.9 Anoop Austin III, MD [address] [place] [address] [place] [address] 10/02/2024 Anoop Austin III, MD [address] [place] [address] [place] [address] 01/14/2025 Anoop Austin III, MD [address] [place] [address] [place] [address] 01/17/2025 Anoop Austin III, MD [address] [place] [address] [address] [place] [address] 02/07/2025 Anoop Austin III, MD [address] [place] [address] [address] [place] [address] 03/07/2025 Anoop Austin Assessments Encounter Date Diagnosis (ICD [...] PET CT scan October 01, 2024 at [facility] that showed the pulmonary nodule to [...] C) 07/15/2024 PROFILE, FASTING (COMPREHENSIVE METABOLI C) 09/09/2016 PROFILE, FASTING (COMPREHENSIVE METABOLI C) 02/24/2022 PROFILE, FASTING (COMPREHENSIVE METABOLI C) 02/03/2020 PROFILE, FASTING (COMPREHENSIVE METABOLI C) 06/21/2019 PROFILE, FASTING (COMPREHENSIVE METABOLI C) 09/13/2024 PROFILE, FASTING (COMPREHENSIVE METABOLI C) 10/06/2017 LIPID PANEL 10/06/2017 LIPID PANEL 09/09/2016 LIPID PANEL 02/03/2020 LIPID PANEL 06/21/2019 TSH (THYROID STIMULATING HORMONE) 2024 PSA, TOTAL 06/21/2019 PSA, TOTAL 10/06/2017 PSA, TOTAL 07/15/2024 PSA, TOTAL 02/24/2022 PSA, TOTAL 09/09/2016 PSA, TOTAL 02/03/2020 PSA, TOTAL 09/13/2024 CBC w DIFF 02/03/2020 CBC w DIFF 09/13/2024 CBC w DIFF 06/21/2019 CBC w DIFF 10/06/2017 CBC w DIFF 07/15/2024 CBC w DIFF 02/24/2022 CBC w DIFF 09/09/2016 LYME DISEASE IgG/IgM WB 08/30/2017 SCREENING COLONOSCOPY 10/18/2024 XR CHEST 2 VIEW PA & LAT 02/03/2020 PFT with DLCO 03/23/2022 Lipid Panel 09/13/2024 Lipid Panel 07/15/2024 Lipid Panel 02/24/2022 PSA Free and Total 10/21/2024 Vitamin D 25-OH Total 02/24/2022 Free T4 (Free Thyroxine) 10/21/2024 Next Appt Details Provider Name:Anoop Austin , 10/24/2025 03:00:00 PM, [address] [place] [address] [address]TON[address], [place], [address], Insurance Providers Payer Name Payer Address Payer Phone Subscriber Number Group Number Insured Name Patient Relationship to Insured Coverage Start Date Coverage End Date [facility] [address] [place], [place] [id number] [phone] [id number] Ana quintana Fabio Self - patient is the insured Medical (General) History Medical History History ICD Code fracture of arm,leg,clavicle osteoarthritis hyperlipidemia sleep apnea COPD plantar wart right foot tobacco dependence obesity colonic polyps, Dr. Grove, tubular ad enoma COPD Emphysema Surgical History Surgery Date(Month/Year) Colonoscopy 10/18/2024 right hand surgery 10/2019 colonoscopy 2016
--- OUTSIDE RECORDS SUMMARY | 2025-04-01 18:48 | XMS_ITS | Clinical Summary ---
Author Organization [facility] Address [address] [address] Phone Care Team Providers Care Senior Java Architect Name Role Phone Anoop Austin MD Primary Care Provider [phone] Allergies Active Allergy Reactions Criticality Noted Date [...] 2010 ZOSTER VACCINES (1 of 2) 2015 INFLUENZA VACCINE (#1) 2025 COVID-19 VACCINE (3 - 2024-2 6 season) 2025 09/11/2020, 08/19/2020 Adult Td,Tdap Booster 09/30/2029 10/01/2019 RSV VACCINE (1 - 1-dose 75+ series) 2040 HEPATITIS A VACCINES Aged Out No long [...] topic Medical Devices Not on file Insurance [facility] H[facility] POS Care Teams Senior Java Architect Relationship Specialty Start Date End Date Anoop Austin MD [address] [place] [address] [place] [address] PCP - General Medical Oncology 10/12/19 Additional Source Comments The information contained in this document represents components of the legal health record. It is not the complete legal health record.[facility]
--- OUTSIDE RECORDS SUMMARY | 2025-04-01 18:50 | XMS_ITS | Encounter Summary ---
Author Organization [facility] Address [address] [place] [address] Care Team Providers Care Glaze Handler Name Role Phone Anoop Austin MD Primary Care Provider [phone] Encounter Details Date Type Department Care Team ([facility] st Contact Info) Description 03/10/2025 Telephone Thoracic Surgery - [place] [address] [facility] [address] [place] [phone] Sundar Haas MD [address] [facility] [address] [place] [address] Social History Tobacco Use Types Packs/Day Years Used Date Smoking Tobacco: Every Day Cigarettes Started: 1980 Cigars Smokeless Tobacco: Never Comments:Pt states smokes 3- 4 Black and Mild Cigars daily Alcohol Use [...] on file Sexual Orientation Not on file documented as of this encounter Progress Notes * Tereso Vail - 03/10/2025 2:17 PM EDT Patient called in concern to the results of the surgery he had with Dr. Haas last week, Can I book with SARAH for this week? documented in this encounter Plan of Treatment Not on file documented as of this encounter Visit Diagnoses Not on filedocumented in this encounter Care Teams Glaze Handler Relationship Specialty Start Date End Date Anoop Austin MD [address] [address] PCP - General Primary Care 01/24/25 documented as of this encounter
--- OUTSIDE RECORDS SUMMARY | 2025-04-01 18:50 | XMS_ITS | Patient Health Record ---
Author Organization [facility] Address [address] [place] [phone] Care Team Providers Care Sports Instructor Name Role Phone Geovanna DEAN, Anoop Primary Care Provider Unavailab le Flako Grove Jr Unavailable Allergies Allergen (clinical drug ingredient) Drug/Non Drug Allergy documented on EMR Reaction Allergy Type Onset Date Status bees (uncoded) Unknown Allergy Activ e Results Component Value Reference Range Notes Pathology Reviewed date:10/24/2024 10:46:41 AM Interpretation: Performing Lab:[facility], [address] [place] [phone] Notes/Report: Reason For Referral Referring Provider First Name Anoop Referring Provider Last Name Geovanna Referring Provider Speciality Oncology Referred Organization [facility] Referred Provider Flako Grove Jr Referred Address [address] [place] [address], ite [address] [place] [phone], Referred Provider Specialty Gastroentero logy Referral Priority Routine Medications Medication SIG (Take, Route, Frequency, Duration) Notes Start Date End Date Status MiraLax (colon prep) 17 GM/SCOOP mixed with Gatorade or Crystal Light Orally begin at 5:00 p.m. the day before the procedure; Duration: 1 day 08/01/2024 Active Finasteride 5 MG TAKE 1 TABLET BY MOUTH EVERY MORNING Oral; Duration: 90 N401,Unavailabl e Active Fluticasone-Salmeterol 500-50 MCG/ACT Inhalation; Duration: 30 Active Incruse Ellipta 62.5 MCG/ACT INHALE 1 PUFF BY MOUTH DAILY Inhalation; Duration: 30 J449,Unavailabl e Active Tamsulosin HCl 0.4 MG TAKE 2 CAPSULES BY MOUTH EVERY DAY Oral; Duration: 30 Active Immunizations Vaccine Route Administration Date [...] Problem Status W/U Status Risk Notes Problem Colon cancer screening (889963159) Colon cancer screening (Z12.11) Active confirmed Problem History of polyp of colon (situation) (680241120) Personal history of colonic polyps (Z86.010) Active confirmed Problem Pre-procedure evaluation check (120570886) Encounter for other preprocedural examination (Z01.818) Active confirmed Problem Diverticulitis (36884938) Diverticulitis (K57.92) Active confirmed Vital Signs Blood pressure diastolic 11 mm Hg 08/01/2024 Height 73.5 in 08/01/2024 Blood pressure systolic 111 mm Hg 08/01/2024 Weight 234 lbs 08/01/2024 BMI 30.45 kg/m2 08/01/2024 Encounters Encounter Location Date Provider Diagnosis [facility] [address] [address] [place], [place] [id number] 10/18/2024 Flako Grove Jr Colon cancer screening Z12.11 ; Personal history of adenomatous and serrated colon polyps Z86.0101 and Colon polyps K63.5 [facility] [address] [place] [phone] 08/01/2024 Flako Grove Jr Colon cancer screening Z12.11 and Diverticulitis K57.92 [facility] [address] [place] [phone] 09/19/2024 Flako Grove Jr [facility] [address] [place] [address] 10/24/2024 Flako Grove Jr Assessments Encounter Date [...] Insured Coverage Start Date Coverage End Date [facility] [employer] [address] [place] [address] [id number] RUEL OLIVARES Self - patient is the insured Medical (General) History Medical History History ICD Code Colonoscopy 05/30, normal, five-year fol lowup for prior history of adenomas. COPD BPH Surgical History Surgery Date(Month/Year)
--- OUTSIDE RECORDS SUMMARY | 2025-04-01 18:50 | XMS_ITS | Patient Health Record ---
Author Organization [facility] Address [address] [place] [address] Care Team Providers Care Headlight Assembler Name Role Phone Anoop Austin MD Primary Care Provider UnavailZahra Blackburn Unavailable [phone] Allergies Allergen (clinical drug ingredient) Drug/Non Drug Allergy documented on EMR Reaction Allergy Type Onset Date Status bee sting Unknown Drug Allergy Active Reason For Referral No Information Problems No Known Problems Plan Of Treatment Pending Test Test Name Order Date [id number] Destruction, 1-14 06/23/2015 [id number]- Debride <25 sq cm 06/23/2015 Insurance Providers Payer Name Payer Address Payer Phone Subscriber Number Group Number Insured Name Patient Relationship to Insured Coverage Start Date Coverage End Date [facility] [address] [place] [address] [phone] [id number] Fabio Aragon Self - patient is the insured
== END 2025-04-01 14:32 | disposition home or self-care (01) ==
LOC: HO.HPS 14:00
PROVIDERS: PCP Internal Medicine Medical Oncology; Visit Provider Internal Medicine
DX: J44.9 Chronic obstructive pulmonary disease, unspecified (principal); F17.210 Nicotine dependence, cigarettes, uncomplicated; R91.8 Other nonspecific abnormal finding of lung field
CPT/HCPCS: 99213